=== PATIENT | female | born 1945 | race Caucasian/White ===

== ENCOUNTER → 2017-11-14 09:00 | Outpatient (CLI) | payer MEDICARE, OTHER, SELFPAY | PROVIDERS: PCP Nurse Practitioner Family; Visit Provider Orthopaedic Surgery | DX: Z47.1 Aftercare following joint replacement surgery (principal); Z96.652 Presence of left artificial knee joint; I10 Essential (primary) hypertension | CPT/HCPCS: 99213 ==

== ENCOUNTER → 2018-11-13 08:39 | Outpatient (BNVA) | payer MEDICARE, OTHER, SELFPAY | PROVIDERS: PCP Nurse Practitioner Family; Visit Provider Orthopaedic Surgery | DX: Z47.1 Aftercare following joint replacement surgery (principal); Z96.652 Presence of left artificial knee joint; R20.0 Anesthesia of skin | CPT/HCPCS: 99213 ==

== ENCOUNTER 2020-06-10 03:33 | Outpatient (CLI) | payer MEDICARE, OTHER, SELFPAY ==
--- NOTE | 2020-06-10 14:28 | DI.MAMMO_ITS ---
EXAM: MG MAMMO SCREENING 60 MIN DUR CLINICAL HISTORY: SCREENING, PERSONAL H/O BREAST CA,Z85.3 TECHNIQUE: Mammograms were interpreted according to the usual protocol including computer analysis w [employer] CAD system, tomosynthesis and C-view imaging. COMPARISON: 2011 through 2017 FINDINGS: The breasts are composed of scattered fibroglandular densities, Breast Density category B. No suspicious masses or suspicious microcalcifications are seen. There has been interval decrease in size in the area of post lumpectomy scarring when compared with the previous exam. Coarse benign ca lcifications are again noted in the right breast. A biopsy marker clip is seen in the subareolar reg ion. No skin thickening or abnormal axillary lymph nodes are seen. The left breast shows no evidence of mass, suspicious calcifications or changes. IMPRESSION: BI-RADS Cat 2 - Benign FindingsCategory 1, Negative mammogram Yearly screening mammography is recommended. Breast Density - Category B, scattered fibroglandular densities. A negative radiographic report should not delay biopsy if a dominant or clinically suspicious mass is present. Up to ten percent of cancers are not identified on mammography. A negative report may reinforce clinical impression. Adenosis and dense breasts may obscure an underlying neoplasm. False positive reports average 6 to 10%. Patient will receive a letter notifying them of these results.
== END 2020-06-10 03:53 ==
PROVIDERS: PCP Nurse Practitioner Family; Visit Provider Nurse Practitioner Family
DX: Z12.31 Encounter for screening mammogram for malignant neoplasm of breast (principal); Z85.3 Personal history of malignant neoplasm of breast
CPT/HCPCS: 77063; 77067

== ENCOUNTER 2020-11-02 02:52 | Outpatient (CLI) | payer MEDICARE, OTHER, SELFPAY ==
--- NOTE | 2020-11-02 | DI.US_ITS ---
Exam(s) US SOFT TISSUE EXTREMITY EXAM: US SOFT TISSUE EXTREMITY CLINICAL HISTORY: LOCALIZED SWELLING,RT LEG,R22.42. TECHNIQUE: Ultrasound was performed using standard protocol. COMPARISON: No exams were available for comparison FINDINGS: Sonographic assessment utilizing grayscale and color Doppler imaging was performed and targeted to th e area of clinical concern. The patient notes a prior tractor accident. The palpable abnormality corresponds to a 5.2 x 2.8 x 4.4 centimeter fluid collection which could be posttraumatic. DATA REPOSITORY:
== END 2020-11-02 03:12 ==
PROVIDERS: PCP Nurse Practitioner Family; Visit Provider Physician Assistant Medical
DX: R22.42 Localized swelling, mass and lump, left lower limb (principal)
CPT/HCPCS: 76881

== ENCOUNTER → 2020-11-15 13:44 | Outpatient (BNVA) | payer MEDICARE, OTHER, SELFPAY | PROVIDERS: PCP Nurse Practitioner Family; Referring Provider Nurse Practitioner Family; Visit Provider Surgery | DX: T79.2XXA Traumatic secondary and recurrent hemorrhage and seroma, initial encounter (principal); X58.XXXA Exposure to other specified factors, initial encounter | CPT/HCPCS: 10160; 99202; 99213 ==

== ENCOUNTER → 2020-11-22 13:51 | Outpatient (BNVA) | payer MEDICARE, OTHER, SELFPAY | PROVIDERS: PCP Nurse Practitioner Family; Referring Provider Nurse Practitioner Family; Visit Provider Surgery | DX: S70.11XA Contusion of right thigh, initial encounter (principal); X58.XXXA Exposure to other specified factors, initial encounter | CPT/HCPCS: 99213 ==

== ENCOUNTER 2020-12-06 02:03 | Outpatient (CLI) | payer MEDICARE, OTHER, SELFPAY ==
[2020-12-06 11:15] LABS: Source Nasal/Nares
[2020-12-06 14:14] LABS: COVID-19 PCR Negative (Negative)
== END 2020-12-06 02:04 | disposition home or self-care (01) ==
LOC: LBO 02:04
PROVIDERS: PCP Nurse Practitioner Family; Visit Provider Surgery
DX: Z20.822 Contact with and (suspected) exposure to COVID-19 (principal); Z01.818 Encounter for other preprocedural examination
CPT/HCPCS: 87635

== ENCOUNTER 2020-12-08 17:40 | Outpatient (REF) | payer MEDICARE, OTHER, SELFPAY ==
[2020-12-08 15:45] LABS: Anion Gap 7.7 mmol/L (3-11); BUN 22 mg/dL (7-18); CO2 31.3 mmol/L (21.0-32.0); CREATININE 1.1 mg/dL (0.55-1.02); Calcium 9.7 mg/dL (8.5-10.1); Chloride 104 mmol/L (98-107); Estimated GFR 48.55 (mL/min/1.73m2); Glucose 82 mg/dL (74-106); Potassium 3.6 mmol/L (3.5-5.1); Sodium 143 mmol/L (136-145)
== END 2020-12-08 17:41 | disposition home or self-care (01) ==
LOC: NCHCN 17:40
PROVIDERS: PCP Nurse Practitioner Family; Visit Provider Nurse Practitioner Family
DX: I10 Essential (primary) hypertension (principal)
CPT/HCPCS: 80048

== ENCOUNTER 2020-12-20 03:23 | Outpatient (CLI) | payer MEDICARE, OTHER, SELFPAY ==
[2020-12-20 09:04] LABS: Source Nasal/Nares
[2020-12-20 12:42] LABS: COVID-19 PCR Negative (Negative)
== END 2020-12-20 03:24 | disposition home or self-care (01) ==
PROVIDERS: PCP Nurse Practitioner Family; Visit Provider Surgery
DX: Z20.822 Contact with and (suspected) exposure to COVID-19 (principal); Z01.818 Encounter for other preprocedural examination
CPT/HCPCS: 87635

== ENCOUNTER 2020-12-21 07:03 | Day surgery (SDC) | payer MEDICARE, OTHER, SELFPAY ==
[2020-12-21] VITALS (8 sets, daily range): BP systolic 83–139; BP diastolic 42–80; PULSE 68–84; RESP 12–16; TEMP 36.3–36.6; O2SAT 95–100; BMI 38.7
--- NOTE | 2020-12-21 06:59 | W.ANESPRE ---
General Info Date of Service Date Performed: 12/21/20 Height: 4 ft 10 in Weight: 84.085 kg Body Mass Index (BMI): 38.7 Surgical Procedure: Operation Date: 12/21/20 08:40 Proposed Procedures Side Surgeon p evacuation of rt inner thigh hematoma Lenora Evans MD Meds Allergies and Home Medications Allergies Allergy/AdvReac Type Severity Reaction Status Date / Time No Known Drug Allergies Allergy Unverified 12/21/20 07:21 Home Medication Medication Instructions Recorded calcium citrate-vitamin D2 1 ea PO DAILY 04/07/15 cyanocobalamin (vitamin B-12) 1,000 mcg PO DAILY 04/07/15 [id number]-eihnywkj-kefghm 1 ea PO DAILY 04/07/15 [Vision Plus Lutein Vitamin Tab] ascorbate calcium (vitamin C) 500 mg PO DAILY 11/07/15 cetirizine [Allergy] 10 mg PO DAILY 11/07/15 zxfxbhfl-rtok-UM-calcium-mins 1 ea PO DAILY 11/07/15 [Women's Daily Caplet] amlodipine 5 mg tablet 5 mg PO DAILY 11/09/20 aspirin 81 mg chewable tablet 81 mg PO DAILY 11/09/20 cholecalciferol (vitamin D3) 50 50 mcg PO DAILY 11/09/20 mcg (2,000 unit) capsule hydrochlorothiazide 25 mg tablet 25 mg PO DAILY 11/09/20 Current Visit Medications: Current Medications Generic Name Dose Route Start Last Admin Trade Name Freq PRN Reason Stop Dose Admin Ringer's Solution 1,000 mls @ 80 mls/hr 12/21/20 06:00 IV 01/19/21 23:59 INFUSION CLARI IV Miscellaneous Supplies 1 each 12/21/20 06:00 Iv Access IV 01/19/21 23:59 DIRECTED CLARI Sodium Chloride 0 ml 12/21/20 06:00 Normal Saline Flush 10 Ml Syr IV 01/19/21 23:59 PRN PRN Sodium Chloride 0 ml 12/21/20 06:00 Normal Saline 10 Ml Vial IJ 01/19/21 23:59 DIRECTED PRN Sterile Water 0 ml 12/21/20 06:00 Water,Injection,Sterile 10 Ml Vial IJ 01/19/21 23:59 DIRECTED PRN PFSH Active Problems Active Problems: Problem Status Onset Code Hematoma T14.8XXA Status post total knee replacement, left 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 Medical History Medical History Bakers cyst Breast cancer Hematoma Hypertension Localized swelling of lower leg Varicose vein of leg Surgical History Surgical History History of left knee replacement Tobacco Smoking/Tobacco Use Status: Former Tobacco Use Alcohol Alcohol Intake: never Substance Use Substance use: Never Substance use type: does not use Vital Signs and Lab Results Lab Results Blood Type / Crossmatch: No Data to Display Complete Blood Count: No Data to Display Complete Metabolic Panel: Sodium Level 143 mmol/L (136-145) 12/08/20 08:47 12/08/20 Potassium Level 3.6 mmol/L (3.5-5.1) 12/08/20 08:47 12/08/20 Chloride Level 104 mmol/L (98-107) 12/08/20 08:47 12/08/20 Carbon Dioxide Level 31.3 mmol/L (21.0-32.0) 12/08/20 08:47 12/08/20 Blood Urea Nitrogen 22 mg/dL (7-18) H 12/08/20 08:47 12/08/20 Creatinine 1.1 mg/dL (0.55-1.02) H 12/08/20 08:47 12/08/20 Estimated GFR/1.73 m2 48.55 (mL/min/1.73m2) 12/08/20 08:47 12/08/20 Calcium Level 9.7 mg/dL (8.5-10.1) 12/08/20 08:47 12/08/20 Glucose Level 82 mg/dL (74-106) 12/08/20 08:47 12/08/20 Liver Function Panel: No Data to Display Coagulation Panel: No Data to Display Cardiac Panel: No Data to Display Arterial Blood Gas: No Data to Display Venous Blood Gas: No Data to Display Pancreas Panel: No Data to Display Thyroid Panel: No Data to Display Infectious Disease: Coronavirus (COVID-19)(PCR) Negative (Negative) 12/20/20 08:46 12/20/20 Coronavirus 2019 Source Nasal/Nares 12/20/20 08:46 12/20/20 Blood Cultures: No Data to Display Toxicology Panel: No Data to Display Anesthesia Assessment and Plan Anesthesia History Personal History: No History of Anesthesia Complications Family History: No Family History of Anesthesia Complications Exercise Tolerance Exercise Tolerance: Metabolic Equivalents>4 Pertinent Negatives Pertinent Negatives: No Symptoms of GERD, No Major Cardiovascular Symptoms or Complaints, No Major Pulmonary Symptoms or Complaints and No History of CVA/TIA Cardiac & Pulmonary Exam Cardiac Exam: Normal S1/S2 Heart Sounds Pulmonary Exam: Clear Bilateral Breath Sounds Airway Exam Known Difficult Airway: No Mallampati Class: 2 Mouth Opening: Normal (> 3cm) Thyromental Distance: Greater than 3 cm Neck Range of Motion: Full ROM Neck Circumference: Normal Teeth Condition: Normal Dentition, Removable Dentures/Plates Upper and Removable Dentures/Plates Lower ASA Classification ASA Score: ASA 2 Emergency Case?: No NPO Status NPO Status: NPO Clears >2 hours, Solids >8 hours Anesthesia Plan Resuscitation Status: Full Code Anesthesia Technique: General Anesthesia Airway Planned: Natural Airway Monitors Used: Standard Monitors
--- NOTE | 2020-12-21 07:08 | W.PM.OP ---
Date of service: 12/21/20 Time of Service: 11:11 Operative Note Operative Note DATE OF PROCEDURE: 12/21/20 PRE-OP DIAGNOSIS: Hematoma right thigh POST-OP DIAGNOSIS: other (5 cm cyst with serous fluid) PROCEDURE: Excision of cyst capsule SURGEON: Lenora Evnas ANESTHESIA TYPE: Local By Surgeon and General:No Airway Refer to Anesthesia Record ESTIMATED BLOOD LOSS: 25 PATHOLOGY: other (cyst capsule) COMPLICATIONS: None Patient was transported to: same day Patient's condition: stable Indications: Unfortunately Ashlyn has now developed a hematoma at the site of the seroma. We discussed 2 options. The first is to just leave the area alone and her body will reabsorb the blood over time. This may take a few months. I also explained to Ashlyn that I do not think that her right knee pain has anything to do with the seroma or now the hematoma. Her's second option is to have the hematoma surgically evacuated. I would want to do this in the operating room so that I would have cautery to make sure that it is nice and dry and she does not develop another hematoma afterwards. She would like to proceed with surgical evacuation of the hematoma. After she has healed from this if she continues to complain of right knee pain I will get some x-rays and refer her to orthopedics. Risks benefits and complications of the procedure were reviewed with her. Complications include but are not limited to infection, seroma or hematoma formation, wound dehiscence. Her questions were answered to her satisfaction and she wished to proceed. Proceed with evacuation of right inner thigh hematoma. Findings: 5 cm cyst attached to the vastus internus Procedure Description: After informed consent was obtained the patient was placed Taken to the Operating room and placed in a supine position. Her right leg was flexed and a towel was placed under her knee. The patient was placed under deep sedation by anesthesia. A time out was done. The patients name, , procedure to be performed and site, allergies to medications, antibiotic prophilaxis were reviewed. Fire risk was assessed. The skin was then prepped and draped in a sterile surgical fashion. Exparel mixed 50/50 with 0.5% Bupivocaine with epi was injected over the palpable hematoma. An incision was made with a 15 blade. Dissection was done down to a capsule with cautery. The capsule was opened and there was serous fluid. The capsule was then dissected out with cautery. The capsule was noted to be attached to the vastus internus. No communication was noted with the knee joint. The capsule was sent to pathology. The wound was irrigated and dried. There was a small amount of bleeding and this was stopped with cautery. Floseal was then placed into the cavity. The subcutaneous tissue was re-approximated with 3-0 Vicryl interrupted sutures. The dermis was closed with a running 4-0 Vicryl suture. Skin was cleaned and dried and mastasol and steri-strips were applied. 4x4 were applied and secured with tape. The patient tolerated the procedure well and there were no immediate complications. Needle and sponge counts were correct at the end of the case.
--- NOTE | 2020-12-21 07:09 | W.PM.DSUDISC ---
Discharge Plan Disposition Patient Disposition: HOME Condition: Good Discharge Details Reason For Visit: Evacuation of hematoma Attending Provider: Lenora Evans Primary Care Provider: Zoe Valadez Home Meds and New Rx's Prescriptions: Continued cyanocobalamin (vitamin B-12) 1,000 MCG tablet 1,000 mcg PO DAILY RF: 0 calcium citrate-vitamin D2 1 EACH tablet 1 ea PO DAILY RF: 0 Vision Plus Lutein 1 EACH tablet 1 ea PO DAILY RF: 0 hydrochlorothiazide 25 mg tablet 25 mg PO DAILY RF: 0 cholecalciferol (vitamin D3) 50 mcg (2,000 unit) capsule 50 mcg PO DAILY RF: 0 amlodipine 5 mg tablet 5 mg PO DAILY RF: 0 aspirin 81 mg tablet,chewable 81 mg PO DAILY RF: 0 cetirizine [Allergy Relief (cetirizine)] 10 MG tablet 10 mg PO DAILY RF: 0 ascorbate calcium (vitamin C) 500 MG tablet 500 mg PO DAILY RF: 0 Women's Daily Caplet 1 EACH tablet 1 ea PO DAILY RF: 0 Discharge Instructions Additional Instructions: Activity at Home after surgery: 1. As tolerated Diet, Nutrition, & wound healin. As tolerated Pain Medications: 1. Tylenol 650mg every 6 hours as needed and Ibuprofen 600 mg every 6 hours as needed. You may alternate between the 2 medications every 3 hours 2. If a narcotic has been prescribed take as directed only for breakthrough pain For Constipation: 1. Take Milk of Magnesia or MiraLax as needed for constipation Other: 1. You may shower daily. Do not scrub the incisions 2. Do not soak the incisions for 1 week 3. You may alternate ice and heat as needed for pain and swelling Wound Care: 1. Keep the incisions clean and dry Please call our office if you develop: 1. Fevers >101.5 2. Nausea or Vomiting 3. Worsening pain 4. Redness and thick discharge from the wounds If after hours please call the Hospital at and ask to speak to the on-call surgeon Referrals: Lenora Evans MD [ [facility] STAFF PHYSICIAN] - 12/23/20 9:00 am Activity:: Activity as Tolerated Diet:: As Tolerated Discharge Orders Discharge Orders: Discharge Order (Routine); Ordered 12/21/20 Ordered By: Lenora Evans
[2020-12-21] MEDS: Lactated Ringers 1,000 ML 80 ML IV (08:00)
--- NOTE | 2020-12-21 09:15 | SOFT_PTH ---
PATIENT: Ashlyn Kenny LOC: [facility] U#:[id number] AGE/SX: 75/F ROOM: RE12/21/[address]: Lenora Evans MD : 1945 BED: DIS: 12/21/2020 SPEC #: [id number] RECD: 12/21/20 12:47 STATUS: PEPPER RELinda #: [id number] CHAD: 12/21/20 09:[address]: Lenora Evans DEPT: Surgical Specimen RECD BY: Michelle Velasquez ENTERED: 12/21/20 12:48 SP TYPE: SOFT OTHR DR: Zoe Valadez Tissues: 1 - SOFT TISSUE-CYST(NOT LIPOMA) Procedures: GROSS AND MICRO LEVEL 3 Comments: [id number]
--- NOTE | 2020-12-21 10:53 | W.ANESPOSTOP ---
Postoperative Evaluation Date, Time and Location Date Performed: 12/21/20 Time Performed: 10:29 Patient Location: PACU Vital Signs Most Recent Imported Vital Signs: Most Recent Vital Signs Temp Pulse Resp BP Pulse Ox 36.6 C 74 16 113/69 95 12/21/20 10:29 12/21/20 10:12/21/20 10:12/21/20 10:12/21/20 10:29 Pain Score Most Recent Pain Score: Most Recent Pain Score Pain Level 0 12/21/20 10:29 Assessment Mental Status: Awake (Alert & Oriented to Patient Baseline) Airway and Respiratory Function: Patent airway with normal (patient baseline) respiratory exam Cardiovascular Function: Hemodynamically Stable Hydration Status: Adequately Hydrated Nausea & Vomiting: No Nausea or Vomiting Pain: Pt. Denies Any Pain Peripheral Nerve Block: Patient did not receive a nerve block
== END 2020-12-21 11:25 | disposition home or self-care (01) ==
PROVIDERS: PCP Nurse Practitioner Family; Visit Provider Surgery
PROC: (CPT 27327; principal; 2020-12-21 08:30)
DX: M62.89 Other specified disorders of muscle (principal); I10 Essential (primary) hypertension; Z96.652 Presence of left artificial knee joint
CPT/HCPCS: 27327; 88305; 88304; J0690; J1100; J2001; J2405

== ENCOUNTER → 2020-12-23 08:50 | Outpatient (BNVA) | payer MEDICARE, OTHER, SELFPAY | PROVIDERS: PCP Nurse Practitioner Family; Referring Provider Nurse Practitioner Family; Visit Provider Surgery | DX: Z48.817 Encounter for surgical aftercare following surgery on the skin and subcutaneous tissue (principal) ==

== ENCOUNTER → 2020-12-30 07:39 | Outpatient (BNVA) | payer MEDICARE, OTHER, SELFPAY | PROVIDERS: PCP Nurse Practitioner Family; Referring Provider Nurse Practitioner Family; Visit Provider Physical Therapy Assistant | DX: Z48.817 Encounter for surgical aftercare following surgery on the skin and subcutaneous tissue (principal) ==

== ENCOUNTER → 2021-01-06 08:07 | Outpatient (BNVA) | payer MEDICARE, OTHER, SELFPAY | PROVIDERS: PCP Nurse Practitioner Family; Referring Provider Nurse Practitioner Family; Visit Provider Surgery | DX: Z48.817 Encounter for surgical aftercare following surgery on the skin and subcutaneous tissue (principal) ==

== ENCOUNTER 2021-02-06 16:51 | Emergency (ER) | payer MEDICARE, OTHER, SELFPAY ==
[2021-02-06 16:57] VITALS: BP 151/58; PULSE 72; RESP 18; TEMP 36.4; O2SAT 96
--- NOTE | 2021-02-06 17:08 | ED.GENADUL_ITS ---
Discharge Plan Disposition Patient Disposition: HOME Condition: Stable Discharge Details Clinical Impression: Accumulation of fluid in tissues, Cellulitis Primary Care Provider: Zoe Valadez ED Provider: Cele Mahmood Home Meds and New Rx's Prescriptions: New cephalexin 500 mg capsule 500 mg PO QID 5 Days Qty: 20 RF: 0 Continued cyanocobalamin (vitamin B-12) 1,000 MCG tablet 1,000 mcg PO DAILY RF: 0 calcium citrate-vitamin D2 1 EACH tablet 1 ea PO DAILY RF: 0 Vision Plus Lutein 1 EACH tablet 1 ea PO DAILY RF: 0 hydrochlorothiazide 25 mg tablet 25 mg PO DAILY RF: 0 cholecalciferol (vitamin D3) 50 mcg (2,000 unit) capsule 50 mcg PO DAILY RF: 0 amlodipine 5 mg tablet 5 mg PO DAILY RF: 0 aspirin 81 mg tablet,chewable 81 mg PO DAILY RF: 0 cetirizine [Allergy Relief (cetirizine)] 10 MG tablet 10 mg PO DAILY RF: 0 ascorbate calcium (vitamin C) 500 MG tablet 500 mg PO DAILY RF: 0 Women's Daily Caplet 1 EACH tablet 1 ea PO DAILY RF: 0 Discharge Instructions Instructions: Cephalexin (By mouth), Cellulitis (ED) Additional Instructions: Your ultrasound was concerning for a large area of fluid collection. There is no evidence to suggest a blood clot. Fluid was aspirated and sent to the lab for culture. Will few days for these results to come back. I am concerned for infection. Please take the Keflex as prescribed. Even if symptoms improve, please continue for the entire course. Please continue with sterile dressing over the wound and Brendon wrap to help depression. I am hoping that this will help prevent quick reaccumulation of fluid. Please call surgical office tomorrow to schedule prompt follow-up appointment for reevaluation this week. Number listed below. If you develop fever/chills, increased pain, spreading of the redness or other new/worsening symptoms please seek care urgently once again. Referrals: Lenora Evans MD [ [facility] STAFF PHYSICIAN] - Discharge Data Discharge Date/Time-TO BE ENTERED AT DEPARTURE: 02/06/21 21:01 Medical Decision Making Patient is a pleasant 75-year-old female presented with chief complaint of right lower extremity pain. Patient underwent surgical intervention to remove a growth on her right inner thigh on 12/21/2020. Patient states that initially she was recovering well. However, tomorrow began having increased pain, erythema. She contacted surgery and was not able to be seen as of yet. She denies any fevers or chills. Denies any constitutional symptoms. However, states swelling and pain has continued to increase today. Patient was last seen by Dr. Evans in the postoperative. On 01/06/2021 at that time, patient was doing quite well with no evidence of infection. On exam, patient appears nontoxic. Vital signs are stable. She is a large area approximately the size of the cantaloupe that is red with ill-defined borders. Quite tender. Firm but no focal area of fluctuance. Considered infection with likely abscess. Also concern for potential DVT given the size of the area of swelling to posterior/medial thigh. Will obtain RLE DVT study. Patient does not appear septic, she is not have evidence to suggest other systemic illness. I do not feel that labs are appropriate this time. Area seems quite focal and that this has been a fairly short time of symptom onset. With patient persmission, photos of the area of swelling was photographed and sent to Dr. Evans. Spoke with Dr. Evans, she recommends needle aspiration followed by oral antibiotics. Does not recommend incision and drainage at this time. Sounds to be associated with her complicated recent excision. FINDINGS: Right deep veins: Interrogation of the right common femoral, superficial femoral, popliteal, peroneal, and posterior tibial veins reveals no evidence of thrombus. Right superficial veins: The right greater saphenous vein appears patent through a short visualized portion near the saphenofemoral venous junction. Soft tissues: There is a 6.3 cm x 8.3 cm x 9.6 cm complex fluid collection in the distal aspect of the medial right thigh. There is diffuse fibrillar internal material characteristic of degrading blood products suggesting an evolving hematoma. No associated color flow is seen. Superimposed infection is not excluded by imaging. Lymph nodes: An enlarged lymph node in the right groin measures 1.1 cm x 3.1 cm x 2.6 cm. A normal fatty hilum is well demonstrated. IMPRESSION: 1. No sonographic evidence of DVT, right lower extremity. 2. 6.3 cm x 8.3 cm x 9.6 cm complex fluid collection in the distal aspect of the medial right thigh with fibrillar internal material characteristic of degraded blood products. The appearance suggests an evolving hematoma. That said, superimposed infection is not excludable by imaging. Discussed findings with the patient. Discussed recommendations from Dr. Evans. Patient and I discussed risks/benefits as well as expected procedural steps associated with needle drainage. Plan for fluid collected to be sent for cultu re as advised by Dr. Evans. Patient gives verbal consent to drainage. Please see procedure note. Procedure was performed using standard sterile technique. Area was cleansed with Hibiclens. Anesthetized. 18-gauge was used to aspirate fluid. 45 cc a yellow serosanguinous fluid was removed. No bloody or purulent drainage was noted. Likely seroma fluid. We will send for culture. sterile dressing applies, will apply BRENDON to help prevent reaccumulation. As she does have some erythema and warmth, I do remain concerned for infection and will treat with antibiotics. Strict return precautions were discussed with the patient. Advised contact surgery tomorrow to schedule follow-up appointment. All of her questions and concerns were addressed and she is in agreement this plan HPI General Mode of arrival: ambulatory . Date/Time Provider Initiated Documentation: 02/06/21 17:03 . Limitations to Documentation: no limitations . Information obtained by: RN notes reviewed and old records reviewed . History of Present Illness 75 year old F presents to the emergency department with the chief complaint of RLE swelling, erythema, pain, described as severe, with intensity rated at 10. Quality is described as aching, and is localized to the right. Patient reports no radiation. Patient started experiencing this day(s) (1) and it has been constant. Immobilization improves symptom(s), Movement worsens symptoms . Patient notes no other symptoms.. Patient did receive the following treatments prior to arrival, other (APAP) Related Data Home Medications Medication Instructions Recorded Confirmed Vision Plus Lutein 1 ea PO DAILY 04/07/15 01/06/21 calcium citrate-vitamin D2 1 ea PO DAILY 04/07/15 01/06/21 cyanocobalamin (vitamin B-12) 1,000 mcg PO DAILY 04/07/15 01/06/21 Women's Daily Caplet 1 ea PO DAILY 11/07/15 01/06/21 ascorbate calcium (vitamin C) 500 mg PO DAILY 11/07/15 01/06/21 cetirizine [Allergy Relief 10 mg PO DAILY 11/07/15 01/06/21 (cetirizine)] amlodipine 5 mg tablet 5 mg PO DAILY 11/09/20 01/06/21 aspirin 81 mg chewable tablet 81 mg PO DAILY 11/09/20 01/06/21 cholecalciferol (vitamin D3) 50 50 mcg PO DAILY 11/09/20 01/06/21 mcg (2,000 unit) capsule hydrochlorothiazide 25 mg tablet 25 mg PO DAILY 11/09/20 01/06/21 cephalexin 500 mg PO QID 5 Days #20 cap 02/06/21 Previous Rx's Medication Instructions Recorded cephalexin 500 mg PO QID 5 Days #20 cap 02/06/21 Allergies Allergy/AdvReac Type Severity Reaction Status Date / Time No Known Drug Allergies Allergy Unverified 02/06/21 17:02 General Stated Complaint: RashLesion JUVE: 4 Review of Systems Constitutional Constitutional: Reports as per HPI, Denies chills and Denies fever(s) Musculoskeletal Musculoskeletal: Reports as per HPI Integumentary/Breasts Skin/Breast: Reports as per HPI Neurologic Neurologic: Reports as per HPI, Denies sensory deficit and Denies paresthesias [facility] Active Problem List Hematoma (Acute) Status post total knee replacement, left (Acute) Medical History Bakers cyst Breast cancer Cyst of soft tissue Hypertension Localized swelling of lower leg Varicose vein of leg Surgical History History of left knee replacement Social History Smoking/Tobacco Use Status: Former Tobacco Use Quit Date: 03/25/08 Smoking risk assessment performed?: Yes Alcohol Intake: current Alcohol Intake frequency: holidays/special occasions only Alcohol type: beer Drug use: Never Substance use type: does not use Do you feel safe at home: Yes Do you feel safe in your relationship?: Yes Additional Social history: lives alone Exam Const General: cooperative, healthy appearing, comfortable, no acute distress and well developed Nutritional Appearance: well nourished and overweight Orientation: alert and awake Resp Effort & Inspection: normal respiratory effort, able to speak in complete senten lesa and no respiratory distress Cardio Rate: regular rate Rhythm: regular rhythm Skin General skin exam: erythema and induration Neuro General: patient alert and patient awake Cognition: normal cognition Speech: speech normal Gait: antalgic Sensory Exam: no sensory deficits noted Extrem Knee images: 1. Area of swelling, erythema, warmth and tenderness. Area is palpated to have a large wound. The feels fluid-filled. However, it is quite firm and is not necessarily fluctuant. She is to distal pulses. Good range of motion. No pain to palpation of the knee. No effusion. No erythema spanning over the knee joint. Calf is soft and nontender. She is 2+ distal pulses, sensation is intact. No opening in the skin is visualized. Her previous incision appears to be well-healed. Psych Appearance: grossly normal and well kempt Mental Status: mental status grossly normal Speech and Movement: speech and movement normal Course Vital Signs Vital signs: Vital Signs Temperature 36.4 C L 02/06/21 16:57 Pulse 72 02/06/21 16:57 Respiratory Rate 18 02/06/21 16:57 Blood Pressure 151/58 H 02/06/21 16:57 Pulse Oximetry 96 02/06/21 16:57 Temperature 36.4 C L 02/06/21 16:57 Temperature Source Temporal Artery Scan 02/06/21 16:57 Pulse 72 02/06/21 16:57 Respiratory Rate 18 02/06/21 16:57 Respiratory Effort Non-Labored 02/06/21 17:03 Blood Pressure 151/58 H 02/06/21 16:57 Pulse Oximetry 96 02/06/21 16:57 Oxygen Delivery Method Room Air 02/06/21 16:57 Oxygen Flow Rate 0 02/06/21 16:57 Pain Level 10 02/06/21 16:57
--- NOTE | 2021-02-06 18:45 | DI.US_ITS ---
Exam(s) US LOWER EXTREMITY VENOUS RT EXAM: US LOWER EXTREMITY VENOUS RT CLINICAL HISTORY: swelling RLE. TECHNIQUE: Lower extremity venous ultrasound performed using grayscale, color-flow, and spectral Do ppler analysis. COMPARISON: No exams were available for comparison FINDINGS: The common femoral, femoral and popliteal veins demonstrate normal compressibility, augmentation, and color Doppler. The posterior tibial veins are patent. No saphenous vein thrombosis or other superfi cial venous thrombosis is seen. Fluid collection with debris measuring 6.3 x 8.3 x 9.6 cm consistent with an of all vein hematoma. IMPRESSION: Soft tissue hematoma.. No evidence of DVT. DATA REPOSITORY:
[2021-02-06 19:52] VITALS: BP 119/56; PULSE 69; RESP 18; O2SAT 96
--- NOTE | 2021-02-06 20:22 | DI.VRAD_ITS ---
PROCEDURE INFORMATION: Exam: US Duplex Right Lower Extremity Veins, Limited Exam date and time: 02/06/2021 6:53 PM Age: 75 years old Clinical indication: Swelling (edema) of limb; Lower extremity, right; Leg, lower; Prior surgery; Surgery date: 1-6 months; Surgery type: Lesion removed from RT medial thigh in November 2020. ; Patient HX: PT had lesion removed from RT medial thigh in November. PT now has large fluid collection and localized swelling in the same area. Area is red and painful. TECHNIQUE: Imaging protocol: Real-time Duplex ultrasound of the Right Lower Extremity with 2-D vasquez scale, color Doppler flow and spectral waveform analysis with image documentation. Limited exam was focused on the right lower extremity veins. COMPARISON: US SOFT TISSUE EXTREMITY 11/02/2020 1:53 PM FINDINGS: Right deep veins: Interrogation of the right common femoral, superficial femoral, popliteal, peroneal, and posterior tibial veins reveals no evidence of thrombus. Right superficial veins: The right greater saphenous vein appears patent through a short visualized portion near the saphenofemoral venous junction. Soft tissues: There is a 6.3 cm x 8.3 cm x 9.6 cm complex fluid collection in the distal aspect of the medial right thigh. There is diffuse fibrillar internal material characteristic of degrading blood products suggesting an evolving hematoma. No associated color flow is seen. Superimposed infection is not excluded by imaging. Lymph nodes: An enlarged lymph node in the right groin measures 1.1 cm x 3.1 cm x 2.6 cm. A normal fatty hilum is well demonstrated. IMPRESSION: 1. No sonographic evidence of DVT, right lower extremity. 2. 6.3 cm x 8.3 cm x 9.6 cm complex fluid collection in the distal aspect of the medial right thigh with fibrillar internal material characteristic of degraded blood products. The appearance suggests an evolving hematoma. That said, superimposed infection is not excludable by imaging. Dictated and Authenticated by: Robby Pruitt MD. Ordering:JERZY Oakley MD
[2021-02-06] MEDS: Cephalexin 500 MG CAP, 4 CAPS/BTL PO (21:04)
== END 2021-02-06 21:01 | disposition home or self-care (01) ==
PROVIDERS: Emergency Provider Physician Assistant; PCP Nurse Practitioner Family
DX: L03.115 Cellulitis of right lower limb (principal)
CPT/HCPCS: 10160; 99284; 87070; 87205; 93971; 99283

== ENCOUNTER → 2021-02-09 07:48 | Outpatient (BNVA) | payer MEDICARE, OTHER, SELFPAY | PROVIDERS: PCP Nurse Practitioner Family; Referring Provider Nurse Practitioner Family; Visit Provider Surgery | DX: L76.34 Postprocedural seroma of skin and subcutaneous tissue following other procedure (principal) | CPT/HCPCS: 10140; 99213 ==

== ENCOUNTER → 2021-02-14 08:04 | Outpatient (BNVA) | payer MEDICARE, OTHER, SELFPAY | PROVIDERS: PCP Nurse Practitioner Family; Referring Provider Nurse Practitioner Family; Visit Provider Surgery | DX: Z48.817 Encounter for surgical aftercare following surgery on the skin and subcutaneous tissue (principal); L76.34 Postprocedural seroma of skin and subcutaneous tissue following other procedure | CPT/HCPCS: 99212 ==

== ENCOUNTER → 2021-02-21 07:49 | Outpatient (BNVA) | payer MEDICARE, OTHER, SELFPAY | PROVIDERS: PCP Nurse Practitioner Family; Referring Provider Nurse Practitioner Family; Visit Provider Surgery | DX: L76.34 Postprocedural seroma of skin and subcutaneous tissue following other procedure (principal) | CPT/HCPCS: 99212 ==

== ENCOUNTER 2021-02-21 10:07 | Outpatient (REF) | payer MEDICARE, OTHER, SELFPAY | END 2021-02-21 10:08 | disposition home or self-care (01) | LOC: LBN 10:07 | PROVIDERS: PCP Nurse Practitioner Family; Visit Provider Surgery | DX: L76.34 Postprocedural seroma of skin and subcutaneous tissue following other procedure (principal) | CPT/HCPCS: 87070; 87205 ==

== ENCOUNTER 2021-03-03 12:34 | Outpatient (CLI) | payer MEDICARE, OTHER, SELFPAY ==
--- NOTE | 2021-03-03 09:00 | DI.US_ITS ---
Exam(s) US LOWER EXTREMITY VENOUS RT EXAM: US LOWER EXTREMITY VENOUS RT CLINICAL HISTORY: Cellulitis and new swelling. R/O DVT, RT LEG SWELLING, M79.89 TECHNIQUE: Right lower extremity venous ultrasound performed using grayscale, color-flow, and spectr al Doppler analysis. COMPARISON: US US LOWER EXTREMITY VENOUS RT from 02/06/2021 FINDINGS: The right common femoral, femoral and popliteal veins demonstrate normal compressibility, augmentatio n, and color Doppler. The posterior tibial veins are patent. The saphenofemoral junction is unremark able. There is no evidence of a Martines cyst. There is a 6.7 x 3.7 x 6.2 cm complex loculated fluid c ollection at the surgical site in the medial distal right thigh. There is communication to the skin surface. IMPRESSION: 1. No DVT. 2. 6.7 x 3.7 x 6.2 cm complex loculated fluid collection in the soft tissues at the surgical site. T here does appear to be a communication to the skin surface. Primary diagnostic concern is for a subc utaneous abscess. Postsurgical hematoma or seroma cannot be entirely excluded. DATA REPOSITORY:
== END 2021-03-03 12:54 ==
PROVIDERS: PCP Nurse Practitioner Family; Visit Provider Surgery
DX: Z48.817 Encounter for surgical aftercare following surgery on the skin and subcutaneous tissue (principal); M79.89 Other specified soft tissue disorders; L03.90 Cellulitis, unspecified; R60.0 Localized edema
CPT/HCPCS: 99213; 93971

== ENCOUNTER → 2021-10-31 02:43 | Outpatient (CLI) | payer MEDICARE, OTHER, SELFPAY ==
--- NOTE | 2021-10-31 14:05 | DI.US_ITS ---
Exam(s) US BREAST RT LIMITED MG MAMMO DIAGNOSTIC BI US BREAST LT LIMITED EXAM: MG MAMMO DIAGNOSTIC BI CLINICAL HISTORY: PERSONAL H/O BREAST CA, Z85.3, BILATERAL BREAST LUMPS, N63.0. TECHNIQUE: Craniocaudal and mediolateral oblique Full Field Digital Mammography views with Computer Aided Diagnosis followed by Tomosynthesis and bilateral breast ultrasound. COMPARISON: Mammograms from 2012 through 2020. FINDINGS: Mammography/Tomosynthesis: Patient notes palpable abnormalities in the medial breasts, left greater than right. Masses/Architectural Distortion: There is again noted to be an area of ovoid increased tissue density in the posterior upper outer quadrant of the right breast related to prior lumpectomy. It shows dec reased size over time. Biopsy marker noted in the anterior right breast. Microcalcifictions: No suspicious pleomorphic-type are seen. Skin Thickening/Nipple Retraction: Stable mild skin thickening of the right breast. Left breast US: Echotexture: Normal appearance of the glandular tissue. Shadowing: No suspicious foci. Cyst: None. Solid lesions: None seen. Ductal dilation: None. Fatty tissue is noted in the area indicated by the patient as a palpable abnormality. No discrete li ileana. Right breast US: Echotexture: Normal appearance of the glandular tissue. Shadowing: Large area of shadowing the posterior upper outer quadrant of the right breast related to lumpectomy site. Cyst: None. Solid lesions: None seen. Ductal dilation: None. Fatty tissue corresponds to the location of the palpable abnormality. There is no visible discrete l ipoma. IMPRESSION: 1. No evidence of malignancy is noted. 2. Unless there is more urgent need, follow-up screening mammography is recommended, as per [place] [employer] guidelines. 3. The findings were discussed with the patient on the date of the examination. BI-RADS Category 2 -Negative mammogram with benign findings. Yearly screening mammography is recomm ended. Breast Density - Category A - Almost entirely fatty . A negative radiographic report should not delay biopsy if a dominant or clinically suspicious mass is present. Up to ten percent of cancers are not identified on mammography. A negative report may reinforce clinical impression. Adenosis and dense breasts may obscure an underlying neoplasm. False positive reports average 6 to 10%. Patient will receive a letter notifying them of these results.
== END ==
PROVIDERS: PCP Nurse Practitioner Family; Visit Provider Nurse Practitioner Family
DX: R92.8 Other abnormal and inconclusive findings on diagnostic imaging of breast; Z85.3 Personal history of malignant neoplasm of breast
CPT/HCPCS: 76642; 77062; 77066; G0279

== ENCOUNTER 2021-12-07 21:28 | Outpatient (REF) | payer MEDICARE, OTHER, SELFPAY ==
[2021-12-07 21:26] LABS: HCT 41.2 % (36.0-46.0); HGB 13.1 g/dL (11.2-15.7); MCH 31.2 pg (27.0-33.0); MCHC 31.8 % (32.0-36.0); MCV 98 fL (80-95); MPV 10.5 fL (8.0-11.0); Platelet Count 261 10^3/uL (130-400); RDW 12.3 % (11.7-14.6); RDW-SD 44.5 fL; WBC 5.76 10^3/uL (4.4-10.8)
[2021-12-07 21:42] LABS: Anion Gap 6.7 mmol/L (3-11); BUN 22 mg/dL (7-18); CO2 33.3 mmol/L (21.0-32.0); CREATININE 1.2 mg/dL (0.55-1.02); Calcium 9.8 mg/dL (8.5-10.1); Chloride 105 mmol/L (98-107); Estimated GFR 47.21 (mL/min/1.73m2); Glucose 72 mg/dL (74-106); Potassium 3.6 mmol/L (3.5-5.1); Sodium 145 mmol/L (136-145)
== END 2021-12-07 21:29 | disposition home or self-care (01) ==
LOC: NCHCN 21:28
PROVIDERS: PCP Nurse Practitioner Family; Visit Provider Nurse Practitioner Family
DX: I10 Essential (primary) hypertension (principal)
CPT/HCPCS: 80048; 85027

== ENCOUNTER 2022-12-20 16:45 | Outpatient (REF) | payer MEDICARE, OTHER, SELFPAY ==
[2022-12-20 16:30] LABS: Anion Gap 6.4 mmol/L (3-11); BUN 28 mg/dL (7-18); CO2 29.6 mmol/L (21.0-32.0); CREATININE 1.4 mg/dL (0.55-1.02); Calcium 9.9 mg/dL (8.5-10.1); Chloride 103 mmol/L (98-107); Estimated GFR 38.99 (mL/min/1.73m2); Glucose 93 mg/dL (74-106); Sodium 139 mmol/L (136-145)
== END 2022-12-20 16:46 | disposition home or self-care (01) ==
LOC: NCHCN 16:45
PROVIDERS: PCP Nurse Practitioner Family; Visit Provider Nurse Practitioner Family
DX: I10 Essential (primary) hypertension (principal); N18.31 Chronic kidney disease, stage 3a
CPT/HCPCS: 80048

== ENCOUNTER → 2023-01-28 00:26 | Outpatient (CLI) | payer MEDICARE, SELFPAY ==
--- NOTE | 2023-01-28 | DI.MAMMO_ITS ---
Exam(s) MG MAMMO SCREENING 60 MIN DUR EXAM: MG MAMMO SCREENING 60 MIN DUR CLINICAL HISTORY: SCREENING FOR BREAST CANCER Z12.39,PERSONAL H/O BREAST CA TECHNIQUE: Bilateral full field digital CC and MLO mammographic images were obtained with 3D tomosyn thesis and utilizing computer aided detection (CAD). COMPARISON: Available for comparison. FINDINGS: Masses/Architectural Distortion: The asymmetric density in the upper-outer quadrant of the right elliot st has not changed in size compared to the examination from 2021. Over the course of years, however, it has interval shown interval decrease in size. No masses or areas of architectural distortion are seen. Microcalcifications: No suspicious pleomorphic-type are seen. Skin Thickening/Nipple Retraction: None. IMPRESSION: 1. No significant interval change with no specific features of malignancy noted. 2. Unless there is more urgent need, screening mammography is recommended, as per [place] [employer] guidelines. 3. Findings were discussed with the patient on the date of the examination. BI-RADS Category 2 - Benign Findings Breast Density - Category B - Scattered areas of fibroglandular density Breast density category C or D implies that the patient has dense breast tissue. Dense breast tissue is very common and is not abnormal but dense breast tissue can make it harder to find cancer on a ma mmogram. Also, dense breast tissue may increase their breast cancer risk. This information about the result of the mammogram report was provided to the patient to raise their awareness. Use this report when you speak with the patient about their risks for breast cancer, which includes their family hist ory. At that time, you may recommend for more screening tests (Ultrasound or MRI) as they might be us eful based on their risk. A negative radiographic report should not delay biopsy if a dominant or clinically suspicious mass is present. Up to ten percent of cancers are not identified on mammography. A negative report may reinforce clinical impression. Adenosis and dense breasts may obscure an underlying neoplasm. False positive reports average 6 to 10%. Patient will receive a letter notifying them of these results.
== END ==
PROVIDERS: PCP Nurse Practitioner Family; Visit Provider Nurse Practitioner Family
DX: Z12.31 Encounter for screening mammogram for malignant neoplasm of breast (principal); R92.323 Mammographic fibroglandular density, bilateral breasts
CPT/HCPCS: 77063; 77067

== ENCOUNTER 2023-04-17 15:38 | Outpatient (REF) | payer MEDICARE, SELFPAY ==
[2023-04-17 19:14] LABS: ALT 16 U/L (14-59); AST 14 U/L (15-37); Albumin 3.5 g/dL (3.4-5.0); Alkaline Phosphatase 71 U/L (46-116); Anion Gap 7.4 mmol/L (3-11); BUN 30 mg/dL (7-18); Bilirubin, Total 0.6 mg/dL (0.2-1.0); CO2 28.6 mmol/L (21.0-32.0); CREATININE 1.2 mg/dL (0.55-1.02); Calcium 9.6 mg/dL (8.5-10.1); Chloride 105 mmol/L (98-107); Estimated GFR 46.91 (mL/min/1.73m2); Glucose 101 mg/dL (74-106); Potassium 4.2 mmol/L (3.5-5.1); Sodium 141 mmol/L (136-145); Total Protein 7.5 g/dL (6.4-8.2)
== END 2023-04-17 15:39 | disposition home or self-care (01) ==
LOC: NCHCN 15:38
PROVIDERS: PCP Nurse Practitioner Family; Visit Provider Nurse Practitioner Family
DX: I10 Essential (primary) hypertension (principal)
CPT/HCPCS: 80053

== ENCOUNTER 2023-11-07 11:57 | Outpatient (REF) | payer MEDICARE, SELFPAY ==
--- OUTSIDE RECORDS SUMMARY | 2023-11-07 12:00 | XMS_ITS | Encounter Summary ---
Author Organization [facility] Address [address] [place] [address] Care Team Providers Care Maintenance Repairman Name Role Phone Unknown, Provider Primary Care Provider Reason for Visit * Reason Comments Follow-up Encounter Details Date Type Department Care Team (Late st Contact Info) Description 08/22/2022 10:15 EDT Office Visit [facility] Ophthalmology - [place] [id number] [place] [address] Yayo Chu MD [address] [facility], [facility] [address] [place] [address] Social History Tobacco Use Types Packs/Day Years Used Date Smoking Tobacco: Former Cigarettes Smokeless Tobacco: Never Sex and Gender Information Value Date Recorded Sex Assigned at Not on file Gender Identity Not on file Sexual Orientation Not on file documented as of this encounter Progress Notes * Yayo Chu MD - 08/22/2022 1015 EDT Chief Complaint Patient presents with ??? Follow-up HPI Wet Macular Degeneration right eye S/p Avastin right eye 06/20/22 End stage left eye Vision stable right eye. Pt indicates it took about 3 hours for vision to clear up after last injection. No flashes or floaters no pain Base Eye Exam Visual Acuity (Snellen - Linear) Right Left Dist cc 20/50 +1 20/800 Dist ph cc NI Tonometry (Applanation, 10:23) Right Left Pressure 17 20 Please refer to large retinal drawing. OCT, Retina - OU - Both Eyes Right Eye Quality was good. Scan locations included subfoveal. Progression has been stable. Findings include choroidal neovascular membrane (Atrophy, no fluid). Left Eye Quality was good. Scan locations included subfoveal. Progression has been stable. Findings include subretinal scarring. Intravitreal Injection, Pharmacologic Agent - OD - Right Eye Time Out 08/22/2022. 10:25. Confirmed correct patient, procedure, site, and patient consented. Anesthesia Topical anesthesia was used. Anesthetic medications included Proparacaine 0.5%, Tetracaine 0.5%. Procedure Preparation included eyelid speculum, 5% betadine to ocular surface. A 30 gauge needle was used. Injection: 1.25 mg bevacizumab Route: intravitreal, Site: Right Eye [facility]: [id number], Lot: [id number], Expiration date: 08/26/2022 Post-op Post injection exam found visual acuity of at least counting fingers. The patient tolerated the procedure well. There were no complications. Post injection medications were not given. IMPRESSION: 1. Exudative age-related macular degeneration of right eye with active choroidal neovascularization(HCC) OCT, RETINA - OU - BOTH EYES INTRAVITREAL INJECTION, PHARMACOLOGIC AGENT - OD - RIGHT EYE bevacizumab (AVASTIN) ophthalmic syringe 1.25 mg PLAN: Wet Macular Degeneration right eye 9 wks s/p Avastin right eye Stable Recommend Avastin right eye today Pt agrees End stage left eye Return in about 10 weeks (around 10/31/2022), or 10-11 wks, for oct, avastin. I, Yayo Chu MD, have performed my own history, and have evaluated and examined the patient myself. I am scribing for Yayo Chu MD while he is personally performing the service. JUAN Tello (Scribe) documented in this encounter Plan of Treatment Upcoming Encounters Date Type Department Care Team (Late st Contact Info) Description 01/02/2024 10:15 EDT Office Visit [facility] [address] [place] [address] Yayo Chu MD [address] [place] [address], [address] [place] [address] documented as of this encounter Procedures Procedure Name Priority Date/Time Associated Diagnosis Comments INTRAVITREAL INJECTION, PHARMACOLOGIC AGENT - OD - RIGHT EYE Routine 08/22/2022 10:33 EDT Exudative age-related macular degeneration of right eye with active choroidal neovascularization (HCC-CMS) OCT, RETINA - OU - BOTH EYES Routine 08/22/2022 10:32 EDT Exudative age-related macular degeneration of right eye with active choroidal neovascularization (HCC-CMS) documented in this encounter Results * INTRAVITREAL INJECTION, PHARMACOLOGIC AGENT - OD - RIGHT EYE (08/22/2022 10:33 EDT) Narrative [facility] - 08/22/2022 15:01 EDT Time Out 08/22/2022. 10:25. Confirmed correct patient, procedure, site, and patient consented. Anesthesia Topical anesthesia was used. Anesthetic medications included Proparacaine 0.5%, Tetracaine 0.5%. Procedure Preparation included eyelid speculum, 5% betadine to ocular surface. A 30 gauge needle was used. Injection: 1.25 mg bevacizumab ??Route: intravitreal, Site: Right Eye ??[facility]: [id number], Lot: [id number], Expiration date: 08/26/2022 Post-op Post injection exam found visual acuity of at least counting fingers. The patient tolerated the procedure well. There were no complications. Post injection medications were not given. Yayo Chu MD OPHTH CLINIC PROC EDURES Performing Organization Address City/[facility] Co de Phone Number [facility] POINT [facility] * OCT, RETINA - OU - BOTH EYES (08/22/2022 10:32 EDT) Narrative [facility] OPHTHAL[facility] - 08/22/2022 15:01 EDT Right Eye Quality was good. Scan locations included subfoveal. Progression has been stable. Findings include choroidal neovascular membrane (Atrophy, no fluid). Left Eye Quality was good. Scan locations included subfoveal. Progression has been stable. Findings include subretinal scarring. Yayo Chu MD OPHTH TOMOGRAPHY [facility] documented in this encounter Visit Diagnoses Diagnosis Exudative age-related macular degeneration of right eye with active choroidal neovascularization (HCC-CMS)- Primary documented in this encounter Administered Medications Inactive Administered Medications - up to 3 most recent administrations Medication Order MAR Action Action Date Dose Rate Site bevacizumab (AVASTIN) ophthalmic syringe 1.25 mg 1.25 mg, Starting on Sat08/22/22 at 1030, Until Sat08/22/22 at 1701, Routine Given 08/22/2022 10:30 EDT 1.25 mg Right Eye documented in this encounter Orders Medications Ordered That Porfirio ht Not Have Been Administered Count Last Ordered Date First Ordered Date bevacizumab (AVASTIN) ophtha lmic syringe 1.25 mg 1 08/22/2022 documented in this encounter Eye Exam Visual Acuity (Snellen - Linear) Right eye Left eye Dist cc 20/50 +1 20/800 Dist ph cc NI Tonometry (Applanation, 10:23) Right eye Left eye Pressure 17 20 Care Teams Maintenance Repairman Relationship Specialty Start Date End Date Unknown, Provider, PCP - General 02/12/12 documented as of this encounter
--- OUTSIDE RECORDS SUMMARY | 2023-11-07 12:00 | XMS_ITS | Encounter Summary ---
Author Organization [facility] Address [facility] [place] [address] Care Team Providers Care Cross Tie Turner Name Role Phone Allison Conway APRN Primary Care Provider + [phone] Reason for Visit * Reason Comments Medication Refill Encounter Details Date Type Department Care Team (Late st Contact Info) Description 08/14/2016 Refill Hematology/Oncology at [address] [phone] Aubrey Garcia MD [address] [place] [address] [phone] Breast cancer, stage 1, right Social History Tobacco Use Types Packs/Day Years Used Date Smoking Tobacco: Former Cigarettes Q uit: 05/27/2012 Comments:stopped end of Dece mber Alcohol Use Standard Drinks/Week Comments Yes 0 (1 standard drink = 0.6 oz pure alcohol) beer or wine once every 3 weeks Sex and Gender Information Value Date Recorded Sex Assigned at Not on file Gender Identity Not on file Sexual Orientation Not on file documented as of this encounter Plan of Treatment Not on file documented as of this encounter Visit Diagnoses Diagnosis Breast cancer, stage 1, right documented in this encounter Care Teams Cross Tie Turner Relationship Specialty Start Date End Date Allison Conway APRN [address] [place], [place] [id number] PCP - General Internal Medicine 04/15/17 documented as of this encounter
--- OUTSIDE RECORDS SUMMARY | 2023-11-07 12:00 | XMS_ITS | Encounter Summary ---
Author Organization [facility] [place] [address] Care Team Providers Care Scanning Coordinator Name Role Phone Geni Esparzalb Georges APRN Primary Care Provider [phone]- [phone] Reason for Visit * Reason Onset Date Comments Other 05/17/2014 Encounter Details Date Type Department Care Team (Late st Contact Info) Description 05/17/2014 Telephone Hematology Oncology at [address] [phone] Annie Mixon, RN Other Social History Tobacco Use Types Packs/Day Years [...] on file documented as of this encounter Miscellaneous Notes * Telephone Encounter - Annie Mixon RN - 05/17/2014 3:54 PM EST After review with Dr. Garcia, phone call back to patient to advice to continue to hold arimidex for1-2 weeks and if status improves will have her see Dr. Garcia to discuss alternative therapy. Ashlyn states that she is having less joint pain since holding. She will continue to hold the arimidex and will follow up with visit with Dr. Garcia in about 2-3 weeks to talk about alternative therapy should her pain continue to improve off of the arimidex. documented in this encounter Plan of Treatment Not on file documented as of this encounter Visit Diagnoses Not on filedocumented in this encounter Care Teams Scanning Coordinator Relationship Specialty Start Date End Date Ayanna Esparza APRN PCP - General 08/06/13 05/20/16 documented as of this encounter
--- OUTSIDE RECORDS SUMMARY | 2023-11-07 12:00 | XMS_ITS | Encounter Summary ---
Author Organization [facility] [place] [address] Care Team Providers Care Under Cutter Name Role Phone Ayanna Esparza APRN Primary Care Provider [phone]- [phone] Encounter Details Date Type Department Care Team (Late st Contact Info) Description 07/12/2015 Orders Only Hematology/Oncology at [address] [phone] Ilda Atkins RN Breast cancer, stage 1, right Social History [...] right documented in this encounter Care Teams Under Cutter Relationship Specialty Start Date End Date Ayanna Esparza APRN PCP - General 08/06/13 05/20/16 documented as of this encounter
--- OUTSIDE RECORDS SUMMARY | 2023-11-07 12:00 | XMS_ITS | Encounter Summary ---
Author Organization [facility] [place] [address] Care Team Providers Care Director Of Recreation Therapy Name Role Phone Isaias Ayanna eGorges APRN Primary Care Provider [phone]- [phone] Reason for Visit * Reason Onset Date Comments Other 06/14/2014 f/u on missed ap pointment Encounter Details Date Type Department Care Team (Late st Contact Info) Description 06/14/2014 Telephone Hematology Oncology at [address] [phone] Annie Mixon, RN Other (f/u on missed appointment) Social History Tobacco Use Types Packs/Day Years [...] Miscellaneous Notes * Telephone Encounter - Annie Mixon, RN - 06/14/2014 10:48 AM EDT Phone call to patient to follow up on missed appointment with Dr. Garcia and to question if she hascontinued to hold arimidex. Message left on answering machine requesting phone call back to furtherdiscuss. documented in this encounter Plan of Treatment Not on file documented as of this encounter Visit Diagnoses Not on filedocumented in this encounter Care Teams Director Of Recreation Therapy Relationship Specialty Start Date End Date Ayanna Esparza APRN PCP - General 08/06/13 05/20/16 documented as of this encounter
--- OUTSIDE RECORDS SUMMARY | 2023-11-07 12:00 | XMS_ITS | Encounter Summary ---
Author Organization [facility] Address [facility] [place] [address] Care Team Providers Care Station Supervisor Name Role Phone Allison Conway APRN Primary Care Provider [phone] Encounter Details Date Type Department Care Team (Late st Contact Info) Description 03/09/2019 Telephone Hematology/Oncology at [address] [phone] Sharmaine Perales Social History Tobacco Use Types Packs/Day Years Used Date Smoking Tobacco: Former Cigarettes Q uit: 05/27/2012 Smokeless Tobacco: Never Comments:stopped end of Dece mber Alcohol Use [...] on filedocumented in this encounter Care Teams Station Supervisor Relationship Specialty Start Date End Date Allison Conway APRN [address] [place] [address] PCP - General Internal Medicine 04/15/17 documented as of this encounter
--- OUTSIDE RECORDS SUMMARY | 2023-11-07 12:00 | XMS_ITS | Clinical Summary ---
Author Organization [facility] Address [facility] [place] [address] Care Team Providers Care Clinical Orthoptist Name Role Phone ManBrooklyne Dianne FRANKLIN Primary Care Provider + [phone] Allergies No known active allergies Medications Medication Sig Dispensed Refills Start Date End Date Status cholecalciferol, Vitamin D3, 400 unit tablet Take 400 Units by mouth daily. Active cyanocobalamin, vitamin B-12, 100 mcg tablet Take 100 mcg by mouth daily. Active Calcium Carbonate-Vitamin D3 (CALCIUM WITH VITAMIN D) 600 mg(1,500mg) -400 unit Tab Take by mouth. Active multivitamin (THERAGRAN) tablet Take 1 tablet by mouth daily. Active BETA-CAROTENE,A, W-C & E/MIN (OCUVITE ORAL) Take by mouth. Active amLODIPine (NORVASC) 5 mg Tablet Take 5 mg by mouth daily. Active hydrochlorothiazide (HYDRODIURIL) 25 mg Tablet Take 25 mg by mouth daily. Active aspirin 81 mg Tablet, Delayed Release (E.C.) Take 81 mg by mouth daily. Active tamoxifen (NOLVADEX) 20 mg TabletIndications:B reast cancer, stage 1, right Take 1 tablet by mouth daily. 30 tablet 11 08/27/2016 Active Additional Information Patient not taking.Reported on 04/15/2017 Active Problems Problem Noted Date Diagnosed Date Obesity 10/07/2013 Hypertension 10/07/2013 Varicose vein Overview (10/29/2013): 10/07/2013: S/P right leg varicose vein excision Breast cancer, stage 1 Overview (08/06/2013): DIAGNOSIS: Breast, R, IDC, intermed gr, ER+ME+, [id number]-, s/p lumpectomy & SNB followed by reexcision, stage I, pT1b pN0; arimidex initiated following radiation therapy. 03/04/12 [facility] interp outside mmgs from 02/03 & 03/05: R breast lesion 1, SUSPICIOUS, microcalcs, 6 mm, R UOQ @ 1100. R breast lesion 2, SUSPICIOUS, 10 mm mass, in R UOQ @ 1100, 1 cm post to microcalcs. L breast neg. 03/12/12 core needle bxs R breast, lesion 2 of 2, 10 mm mass/calcs @ 1100. Path: IDC. DCIS. 03/19/12 B breast MRI: R breast lesion 1, KNOWN MALIGNANCY, 15 mm mass, @ 1130, 26 mm from skin. R breast lesion 2, ASSESSMENT INCOMPLETE, segmental non-mass like enhancement, 11 mm, retroareolar, 12 mm from skin. Comment: R breast lesion #1 likely a combination of 10 mm mass & anterior calcs together measuring 15 mm. Likely motion artifact accounting for retroareolar enhancement R breast. However, as there is a cluster of retroareolar calcs on mmg, mag views rec'd. L breast neg. Ax nodes, visualization adequate B. Benign appearing ax nodes B. 03/24/12 CXR: No significant abnormality. 03/26/12 dx'ic R mmg: R breast lesion 3, SUSPICIOUS, clustered calcs w/assoc'd asymmetry @ site of abnormal MRI enhancement, 7 mm, @ 0700. 03/26/[address] Stone, w/exam showing core bx site in lateral R breast; no palpable abnormality in either breast; no adenopathy. 04/01/12 stereotactic guided core needle bxs R breast, lesion 3, 7 mm cluster of calcs @ 0700. Path: Fibrocystic changes including columnar cell change/hyperplasia, mild usual ductal hyperplasia, apocrine metaplasia & cysts. 04/07/12 wire loc'd R lumpectomy w/R SNB. Specimen mmg showing suspicious area (clip & calcs). Treatment: XRT TOTAL DOSE: 52.56 Gy: Completed treatment on 06/24/12 Chemotherapy: Arimidex initiated 06/2013 Family History Medical History Relation Comments Anesthesia Reaction Neg Hx Social History Tobacco Use Types Packs/Day Years [...] on file Sexual Orientation Not on file Last Filed Vital Signs Vital Sign Reading Time Taken Comments Blood Pressure 149/77 04/15/2017 2:55 PM EST Pulse 79 04/15/2017 2:55 PM EST Temperature 36.9 ??C (98.4 ??F) 04/15/2017 2:55 PM ES T Respiratory Rate 20 04/15/2017 2:55 PM EST Oxygen Saturation 99% 04/15/2017 2:55 PM EST Inhaled Oxygen Concentration - - Weight 89.4 kg (197 lb) 04/15/2017 2:55 PM EST Height 148.6 cm (4' 10.5) 04/15/2017 2:55 PM ES T copied Body Mass Index 40.47 04/15/2017 2:55 PM EST Plan of Treatment Health Maintenance Due Date Last Done Comments Hepatitis C Screening 1963 Tdap adult 1965 Tetanus vaccine 1965 Zoster vaccine (1 of 2) 1996 Bone Density Scan 08/11/2011 Pneumoccocal Vaccine: 65+ (1 of 1 - PCV) 08/11/2011 Covid-19 Vaccine (1 - 2022-24 season) 2022 Influenza (Flu) vaccine (1 o f 1 - Influenza standard series) 11/24/2023 Breast Cancer screening Discontinued 02/26/2013 Procedures Procedure Name Priority Date/Time Associated Diagnosis Comments MAMMO DIAGNOSTIC CAD BILATERAL Routine 02/26/2013 2:42 PM EST Malignant neoplasm of breast (female), unspecified site from Last 3 Months or Most Recently Relevant to Health Maintenance Results * Mammo digital bilateral diagnostic with CAD (02/26/2013 2:42 PM EST) Anatomical Region Laterality Modality Breast Bilateral Mammography 02/26/2013 2:42 PM EST Narrative 03/02/2013 5:15 PM EST BILATERAL MAMMOGRAPHY ?? REASON FOR EXAM: Screening. History of Right breast cancer; new baseline. ? TECHNIQUE: Cranio-caudal (CC) and mediolateral oblique (MLO) views of both breasts obtained with direct digital capture. The exam was evaluated by CAD Version 8.3.17. In addition to the routine 2D imaging this exam was also performed with 3D tomographic imaging in MLO and CC projections. ?? FINDINGS: This is a benign mammogram (ACR Category 2). There is some architectural distortion and generalized edema of the Right breast consistent with recent surgery and radiation therapy. There is otherwise no change in the fibroglandular pattern of the breasts. There are no specific mammographic signs of cancer. ? The breasts are predominantly fatty. ? CONCLUSION ?? BENIGN mammogram (ACR Category 2). Routine screening mammography is recommended with the frequency dependent on the patient's age and breast cancer risk factors. ?? A letter has been sent to this patient by [facility]. ? Procedure Note Bev Breen MD - 03/02/2013 BILATERAL MAMMOGRAPHY REASON FOR EXAM: Screening. History of Right breast cancer; new baseline. TECHNIQUE: Cranio-caudal (CC) and mediolateral oblique (MLO) views of both breasts obtained with direct digital capture. The exam was evaluated byCAD Version 8.3.17. In addition to the routine 2D imaging this exam was also performed with 3D tomographic imaging in MLO and CC projections. FINDINGS: This is a benign mammogram (ACR Category 2). There is some architectural distortion and generalized edema of the Right breast consistent withrecent surgery and radiation therapy. There is otherwise no change in the fibroglandular pattern of the breasts. There are no specific mammographicsigns of cancer. The breasts are predominantly fatty. CONCLUSION BENIGN mammogram (ACR Category 2). Routine screening mammography isrecommended with the frequency dependent on the patient's age and breast cancer risk factors. A letter has been sent to this patient by the [facility]. Roberta Sales MD IMG MAMMO ORDERABLES from Last 3 Months or Most Recently Relevant to Health Maintenance Advance Directives * Full Code (Latest Code Status on File) Date Activated Date Inactivated Comments 10/07/2013 6:44 AM 10/07/2013 10:05 AM Question Answer Comments Order Status: Initial Order Does patient have decision m aking capacity? Yes, Order is based on Patients wishes. * Full Code Date Activated Date Inactivated Comments 04/21/2012 9:12 AM 04/21/2012 1:56 PM Question Answer Comments Order Status: Initial Order Does patient have decision m aking capacity? Yes, Order is based on Patients wishes. Care Teams Clinical Orthoptist Relationship Specialty Start Date End Date Allison Conway APRN [address] [place] [address] PCP - General Internal Medicine 04/15/17
--- OUTSIDE RECORDS SUMMARY | 2023-11-07 12:00 | XMS_ITS | Encounter Summary ---
Author Organization [facility] Address [address] [place] [address] Care Team Providers Care Bonderizer Name Role Phone Unknown, Provider Primary Care Provider Reason for Visit * Reason Comments Eye Problem Encounter Details Date Type Department Care Team (Late st Contact Info) Description 11/14/2022 10:15 EDT Office Visit [facility] - [place] [place] [address] Yayo Chu MD [address] [facility], [address] [place] [address] Social History Tobacco Use Types Packs/Day Years Used Date Smoking Tobacco: Former Cigarettes Smokeless Tobacco: Never Sex and Gender Information Value Date Recorded Sex Assigned at Not on file Gender Identity Not on file Sexual Orientation Not on file documented as of this encounter Progress Notes * Yayo Chu MD - 11/14/2022 1015 EDT Chief Complaint Patient presents with ??? 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 No pain no new flashes or floaters Base Eye Exam Visual Acuity (Snellen - Linear) Right Left Dist cc 20/50 +1 CF at 3' Correction: Glasses Tonometry (Applanation, 10:15) Right Left Pressure 21 19 Pupils Pupils Right PERRL Left PERRL Neuro/Psych Oriented x3: Yes Mood/Affect: Normal Dilation Right eye: Tropicamide 1%, Phenylephrine 2.5% @ 10:15 Slit Lamp and Fundus Exam Slit Lamp Exam Right Left Anterior Chamber Deep and quiet Deep and quiet Please refer to large retinal drawing. OCT, Retina - OU - Both Eyes Right Eye Quality was good. Scan locations included subfoveal. Progression has been stable. Findings include choroidal neovascular membrane (Atrophy no fluid). Left Eye Quality was good. Scan locations included subfoveal. Progression has been stable. Findings include (scar). Intravitreal Injection, Pharmacologic Agent - OD - Right Eye Time Out 11/14/2022. 10:17. Confirmed correct patient, procedure, site, and patient consented. Anesthesia Topical anesthesia was used. Anesthetic medications included Proparacaine 0.5%, Tetracaine 0.5%. Procedure Preparation included 5% betadine to ocular surface, eyelid speculum. A 30 gauge needle was used. Injection: 1.25 mg bevacizumab Route: intravitreal, Site: Right Eye [facility]: [address]-88, Lot: [id number], Expiration date: 11/18/2022 Post-op Post injection exam found visual acuity of at least counting fingers. The patient tolerated the procedure well. There were no complications. Post injection medications were not given. IMPRESSION: 1. Exudative age-related macular degeneration of right eye with active choroidal neovascularization(HCC) OCT, RETINA - OU - BOTH EYES INTRAVITREAL INJECTION, PHARMACOLOGIC AGENT - OD - RIGHT EYE bevacizumab (AVASTIN) ophthalmic syringe 1.25 mg 2. 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 I am scribing for Yayo Chu MD while he is personally performing the service. MARSHA Nix (Scribe) documented in this encounter Plan of Treatment Upcoming Encounters Date Type Department Care Team (Late st Contact Info) Description 01/02/2024 10:15 EDT Office Visit [facility] - [facility] [address] [place] [address] Yayo Chu MD [address] [place] [address], [address] [place] [address] documented as of this encounter Procedures Procedure Name Priority Date/Time Associated Diagnosis Comments INTRAVITREAL INJECTION, PHARMACOLOGIC AGENT - OD - RIGHT EYE Routine 11/14/2022 10:29 EDT Exudative age-related macular degeneration of right eye with active choroidal neovascularization (HCC-CMS) OCT, RETINA - OU - BOTH EYES Routine 11/14/2022 10:28 EDT Exudative age-related macular degeneration of right eye with active choroidal neovascularization (HCC-CMS) Exudative age-related macular degeneration of left eye with inactive scar (HCC-CMS) documented in this encounter Results * INTRAVITREAL INJECTION, PHARMACOLOGIC AGENT - OD - RIGHT EYE (11/14/2022 10:29 EDT) Narrative [facility] - 11/14/2022 10:41 EDT Time Out 11/14/2022. 10:17. Confirmed correct patient, procedure, site, and patient consented. Anesthesia Topical anesthesia was used. Anesthetic medications included Proparacaine 0.5%, Tetracaine 0.5%. Procedure Preparation included 5% betadine to ocular surface, eyelid speculum. A 30 gauge needle was used. Injection: 1.25 mg bevacizumab ??Route: intravitreal, Site: Right Eye ??[facility]: [id number], Lot: [id number], Expiration date: 11/18/2022 Post-op Post injection exam found visual acuity of at least counting fingers. The patient tolerated the procedure well. There were no complications. Post injection medications were not given. Yayo Chu MD OPHTH CLINIC PROC EDURES [facility] * OCT, RETINA - OU - BOTH EYES (11/14/2022 10:28 EDT) Narrative [facility] - 11/14/2022 10:41 EDT Right Eye Quality was good. Scan locations included subfoveal. Progression has been stable. Findings include choroidal neovascular membrane (Atrophy no fluid). Left Eye Quality was good. Scan locations included subfoveal. Progression has been stable. Findings include (scar). Yayo Chu MD OPHTH TOMOGRAPHY [facility] documented in this encounter Visit Diagnoses Diagnosis Exudative age-related macular degeneration of right eye with active choroidal neovascularization (HCC-CMS)- Primary Exudative age-related macular degeneration of left eye with inactive scar (HCC-CMS) documented in this encounter Administered Medications Inactive Administered Medications - up to 3 most recent administrations Medication Order MAR Action Action Date Dose Rate Site bevacizumab (AVASTIN) ophthalmic syringe 1.25 mg 1.25 mg, Starting on Sat11/14/22 at 1041, Until Sat11/14/22 at 1041, Routine Given 11/14/2022 10:41 EDT 1.25 mg Right Eye documented in this encounter Orders Medications Ordered That Porfirio ht Not Have Been Administered Count Last Ordered Date First Ordered Date bevacizumab (AVASTIN) ophtha lmic syringe 1.25 mg 1 11/14/2022 documented in this encounter Eye Exam Visual Acuity (Snellen - Linear) Right eye Left eye Dist cc 20/50 +1 CF at 3' Correction: Glasses Tonometry (Applanation, 10:15) Right eye Left eye Pressure 21 19 Pupils Pupils Right eye PERRL Left eye PERRL Neuro/Psych Oriented x3: Yes Mood/Affect: Normal Dilation Right eye: Tropicamide 1%, P henylephrine 2.5% @ 10:15 Slit Lamp Exam Right eye Left eye Anterior Chamber Deep and quiet Deep and quiet Care Teams Bonderizer Relationship Specialty Start Date End Date Unknown, Provider, PCP - General 02/12/12 documented as of this encounter
--- OUTSIDE RECORDS SUMMARY | 2023-11-07 12:00 | XMS_ITS | Encounter Summary ---
Author Organization [facility] Address [address] [place] [address] Care Team Providers Care Recovery Coach Name Role Phone Unknown, Provider Primary Care Provider Reason for Visit * Reason Onset Date Comments Appointment Related 02/13/2023 Cancel 0800 appt Encounter Details Date Type Department Care Team (Late st Contact Info) Description 02/13/2023 Telephone [facility] - [facility] [address] [place] [address] Yayo Chu MD [address] [facility], [address] [place] [address] Appointment Related (Cancel 0800 appt) Social History Tobacco Use Types Packs/Day Years Used Date Smoking Tobacco: Former Cigarettes Smokeless Tobacco: Never Sex and Gender Information Value Date Recorded Sex Assigned at Not on file Gender Identity Not on file Sexual Orientation Not on file documented as of this encounter Miscellaneous Notes * Telephone Encounter - Teri Wilson - 02/13/2023 0917 EST Appointment rescheduled * Telephone Encounter - Ed Edmonds RN - 02/13/2023 0645 EST Appointment cancelled. Ed Edmonds RN 02/13/2023 6:45 * Telephone Encounter - Liana Faulkner - 02/13/2023 0505 EST PAS Message: Patient called to cancel their appointment with Yayo Chu MD on March 15at 0800 due to weather. Patient would like a call back to reschedule? YES, patient is willing to come in later today after the roads are plowed. Please call to discuss. documented in this encounter Plan of Treatment Upcoming Encounters Date Type Department Care Team (Late st Contact Info) Description 01/02/2024 10:15 EDT Office Visit [facility] - [place] [address] [place] [address] Yayo Chu MD [address] [facility], [address] [place] [address] documented as of this encounter Visit Diagnoses Not on filedocumented in this encounter Care Teams Recovery Coach Relationship Specialty Start Date End Date Unknown, Provider, PCP - General 02/12/12 documented as of this encounter
--- OUTSIDE RECORDS SUMMARY | 2023-11-07 12:00 | XMS_ITS | Encounter Summary ---
Author Organization [facility] Address [address] [place] [address] Care Team Providers Care Outsole Molder Name Role Phone Unknown, Provider Primary Care Provider Encounter Details Date Type Department Care Team (Late st Contact Info) Description 02/11/2012 Results Only [facility] [phone] Aileen Covarrubias, EMAIL CAMPAIGN SPECIALIST [address] [place] [address] Social History Tobacco Use Types Packs/Day Years Used Date Smoking Tobacco: Never Assessed Sex and Gender Information Value Date Recorded Sex Assigned at Not on file Gender Identity Not on file Sexual Orientation Not on file documented as of this encounter Plan of Treatment Upcoming Encounters Date Type Department Care Team (Late st Contact Info) Description 01/02/2024 10:15 EDT Office Visit [facility] - [place] [address] [place] [address] Yayo Chu MD [address] [facility], [facility] [address] [place] [address] documented as of this encounter Procedures Procedure Name Priority Date/Time Associated Diagnosis Comments PAP TEST- RESULT ONLY Routine 02/11/2012 0:00 EST documented in this encounter Results * PAP TEST- RESULT ONLY (02/11/2012 0:00 EST) Pathology Report: CYTOPATHOLOGY REPORT Reports generated via electronic interface contain original data; however they are lacking the format of the original report. Caution should be taken when reading/interpreti ng unformatted reports. Name: ? RACHAEL, LUPE ? Accession #: ? [id number] : ? 1945 (Age: 66) ??F ?Collect Date: ? 02/11/2012 Location: ? [facility] ? Receive Date: ? 02/12/2012 Provider: ?AILEEN COVARRUBIAS RN SOCIAL WORK Copy to: ? Specimen/Source: ?Pap Test, Cervix/Endocervix, ThinPrep Imaging System with manual evaluation Last Menstrual Period: ? 1996 Menstrual/Pregnanc y Status: ? Post Menopausal ? SPECIMEN ADEQUACY ? Satisfactory for Evaluation - assessment of transformation zone component not applicable ( e.g. atrophy, vaginal sample, hysterectomy) GENERAL CATEGORIZATION ? Negative for Intraepithelial Lesion or Malignancy ? Document reviewed and electronically signed by: ? JERRY Zambrano(ASCP) ? Report Date: ??02/20/2012 14:20 End of Report [facility] 02/11/2012 02/12/2012 Aileen Covarrubias EMAIL CAMPAIGN SPECIALIST PATHOLOGY ORDERABLES [facility] [address] [place] [address] documented in this encounter Visit Diagnoses Not on filedocumented in this encounter Care Teams Outsole Molder Relationship Specialty Start Date End Date Unknown, Provider, PCP - General 02/12/12 documented as of this encounter
--- OUTSIDE RECORDS SUMMARY | 2023-11-07 12:00 | XMS_ITS | Encounter Summary ---
Author Organization [facility] Address [address] [place] [address] Care Team Providers Care Cook'S Assistant Name Role Phone Unknown, Provider Primary Care Provider [phone] Reason for Visit * Reason Comments New Patient Visit Glass Toughening Operator- last seen [address] Rios, she has a HX of wet amd-right and dry amd left. Getting Avastin injections every 10 weeks. No pain,flashes, or floaters * Prior Authorization (Routine) - Specialty Report Received Specialty Diagnoses / Procedures Referred By Vivek jones Referred To Contact Diagnoses ARMD (age related macular degeneration) Procedures AL INJECT INTRAVITREAL PHARMCOLOGIC AL AFLIBERCEPT INJECTION AL BEVACIZUMAB INJECTION [place] [phone] [place] [id number] [place] [phone] [place] [id number] Referral ID Status Reason Start Date Expiration Date V isits Requested Visits Authorized [id number] Specialty Report Received 04/02/2022 03/24/2023 2 2 Encounter Details Date Type Department Care Team (Late Contact Info) Description 04/11/2022 13:15 EST Office Visit [facility] Ophthalmology - Main [address] [address] Yayo Chu MD [address] [facility], [address] [place] [address] Social History Tobacco Use Types Packs/Day Years Used Date Smoking Tobacco: Former Cigarettes Smokeless Tobacco: Never Tobacco Cessation:Counseling Given: Not Answered Sex and Gender Information Value Date Recorded Sex Assigned at Not on file Gender Identity Not on file Sexual Orientation Not on file documented as of this encounter Progress Notes * Yayo Chu MD - 04/11/2022 1360 EST Chief Complaint Patient presents with ??? New Patient Visit Glass Toughening Operator- last seen 01.17.[address] Rios, she has a HX of wet amd-right and dry amd left. Getting Avastin injections every 10 weeks. No pain,flashes, or floaters Comments New Patient Visit Additional comments: Glass Toughening Operator- last seen 01.17.[address] Rios, she has a HX of wet amd-right and dry amd left. Getting Avastin injections every 10 weeks. No pain,flashes, or floaters HPI Location: Both eyes Pain: 0 - No pain Quality: Severity: Moderate Duration: Years Timing: Constant Lasts: Continuous Context: Glass Toughening Operator- last seen 01.17.[address] Rios, she has a HX of wet amd-right and dry amd left. Getting Avastin injections every 10 weeks. No pain,flashes, or floaters Modifying factors: Associated Signs & Symptoms: Glass Toughening Operator- last seen 01.17.[address] Rios, she has a HX of wet amd-right and dry amd left. Getting Avastin injections every 10 weeks. No pain,flashes, or floaters Visual Fluctuations: None Attestation: The above HPI has been reviewed by the Attending Physician Base Eye Exam Visual Acuity (Snellen - Linear) Right Left Dist cc 20/30 20/400 Tonometry (Applanation, 13:40) Right Left Pressure 21 23 Pupils Pupils APD Right PERRL None Left PERRL None Visual Myles Right Left Full Full Extraocular Movement Right Left Full, Ortho Full, Ortho Neuro/Psych Oriented x3: Yes Mood/Affect: Normal Dilation Both eyes: Phenylephrine 2.5%, Tropicamide 1% @ 13:35 Slit Lamp and Fundus Exam Slit Lamp Exam Right Left Lids/Lashes Normal Normal Conjunctiva/Sclera White and quiet White and quiet Cornea Clear Clear Anterior Chamber Deep and quiet Deep and quiet Iris Round and reactive Round and reactive Lens Posterior chamber intraocular lens Posterior chamber intraocular lens Anterior Vitreous Posterior vitreous detachment, trapped silicone oil Posterior vitreous detachment, trapped silicone oil Fundus Exam Right Left Disc Healthy Rim Healthy Rim Macula RPE dropout with pigment, no heme, no fluid fibrotic scar with pigment Vessels Normal Normal Periphery attached attached Please refer to large retinal drawing. IMAGING: OCT, Retina - OU - Both Eyes Right Eye Quality was good. Scan locations included subfoveal. Progression has no prior data. Findings include choroidal neovascular membrane (Atrophy, no fluid). Left Eye Quality was good. Scan locations included subfoveal. Progression has no prior data. Findings include subretinal scarring. Intravitreal Injection, Pharmacologic Agent - OD - Right Eye Time Out 04/11/2022. 14:38. Confirmed correct patient, procedure, site, and patient consented. Anesthesia Topical anesthesia was used. Anesthetic medications included Proparacaine 0.5%, Tetracaine 0.5%. Procedure Preparation included eyelid speculum, 5% betadine to ocular surface. A 30 gauge needle was used. Injection: 1.25 mg bevacizumab Route: intravitreal, Site: Right Eye [facility]: [address]-23, Lot: [id number], Expiration date: 04/13/2022 Post-op Post injection exam found visual acuity of at least counting fingers. The patient tolerated the procedure well. There were no complications. IMPRESSION: 1. Exudative age-related macular degeneration of right eye with active choroidal neovascularization(HCC) OCT, RETINA - OU - BOTH EYES INTRAVITREAL INJECTION, PHARMACOLOGIC AGENT - OD - RIGHT EYE bevacizumab (AVASTIN) ophthalmic syringe 1.25 mg 2. Posterior vitreous detachment of both eyes 3. Exudative age-related macular degeneration of left eye with inactive scar (HCC-CMS) (HCC) PLAN: Wet age-related macular degeneration both eyes Reviewed Dr Rios outside records. 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 Risks and potential alternatives and complications discussed including nonintervention with watchful waiting. Risks include, but are not limited to pain, vision loss, blindness, loss of the eye, need for further surgery, or failure of the procedure to prevent progressive disease or to alleviate problem as desiredwere discussed. Pt understands risks benefits and alternatives and the fact that no guarantee can be made as to outcome of this type of or any surgery. All questions were answered. Avastin right eye done today Posterior vitreous detachment both eyes with trapped silicone oil She is not symptomatic with floaters. No holes or tears Retinal detachment warnings discussed Pt was frustrated with what she felt was a long visit for this new patient evaluation and procedure. I recommended she take an 8am appt for the shortest possible visit. I, Dr. Yayo Chu, have performed my own HPI and reviewed the tech's ROS. I have also reviewed the patient's past medical, family, social and surgical history, as well as the patient's medications, allergies, and problem list. I am scribing for Dr. Yayo Chu MD while he is personally performing the service. JUAN DELEON (Scribe) documented in this encounter Plan of Treatment Upcoming Encounters Date Type Department Care Team (Late st Contact Info) Description 01/02/2024 10:15 EDT Office Visit [facility] - [facility] [address] [place], [place] [id number] Yayo Chu MD [address] [place] [address], [address] [place] [address] documented as of this encounter Procedures Procedure Name Priority Date/Time Associated Diagnosis Comments OCT, RETINA - OU - BOTH EYES Routine 04/11/2022 13:15 EST Exudative age-related macular degeneration of right eye with active choroidal neovascularization (HCC-CMS) INTRAVITREAL INJECTION, PHARMACOLOGIC AGENT - OD - RIGHT EYE Routine 04/11/2022 13:15 EST Exudative age-related macular degeneration of right eye with active choroidal neovascularization (HCC-CMS) documented in this encounter Results * INTRAVITREAL INJECTION, PHARMACOLOGIC AGENT - OD - RIGHT EYE (04/11/2022 13:15 EST) Narrative [facility] POINT OF CARE - 04/12/2022 16:46 EST Time Out 04/11/2022. 14:38. Confirmed correct patient, procedure, site, and patient consented. Anesthesia Topical anesthesia was used. Anesthetic medications included Proparacaine 0.5%, Tetracaine 0.5%. Procedure Preparation included eyelid speculum, 5% betadine to ocular surface. A 30 gauge needle was used. Injection: 1.25 mg bevacizumab ??Route: intravitreal, Site: Right Eye ??[facility]: [address]-09, Lot: [id number], Expiration date: 04/13/2022 Post-op Post injection exam found visual acuity of at least counting fingers. The patient tolerated the procedure well. There were no complications. Yayo Chu MD OPHTH CLINIC PROC EDURES Performing Organization Address [facility] Co de Phone Number [facility] POINT OF CARE * OCT, RETINA - OU - BOTH EYES (04/11/2022 13:15 EST) Narrative [facility] OPHTHALMOLOGY - 04/12/2022 16:46 EST Right Eye Quality was good. Scan locations included subfoveal. Progression has no prior data. Findings include choroidal neovascular membrane (Atrophy, no fluid). Left Eye Quality was good. Scan locations included subfoveal. Progression has no prior data. Findings include subretinal scarring. Yayo Chu MD OPHTH TOMOGRAPHY Performing Organization Address [facility] de Phone Number [facility] OPHTHALMOLOGY documented in this encounter Visit Diagnoses Diagnosis Exudative age-related macular degeneration of right eye with active choroidal neovascularization (HCC-CMS)- Primary Posterior vitreous detachment of both eyes Vitreous degeneration Exudative age-related macular degeneration of left eye with inactive scar (HCC-CMS) documented in this encounter Administered Medications Inactive Administered Medications - up to 3 most recent administrations Medication Order MAR Action Action Date Dose Rate Site bevacizumab (AVASTIN) ophthalmic syringe 1.25 mg 1.25 mg, Starting on Sat04/11/22 at 1315, Until Sat04/11/22 at 1315, Routine Given 04/11/2022 13:15 EST 1.25 mg Right Eye documented in this encounter Orders Medications Ordered That Porfirio ht Not Have Been Administered Count Last Ordered Date First Ordered Date bevacizumab (AVASTIN) ophtha lmic syringe 1.25 mg 1 04/11/2022 documented in this encounter Eye Exam Visual Acuity (Snellen - Linear) Right eye Left eye Dist cc 20/30 20/400 Tonometry (Applanation, 13:40) Right eye Left eye Pressure 21 23 Pupils Pupils APD Right eye PERRL None Left eye PERRL None Visual Myles Right eye Left eye Full Full Extraocular Movement Right eye Left eye Full, Ortho Full, Ortho Neuro/Psych Oriented x3: Yes Mood/Affect: Normal Dilation Both eyes: Phenylephrine 2.5 %, Tropicamide 1% @ 13:35 Slit Lamp Exam Right eye Left eye Lids/Lashes Normal Normal Conjunctiva/Sclera White and quiet White and nile et Cornea Clear Clear Anterior Chamber Deep and quiet Deep and quiet Iris Round and reactive Round and ra ctive Lens Posterior chamber in traocular lens Posterior chamber intraocular lens Anterior Vitreous Posterior vitreous d etachment, trapped silicone oil Posterior vitreous detachment, trapped silicone oil Fundus Exam Right eye Left eye Disc Healthy Rim Healthy Rim Macula RPE dropout with pigment, no hem e, no fluid fibrotic scar with pigment Vessels Normal Normal Periphery attached attached Care Teams Cook'S Assistant Relationship Specialty Start Date End Date Unknown, Provider, PCP - General 02/12/12 documented as of this encounter
--- OUTSIDE RECORDS SUMMARY | 2023-11-07 12:00 | XMS_ITS | Encounter Summary ---
Author Organization [facility] Address [facility] [place] [address] Care Team Providers Care Lineman A Class Name Role Phone Unknown Primary Care Provider Unavailabl e Encounter Details Date Type Department Care Team (Late st Contact Info) Description 08/27/2016 Orders Only Hematology/Oncology at [address] [phone] Ilda Atkins RN Breast cancer, stage 1, [...] right documented in this encounter Care Teams Lineman A Class Relationship Specialty Start Date End Date Unknown None PCP - General 05/21/16 04/14/17 documented as of this encounter
--- OUTSIDE RECORDS SUMMARY | 2023-11-07 12:00 | XMS_ITS | Clinical Summary ---
Author Organization [facility] Address [address] [place] [address] Care Team Providers Care Tanbark Peeler Name Role Phone Unknown, Provider Primary Care Provider [phone] Allergies No known active allergies Medications Medication Sig Dispensed Refills Start Date End Date Status hydroCHLOROthiazide (HYDRODIURIL) 25 mg tablet Take 1 Tablet by mouth daily. Active amLODIPine (NORVASC) 5 mg tablet Take 1 Tablet by mouth daily. Active vit C,E-Dj-nddny-lutein-ze axan (PRESERVISION AREDS-2) 250-90-40-1 mg capsule Take 1 Capsule by mouth daily. Active Active Problems Problem Noted Date Diagnosed Date Exudative age-related macula r degeneration of right eye with active choroidal neovascularization ([facility]) 06/20/2022 Exudative age-related macula r degeneration of left eye with inactive scar ([facility]) 06/20/2022 Encounters Date Type Department Care Team Description 09/05/2023 10:15 EDT Office Visit [facility] Ophthalmology [facility] [address] [place], [place] [phone] Yayo Chu MD 08/13/2023 Telephone [facility] Ophthalmology - Main [place] [address] [place] [address] Yayo Chu MD Paperwork request from Last 3 Months Surgical History Surgery Date Site/Laterality Comments JOINT REPLACEMENT Left BREAST LUMPECTOMY Right CATARACT REMOVAL WITH IMPLANT INTRAOCULAR LENS PROSTHESIS INSERTION Family History Medical History Relation Comments Blindness Other Cancer Paternal Aunt Cataract Neg Hx Glaucoma Neg Hx Macular Degeneration Neg Hx Retinal Detachment Neg Hx Relation Status Comments Other Paternal Aunt Social History Tobacco Use Types Packs/Day Years Used Date Smoking Tobacco: Former Cigarettes Smokeless Tobacco: Never Tobacco Cessation:Counseling Given: Not Answered Sex and Gender Information Value Date Recorded Sex Assigned at Not on file Gender Identity Not on file Sexual Orientation Not on file Obstetrics History Plan of Treatment Upcoming Encounters Date Type Department Care Team (Late st Contact Info) Description 01/02/2024 10:15 EDT Office Visit [facility] Ophthalmology - [address] [place] [address] Yayo Chu MD [address] [facility], [address] [place] [address] Health Maintenance Due Date Last Done Comments Hepatitis C Screen 1945 RSV Immunization ( o r 60+ Years) (1 - 1-dose 60+ series) 2006 Fall Risk Screening 08/11/2011 COVID-19 Vaccine (2022-24 season) 2022 Procedures Procedure Name Priority Date/Time Associated Diagnosis Comments OCT, RETINA - OU - BOTH EYES Routine 09/05/2023 10:28 EDT Exudative age-related macular degeneration of right eye with active choroidal neovascularization ([facility]) INTRAVITREAL INJECTION, PHARMACOLOGIC AGENT - OD - RIGHT EYE Routine 09/05/2023 10:27 EDT Exudative age-related macular degeneration of right eye with active choroidal neovascularization ([facility]) from Last 3 Months Results * OCT, RETINA - OU - BOTH EYES (09/05/2023 10:28 EDT) Narrative [facility] OPHTHALMOLOGY - 09/05/2023 12:34 EDT Right Eye Quality was good. Scan locations included subfoveal. Progression has been stable. Findings include choroidal neovascular membrane. Left Eye Quality was good. Scan locations included subfoveal. Progression has been stable. Findings include subretinal scarring. Yayo Chu MD OPHTH TOMOGRAPHY [facility] OPHTHALMOLOGY * INTRAVITREAL INJECTION, PHARMACOLOGIC AGENT - OD - RIGHT EYE (09/05/2023 10:27 EDT) Narrative [facility] POINT OF CARE - 09/05/2023 12:34 EDT Time Out 09/05/2023. 10:10. Confirmed correct patient, procedure, site, and patient consented. Anesthesia Topical anesthesia was used. Anesthetic medications included Proparacaine 0.5%, Tetracaine 0.5%. Procedure Preparation included 5% betadine to ocular surface, eyelid speculum. A 30 gauge needle was used. Injection: 1.25 mg bevacizumab ??Route: intravitreal, Site: Right Eye ??[facility]: [address]-33, Lot: [id number], Expiration date: 09/06/2023 Post-op Post injection exam found visual acuity of at least counting fingers. The patient tolerated the procedure well. There were no complications. Post injection medications were not given. Yayo Chu MD OPHTH CLINIC PROC EDURES [facility] POINT OF CARE from Last 3 Months Care Teams Tanbark Peeler Relationship Specialty Start Date End Date Unknown, Provider, PCP - General 02/12/12
--- OUTSIDE RECORDS SUMMARY | 2023-11-07 12:00 | XMS_ITS | Encounter Summary ---
Author Organization [facility] [place] [address] Care Team Providers Care Gas Compressor Turbine Operator Name Role Phone Geni Esparzalb Georges APRN Primary Care Provider [phone] Encounter Details Date Type Department Care Team (Late st Contact Info) Description 05/14/2014 Notes Only Hematology Oncology at [address] [phone] Annie Mixon, RN Social History Tobacco Use Types Packs/Day Years [...] as of this encounter Progress Notes * Annie Mixon, RN - 05/14/2014 11:49 AM EST Patient stopped into clinic to report that she has horrible joint pain so she stopped her arimidex 3 days ago. Ashlyn has been on Arimidex since early 2012. She states in last 3 weeks she has been experiencing generalized joint pain, it feels like a giant tooth ache every where. She states since stopping arimidex 3 days ago she does feel it is slightly better. She is currently scheduled to see Dr. Garcia next on 08/05/14. Ashlyn plans to continue holding arimidex over the weekend, will consultwith Dr. Garcia on Saturday, 2/23 when he is in clinic and phone her back documented in this encounter Plan of Treatment Not on file documented as of this encounter Visit Diagnoses Not on filedocumented in this encounter Care Teams Gas Compressor Turbine Operator Relationship Specialty Start Date End Date Ayanna Esparza APRN PCP - General 08/06/13 05/20/16 documented as of this encounter
--- OUTSIDE RECORDS SUMMARY | 2023-11-07 12:00 | XMS_ITS | Encounter Summary ---
Author Organization [facility] Address [address] [place] [address] Care Team Providers Care Tumbler Machine Operator Name Role Phone Unknown, Provider Primary Care Provider Reason for Visit * Reason Comments Eye Problem Encounter Details Date Type Department Care Team (Late st Contact Info) Description 05/23/2023 10:15 EST Office Visit [facility] Ophthalmology - [id number] [place], [place] [phone] Yayo Chu MD [address] [facility], [address] [place] [address] Social History Tobacco Use Types Packs/Day Years Used Date Smoking Tobacco: Former Cigarettes Smokeless Tobacco: Never Sex and Gender Information Value Date Recorded Sex Assigned at Not on file Gender Identity Not on file Sexual Orientation Not on file documented as of this encounter Progress Notes * Yayo Chu MD - 05/23/2023 1015 EST Chief Complaint Patient presents with Eye Problem HPI Wet age related macular degeneration both eyes End stage left eye 14 weeks s/p Avastin right eye 02/13/2023 Vision is stable right eye, no changes in either eye. No new flashes or floaters and no eye pain today Base Eye Exam Visual Acuity (Snellen - Linear) Right Left Dist cc 20/50 20/800 eccentric Dist ph cc 20/40 Correction: Glasses Tonometry (Applanation, 9:21) Right Left Pressure 19 18 Neuro/Psych Oriented x3: Yes Mood/Affect: Normal Dilation Right eye: Tropicamide 1%, Phenylephrine 2.5% @ 9:21 Slit Lamp and Fundus Exam Slit Lamp Exam Right Left Anterior Chamber Deep and quiet Deep and quiet Please refer to large retinal drawing. OCT, Retina - OU - Both Eyes Right Eye Quality was good. Scan locations included subfoveal. Progression has been stable. Findings include choroidal neovascular membrane (CNV Atrophy ). Left Eye Quality was good. Scan locations included subfoveal. Progression has been stable. Findings include (scar). Intravitreal Injection, Pharmacologic Agent - OD - Right Eye Time Out 05/23/2023. 9:35. Confirmed correct patient, procedure, site, and patient consented. Anesthesia Topical anesthesia was used. Anesthetic medications included Proparacaine 0.5%, Tetracaine 0.5%. Procedure Preparation included 5% betadine to ocular surface, eyelid speculum. A 30 gauge needle was used. Injection: 1.25 mg bevacizumab Route: intravitreal, Site: Right Eye NDC: [address]-58, Lot: [id number], Expiration date: 05/24/2023 Post-op Post injection exam found visual acuity of at least counting fingers. The patient tolerated the procedure well. There were no complications. Post injection medications were not given. IMPRESSION: 1. Exudative age-related macular degeneration of right eye with active choroidal neovascularization(HCC-CMS) OCT, RETINA - OU - BOTH EYES INTRAVITREAL INJECTION, PHARMACOLOGIC AGENT - OD - RIGHT EYE bevacizumab (AVASTIN) ophthalmic syringe 1.25 mg 2. Exudative age-related macular degeneration of left eye with inactive scar (HCC-CMS) PLAN: Wet age related macular degeneration both eyes End stage left eye Controlled 14 weeks s/p Avastin right eye Continue every 14 weeks Recommend Avastin right eye Patient agrees Avastin injection done to right eye today Patient can discontinue taking the Areds2 vitamin Return in about 14 weeks (around 08/29/2023) for Avastin RT eye, OCT. IYayo MD, have performed my own history, and have evaluated and examined the patient myself. I am scribing for Yayo Chu MD while he is personally performing the service. JUAN Brandon (Scribe) documented in this encounter Plan of Treatment Upcoming Encounters Date Type Department Care Team (Late st Contact Info) Description 01/02/2024 10:15 EDT Office Visit [facility] Ophthalmology - [facility] [address] [phone] Yayo Chu MD [address] [facility], [address] [place] [address] documented as of this encounter Procedures Procedure Name Priority Date/Time Associated Diagnosis Comments INTRAVITREAL INJECTION, PHARMACOLOGIC AGENT - OD - RIGHT EYE Routine 05/23/2023 9:42 EST Exudative age-related macular degeneration of right eye with active choroidal neovascularization (HCC-CMS) OCT, RETINA - OU - BOTH EYES Routine 05/23/2023 9:42 EST Exudative age-related macular degeneration of right eye with active choroidal neovascularization (HCC-CMS) documented in this encounter Results * INTRAVITREAL INJECTION, PHARMACOLOGIC AGENT - OD - RIGHT EYE (05/23/2023 9:42 EST) Narrative [facility] POINT OF CARE - 05/23/2023 12:29 EST Time Out 05/23/2023. 9:35. Confirmed correct patient, procedure, site, and patient consented. Anesthesia Topical anesthesia was used. Anesthetic medications included Proparacaine 0.5%, Tetracaine 0.5%. Procedure Preparation included 5% betadine to ocular surface, eyelid speculum. A 30 gauge needle was used. Injection: 1.25 mg bevacizumab ??Route: intravitreal, Site: Right Eye ??[facility]: [address]-07, Lot: [id number], Expiration date: 05/24/2023 Post-op Post injection exam found visual acuity of at least counting fingers. The patient tolerated the procedure well. There were no complications. Post injection medications were not given. Yayo Chu MD OPHTH CLINIC PROC EDURES [facility]INT [facility] * OCT, RETINA - OU - BOTH EYES (05/23/2023 9:42 EST) Narrative [facility] OPHTHALMOLOGY - 05/23/2023 12:29 EST Right Eye Quality was good. Scan locations included subfoveal. Progression has been stable. Findings include choroidal neovascular membrane (CNV Atrophy ). Left Eye Quality was good. Scan locations included subfoveal. Progression has been stable. Findings include (scar). Yayo Chu MD OPHTH TOMOGRAPHY [facility] OPHTHALMOLOGY documented in this encounter Visit [...] syringe 1.25 mg 1.25 mg, Starting on Miguelina 05/23/23 at 1229, Until Miguelina 05/23/23 at 1229, Routine Given 05/23/2023 12:29 EST 1.25 mg Right Eye documented in this encounter Orders Medications Ordered That Porfirio ht Not Have Been Administered Count Last Ordered Date First Ordered Date bevacizumab (AVASTIN) ophtha lmic syringe 1.25 mg 1 05/23/2023 documented in this encounter Eye Exam Visual Acuity (Snellen - Linear) Right eye Left eye Dist cc 20/50 20/800 eccentric Dist ph cc 20/40 Correction: Glasses Tonometry (Applanation, 9:21) Right eye Left eye Pressure 19 18 Neuro/Psych Oriented x3: Yes Mood/Affect: Normal Dilation Right eye: Tropicamide 1%, P henylephrine 2.5% @ 9:21 Slit Lamp Exam Right eye Left eye Anterior Chamber Deep and quiet Deep and quiet Care Teams Tumbler Machine Operator Relationship Specialty Start Date End Date Unknown, Provider, PCP - General 02/12/12 documented as of this encounter
--- OUTSIDE RECORDS SUMMARY | 2023-11-07 12:00 | XMS_ITS | Encounter Summary ---
Author Organization [facility] Address [address] [place] [id number] Care Team Providers Care Mica Inspector Name Role Phone Unknown, Provider Primary Care Provider Reason for Visit * Reason Comments Eye Problem * Prior Authorization (Routine) - Specialty Report Received Specialty Diagnoses / Procedures Referred By Conttaylor t Referred To Contact Diagnoses ARMD (age related macular degeneration) Procedures [place] INJECT INTRAVITREAL PHARMCOLOGIC [place] AFLIBERCEPT INJECTION [place] BEVACIZUMAB INJECTION [facility]hthal[facility] [address] [place] [address] [facility] [address] [place] [id number] Referral ID Status Reason Start Date Expiration Date V isits Requested Visits Authorized [id number] Specialty Report Received 04/02/2022 03/24/2023 2 2 Encounter Details Date Type Department Care Team (Late st Contact Info) Description 06/20/2022 10:45 EDT Office Visit [facility] Ophthalmology - [address] [address] Yayo Chu MD [address] [facility], [address] [place] [phone] Social History Tobacco Use Types Packs/Day Years Used Date Smoking Tobacco: Former Cigarettes Smokeless Tobacco: Never Tobacco Cessation:Counseling Given: Not Answered Sex and Gender Information Value Date Recorded Sex Assigned at Not on file Gender Identity Not on file Sexual Orientation Not on file documented as of this encounter Progress Notes * Yayo Chu MD - 06/20/2022 1045 EDT Chief Complaint Patient presents with ??? Eye Problem Comments Return in about 11 weeks (around 06/27/2022) for Avastin, Right for Wet AMD both s/p Avastin right 04/11/22. Vision seems stable x past few months. No eye pain, flashes or floaters. Doesn't currently use any drops HPI Location: Both eyes Pain: 0 - No pain Quality: Blurry Severity: Mild Duration: Months Timing: Fluctuates Lasts: Continuous Context: Return in about 11 weeks (around 06/27/2022) for Avastin, Right for Wet AMD Modifying factors: s/p Avastin right 04/11/22. Associated Signs & Symptoms: Vision seems stable x past few months. No eye pain, flashes or floaters. Doesn't currently use any drops Visual Fluctuations: Floaters Attestation: The above HPI has been reviewed by the Attending Physician Base Eye Exam Visual Acuity (Snellen - Linear) Right Left Dist sc 20/40 -2 CF@6' Dist ph sc NI NI Tonometry (Applanation, 10:53) Right Left Pressure 18 20 Pupils Dark Light Right 2.5 2 Left 2.5 2 Extraocular Movement Right Left Full, Ortho Full, Ortho Neuro/Psych Oriented x3: Yes Mood/Affect: Normal Dilation Both eyes: Phenylephrine 2.5%, Mydriacyl 0.5% @ 10:53 Please refer to large retinal drawing. IMAGING: [...] - OD - Right Eye Time Out 06/20/2022. 11:26. Confirmed correct patient, procedure, site, and patient consented. Anesthesia Topical anesthesia was used. Anesthetic medications included Tetracaine 0.5%, Proparacaine 0.5%. Procedure Preparation included 5% betadine to ocular surface, eyelid speculum. A 30 gauge needle was used. Injection: 1.25 mg bevacizumab Route: intravitreal, Site: Right Eye [facility]: [address]-71, Lot: [id number], Expiration date: 06/22/2022 Post-op Post injection exam found visual acuity [...] of left eye with inactive scar (HCC-CMS) (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 Yayo Chu, have performed my own HPI and reviewed the tech's ROS. I have also reviewed the patient's past medical, family, social and surgical history, as well as the patient's medications, allergies, and problem list. I am scribing for Dr. Yayo Chu MD while he is personally performing the service. JUAN MORRISON (Scribe) documented in this encounter Plan of Treatment Upcoming Encounters Date Type Department Care Team (Late st Contact Info) Description 01/02/2024 10:15 EDT Office Visit [facility] Ophthalmology - [phone] [place], [place] [phone] Yayo Chu MD [address] [place] [address], [address] [place] [address] documented as of this encounter Procedures Procedure Name Priority Date/Time Associated Diagnosis Comments INTRAVITREAL INJECTION, PHARMACOLOGIC AGENT - OD - RIGHT EYE Routine 06/20/2022 11:38 EDT Exudative age-related macular degeneration of right eye with active choroidal neovascularization (HCC-CMS) OCT, RETINA - OU - BOTH EYES Routine 06/20/2022 11:37 EDT Exudative age-related macular degeneration of right eye with active choroidal neovascularization (HCC-CMS) documented in this encounter Results * INTRAVITREAL INJECTION, PHARMACOLOGIC AGENT - OD - RIGHT EYE (06/20/2022 11:38 EDT) Narrative [facility] POINT OF CARE - 06/20/2022 14:10 EDT Time Out 06/20/2022. 11:26. Confirmed correct patient, procedure, site, and patient consented. Anesthesia Topical anesthesia was used. Anesthetic medications included Tetracaine 0.5%, Proparacaine 0.5%. Procedure Preparation included 5% betadine to ocular surface, eyelid speculum. A 30 gauge needle was used. Injection: 1.25 mg bevacizumab ??Route: intravitreal, Site: Right Eye ??[facility]: [address]-91, Lot: [id number], Expiration date: 06/22/2022 Post-op Post injection exam found visual acuity of at least counting fingers. The patient tolerated the procedure well. There were no complications. Post injection medications were not given. Yayo Chu MD OPHTH CLINIC PROC EDURES Performing Organization Address [facility] [[email or web address]] Co de Phone Number [facility] POINT OF CARE * OCT, RETINA - OU - BOTH EYES (06/20/2022 11:37 EDT) Narrative [facility] OPHTHALMOLOGY - 06/20/2022 14:10 EDT Right Eye Quality was good. Scan locations included subfoveal. Progression has no prior data. Findings include choroidal neovascular membrane (Atrophy, no fluid). Left Eye Quality was good. Scan locations included subfoveal. Progression has no prior data. Findings include subretinal scarring. Yayo Chu MD OPHTH TOMOGRAPHY Performing Organization Address [facility]/ZIP Co de Phone Number [facility] OPHTHALMOLOGY documented in this encounter Visit [...] syringe 1.25 mg 1.25 mg, Starting on Sat06/20/22 at 1138, Until Sat06/20/22 at 1610, Routine Given 06/20/2022 11:38 EDT 1.25 mg Right Eye documented in this encounter Historical Medications * This list may reflect changes made after this encounter. Medication Sig Dispensed Refills Start Date End Date vit C,P-Zt-yhfmu-lutein-zeaxa n (PRESERVISION AREDS-2) 250-90-40-1 mg capsule Take 1 Capsule by mouth daily. amLODIPine (NORVASC) 5 mg tablet Take 1 Tablet by mouth daily. hydroCHLOROthiazide (HYDRODIURIL) 25 mg tablet Take 1 Tablet by mouth daily. added in this encounter Eye Exam Visual Acuity (Snellen - Linear) Right eye Left eye Dist sc 20/40 -2 CF@6' Dist ph sc NI NI Tonometry (Applanation, 10:53) Right eye Left eye Pressure 18 20 Pupils Dark Light Right eye 2.5 2 Left eye 2.5 2 Extraocular Movement Right eye Left eye Full, Ortho Full, Ortho Neuro/Psych Oriented x3: Yes Mood/Affect: Normal Dilation Both eyes: Phenylephrine 2.5 %, Mydriacyl 0.5% @ 10:53 Care Teams Mica Inspector Relationship Specialty Start Date End Date Unknown, Provider, PCP - General 02/12/12 documented as of this encounter
--- OUTSIDE RECORDS SUMMARY | 2023-11-07 12:00 | XMS_ITS | Encounter Summary ---
Author [facility] [place] [address] Care Team Providers Care Compensation Consultant Name Role Phone EsparzaAyanna APRN Primary Care Provider [phone] Reason for Visit * Reason Comments Breast Cancer Encounter Details Date Type Department Care Team (Late st Contact Info) Description 12/20/2014 2:00 PM EDT Follow-Up Hematology/Oncology at [address] [phone] Aubrey Garcia MD [address] [place] [address] Breast cancer, stage 1, right Discharge Disposition: Home Social History Tobacco Use Types Packs/Day Years [...] on file documented as of this encounter Last Filed Vital Signs Vital Sign Reading Time Taken Comments Blood Pressure 109/71 12/20/2014 1:37 PM EDT Pulse 94 12/20/2014 1:37 PM EDT Temperature 36.9 ??C (98.4 ??F) 12/20/2014 1:37 PM ED T Respiratory Rate 20 12/20/2014 1:37 PM EDT Oxygen Saturation 99% 12/20/2014 1:37 PM EDT Inhaled Oxygen Concentration - - Weight 97.5 kg (215 lb) 12/20/2014 1:37 PM EDT Height 148.6 cm (4' 10.5) 12/20/2014 1:37 PM ED T Body Mass Index 44.16 12/20/2014 1:37 PM EDT documented in this encounter Progress Notes * Aubrey Garcia MD - 12/20/2014 2:16 PM EDT Diagnosis: 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 Subjective: Ashlyn comes in today for followup. She was starting to have increasing problems with arthritis and felt that she was quite a bit better off of aromatase inhibitors so we put her on tamoxifen three months ago. She feels like her joint pains have worsened again and overall she is hurting about as much as she was. She has joint pain in her shoulders, elbows, knees, and feet and legs. It makes it hard for her to go up and down stairs. She is reasonably certain it is the medication. Otherwise, though, review of systems is quite negative. Past medical history and social history are reviewed. She did quit her job at [employer] and then took a job at [employer]. Unfortunately they did not keep her working 40 hours a week so she quit that job but is looking for another now. Review of Systems Constitutional: Negative for fever, chills, activity change, fatigue and unexpected weight change. HENT: Negative for sore throat, mouth sores and trouble swallowing. Eyes: Negative. Respiratory: Negative for cough, shortness of breath and wheezing. Cardiovascular: Negative for chest pain, palpitations and leg swelling. She does have a pulling pain at times in her right breast related to her surgery Gastrointestinal: Negative for nausea, vomiting, abdominal pain, diarrhea, constipation and abdominal distention. Genitourinary: Negative for dysuria and difficulty urinating. Musculoskeletal: Significant for multiple joint pains Skin: Negative. Neurological: Negative. Hematological: Negative for adenopathy. Head: Normocephalic, without obvious abnormality, atraumatic Eyes: PERRL, conjunctiva/corneas clear, EOM's intact, fundi benign, both eyes Ears: Normal TM's and external ear canals, both ears Nose: Nares normal, septum midline, mucosa normal, no drainage or sinus tenderness Throat: Lips, mucosa, and tongue normal; teeth and gums normal Neck: Supple, symmetrical, trachea midline, no adenopathy, thyroid: not enlarged, symmetric, no tenderness/mass/nodules, no carotid bruit or JVD Back: Symmetric, no curvature, ROM normal, no CVA tenderness Lungs: Clear to auscultation bilaterally, respirations unlabored Chest Wall: No tenderness or deformity the patient's breasts are examined and there is no dominant mass in either breast and both axillae are clear. She has a small scar at the lumpectomy site with some firmness there that is unchanged from previous visits Heart: Regular rate and rhythm, S1, S2 normal, no murmur, rub or gallop Abdomen: Soft, non-tender, bowel sounds active all four quadrants, no masses, no organomegaly Extremities: Extremities normal, atraumatic, no cyanosis or edema Pulses: 2+ and symmetric Skin: Skin color, texture, turgor normal, no rashes or lesions Lymph nodes: Cervical, supraclavicular, and axillary nodes normal Neurologic: Normal Review of her laboratory today shows normal electrolytes, creatinine is improved at 1.2. ALP is 72 and calcium is 9.6. CBC shows improvement in her mild anemia. Hemoglobin is 11.9, hematocrit 36.4, white count 5.9, and platelet count 256. Assessment/Plan: Ashlyn is doing well with no evidence of recurrent breast cancer but is having significant arthritis. I think it has to do more with her change in life after she stopped her working and her increase in weight after she stopped smoking. There is, however, a small incidence of arthritic-type symptoms with tamoxifen and since she thinks things got a bit worse since starting the medication, I would like to go ahead and give her a trial off of it. She has a stage I cancer and is at low risk for recurrent disease as it is but of course one would prefer her to take a lisbeth if possible. If her pain continues, it is probably not unreasonable to check a bone scan and a CT on her, although with normal ALP and calcium and CBC it is really unlikely that anything major is going on. She will stop the tamoxifen and we will see her back in three months' time to see how she is doing. She will let us know if there are issues or problems in the interim. documented in this encounter Plan of Treatment Not on file documented as of this encounter Visit Diagnoses Diagnosis Breast cancer, stage 1, right documented in this encounter Care Teams Compensation Consultant Relationship Specialty Start Date End Date Ayanna Esparza APRN PCP - General 08/06/13 05/20/16 documented as of this encounter
--- OUTSIDE RECORDS SUMMARY | 2023-11-07 12:00 | XMS_ITS | Encounter Summary ---
[place] [address] Care Team Providers Care Rotary Drill Rig Operator Name Role Phone ManBrooklyne Dianne FRANKLIN Primary Care Provider [phone] Reason for Referral * Consultation (Routine) - Specialty Diagnoses / Procedures Referred By Conttaylor t Referred To Contact Ophthalmology Diagnoses ARMD (age related macular degeneration) Juan M Rios MD [address] [place] [phone] [facility] [address] [place] [phone] Referral ID Status Reason Start Date Expiration Date V isits Requested Visits Authorized [id number] Consult, Test & Treat PCP Updated and/or Approved 02/01/2022 02/01/2023 6 6 Encounter Details Date Type Department Care Team (Latest Contact Info) Description 02/01/2022 Transcribe Orders eDH Incoming Referrals [phone] Juan M Rios MD [address] [place] [phone] ARMD (age related macular degeneration) Social History Tobacco Use Types Packs/Day Years [...] as of this encounter Plan of Treatment Scheduled Referrals Name Type Priority Associated Diagnoses Order Schedule Referral to Ophthalmology Outpatient Referral Routine ARMD (age related macular degeneration) Ordered: 02/01/2022 documented as of this encounter Visit Diagnoses Diagnosis ARMD (age related macular degeneration) Macular degeneration (senile) of retina, unspecified documented in this encounter Care Teams Rotary Drill Rig Operator Relationship Specialty Start Date End Date Allison Conway, NOEMI [address] [place] [address] PCP - General Internal Medicine 04/15/17 documented as of this encounter
--- OUTSIDE RECORDS SUMMARY | 2023-11-07 12:00 | XMS_ITS | Referral Summary ---
Author Organization [facility] Address [address] [place] [address] Care Team Providers Care Corporate Strategy Analyst Name Role Phone Unknown, Provider Primary Care Provider Encounters Date Type Department Care Team Description 09/05/2023 10:15 EDT Office Visit [facility] Ophthalmology - [address] [place] [address] Yayo Chu MD 08/13/2023 Telephone [facility] Ophthalmology - Main [address] [phone] Yayo Chu MD Paperwork request from Last 3 Months Allergies No known active allergies Medications Medication Sig Dispensed Refills Start Date End Date Status hydroCHLOROthiazide (HYDRODIURIL) 25 mg tablet Take 1 Tablet by mouth daily. Active amLODIPine (NORVASC) 5 mg tablet Take 1 Tablet by mouth daily. Active vit C,G-Zj-wlkvq-lutein-ze axan (PRESERVISION AREDS-2) 250-90-40-1 mg capsule Take 1 Capsule by mouth daily. Active Active Problems Problem Noted Date Diagnosed Date Exudative age-related macula r degeneration of right eye with active choroidal neovascularization ([facility]) 06/20/2022 Exudative age-related macula r degeneration of left eye with inactive scar ([facility]) 06/20/2022 Social History Tobacco Use Types Packs/Day Years Used Date Smoking Tobacco: Former Cigarettes Smokeless Tobacco: Never Tobacco Cessation:Counseling Given: Not Answered Sex and Gender Information Value Date Recorded Sex Assigned at Not on file Gender Identity Not on file Sexual Orientation Not on file Plan of Treatment Upcoming Encounters Date Type Department Care Team (Late st Contact Info) Description 01/02/2024 10:15 EDT Office Visit [facility] Ophthalmology - [address] [place] [address] Yayo Chu MD [address] [facility], [address] [place] [address] Procedures Procedure Name Priority Date/Time Associated Diagnosis Comments OCT, RETINA - OU - BOTH EYES Routine 09/05/2023 10:28 EDT Exudative age-related macular degeneration of right eye with active choroidal neovascularization (HCC-CMS) INTRAVITREAL INJECTION, PHARMACOLOGIC AGENT - OD - RIGHT EYE Routine 09/05/2023 10:27 EDT Exudative age-related macular degeneration of right eye with active choroidal neovascularization (HCC-CMS) from Last 3 Months Results * OCT, RETINA - OU - BOTH EYES (09/05/2023 10:28 EDT) Narrative [facility] OPHTHAL[facility]OLOG[facility] - 09/05/2023 12:34 EDT Right Eye Quality was good. Scan locations included subfoveal. Progression has been stable. Findings include choroidal neovascular membrane. Left Eye Quality was good. Scan locations included subfoveal. Progression has been stable. Findings include subretinal scarring. Yayo Chu MD OPHTH TOMOGRAPHY [facility] OPHTH[facility]OLOG[facility] * INTRAVITREAL INJECTION, PHARMACOLOGIC AGENT - OD - RIGHT EYE (09/05/2023 10:27 EDT) Narrative [facility] POINT OF CARE - 09/05/2023 12:34 EDT Time Out 09/05/2023. 10:10. Confirmed correct patient, procedure, site, and patient consented. Anesthesia Topical anesthesia was used. Anesthetic medications included Proparacaine 0.5%, Tetracaine 0.5%. Procedure Preparation included 5% betadine to ocular surface, eyelid speculum. A 30 gauge needle was used. Injection: 1.25 mg bevacizumab ??Route: intravitreal, Site: Right Eye ??[facility] [place]NOTE 2]: [address]-26, Lot: [id number], Expiration date: 09/06/2023 Post-op Post injection exam found visual acuity of at least counting fingers. The patient tolerated the procedure well. There were no complications. Post injection medications were not given. Yayo Chu MD OPHTH CLINIC PROC [facility] Organization Address City/State/ZIP Co de Phone Number [facility] POINT OF CARE from Last 3 Months Care Teams Corporate Strategy Analyst Relationship Specialty Start Date End Date Unknown, Provider, PCP - General 02/12/12
--- OUTSIDE RECORDS SUMMARY | 2023-11-07 12:00 | XMS_ITS | Encounter Summary ---
Author Organization [facility] Address [address] [place] [address] Care Team Providers Care Cloth Spreader Name Role Phone Unknown, Provider Primary Care Provider Reason for Visit * Reason Onset Date Comments Paperwork request 08/13/2023 Encounter Details Date Type Department Care Team (Late st Contact Info) Description 08/13/2023 Telephone [facility] [address] [place] [address] Yayo Chu MD [address] [facility], [address] [place] [address] Paperwork request Social History Tobacco Use Types Packs/Day Years Used Date Smoking Tobacco: Former Cigarettes Smokeless Tobacco: Never Sex and Gender Information Value Date Recorded Sex Assigned at Not on file Gender Identity Not on file Sexual Orientation Not on file documented as of this encounter Miscellaneous Notes * Telephone Encounter - Teri Wilson - 08/13/2023 1328 EDT Information placed in the mail * Telephone Encounter - Nancy Santos - 08/13/2023 1311 EDT Pt calling she needs a run off of her appts from 03.25.2022 til 05.23.2023 mailed to her, I did verify her address in the system. documented in this encounter Plan of Treatment Upcoming Encounters Date Type Department Care Team (Late st Contact Info) Description 01/02/2024 10:15 EDT Office Visit [facility] Ophthalmology - [address] [place] [address] Yayo Chu MD [address] [facility], [address] [place] [address] documented as of this encounter Visit Diagnoses Not on filedocumented in this encounter Care Teams Cloth Spreader Relationship Specialty Start Date End Date Unknown, Provider, PCP - General 02/12/12 documented as of this encounter
--- OUTSIDE RECORDS SUMMARY | 2023-11-07 12:00 | XMS_ITS | Encounter Summary ---
Author Organization [facility] Address [address] [place] [id number] Care Team Providers Care Rim Roller Operator Name Role Phone Unknown, Provider Primary Care Provider Encounter Details Date Type Department Care Team (Late st Contact Info) Description 12/22/2020 Lab Requisition [facility] Pathology & Laboratory Medicine - [address] [address] Ellen Evans MD [address] [place] [address] [address] [place] [address] Encounter for other general examination Social History Tobacco Use Types Packs/Day Years Used Date Smoking Tobacco: Never Assessed Sex and Gender Information Value Date Recorded Sex Assigned at Not on file Gender Identity Not on file Sexual Orientation Not on file documented as of this encounter Plan of Treatment Upcoming Encounters Date Type Department Care Team (Late st Contact Info) Description 01/02/2024 10:15 EDT Office Visit [facility] Ophthalmology [address] [address] Yayo Chu MD [address] [facility], [address] [place] [address] documented as of this encounter Procedures Procedure Name Priority Date/Time Associated Diagnosis Comments SURGICAL PATHOLOGY Today 12/21/2020 9: 15 EDT Encounter for other general examination documented in this encounter Results * SURGICAL PATHOLOGY (12/21/2020 9:15 EDT) Note to Patient The following pathology results have been interpreted by your pathologist and may be available to you before your health provider has had the opportunity to review them. Please allow time for your provider to receive these results and explore management options, if applicable. 12/27/2020 8:00 T [facility] Final Diagnosis A. TISSUE FROM RIGHT THIGH, CYST, RESECTION: - Membranous and focally cytic fibro-adipose tissue with focal fibrosis and chronic inflammation, consistent with fibrous wall of clinical cystic lesion. 12/27/2020 8:00 [facility] Attestation By the signature below, the attending physician certifies that they have 1) personally conducted a gross and/or microscopic examination of the described specimen(s), and/or personally interpreted the results of laboratory testing of the described specimen(s), and 2) personally rendered or confirmed the above diagnosis. 12/27/2020 8:00 [facility] at 0800 Clinical History Right thigh hematoma 12/27/2020 8:00 T [facility] Gross Description A. Received in formalin labelled with proper patient identification (initials R, M) and R thigh cyst is a 6.0 x 3.8 x 2.0 cm aggregate of of pink-perry to white fibrous, somewhat cystic appearing soft tissue. The cystic portions containing a smooth inner lining. No excrescences or firm areas identified. No obvious hematoma is identified. Seater Assembler sections are submitted in A1-A2. LETITIA ONEIL(ASCP) 12/22/2020 8:49 12/27/2020 8:00 EDT [facility] Performing Lab [facility] 12/27/2020 8:00 EDT [facility] Scanned Images 12/27/2020 8:00 T [facility] Tissue SOFT TISSUE / Unknown 12/21/2020 9:15 EDT 12/22/2020 8:26 EDT Ellen Evans MD PATHOLOGY ORDERDianne FLOYD [facility] [address] [place] [address] documented in this encounter Visit Diagnoses Diagnosis Encounter for other general examination documented in this encounter Care Teams Rim Roller Operator Relationship Specialty Start Date End Date Unknown, Provider, PCP - General 02/12/12 documented as of this encounter
--- OUTSIDE RECORDS SUMMARY | 2023-11-07 12:00 | XMS_ITS | Encounter Summary ---
Author Organization [facility] [place] [address] Care Team Providers Care Cardiothoracic Anesthesia Technician Name Role Phone EsparzaAyanna APRN Primary Care Provider [phone] Reason for Visit * Reason Comments Breast Cancer Encounter Details Date Type Department Care Team (Late st Contact Info) Description 02/03/2015 3:30 PM EST Office Visit Hematology/Oncology at [address] [phone] Aubrey Garcia MD [address] [place] [address] Breast cancer, stage 1, right Social History [...] Sign Reading Time Taken Comments Blood Pressure 115/81 02/03/2015 3:24 PM EST Pulse 93 02/03/2015 3:24 PM EST Temperature 36.8 ??C (98.2 ??F) 02/03/2015 3:24 PM ES T Respiratory Rate - - Oxygen Saturation 100% 02/03/2015 3:24 PM EST Inhaled Oxygen Concentration - - Weight 98.7 kg (217 lb 8 oz) 02/03/2015 3:24 PM EST Height 148.6 cm (4' 10.5) 02/03/2015 3:24 PM ES T Body Mass Index 44.68 02/03/2015 3:24 PM EST documented in this encounter Progress Notes * Aubrey Garcia MD - 02/03/2015 4:44 PM EST Diagnosis: 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 Subjective: Ashlyn comes in today because she is worried about a couple of cysts that she found behind her knees. She has been having increasing problems with arthritis symptoms and they are particularly bad in her knees and lower extremities. She has put on quite a bit of weight since she quit smoking, and with that, is having more joint pains there. She jokingly mentions she might start smoking again so she can lose weight again, but was strongly advised against that. She noted that she was not seriously considering that. As far as her breast cancer medications go, however, she thought there might be a relationship with her tamoxifen and finally decided to go ahead and discontinue that. There has really not been any improvement in any joint pain and I had talked to her about continuing the medication. She is fine with doing that. Review of systems is otherwise negative except for some arthritis in her shoulders, elbows, arms, and hands that comes and goes on occasion. Past medical history and social history are reviewed. She did quit her job at [employer] and then took a job at [employer]. Unfortunately they did not keep her working [...] urinating. Musculoskeletal: Significant for multiple joint pains now especially in the knees Skin: Negative. Neurological: Negative. Hematological: Negative for [...] no masses, no organomegaly Extremities: Extremities normal, but in feeling behind the knee in the popliteal pulses bilaterallyshe does appear to have us reexcised cyst on each side consistent with a Martines's cyst. She notes a bit of tenderness when this area is compressed. I also question whether she doesn't have of mild effusion in both knee joints. Pulses: not tested today Skin: Skin color, texture, turgor normal, no rashes or lesions Lymph nodes: Cervical, supraclavicular, and axillary nodes normal Neurologic: Normal Assessment/Plan: Ashlyn is doing well overall, but I think has gotten no benefit from stopping the tamoxifen. I suspect she is having problems with regularly degenerative arthritis, and on exam today query whether she does not have bilateral martines's cysts. I suggested she might see an orthopedic surgeon for better evaluation or possibly her regular doctor. As far as the tamoxifen goes, she is agreeable to restarting that and we will see her back on her regular followup. She will certainly keep me informed if anything else comes up. However, at this point in time, she is given reassurance. documented in this encounter Plan of Treatment Not on file documented as of this encounter Visit Diagnoses Diagnosis Breast cancer, stage 1, right documented in this encounter Care Teams Cardiothoracic Anesthesia Technician Relationship Specialty Start Date End Date Ayanna Esparza APRN PCP - General 08/06/13 05/20/16 documented as of this encounter
--- OUTSIDE RECORDS SUMMARY | 2023-11-07 12:00 | XMS_ITS | Encounter Summary ---
Author Organization [facility] Address [address] [place] [address] Care Team Providers Care Mold Shop Supervisor Name Role Phone Unknown, Provider Primary Care Provider Reason for Visit * Reason Onset Date Comments Other 02/26/2022 Encounter Details Date Type Department Care Team (Late st Contact Info) Description 02/26/2022 Telephone [facility] Ophthalmology - [facility] [address] [place] [address] Yayo Chu MD [address] [facility], [address] [place] [address] Other Social History Tobacco Use Types Packs/Day Years Used Date Smoking Tobacco: Never Assessed Sex and Gender Information Value Date Recorded Sex Assigned at Not on file Gender Identity Not on file Sexual Orientation Not on file documented as of this encounter Miscellaneous Notes * Telephone Encounter - Hollie Mejia - 03/01/2022 0832 EST Relayed message to pt * Telephone Encounter - Nancy Chirinos COA - 02/28/2022 0921 EST LMOM to call us back to relay the message per Dr. Chu * Telephone Encounter - Paul-Keshia Bravo - 02/26/2022 1112 EST Called pt to scheduled her transfer of care appt. Pt has been getting injections of avastin in the right eye. Her other eye doctor had been having her do eye drops of ciprofloxacin every 15 mins until her appt. She said that the drops where an antibiotic She asked if this is something she should doprior to the appt on 04/11. I told her that this wasn't something I was familiar with but I would send this along to Dr. Chu and we would call her back with answer. documented in this encounter Plan of Treatment Upcoming Encounters Date Type Department Care Team (Late st Contact Info) Description 01/02/2024 10:15 EDT Office Visit [facility] Ophthalmology - [facility] [address] [place] [address] Yayo Chu MD [address] [place] [address], [address] [place] [address] documented as of this encounter Visit Diagnoses Not on filedocumented in this encounter Care Teams Mold Shop Supervisor Relationship Specialty Start Date End Date Unknown, Provider, PCP - General 02/12/12 documented as of this encounter
--- OUTSIDE RECORDS SUMMARY | 2023-11-07 12:00 | XMS_ITS | Encounter Summary ---
Author Organization [facility] Address [facility] [place] [address] Care Team Providers Care Finishing Machine Operator Name Role Phone ManAllison APRN Primary Care Provider + [phone] Reason for Visit * Reason Comments Breast Cancer Encounter Details Date Type Department Care Team (Late st Contact Info) Description 04/15/2017 3:00 PM EST Office Visit Hematology/Oncology at [address] [phone] Aubrey Garcia MD [address] [place] [address] Breast cancer, stage 1, right Social [...] Mass Index 40.47 04/15/2017 2:55 PM EST documented in this encounter Progress Notes * Aubrey Garcia MD - 04/15/2017 3:00 PM EST Diagnosis: 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 Subjective: Ashlyn comes in today for her 5 year follow-up on her breast cancer. She called and decided to go ahead and stop her tamoxifen which we had talked about last visit. She was on it for a full 5 years. She believes it caused her some teeth problems although that is not very logical secondary effect ofthe medication. She has a friend however had the same kind of tooth problem that was on tamoxifen. 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 She is not sure when she had her last mammogram in as far as we can tell that was in 2014 but is fine for us to reorder those here locally. She has no new lumps or bumps no bone pain no other problems. She is continuing to be careful with her left knee because of the surgery she had there but is actually ambulating quite well. Current Outpatient Prescriptions on File Prior to Visit Medication Sig Dispense Refill ??? aspirin 81 mg Tablet, Delayed Release (E.C.) Take 81 mg by mouth daily. ??? amLODIPine (NORVASC) 5 mg Tablet Take 5 mg by mouth daily. ??? hydrochlorothiazide (HYDRODIURIL) 25 mg Tablet Take 25 mg by mouth daily. ? ? BETA-CAROTENE,A, W-C & E/MIN (OCUVITE ORAL) Take by mouth. ??? cholecalciferol, Vitamin D3, 400 unit tablet Take 400 Units by mouth daily. ??? cyanocobalamin, vitamin B-12, 100 mcg tablet Take 100 mcg by mouth daily. ??? Calcium Carbonate-Vitamin D3 (CALCIUM WITH VITAMIN D) 600 mg(1,500mg) -400 unit Tab Take by mouth. ??? multivitamin (THERAGRAN) tablet Take 1 tablet by mouth daily. ??? tamoxifen (NOLVADEX) 20 mg Tablet Take 1 tablet by mouth daily. (Patient not taking: Reported on 04/15/2017) 30 tablet 11 No current facility-administered medications on file prior to visit. Review of Systems Constitutional: Negative for fever, [...] supraclavicular, and axillary nodes normal Neurologic: Normal Her laboratory is reviewed. White count 7.08 hemoglobin 12.6 hematocrit 40.2 platelet count 266,000neutrophil count 4.58. CMP shows normal electrolytes baseline creatinine of 1.24 random glucose of 100 normal liver tests with an ALP of 94. Her calcium is 9.9 Assessment/plan: Ashlyn is doing exceptionally well and is now 5 years out. She has no interest in taking tamoxifen or even an aromatase inhibitor for longer than 5 years. There is some added benefit on reducing risks of new cancers taking it longer and there is a small cumulative risk of recurrence that occurs offthe medication. It is a very small risk however. All that being said we will see her back on a yearly basis at this point and I have ordered lab prior to return. We will go ahead and get her mammograms ordered and NVR H. She will call if there is issues or problems in the interim. documented in this encounter Plan of Treatment Not on file documented as of this encounter Procedures Procedure Name Priority Date/Time Associated Diagnosis Comments MAMMOGRAM SCAN 09/05/2017 12:00 AM EDT LAB SCAN 04/04/2017 12:00 AM EST documented in this encounter Results * SCAN DOC: MAMMOGRAM (09/05/2017 12:00 AM EDT) Anatomical Region Laterality Modality Other Narrative 09/05/2017 12:00 AM EDT Ordered by an unspecified provider. Scanning Provider MEDIA MGR SCAN EXT O RDR/RSLT * SCAN DOC: LAB (04/04/2017 12:00 AM EST) Narrative 04/04/2017 12:00 AM EST Ordered by an unspecified provider. Scanning Provider MEDIA MGR SCAN EXT O RDR/RSLT documented in this encounter Visit Diagnoses Diagnosis Breast cancer, stage 1, right documented in this encounter Care Teams Finishing Machine Operator Relationship Specialty Start Date End Date Allison Conway, CYLINDER DYER [address] [place] [address] PCP - General Internal Medicine 04/15/17 documented as of this encounter
--- OUTSIDE RECORDS SUMMARY | 2023-11-07 12:00 | XMS_ITS | Encounter Summary ---
Author Organization [facility] Address [facility] [place] [address] Care Team Providers Care Biodiesel Product Manager Name Role Phone Geni Esparzalb Georges APRN Primary Care Provider [phone] Encounter Details Date Type Department Care Team (Late st Contact Info) Description 10/07/2013 7:30 AM EDT - 10/07/2013 9:23 AM EDT Surgery [place] [address] Ritchie Rajan MD [facility] [place] [address] STAB PHLEBECTOMY MICKIE VEINS 1 EXTREMITY 10-20 INCISIONS (WRVU 4.8) Social History Tobacco Use Types Packs/Day Years [...] Sign Reading Time Taken Comments Blood Pressure 114/67 10/07/2013 9:04 AM EDT Pulse 70 10/07/2013 9:04 AM EDT Temperature 37.2 ??C (99 ??F) 10/07/2013 8:37 AM EDT Respiratory Rate 20 10/07/2013 9:04 AM EDT Oxygen Saturation 98% 10/07/2013 9:04 AM EDT Inhaled Oxygen Concentration - - Weight 94.3 kg (208 lb) 10/07/2013 6:16 AM EDT Height 147.3 cm (4' 10) 10/07/2013 6:16 AM EDT Body Mass Index 43.47 10/07/2013 6:16 AM EDT documented in this encounter Discharge Instructions * Discharge Instructions* Radha Mckeon RN - 10/07/2013 8:58 AM EDT PATIENT INSTRUCTIONS POST-ANESTHESIA IMMEDIATELY FOLLOWING SURGERY: Do not drive or operate machinery for the first twenty four hours after surgery. Do not make any important decisions for twenty four hours after surgery or while takingnarcotic pain medications or sedatives. If you develop intractable nausea and vomiting or a severe headache please notify your doctor immediately. FOLLOW-UP: Please make an appointment with your surgeon as instructed. You do not need to follow upwith anesthesia unless specifically instructed to do so. WOUND CARE INSTRUCTIONS (if applicable): Keep a dry clean dressing on the anesthesia/puncture woundsite if there is drainage. Once the wound has quit draining you may leave it open to air. Generallyyou should leave the bandage intact for twenty four hours unless there is drainage. If the epiduralsite drains for more than 36-48 hours please call the anesthesia department. QUESTIONS?: Please feel free to call your physician or the hospital comber operator if you have any questions, and they will be happy to assist you. * Patient Instructions* Enzo Estrella - 10/07/2013 7:10 AM EDT Instructions Following Varicose Vein Surgery Wound Care: Bedrest for 4-6 hours following surgery once you get home with legs at level of heart or elevated. Keep on CARLA wraps for the next 3 days. No bathing for 3 days. Keep legs elevated or at level of heart as much as possible over the next 3-5 days. Limit amount of time sitting up with legs down or walking as much as possible for the next week (to avoid increasing pressure in the veins). After 3 days you may take off CARLA wraps and gauze, may shower, and pat dry immediately following. Put CARLA wraps back on after showering and use over next 1-2 weeks as needed for swelling or discomfort. Bruising of the skin is normal and will clear up over the next several weeks. You may use ice to the area as needed for tenderness/swelling. Keep steri-strips (pieces of tape on the skin) on until they fall off on their own. You may trim them back with scissors as they begin to peel up. Activity: Try to limit walking, standing up, or sitting with legs dangling below you as much as possible for the first week. When sitting try to prop leg(s) up on pillows and/or lie down as much as possible. No vigorous activity (such as jogging) for at least 2-4 weeks or until cleared to do so at you follow-up appointment. Call Doctor for: Please call if you notice worsening redness or drainage from incision(s) lasting longer than 5 days after your surgery, any foul-smelling drainage from the incision, pain not controlled by pain medications, or for any fevers greater than 101.3 F. Pain Medication: No driving for 8 hours after any dose of opioid pain medication if one was presecibed for you. You may use ibuprofen (motrin, advil) in addition to this medication if your pain is not totally controlled. Follow-up: You will have a follow-up appointment scheduled with Dr. Rajan in 4 weeks. Appointment will be mailed to you and/or you may be called with a date and time from the clinic. If you do nothear from the clinic within 1 week of your appointment please call to confirm date and time of yourappointment. documented in this encounter Medications at Time of Discharge Medication Sig Dispensed Refills Start Date End Date BETA-CAROTENE,A, W-C & E/MIN (OCUVITE ORAL) Take by mouth. cholecalciferol, Vitamin D3, 400 unit tablet Take 400 Units by mouth daily. cyanocobalamin, vitamin B-12, 100 mcg tablet Take 100 mcg by mouth daily. Calcium Carbonate-Vitamin D3 (CALCIUM WITH VITAMIN D) 600 mg(1,500mg) -400 unit Tab Take by mouth. multivitamin (THERAGRAN) tablet Take 1 tablet by mouth daily. hydroCODone-Acetaminoph en 5-300 mg Tab Take 1-2 tablets by mouth every 6 hours as needed (For moderate pain). 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 30 tablet 11 2013 06/21/2014 lisinopril-hydrochlorot hiazide (PRINZIDE;ZESTORETIC) 20-25 mg per tablet Take 1 tablet by mouth daily. 02/04/2014 documented as of this encounter H&P Notes * Enzo Estrella - 10/07/2013 7:10 AM EDT Interval H&P The patient was seen and examined in the pre-operative holding area. There have been no interval changes in the history and physical. Enzo Estrella MD, Pager [phone] Section of Vascular Surgery, PGY2 * Enzo Estrella - 10/07/2013 7:09 AM EDT Vascular Surgery Pre-Operative H&P Planned Procedure: RLE varicose vein excision. HPI: Ms. Kenny is a 68 year old woman who has been struggling with varicose veins for decades now.For the past year she has been wearing graduated compression stockings, however her symptoms remainrefractory and now are affecting her daily activities. She now presents for operative repair. ROS: As per HPI. Remainder of ROS is otherwise negative. Past Medical History: Past Medical History Diagnosis Date ??? Varicose vein ??? Breast cancer, stage 1 03/2012 Node Neg ER/NE pos her 2 neg intermediate grade ??? Retinal hemorrhage of right eye Dx 2011 Receiving injections into eye for it. PSHx: Past Surgical History Procedure Date ??? Mastectomy, partial 04/07/2012 MASTECTOMY PARTIAL performed by Nasir Stone MD at [facility] MAIN OR ??? Bx/remv, lymph node, deep axill 04/07/2012 BIOPSY OR EXCISION OF LYMPH NODE(S), OPEN, DEEP AXILLARY NODE(S) performed by Nasir Stone MD at [facility] MAIN OR ??? Identify sentinel node 04/07/2012 SENTINEL NODE INJECTION performed by Nasir Stone MD at [facility] MAIN OR ??? Mastectomy, partial 04/21/2012 MASTECTOMY PARTIAL performed by Nasir Stone MD at [facility] MAIN OR ??? Varicose vein surgery 1989 vein removed, R leg ??? Cataract removal with implant 02/03 B Meds: No current facility-administered medications for this encounter. Current Outpatient Prescriptions Medication Sig Dispense Refill ??? anastrozole (ARIMIDEX) 1 mg tablet Take 1 tablet by mouth daily. 30 tablet 11 ? ? BETA-CAROTENE,A, W-C & E/MIN (OCUVITE ORAL) Take by mouth. ??? lisinopril-hydrochlorothiazide (PRINZIDE;ZESTORETIC) 20-25 mg per tablet Take 1 tablet by mouthdaily. ??? ibuprofen (ADVIL;MOTRIN) 200 mg tablet Take 400 mg by mouth every 6 hours as needed. ??? cholecalciferol, Vitamin D3, 400 unit tablet Take 400 Units by mouth daily. ??? cyanocobalamin, vitamin B-12, 100 mcg tablet Take 100 mcg by mouth daily. ??? Calcium Carbonate-Vitamin D3 (CALCIUM WITH VITAMIN D) 600 mg(1,500mg) -400 unit Tab Take by mouth. ??? multivitamin (THERAGRAN) tablet Take 1 tablet by mouth daily. Allergies: Review of patient's allergies indicates no known allergies. Social Hx: History Social History ??? Marital Status: Spouse Name: N/A Number of Children: N/A ??? Years of Education: N/A Social History Main Topics ??? Smoking status: Former Smoker -- 0.5 packs/day Types: Cigarettes Quit date: 05/27/2012 ??? Smokeless tobacco: Not on file Comment: stopped end of February ??? Alcohol Use: Yes Comment: beer or wine once every 3 weeks ??? Drug Use: No ??? Sexually Active: Not on file Other Topics Concern ??? Not on file Social History Narrative Patient is a . She has supportive friends who assist her. Family hx: Family history of varicose veins. Physical Exam: Temp: -- Heart Rate: -- Resp: -- BP: -- SpO2: -- General: NAD, resting comfortably HEENT: PERRL, anicteric sclerae CVS: Regular rate, no murmurs rubs or gallops Pulm: Clear bilaterally Abd: soft, non tender, non distended Ext: RLE: +2LEE. Multiple large varicosities. Ankle telangiectasias. No lipodermatosclerosis or open / healed areas of ulceration. Neuro: CN 2-12 grossly intact, nonfocal, moving all extremities. Laboratory: None Studies: Findings: Right Reflux? Thrombus? Common Femoral Vein Competent NONE Femoral Vein Competent NONE Popliteal Competent NONE Posterior Tibial Vein Competent GSV, Near SFJ Competent GSV, Proximal Thigh Competent GSV, Mid Thigh Reflux GSV, Distal Thigh Reflux GSV, Knee Reflux Interpretation: Right- No significant reflux noted in the common femoral vein, femoral vein in the thigh, popliteal and posterior tibial veins. Patent greater saphenous vein with no evidence of reflux from mid thigh to groin. There is a large incompetent senior group manager from the mid FV to the mid GSV. GSV is incompetent from the mid thigh to knee. Vein was stripped through the calf. The GSV has an incompetent branch across the knee and down the mckee. No evidence of deep venous thrombus (fem-pop). Assessment/Plan: 68 year old woman with RLE varicose veins which are refractory to conservative management. Risks, benefits and alternatives reviewed, questions answered, Ms. Kenny wishes to proceedwith RLE varicose vein excision. documented in this encounter Miscellaneous Notes * Miscellaneous - Provider, Scanning - 10/07/2013 5:13 PM EDT * Miscellaneous - Provider, Scanning - 10/07/2013 5:12 PM EDT * Op Note - Enzo Estrella - 10/07/2013 4:49 PM EDT [facility] [place] Patient Name: Ashlyn Kenny : 1945 MR#: [id number] Case Date: 10/07/2013 Date of Operation: 10/07/2013. Surgeon(s) and Role: * Ritchie Rajan MD - Primary * Enzo Estrella MD - Resident-Surgeon [place] Preoperative Diagnosis: RLE varicose veins Postoperative Diagnosis: Same Procedure: Right lower extremity varicose vein excision. Findings: Large friable varicose veins of the RLE. 17 stab incisions. Anesthesia: General endotracheal anesthesia Estimated Blood Loss: 25 mL Urine Output: No whitney Intravenous Fluid: 800 mL. Indications for Procedure: 68 year old woman with RLE varicose veins which are refractory to conservative management. Risks, benefits and alternatives reviewed, questions answered, Ms. Kenny wishes to proceed with RLE varicose vein excision. Procedure in Detail: The patient was correctly identified in the Preprocedure Holding Area. After adiscussion of the risks, benefits and alternatives of the procedure and after answering all of the patients questions, the patient wished to proceed and then was consented for the operation. The patient was brought back to the Operating Room and placed supine on the operating table. She was intubated by the Anesthesia Service without difficulty. The patient was then prepped and draped in the standard sterile fashion using a alcohol and chlorhexidine solutions. Pre-operative antibiotics were administered, and a full standard time out was completed prior to initiating the procedure. We turned our attention to the marked varices on the patient's leg. Several incisions were marked perpendicular to the path of the varicosities with a marking pen, and a #15 blade was used to incise the skin. Starting at the lowest point, a hemostat and an Adson pickup were used to dissect out the vein from the subcutaneous tissue, and expose the vein through the incision. Once a vein was identified, it was clamped at distal and proximal ends with hemostats and divided with Metzenbaum scissors.The path of the varicosity was then dissected in a cephelad direction. After freeing up the vein asmuch as possible from one incision, the next was made in the same manner, and the identified vein was dissected from caudal direction, and once free pulled through the second incision. This process was repeated as much as possible, leaving several stabs along the path of the varicose vein. However,at times the vein was too friable to be excised in this fashion. When this was the case, the vein was interrupted and avulsed and pressure was held to achieve hemostasis. Hemostasis was obtained withmanual pressure as needed, and the stab incisions were closed with 4-0 monocryl and steri-strips. Small pieces of telfa were used to cover the wounds, and the leg was wrapped with kerlix and an CARLA bandage from foot to hip. All sponge and instrument counts were correct at the end of the procedure. Dr. Rajan, the attending surgeon of record, was present and scrubbed for the duration of the procedure. Disposition: awakened from anesthesia, extubated and taken to the recovery room in a stable condition, having suffered no apparent untoward event. Condition: doing well without problems * Miscellaneous - Provider, Lili - 10/07/2013 1:07 PM EDT * Brief Op Note - Ritchie Rajan MD - 10/07/2013 8:28 AM EDT Brief Operative Note Patient Name: Ashlyn Kenny : [id number] MR#: [id number] Case Date: 10/07/2013 Surgeon: Surgeon(s) and Role: * Ritchie Rajan MD - Primary * Enzo Estrella MD - Resident-Surgeon [place]onte Preoperative diagnosis: varicose veins, venous insuffiency Postoperative diagnosis: varicose veins, venous insuffiency Procedure(s): STAB PHLEBECTOMY MICKIE VEINS 1 EXTREMITY 10-20 INCISIONS Anesthesia: General Findings: Right 17 stabs Complications: none Fluids: 800cc Estimated Blood Loss: 25cc Drains: none Disposition: awakened from anesthesia, extubated and taken to the recovery room in a stable condition, having suffered no apparent untoward event. Condition: doing well without problems (Please see the Surgical Encounter Summary for any Implant and Specimen details pertinent to this patient.) * OR Attestation - Ritchie Rajan MD - 10/07/2013 8:28 AM EDT Attestation: Case Date: 10/07/2013 I was present and I participated during the entire procedure (does not need to include opening and closing). RITCHIE RAJAN MD 10/07/2013 documented in this encounter Plan of Treatment Not on file documented as of this encounter Procedures Procedure Name Priority Date/Time Associated Diagnosis Comments STAB PHLEBECTOMY MICKIE VEINS 1 EXTREMITY 10-20 INCISIONS (WRVU 4.8) 10/07/2013 7:13 AM EDT Chronic venous insufficiency TYPE AND SCREEN, SDP (FUTURE SURGERY, [facility] [place] [facility] ONLY) Routine 10/07/2013 5:54 AM EDT Chronic venous insufficiency ABO/RH TYPING Routine 10/07/2013 5:54 AM EDT Chronic venous insufficiency ANTIBODY SCREEN Routine 10/07/2013 5:54 AM EDT Chronic venous insufficiency documented in this encounter Results * Antibody screen (10/07/2013 5:54 AM EDT) Ab Screen Interp Negative [facility] Expires at 2359 on: [id number] MARICHUY BUIIUM Blood specimen (specimen) 10/07/2013 5:54 AM EDT 10/07/2013 5:56 AM EDT Narrative Resulting Agency Comment Spec In Lab Ritchie Rajan MD BLOOD BANK LAB ORDER [facility] * ABO/Rh Typing (10/07/2013 5:54 AM EDT) ABORH Type A Pos [facility] Blood specimen (specimen) 10/07/2013 5:54 AM EDT 10/07/2013 5:56 AM EDT Narrative Resulting Agency Comment Spec In Lab Ritchie Rajan MD BLOOD BANK LAB ORDER CONNIE MARICHUY COLBY documented in this encounter Visit Diagnoses Diagnosis Chronic venous insufficiency Unspecified venous (peripheral) insufficiency Chronic venous insufficiency Unspecified venous (peripheral) insufficiency documented in this encounter Administered Medications Inactive Administered Medications - up to 3 most recent administrations Medication Order MAR Action Action Date Dose Rate Site aspirin chewable tablet 81 mg 81 mg, Oral, ONCE PRN, 1 dose, Starting on Sat10/07/13 at 0644, Until Sat10/07/13 at 0647, If not already taken on day of surgery., Day of Surgery (Day of Procedure), Routine Given 10/07/2013 6:47 AM EDT 81 mg fentaNYL (PF) 50 mcg/mL 2mL syringe 25-50 mcg, Intravenous, EVERY 5 MIN PRN, Pain, for breakthrough pain, Starting on Sat10/07/13 at 0843, Until Sat10/07/13 at 1005, Hold for respiratory rate less than 10 per minute. Maximum dose: 250 mcg over one hour., PACU Recovery Given 10/07/2013 8:51 AM EDT 50 mcg Given 10/07/2013 8:00 AM EDT 50 mcg HYDROcodone-acetaminophen 5-325 mg per tablet 1-2 tablet 1-2 tablet, Oral, EVERY 6 HOURS PRN, Starting on Sat10/07/13 at 0830, Until Sat10/07/13 at 1403, Pain, Maximum dose of acetaminophen is 4000 mg from all sources in 24 hours., Routine Given 10/07/2013 8:51 AM EDT 1 tablet lactated ringers infusion 1,000 mL 1,000 mL, at 100 mL/hr, Intravenous, CONTINUOUS, Starting on Sat10/07/13 at 0700, Until Sat10/07/13 at 1005, Day of Surgery (Day of Procedure) New Bag 10/07/2013 6:45 AM EDT 1,000 mLs 100 mL/hr documented in this encounter Active and Recently Administered Medications Times are shown in EDT. Scheduled Medication Order 10/05/2013 10/06/2013 10/07/2013 ceFAZolin (ANCEF) 2g in dextrose 5% 50 mL (COMPLETED) 2 g, Intravenous, ONCE, 1 dose, On Sat10/07/13 at 0700, Redose after 4 hours., Day of Surgery (Day of Procedure), Indication for (Active or Suspected): Prophylaxis 0732 (Given - Provid er: Abdulaziz Tilley CRNA) Continuous Medication Order 10/05/2013 10/06/2013 10/07/2013 lactated ringers infusion 1,000 mL (CANCELED) 1,000 mL, at 100 mL/hr, Intravenous, CONTINUOUS, Starting on Sat10/07/13 at 0700, Until Sat10/07/13 at 1005, Day of Surgery (Day of Procedure) 0645 (New Bag - Prov ider: Ghislaine Clancy RN)0839 (Anesthesia Volume Adjustment - Provider: Abdulaziz Tilley CRNA) PRN Medication Order 10/05/2013 10/06/2013 10/07/2013 aspirin chewable tablet 81 mg (COMPLETED) 81 mg, Oral, ONCE PRN, 1 dose, Starting on Sat10/07/13 at 0644, Until Sat10/07/13 at 0647, If not already taken on day of surgery., Day of Surgery (Day of Procedure), Routine 0647 (Given - Provid er: Ghislaine Clancy RN) fentaNYL (PF) 50 mcg/mL 2mL syringe (CANCELED) 25-50 mcg, Intravenous, EVERY 5 MIN PRN, Pain, for breakthrough pain, Starting on Sat10/07/13 at 0843, Until Sat10/07/13 at 1005, Hold for respiratory rate less than 10 per minute. Maximum dose: 250 mcg over one hour., PACU Recovery 0800 (Given - Provid er: Radha Mckeon RN)0851 (Given - Provider: Radha Mckeon RN) HYDROcodone-acetaminophen 5-325 mg per tablet 1-2 tablet (CANCELED) 1-2 tablet, Oral, EVERY 6 HOURS PRN, Starting on Sat10/07/13 at 0830, Until Sat10/07/13 at 1403, Pain, Maximum dose of acetaminophen is 4000 mg from all sources in 24 hours., Routine 0851 (Given - Provid er: Radha Mckeon RN) documented in this encounter Care Teams Biodiesel Product Manager Relationship Specialty Start Date End Date Ayanna Esparza APRN PCP - General 08/06/13 05/20/16 documented as of this encounter
--- OUTSIDE RECORDS SUMMARY | 2023-11-07 12:00 | XMS_ITS | Encounter Summary ---
Author Organization [facility] Address [address] [place] [address] Care Team Providers Care Gsa Coordinator Name Role Phone Unknown, Provider Primary Care Provider Reason for Visit * Reason Comments Eye Problem * Prior Authorization (Routine) - Authorized Specialty Diagnoses / Procedures [facility] Referred To Contact Diagnoses Exudative age-related macular degeneration of right eye with active choroidal neovascularization (HCC-CMS) Exudative age-related macular degeneration of left eye with inactive scar (HCC-CMS) Procedures DE INTRAVITREAL NJX PHARMACOLOGIC AGT SPX DE AFLIBERCEPT INJECTION DE BEVACIZUMAB INJECTION [facility]hthal[address] [place] [id number] [facility] Ophthalmology [address] [place] [id number] Referral ID Status Reason Start Date Expiration Date V isits Requested Visits Authorized [id number] Authorized 2 2 Encounter Details Date Type Department Care Team (Late st Contact Info) Description 09/05/2023 10:15 EDT Office Visit [facility] Ophthalmology - [address] [place] [address] Yayo Chu MD [address] [facility], [facility] [address] [place] [id number] Social History Tobacco Use Types Packs/Day Years Used Date Smoking Tobacco: Former Cigarettes Smokeless Tobacco: Never Sex and Gender Information Value Date Recorded Sex Assigned at Not on file Gender Identity Not on file Sexual Orientation Not on file documented as of this encounter Progress Notes * Yayo Chu MD - 09/05/2023 1015 EDT Chief Complaint Patient presents with Eye Problem HPI 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 Patient states she functions well. No flashes or floaters no pain Base Eye Exam Visual Acuity (Snellen - Linear) Right Left Dist cc 20/50 20/800 Dist ph cc 20/40 Tonometry (Applanation, 10:01) Right Left Pressure 20 18 Neuro/Psych Oriented x3: Yes Mood/Affect: Normal Dilation Right eye: Phenylephrine 2.5%, Tropicamide 1% @ 10:01 Slit Lamp and Fundus Exam Slit Lamp [...] - OD - Right Eye Time Out 09/05/2023. 10:10. Confirmed correct patient, procedure, site, and patient consented. Anesthesia Topical anesthesia was used. Anesthetic medications included Proparacaine 0.5%, Tetracaine 0.5%. Procedure Preparation included 5% betadine to ocular surface, eyelid speculum. A 30 gauge needle was used. Injection: 1.25 mg bevacizumab Route: intravitreal, Site: Right Eye [facility]: [address]-95, Lot: [id number], Expiration date: 09/06/2023 Post-op Post injection exam found visual acuity of at least counting fingers. The patient tolerated the procedure well. There were no complications. Post injection medications were not given. IMPRESSION: 1. Exudative age-related macular degeneration of right eye with active choroidal neovascularization([facility]-CMS) OCT, RETINA - OU - BOTH EYES INTRAVITREAL INJECTION, PHARMACOLOGIC AGENT - OD - RIGHT EYE bevacizumab (AVASTIN) ophthalmic syringe 1.25 mg 2. 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 I, Yayo Chu MD, have performed my own history, and have evaluated and examined the patient myself. I am scribing for Yayo Chu MD while he is personally performing the service. JUAN Tello (Scribe) documented in this encounter Plan of Treatment Upcoming Encounters Date Type Department Care Team (Late st Contact Info) Description 01/02/2024 10:15 EDT Office Visit [facility] Op[facility] - [facility] [address] [place] [address] Yayo Chu MD [address] [facility], [facility] [address] [place] [address] documented as of this encounter [...] (HCC-CMS) documented in this encounter Results * OCT, RETINA - OU - BOTH EYES (09/05/2023 10:28 EDT) Narrative [facility] OPHTHALMOLOGY - 09/05/2023 12:34 EDT Right Eye Quality was good. Scan locations included subfoveal. Progression has been stable. Findings include choroidal neovascular membrane. Left Eye Quality was good. Scan locations included subfoveal. Progression has been stable. Findings include subretinal scarring. Yayo Chu MD OPHTH TOMOGRAPHY [facility] OPHTHALMOLOGY * INTRAVITREAL INJECTION, PHARMACOLOGIC AGENT - OD - RIGHT EYE (09/05/2023 10:27 EDT) Narrative [facility] POINT OF CARE - 09/05/2023 12:34 EDT Time Out 09/05/2023. 10:10. Confirmed correct patient, procedure, site, and patient consented. Anesthesia Topical anesthesia was used. Anesthetic medications included Proparacaine 0.5%, Tetracaine 0.5%. Procedure Preparation included 5% betadine to ocular surface, eyelid speculum. A 30 gauge needle was used. Injection: 1.25 mg bevacizumab ??Route: intravitreal, Site: Right Eye ??[facility]: [address]-25, Lot: [id number], Expiration date: 09/06/2023 Post-op Post injection exam found visual acuity of at least counting fingers. The patient tolerated the procedure well. There were no complications. Post injection medications were not given. Yayo Chu MD [facility] Organization Address City/State/ZIP Co de Phone Number [facility] POINT OF CARE documented in this encounter Visit Diagnoses Diagnosis [...] 1.25 mg 1.25 mg, Starting on Miguelina 09/05/23 at 1234, Until Miguelina 09/05/23 at 1234, Routine Given 09/05/2023 12:34 EDT 1.25 mg Right Eye documented in this encounter Orders Medications Ordered That Porfirio ht Not Have Been Administered Count Last Ordered Date First Ordered Date bevacizumab (AVASTIN) ophtha lmic syringe 1.25 mg 1 09/05/2023 documented in this encounter Eye Exam Visual Acuity (Snellen - Linear) Right eye Left eye Dist cc 20/50 20/800 Dist ph cc 20/40 Tonometry (Applanation, 10:01) Right eye Left eye Pressure 20 18 Neuro/Psych Oriented x3: Yes Mood/Affect: Normal Dilation Right eye: Phenylephrine 2.5 %, Tropicamide 1% @ 10:01 Slit Lamp Exam Right eye Left eye Anterior Chamber Deep and quiet Deep and quiet Care Teams Gsa Coordinator Relationship Specialty Start Date End Date Unknown, Provider, PCP - General 02/12/12 documented as of this encounter
--- OUTSIDE RECORDS SUMMARY | 2023-11-07 12:00 | XMS_ITS | Encounter Summary ---
Author Organization [facility] Address [facility] [place] [address] Care Team Providers Care Fish Hatchery Superintendent Name Role Phone Unknown Primary Care Provider Unavailabl e Reason for Visit * Reason Onset Date Comments Other 08/16/2016 Encounter Details Date Type Department Care Team (Late st Contact Info) Description 08/16/2016 Telephone Hematology/Oncology at [address] [phone] Valentine Bradford RN Other Social History Tobacco Use Types [...] encounter Miscellaneous Notes * Telephone Encounter - Valentine Bradford RN - 08/16/2016 9:14 AM EDT Pt called asking about refilled called her back and got voice mail, let her know we are unable to fill until she schedules appointment with Dr. Garcia as she ahs not been seen in a year and half. documented in this encounter Plan of Treatment Not on file documented as of this encounter Visit Diagnoses Not on filedocumented in this encounter Care Teams Fish Hatchery Superintendent Relationship Specialty Start Date End Date Unknown None PCP - General 05/21/16 04/14/17 documented as of this encounter
--- OUTSIDE RECORDS SUMMARY | 2023-11-07 12:00 | XMS_ITS | Encounter Summary ---
Author Organization [facility] Address [facility] [place] [address] Care Team Providers Care Reverse Logistics Analyst Name Role Phone Unknown Primary Care Provider Unavailabl e Reason for Visit * Reason Comments Breast Cancer Encounter Details Date Type Department Care Team (Late st Contact Info) Description 09/04/2016 1:30 PM EDT Office Visit Hematology/Oncology at [address] [phone] Aubrey Garcia MD [address] [place] [phone] Breast cancer, stage 1, right Social History [...] Sign Reading Time Taken Comments Blood Pressure 104/55 09/04/2016 1:33 PM EDT Pulse 73 09/04/2016 1:33 PM EDT Temperature 36.8 ??C (98.2 ??F) 09/04/2016 1:33 PM ED T Respiratory Rate 18 09/04/2016 1:33 PM EDT Oxygen Saturation 100% 09/04/2016 1:33 PM EDT Inhaled Oxygen Concentration - - Weight 92.1 kg (203 lb) 09/04/2016 1:33 PM EDT Height - - Body Mass Index 41.7 02/03/2015 3:24 PM EST documented in this encounter Progress Notes * Aubrey Garcia MD - 09/04/2016 1:30 PM EDT Diagnosis: 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 SUBJECTIVE: Ashlyn comes in today for what is her 4-1/2 year followup. It has been a couple of years since we saw her and she has remained on tamoxifen 20 mg daily. She recently called for a refill and we told her we needed to see her prior to doing that. She was more than glad to come in today, but did not check any lab. She notes she is doing well, does frequent breast self-exams, and has not had any breast lumps. Additionally, she has been getting her mammography here in [facility] at the local [facility] and that has been fine as well. She is very compliant with her tamoxifen, and after talking about recent recommendations for keeping patients on it long-term, she is really wanting to go off of it at 5 years, especially in view of the fact she has quite a few hot flashes with the medication. Otherwise, though, her left knee is doing better since her surgery. Her right knee has a little bit of discomfort in it, but that is getting better as well and is really not as much of a problem as the left knee was before her replacement surgery. She is back at work at [employer] and doing well with that. She is in great spirits today and is slowly recovering from the of her . Current Outpatient Prescriptions on File Prior to Visit Medication Sig Dispense Refill ??? tamoxifen (NOLVADEX) 20 mg Tablet Take 1 tablet by mouth daily. 30 tablet 11 ??? aspirin 81 mg Tablet, Delayed Release [...] tablet Take 1 tablet by mouth daily. No current facility-administered medications on file prior [...] supraclavicular, and axillary nodes normal Neurologic: Normal ASSESSMENT/PLAN: Ashlyn is tolerating the tamoxifen quite well and clinically is doing well. We discussed the current situation and she would like to get off the tamoxifen. I think a reasonable plan is to see her back in March, which is her 5-year anniversary, check lab at that time, and if everything is fine, we will go ahead and stop the tamoxifen. She will if there are issues or problems in the interim. She will continue to get her yearly mammograms with her local doctor here at [facility]. documented in this encounter Plan of Treatment Not on file documented as of this encounter Procedures Procedure Name Priority Date/Time Associated Diagnosis Comments LAB SCAN 11/16/2016 12:00 AM EDT documented in this encounter Results * SCAN DOC: LAB (11/16/2016 12:00 AM EDT) Narrative 11/16/2016 12:00 AM EDT Ordered by an unspecified provider. Scanning Provider MEDIA MGR SCAN EXT O RDR/RSLT documented in this encounter Visit Diagnoses Diagnosis Breast cancer, stage 1, right documented in this encounter Care Teams Reverse Logistics Analyst Relationship Specialty Start Date End Date Unknown None PCP - General 05/21/16 04/14/17 documented as of this encounter
--- OUTSIDE RECORDS SUMMARY | 2023-11-07 12:00 | XMS_ITS | Encounter Summary ---
Author Organization [facility] Address [facility] [place] [address] Care Team Providers Care Cloth Dyeing Range Tender Name Role Phone Unknown Primary Care Provider Unavailabl e Encounter Details Date Type Department Care Team (Late st Contact Info) Description 08/15/2016 Telephone Hematology/Oncology at [address] [phone] Leslie Monson RN Social History Tobacco Use Types Packs/Day [...] encounter Miscellaneous Notes * Telephone Encounter - Leslie Monson RN - 08/15/2016 3:25 PM EDT Background: [facility] Telephone call to patient at home and mobile numbers. Voicemail left requesting call back for status check.as last appointment with Dr. Garcia was 02/03/2015. documented in this encounter Plan of Treatment Not on file documented as of this encounter Visit Diagnoses Not on filedocumented in this encounter Care Teams Cloth Dyeing Range Tender Relationship Specialty Start Date End Date Unknown None PCP - General 05/21/16 04/14/17 documented as of this encounter
--- OUTSIDE RECORDS SUMMARY | 2023-11-07 12:00 | XMS_ITS | Encounter Summary ---
Author Organization [facility] Address [facility] [place] [address] Care Team Providers Care Wet And Dry Sugar Bin Operator Name Role Phone Allison Conway NOEMI Primary Care Provider + [phone] Encounter Details Date Type Department Care Team (Latest Contact Info) Description 09/05/2017 - 09/05/2017 11:59 PM EDT Hospital Encounter [place] [phone] Taylor Smith MD [facility] [place] [address] Discharge Disposition: Home Social History Tobacco Use [...] on file documented as of this encounter Medications at Time of Discharge Medication Sig Dispensed Refills Start Date End Date tamoxifen (NOLVADEX) 20 mg TabletIndications:Breast cancer, stage 1, right Take 1 tablet by mouth daily. 30 tablet 11 08/27/2016 aspirin 81 mg Tablet, Delayed Release (E.C.) Take 81 mg by mouth daily. amLODIPine (NORVASC) 5 mg Tablet Take 5 mg by mouth daily. hydrochlorothiazide (HYDRODIURIL) 25 mg Tablet Take 25 mg by mouth daily. BETA-CAROTENE,A, W-C & E/MIN (OCUVITE ORAL) Take by mouth. cholecalciferol, Vitamin D3, 400 unit tablet Take 400 Units by mouth daily. cyanocobalamin, vitamin B-12, 100 mcg tablet Take 100 mcg by mouth daily. Calcium Carbonate-Vitamin D3 (CALCIUM WITH VITAMIN D) 600 mg(1,500mg) -400 unit Tab Take by mouth. multivitamin (THERAGRAN) tablet Take 1 tablet by mouth daily. documented as of this encounter Plan of Treatment Not on file documented as of this encounter Procedures Procedure Name Priority Date/Time Associated Diagnosis Comments FILM LIBRARY STORAGE ONLY MAMMO Routine 09/05/2017 12:00 AM EDT documented in this encounter Results * Film Library- Storage Only Mammo (09/05/2017 12:00 AM EDT) Narrative [facility] - 09/10/2017 2:55 PM EDT This exam is for storage only and is auto-finalizing. Taylor Smith MD IMG FILM LIBRARY O RDERABLES Performing Organization Address City/State/[facility] Co de Phone Number [place], [place] documented in this encounter Visit Diagnoses Not on filedocumented in this encounter Care Teams Wet And Dry Sugar Bin Operator Relationship Specialty Start Date End Date Allison Conway APRN [address] [place] [address] PCP - General Internal Medicine 04/15/17 documented as of this encounter
--- OUTSIDE RECORDS SUMMARY | 2023-11-07 12:00 | XMS_ITS | Encounter Summary ---
Author Organization [facility] [place] [address] Care Team Providers Care Gis Developer Name Role Phone Esparza, Ayannalb Georges APRN Primary Care Provider [phone]- [phone] Reason for Visit * Reason Comments Varicose Veins Encounter Details Date Type Department Care Team (Late st Contact Info) Description 10/29/2013 8:00 AM EDT Office [place] [address] Maren Montero ORGAN PIPE VOICER [facility] [place] [address] Nely Rios RN Varicose vein; Varicose veins of lower extremities without ulcer or inflammation, right Discharge Disposition: Home Social History Tobacco [...] Sign Reading Time Taken Comments Blood Pressure 120/70 10/29/2013 7:17 AM EDT Pulse 64 10/29/2013 7:17 AM EDT Temperature - - Respiratory Rate 21 10/29/2013 7:17 AM EDT Oxygen Saturation - - Inhaled Oxygen Concentration - - Weight - - Height - - Body Mass Index - - documented in this encounter Patient Instructions * Patient Instructions* Nely Rios RN - 10/29/2013 7:10 AM EDT Doing well after right varicose vein surgery. We discussed the following: Continue with acewrap or compression hose. May use heat to incisions when they are bothering you. Continue walking. Doing well with smoking cessation. We can see you only as needed. documented in this encounter Progress Notes * Nely Rios RN - 10/29/2013 7:19 AM EDT Mrs. Kenny returns today after having varicose vein surgery on 10/07/2013. She has no complaints. Her right leg has multiple incisions that are perfectly healed. I have removed 2 steri strips that remained. There is minimal swelling, she has been wearing compression hose. Skin is in good shape. She has returned to work and is walking longer distances since her leg doesn't hurt. We have discussed the following: Continue with acewrap or compression hose. May use heat to incisions when they are bothering you. Continue walking. Doing well with smoking cessation. We can see you only as needed, prn. documented in this encounter Plan of Treatment Not on file documented as of this encounter Visit Diagnoses Diagnosis Varicose vein Asymptomatic varicose veins Varicose veins of lower extremities without ulcer or inflammation, right documented in this encounter Care Teams Gis Developer Relationship Specialty Start Date End Date Ayanna Esparza APRN PCP - General 08/06/13 05/20/16 documented as of this encounter
--- OUTSIDE RECORDS SUMMARY | 2023-11-07 12:00 | XMS_ITS | Encounter Summary ---
Author Organization [facility] Address [facility] [place] [address] Care Team Providers Care Drill Sharpener Operator Name Role Phone Unknown Primary Care Provider Unavailabl e Reason for Visit * Reason Onset Date Comments Medication Refill 08/22/2016 Encounter Details Date Type Department Care Team (Late st Contact Info) Description 08/22/2016 Telephone Hematology Oncology at [address] [phone] Ilda Atkins I sap abap developer Refill Social History Tobacco Use Types Packs/Day Years [...] encounter Miscellaneous Notes * Telephone Encounter - Ilda Atkins RN - 08/22/2016 9:09 AM EDT Received [facility] message from clinical school secretary Ashlyn called back to schedule an appointment. She is scheduled for 09/04 but she said that she would run out of her TAMOXIFEN CITRATE before then. She also said that she needs to be on them for another 9 months. She asked that you give her a call back at [phone]. She will be home until 11 and after that she said to leave a message. Placed call to patient . No answer. Left message with request for call back on identified VM. documented in this encounter Plan of Treatment Not on file documented as of this encounter Visit Diagnoses Diagnosis Breast cancer, stage 1, right documented in this encounter Care Teams Drill Sharpener Operator Relationship Specialty Start Date End Date Unknown None PCP - General 05/21/16 04/14/17 documented as of this encounter
--- OUTSIDE RECORDS SUMMARY | 2023-11-07 12:00 | XMS_ITS | Encounter Summary ---
Author Organization [facility] [place] [address] Care Team Providers Care Infantry Assaultman Name Role Phone Ayanna Esparza APRN Primary Care Provider [phone]- [phone] Reason for Visit * Reason Comments Breast Cancer Encounter Details Date Type Department Care Team (Late st Contact Info) Description 06/21/2014 12:00 PM EDT Follow-Up Hematology Oncology at [address] [phone] Aubrey Garcia MD [address] [place] [phone] Breast cancer, stage 1, right Discharge [...] Sign Reading Time Taken Comments Blood Pressure 124/75 06/21/2014 11:56 AM EDT Pulse 81 06/21/2014 11:56 AM EDT Temperature 37 ??C (98.6 ??F) 06/21/2014 11:56 AM EDT Respiratory Rate 20 06/21/2014 11:56 AM EDT Oxygen Saturation 99% 06/21/2014 11:56 AM EDT Inhaled Oxygen Concentration - - Weight 95.3 kg (210 lb) 06/21/2014 11:56 AM EDT Height 148.6 cm (4' 10.5) 06/21/2014 11:56 AM E DT Body Mass Index 43.14 06/21/2014 11:56 AM EDT documented in this encounter Progress Notes * Aubrey Garcia MD - 06/21/2014 12:32 PM EDT Diagnosis: 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 Subjective: Ashlyn comes in today for followup. She came a few months early because she developed fairly significant arthritis symptoms. She had multiple joint pains including her back, shoulders, arms and knees. She has been shoveling the deck over the winter and there has been a fair amount of snow, but she does note she felt quite a bit better overall although the pain has not completely resolved by any means after quitting her Arimidex. Otherwise, she is not having any difficulties or problems. Review of systems is otherwise negative. Past medical history and social history are reviewed. She did quit her job at [employer] and then took a job at [employer]. Unfortunately they did not keep her working 40 hours a week so she quit that job but is looking for another now. She also requests a parking placard because of her arthritis symptoms and it seems medically indicated. Review of Systems Constitutional: Negative for fever, [...] Negative for dysuria and difficulty urinating. Musculoskeletal: Negative. Skin: Negative. Neurological: Negative. Hematological: Negative for [...] unlabored Chest Wall: No tenderness or deformity Heart: Regular rate and rhythm, S1, S2 normal, no murmur, rub or gallop Abdomen: Soft, non-tender, bowel sounds active all four quadrants, no masses, no organomegaly Extremities: Extremities normal, atraumatic, no cyanosis or edema Pulses: 2+ and symmetric Skin: Skin color, texture, turgor normal, no rashes or lesions Lymph nodes: Cervical, supraclavicular, and axillary nodes normal Neurologic: Normal The patient did have mammograms done on 2614. They were negative and benign. Assessment/Plan: Ashlyn has had some problems with her aromatase inhibitor consisting of joint pain. Some of this may be simple DJD although it is significant, but things are better off the aromatase inhibitor overall. She still has some residual symptoms. We will go ahead and switch her to tamoxifen. We went over risks and side effects in detail, and she does wish to switch treatment. I did tell her there is a small risk of stroke, heart attack and blood clots along with a 1 in 1500 risk of uterine cancer. She still does have a uterus. I did suggest she take a baby aspirin, one daily, while on the medication and she will. As far as followup goes, we will see her back in six months with lab, and she will call if there are any issues or problems in the interim. documented in this encounter Plan of Treatment Not on file documented as of this encounter Visit Diagnoses Diagnosis Breast cancer, stage 1, right documented in this encounter Care Teams Infantry Assaultman Relationship Specialty Start Date End Date Ayanna Esparza APRN PCP - General 08/06/13 05/20/16 documented as of this encounter
--- OUTSIDE RECORDS SUMMARY | 2023-11-07 12:00 | XMS_ITS | Encounter Summary ---
Author Organization [facility] Address [facility] [place] [address] Care Team Providers Care Wire Lather Name Role Phone Allison Conway APRN Primary Care Provider + [phone] Reason for Visit * Reason Comments Medication Refill Encounter Details Date Type Department Care Team (Late st Contact Info) Description 08/25/2016 Refill Hematology/Oncology at [address] [phone] Aubrey Garcia MD [address] [place] [phone] Breast cancer, stage 1, right Social History [...] right documented in this encounter Care Teams Wire Lather Relationship Specialty Start Date End Date Allison Conway APRN [address] [place], [place] [id number] PCP - General Internal Medicine 04/15/17 documented as of this encounter
--- OUTSIDE RECORDS SUMMARY | 2023-11-07 12:00 | XMS_ITS | Encounter Summary ---
Author Organization [facility] Address [address] [place] [address] Care Team Providers Care Legal Word Processor Name Role Phone Unknown, Provider Primary Care Provider Encounter Details Date Type Department Care Team (Late st Contact Info) Description 12/22/2020 Lab Requisition [facility] Pathology & Laboratory Medicine - [address] [address] Social History Tobacco Use Types Packs/Day Years Used Date Smoking Tobacco: Never Assessed Sex and Gender Information Value Date Recorded Sex Assigned at Not on file Gender Identity Not on file Sexual Orientation Not on file documented as of this encounter Plan of Treatment Upcoming Encounters Date Type Department Care Team (Late st Contact Info) Description 01/02/2024 10:15 EDT Office Visit [facility] Ophthalmology - [id number] [place] [address] Yayo Chu MD [address] [facility], [address] [place] [address] documented as of this encounter Visit Diagnoses Not on filedocumented in this encounter Care Teams Legal Word Processor Relationship Specialty Start Date End Date Unknown, Provider, PCP - General 02/12/12 documented as of this encounter
--- OUTSIDE RECORDS SUMMARY | 2023-11-07 12:00 | XMS_ITS | Encounter Summary ---
Author Organization [facility] [place] [address] Care Team Providers Care Assistant Production Editor Name Role Phone Ayanna Esparza APRN Primary Care Provider [phone]- [phone] Reason for Visit * Reason Comments Breast Cancer Encounter Details Date Type Department Care Team (Late st Contact Info) Description 02/04/2014 2:35 PM EST Follow-Up Hematology Oncology at [address] [phone] Aubrey Garcia MD [address] [place] [address] Breast cancer, stage 1, right Discharge [...] Sign Reading Time Taken Comments Blood Pressure 134/81 02/04/2014 2:38 PM EST Pulse 84 02/04/2014 2:38 PM EST Temperature 36.6 ??C (97.9 ??F) 02/04/2014 2:38 PM ES T Respiratory Rate 18 02/04/2014 2:38 PM EST Oxygen Saturation 98% 02/04/2014 2:38 PM EST Inhaled Oxygen Concentration - - Weight 96.4 kg (212 lb 8 oz) 02/04/2014 2:38 PM EST Height 148.6 cm (4' 10.5) 02/04/2014 2:38 PM ES T Body Mass Index 43.65 02/04/2014 2:38 PM EST documented in this encounter Progress Notes * Aubrey Garcia MD - 02/04/2014 2:48 PM EST Diagnosis: 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 Subjective: Ashlyn comes in today for followup on her breast cancer. We were also going to consider starting her on Reclast. We did repeat her DEXA scan and surprisingly it showed one area actually improving and another decreasing a bit. Overall though her bone density score was 0.8 consistent with only some mild osteoporosis and nothing severe. That being said, we decided to continue to watch it and not take the Reclast. She does have a bit of achiness at times. The numbness she was having in her hands has resolved. She still notes that the medication affects her appetite a bit but otherwise no other symptoms. Past medical history and social history are reviewed and unchanged from 2 months ago. Review of Systems Constitutional: Negative for fever, [...] axillary nodes normal Neurologic: Normal Review of the patient's laboratory shows a normal CBC and CMP. Assessment/Plan: Ashlyn is doing well and has no evidence of recurrent breast cancer. She is at low risk for reoccurrence. Plans are to see her again in six months with lab, and we will probably repeat her bone density DEXA scan in about a year. She will call if there are any issues or problems developing in the interim. documented in this encounter Plan of Treatment Not on file documented as of this encounter Visit Diagnoses Diagnosis Breast cancer, stage 1, right documented in this encounter Care Teams Assistant Production Editor Relationship Specialty Start Date End Date Ayanna Esparza APRN PCP - General 08/06/13 05/20/16 documented as of this encounter
--- OUTSIDE RECORDS SUMMARY | 2023-11-07 12:00 | XMS_ITS | Encounter Summary ---
Author Organization [facility] [place] [address] Care Team Providers Care Clinical Informatics Physician Name Role Phone Ayanna Esparza APRN Primary Care Provider [phone]- [phone] Reason for Visit * Reason Onset Date Comments Questions 10/17/2015 Encounter Details Date Type Department Care Team (Late st Contact Info) Description 10/17/2015 Telephone Hematology/Oncology at [address] [phone] Valentine Bradford RN Questions Social History Tobacco Use Types Packs/Day Years [...] Telephone Encounter - Valentine Bradford RN - 10/17/2015 9:57 AM EDT Patient calls and states she is having knee surgery on and wonders if she needs to stop hertamoxifen prior to the surgery. Reviewed with Dr. Garcia and he states no she does not need to stopit. Pt agrees with plan. documented in this encounter Plan of Treatment Not on file documented as of this encounter Visit Diagnoses Not on filedocumented in this encounter Care Teams Clinical Informatics Physician Relationship Specialty Start Date End Date Ayanna Esparza, NOEMI PCP - General 08/06/13 05/20/16 documented as of this encounter
--- OUTSIDE RECORDS SUMMARY | 2023-11-07 12:00 | XMS_ITS | Encounter Summary ---
Author Organization [facility] Address [address] [place] [address] Care Team Providers Care Centrifugal Spinner Name Role Phone Unknown, Provider Primary Care Provider Reason for Visit * Reason Comments Eye Problem Encounter Details Date Type Department Care Team (Late st Contact Info) Description 02/13/2023 13:15 EST Office Visit [facility] Ophthalmology - [address] [place], [place] [phone] Yayo Chu MD [address] [facility] [address] [place] [address] Social History Tobacco Use Types Packs/Day Years Used Date Smoking Tobacco: Former Cigarettes Smokeless Tobacco: Never Sex and Gender Information Value Date Recorded Sex Assigned at Not on file Gender Identity Not on file Sexual Orientation Not on file documented as of this encounter Progress Notes * Yayo Chu MD - 02/13/2023 1315 EST Chief Complaint Patient presents with Eye Problem HPI 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 She notes no vision changes, no eye pain, no new flashes or floaters. HPI Location: Both eyes Pain: 0 - No pain Quality: Blurry Severity: Moderate Duration: Months Timing: Constant Lasts: Continuous Context: Wet AMD right eye Modifying factors: s/p Avastin right eye 11/14/22 Associated Signs & Symptoms: No vision changes, no eye pain, no new flashes or floaters. Visual Fluctuations: None Attestation: The above HPI has been reviewed by the Attending Physician Base Eye Exam Visual Acuity (Snellen - Linear) Right Left Dist cc 20/50 CF at 3' Correction: Glasses Tonometry (Applanation, 13:30) Right Left Pressure 18 18 Neuro/Psych Oriented x3: Yes Mood/Affect: Normal Dilation Both eyes: Tropicamide 1%, Phenylephrine 2.5% @ 13:30 Please refer to large retinal drawing. OCT, Retina - OU - Both Eyes Right Eye Quality was good. Scan locations included subfoveal. Progression has been stable. Findings include choroidal neovascular membrane (CNV Atrophy ). Left Eye Quality was good. Scan locations included subfoveal. Progression has been stable. Findings include (scar). Intravitreal Injection, Pharmacologic Agent - OD - Right Eye Time Out 02/13/2023. 13:41. Confirmed correct patient, procedure, site, and patient consented. Anesthesia Topical anesthesia was used. Anesthetic medications included Proparacaine 0.5%, Tetracaine 0.5%. Procedure Preparation included 5% betadine to ocular surface, eyelid speculum. A 30 gauge needle was used. Injection: 1.25 mg bevacizumab Route: intravitreal, Site: Right Eye NDC: [address]-05, Lot: [id number], Expiration date: 02/15/2023 Post-op Post injection exam found visual acuity of at least counting fingers. There were no complications. Post injection medications were not given. IMPRESSION: 1. Exudative age-related macular degeneration of right eye with active choroidal neovascularization(HCC-CMS) OCT, RETINA - OU - BOTH EYES INTRAVITREAL INJECTION, PHARMACOLOGIC AGENT - OD - RIGHT EYE bevacizumab (AVASTIN) ophthalmic syringe 1.25 mg 2. Exudative age-related macular degeneration of left eye with inactive scar (HCC-CMS) OCT, RETINA - OU - BOTH EYES PLAN: Wet age-related macular degeneration both eyes ES left eye Avastin right eye today Patient agrees Avastin injection done today Return in about 12 weeks (around 05/08/2023), or if symptoms worsen or fail to improve, for dilation, IOP ck, Avastin, right eye. I, Yayo Chu MD, have performed my own history, and have evaluated and examined the patient myself. I am scribing for Yayo Chu MD while he is personally performing the service. Ananya Jackson (Scribe) documented in this encounter Plan of Treatment Upcoming Encounters Date Type Department Care Team (Late st Contact Info) Description 01/02/2024 10:15 EDT Office Visit [facility] Ophthalmology - [address] [place] [address] Yayo Chu MD [address] [facility], [address] [place] [address] documented as of this encounter Procedures Procedure Name Priority Date/Time Associated Diagnosis Comments OCT, RETINA - OU - BOTH EYES Routine 02/13/2023 13:57 EST Exudative age-related macular degeneration of right eye with active choroidal neovascularization (HCC-CMS) Exudative age-related macular degeneration of left eye with inactive scar (HCC-CMS) INTRAVITREAL INJECTION, PHARMACOLOGIC AGENT - OD - RIGHT EYE Routine 02/13/2023 13:54 EST Exudative age-related macular degeneration of right eye with active choroidal neovascularization (HCC-CMS) documented in this encounter Results * OCT, RETINA - OU - BOTH EYES (02/13/2023 13:57 EST) Narrative [facility] OPHTHALMOLOGY - 02/13/2023 14:39 EST Right Eye Quality was good. Scan locations included subfoveal. Progression has been stable. Findings include choroidal neovascular membrane (CNV Atrophy ). Left Eye Quality was good. Scan locations included subfoveal. Progression has been stable. Findings include (scar). Yayo Chu MD OPHTH TOMOGRAPHY [facility] OPHTHALMOLOGY * INTRAVITREAL INJECTION, PHARMACOLOGIC AGENT - OD - RIGHT EYE (02/13/2023 13:54 EST) Narrative [facility] POINT OF CARE - 02/13/2023 14:39 EST Time Out 02/13/2023. 13:41. Confirmed correct patient, procedure, site, and patient consented. Anesthesia Topical anesthesia was used. Anesthetic medications included Proparacaine 0.5%, Tetracaine 0.5%. Procedure Preparation included 5% betadine to ocular surface, eyelid speculum. A 30 gauge needle was used. Injection: 1.25 mg bevacizumab ??Route: intravitreal, Site: Right Eye ??[facility]: [address]-05, Lot: [id number], Expiration date: 02/15/2023 Post-op Post injection exam found visual acuity of at least counting fingers. There were no complications. Post injection medications were not given. Yayo Chu MD OPHTH CLINIC PROC EDURES [facility] POINT OF CARE documented in this encounter [...] syringe 1.25 mg 1.25 mg, Starting on Sat02/13/23 at 1439, Until Sat02/13/23 at 1439, Routine Given 02/13/2023 14:39 EST 1.25 mg Right Eye documented in this encounter Orders Medications Ordered That Porfirio ht Not Have Been Administered Count Last Ordered Date First Ordered Date bevacizumab (AVASTIN) ophtha lmic syringe 1.25 mg 1 02/13/2023 documented in this encounter Eye Exam Visual Acuity (Snellen - Linear) Right eye Left eye Dist cc 20/50 CF at 3' Correction: Glasses Tonometry (Applanation, 13:30) Right eye Left eye Pressure 18 18 Neuro/Psych Oriented x3: Yes Mood/Affect: Normal Dilation Both eyes: Tropicamide 1%, P henylephrine 2.5% @ 13:30 Care Teams Centrifugal Spinner Relationship Specialty Start Date End Date Unknown, Provider, PCP - General 02/12/12 documented as of this encounter
--- OUTSIDE RECORDS SUMMARY | 2023-11-07 12:00 | XMS_ITS | Encounter Summary ---
Author Organization [facility] [place] [address] Care Team Providers Care Recreational Director Name Role Phone Ayanna Esparza José Manuel FRANKLIN Primary Care Provider +1- [phone] Reason for Visit * Reason Comments Post Hospital Discharge f/u vericose vei n Encounter Details Date Type Department Care Team (Late st Contact Info) Description 10/15/2013 1:00 PM EDT Office Visit [place] [address] Maren Montero FEED PREPARATION OPERATOR [facility] [place] [address] Post-operative state (Primary Dx) Discharge Disposition: Home Social History Tobacco Use [...] Sign Reading Time Taken Comments Blood Pressure 138/81 10/15/2013 1:24 PM EDT Pulse 93 10/15/2013 1:24 PM EDT Temperature - - Respiratory Rate 18 10/15/2013 1:24 PM EDT Oxygen Saturation - - Inhaled Oxygen Concentration - - Weight 95.3 kg (210 lb) 10/15/2013 1:24 PM EDT Height 148.6 cm (4' 10.5) 10/15/2013 1:24 PM ED T Body Mass Index 43.14 10/15/2013 1:24 PM EDT documented in this encounter Patient Instructions * Patient Instructions* Maren Montero APRN - 10/15/2013 1:57 PM EDT Warm moist compresses to thigh. CARLA wrap for compression toes crease to knee. Works at [employer] on foot all day with a lot of walking. She may have off work and return 10/21/13. She will have RTC appointment in 2-3 weeks. We will call you to schedule this appointment. documented in this encounter Progress Notes * Maren Montero APRN - 10/15/2013 1:28 PM EDT Post op Right lower extremity varicose vein excision 10/07/13. C/o pain in right medial thigh above knee. She has been using ice and wrapping. Taking Ibuprofen but Cr increase taking tylenol during day and percocet at bedtime. Using cane for balance with ambulation. Denies fever, chills, N/V, SOB. Right medial thigh with ecchymosis and small hematoma. Incision intact with sty- stripes. No infection. Mild edema. +2 pedal pulse. Assessment/Plan: 68 yo female s/p Right lower extremity varicose vein excision 10/07/13. Incision healing well. Right medial thigh with small painful hematoma. Warm moist compresses. CARLA wrap for compression toes crease to knee. Works at [employer] on foot all day with a lot of walking. She may have off work and return 10/21/13. She will have RTC appointment in 2-3 weeks. documented in this encounter Plan of Treatment Not on file documented as of this encounter Visit Diagnoses Diagnosis Post-operative state- Primary Other postprocedural status documented in this encounter Care Teams Recreational Director Relationship Specialty Start Date End Date Ayanna Esparza APRN PCP - General 08/06/13 05/20/16 documented as of this encounter
--- OUTSIDE RECORDS SUMMARY | 2023-11-07 12:00 | XMS_ITS | Encounter Summary ---
Author Organization [facility] Address [facility] [place] [address] Care Team Providers Care Cutter Helper Name Role Phone Unknown Primary Care Provider Unavailabl e Reason for Visit * Reason Onset Date Comments Medication Refill 08/27/2016 Encounter Details Date Type Department Care Team (Late st Contact Info) Description 08/27/2016 Telephone Hematology/Oncology at [address] [phone] Ilda Atkins I microsoft dynamics developer Refill Social History Tobacco Use Types [...] Telephone Encounter - Ilda Atkins RN - 08/27/2016 8:42 AM EDT Received Edh message from clinical junior legal secretary Ashlyn called and needs her prescription refilled. She would like a call back within a half hour asshe is going to work. Tamoxifen refilled by Dr Garcia. Placed cll and notified patient. documented in this encounter Plan of Treatment Not on file documented as of this encounter Visit Diagnoses Not on filedocumented in this encounter Care Teams Cutter Helper Relationship Specialty Start Date End Date Unknown None PCP - General 05/21/16 04/14/17 documented as of this encounter
--- OUTSIDE RECORDS SUMMARY | 2023-11-07 12:01 | XMS_ITS | Encounter Summary ---
[facility] [place] [address] Care Team Providers Care Director Operations Broadcast Name Role Phone Jose Aileen Dowd APRN Primary Care Provider +1- [phone] Encounter Details Date Type Department Care Team (Late st Contact Info) Description 04/07/2012 7:09 AM EST - 04/07/2012 8:44 AM [facility] Hospital En[place] [address] Social History Tobacco Use Types Packs/Day Years Used Date Smoking Tobacco: Every Day Cigarettes Comments:stopped end of Dece mber Alcohol Use [...] Sig Dispensed Refills Start Date End Date cholecalciferol, Vitamin D3, 400 unit tablet Take 400 Units by mouth daily. cyanocobalamin, vitamin B-12, 100 mcg tablet Take 100 mcg by mouth daily. Calcium Carbonate-Vitamin D3 (CALCIUM WITH VITAMIN D) 600 mg(1,500mg) -400 unit Tab Take by mouth. multivitamin (THERAGRAN) tablet Take 1 tablet by mouth daily. acetaminophen 650 mg Tab Take 650 mg by mouth every 4 hours as needed for Pain. 30 tablet 04/07/2012 03/11/2013 OXYcodone-acetaminophen (PERCOCET) 5-325 mg per tablet Take 1-2 tablets by mouth every 4 hours as needed for Pain. 40 tablet 0 04/07/2012 04/21/2012 documented as of this encounter Plan of Treatment Not on file documented as of this encounter Visit Diagnoses Not on filedocumented in this encounter Care Teams Director Operations Broadcast Relationship Specialty Start Date End Date Aileen Garcia APRN PCP - General 02/28/12 08/05/13 documented as of this encounter
--- OUTSIDE RECORDS SUMMARY | 2023-11-07 12:01 | XMS_ITS | Encounter Summary ---
Author Organization [facility] [address] Care Team Providers Care Crane Engineer Name Role Phone JoseAileen cobb Nile FRANKLIN Primary Care Provider +1- [phone] Encounter Details Date Type Department Care Team (Late st Contact Info) Description 05/29/2012 Notes Only Radiation Oncology at [address] [phone] Amira Tony MSW OFFICE OF CARE MANAGEMENT Social History Tobacco Use Types Packs/Day Years [...] as of this encounter Progress Notes * Amira Tony MSW - 05/29/2012 8:50 AM EST Follow up with pt after RT today. Assisted pt with 2 gas cards and gave her a [facility] application for assistance with transportation costs. Pt indicated she is managing day to day and continues towork some around her treatment schedule. Pt did receive some assistance for heating fuel through [employer] [facility] [place] Reminded pt of my availability to follow for support and resources. documented in this encounter Plan of Treatment Not on file documented as of this encounter Visit Diagnoses Not on filedocumented in this encounter Care Teams Crane Engineer Relationship Specialty Start Date End Date Aileen Garcia APRN PCP - General 02/28/12 08/05/13 documented as of this encounter
--- OUTSIDE RECORDS SUMMARY | 2023-11-07 12:01 | XMS_ITS | Encounter Summary ---
Author Organization Formerly [facility], Later [facility] Address [facility] [place] [address] Care Team Providers Care Camera Maker Name Role Phone Aileen Garcia NOEMI Primary Care Provider [phone] Encounter Details Date Type Department Care Team (Late st Contact Info) Description 04/07/2012 9:53 AM EST Anesthesia Event [place] [id number] Kiko Wolff MD [facility] [place] [address] Daphne Wolff CRNA [facility] [place] [address] Anesthesia Record Procedure Summary Procedure Name Responsible Anesthesiologist Anesthesia Start Time Anesthesia Stop Time MASTECTOMY PARTIAL (WRVU 10.13) (Right: Breast) Kiko Wolff MD 04/07/12 0953 04/07/12 1124 Events Date Time Event Comment 04/07/2012 0909 0953 Start 1124 Stop Meds * Agents No agents on file. * Blood No blood administrations on file. Lines, Drains, and Airways Type Details Placement Removal Incision 04/07/12; breast; 11/20/21 (LDA cleanup utility RA#[id number]); 1715 (LDA cleanup utility RA#[id number]) 04/07/12 0000 by Jessica Boles RN 11/20/21 1715 by Vicente Mantilla Incision 04/07/12; mid axillary; 11/20/21 (LDA cleanup utility RA#[id number]); 1715 (LDA cleanup utility RA#[id number]) 04/07/12 0000 by Jessica Boles RN 11/20/21 1715 by Vicente Mantilla (RETIRED) Peripheral IV Line - Single Lumen 04/07/12; 0923; 04/07/12; 1337 04/07/12 0923 by Tu Marcelo RN 04/07/12 1337 by Roberto Rodriguez RN documented in this encounter Social History Tobacco Use Types Packs/Day Years [...] on file documented as of this encounter OR Notes * Anesthesia Postprocedure Evaluation - Kiko Wolff MD - 04/07/2012 12:10 PM EST Patient: Ashlyn Kenny Procedure(s) Performed: Procedure(s): MASTECTOMY PARTIAL MODIFIER WITH NEEDLE LOC. BIOPSY OR EXCISION OF LYMPH NODE(S), OPEN, DEEP AXILLARY NODE(S) SENTINEL NODE INJECTION MODIFIER SENTINEL NODE EXCISION Patient location: PACU Post-op pain: Adequate analgesia Post-op nausea: no nausea or vomiting Last Vitals: Filed Vitals: 04/07/12 1127 BP: 179/86 Pulse: 92 Temp: 37 ??C (98.6 ??F) Resp: 18 Post-op cardiovascular and respiratory status: is stable Level of consciousness: awake, alert and oriented Complications: no apparent complications, tolerated the procedure well and no evidence of recall Fluid Status: normal * Anesthesia Preprocedure Evaluation - Kiko Wolff MD - 04/07/2012 9:07 AM EST Today I evaluated Ashlyn Kenny a 66 y.o. female. Procedure(s): MASTECTOMY PARTIAL MODIFIER WITH NEEDLE LOC. BIOPSY OR EXCISION OF LYMPH NODE(S), OPEN, DEEP AXILLARY NODE(S) SENTINEL NODE INJECTION MODIFIER SENTINEL NODE EXCISION Patient Active Problem List Diagnoses ??? Breast cancer No past medical history on file. No past surgical history on file. History Substance Use Topics ??? Smoking status: Current Everyday Smoker -- 0.5 packs/day Types: Cigarettes ??? Smokeless tobacco: Not on file Comment: stopped end of February ??? Alcohol Use: Yes beer or wine once every 3 weeks Allergies Allergen Reactions ??? Cats Claw (Cat's Claw (Uncaria Tomentosa)) ??? Seasonale (Levonorgestrel-Ethinyl Estrad) Medications: MAR and/or home medications have been reviewed. Physical Exam: There were no vitals filed for this visit. There is no height or weight on file to calculate BMI. Airway Assessment: Mallampati: II TM distance: >3 FB Neck ROM: full Cardiovascular Assessment: cardiovascular exam normal Pulmonary Assessment: pulmonary exam normal Dental Assessment: Misc Assessment: Anesthesia Plan: ASA 2 general, with a(n) intravenous and inhalational induction Generally healthy 66 yo female for Rt breast-sentinel node surgery + Cigs d/c 3 wks -GERD -URI Npo Plan gen LMA Informed Consent: Anesthetic plan and risks discussed with patient. Plan discussed with [FOOD AIDE Misc. Assessment: documented in this encounter Miscellaneous Notes * Addendum Note - Liana Rodriguez - 04/08/2012 11:38 AM EST Addendum created 04/08/12 1138 by Liana Rodriguez Modules edited:Anesthesia Events, Anesthesia Responsible Staff, SmartForms SmartFormsVN Section for SmartForms 266 documented in this encounter Plan of Treatment Not on file documented as of this encounter Visit Diagnoses Not on filedocumented in this encounter Care Teams Camera Maker Relationship Specialty Start Date End Date Aileen Garcia, NOEMI PCP - General 02/28/12 08/05/13 documented as of this encounter
--- OUTSIDE RECORDS SUMMARY | 2023-11-07 12:01 | XMS_ITS | Encounter Summary ---
Author Organization [facility] Address [facility] [place] [address] Care Team Providers Care Shop Cooper Name Role Phone Jose Marianneelvia Nile FRANKLIN Primary Care Provider [phone] Reason for Visit * Reason Comments Simulation Encounter Details Date Type Department Care Team (Latest Contact Info) Description 05/20/2012 3:30 PM EST Ancillary Appointment Radiation Oncology at [address] [phone] Roberta Sales MD [facility] [place] [address] Breast CA (Primary Dx) Discharge Disposition: Home Social History [...] on file documented as of this encounter Patient Instructions * Patient Instructions* Leslie Monson RN - 05/21/2012 12:18 PM EST Section of Radiation Oncology [place], [place] Our normal business hours are: Saturday - Saturday 8 AM to 5 PM If you have questions about your radiation appointments please ask to speak to the Radiation Oncology litigation legal secretary. If you have questions for the nurse about radiation treatments, radiation side effects or you are not feeling well it is best to call early in the day. This allows the nurse to return your call by 5 PM the same day. If you call after 4 PM, and your question is not urgent, the nurse will return yourcall by 5 PM the following day. If you experience any of the following you need to seek emergency care immediately by calling 911 1. Sudden and unexpected breathing difficulty without any exertion 2. Sudden onset of chest pain 3. Sudden onset of severe pain or uncontrolled pain 4. Sudden onset of severe weakness and/or unable to ambulate 5. Sudden new onset of a seizure 6. Fall resulting in injury A Radiation Oncology doctor is radiocommunications technician after our normal hours, holidays and weekends. To call for urgent medical issues from radiation treatments that can not wait until normal business hours, pleasecall and have the distributor operator page the Radiation Oncologist in call. documented in this encounter Progress Notes * Leslie Monson RN - 05/21/2012 12:19 PM EST Initial Patient Education for Radiation Treatments Literature reviewed and given to patient: #1 Radiation Therapy and You a Guide to Self-Help During Cancer Treatment U.S[place] Department of Health and Human Services National Institutes of Health Publication No. 07-7157 National Cancer [place] Revised May [address] #2 [facility];Shared drive/info for RT Patients: a) Information for Patients Receiving Radiation Therapy b) Managing Cancer Treatment Related Fatigue Adapted from Cancersytoms.org Information for understanding cancer on c) Skin Care for Patients Receiving Radiation Therapy d) Radiation Therapy Billing Information e) Disease site specific Information: Information for Patients Receiving Radiation Therapy To The breast f) What Side Effects May Occur With Radiation Therapy to the Breast and Chest Area? [place] [employer] #3 Miscellaneous: Jeans cream supplied with the instructions to apply to site of radiation twice a day, but not less than 3 hours before radiation treatment. Contact information: If you have any questions or concerns regarding your cancer, please call: During business hours of 8 AM - 5 PM : [facility] [phone] Weekend/holidays/nights: [facility] [phone] and ask for the radiocommunications technician radiation oncologist For general medical questions not related to cancer; Please contact your primary physician. For medical emergencies needing immediate attention;contact local primary physician, go to local hospital emergency room,or call 911. Patient verbalized understanding of these instructions and the importance of reading them more thoroughly at home. Information was presented w/ folder and above contact information. Patient was encouraged to call if there are any questions or concerns. * Roberta Sales MD - 05/20/2012 5:39 PM EST In for sim. Sim: Breast bd immobilization; anticipated field borders marked; radio-opaque sanchez on lumpectomy scar; CT through breasts; custom conformal MLC. Tx Plan: Tangs; custom conformal MLC. Start xrt 05/28/12. documented in this encounter Plan of Treatment Not on file documented as of this encounter Visit Diagnoses Diagnosis Breast CA- Primary Malignant neoplasm of breast (female), unspecified site documented in this encounter Care Teams Shop Cooper Relationship Specialty Start Date End Date Aileen Garcia APRN PCP - General 02/28/12 08/05/13 documented as of this encounter
--- OUTSIDE RECORDS SUMMARY | 2023-11-07 12:01 | XMS_ITS | Encounter Summary ---
Author Organization [facility] Address [facility] [place] [address] Care Team Providers Care Furnace Liner Name Role Phone Aileen Gacria APRN Primary Care Provider [phone]- [phone] Encounter Details Date Type Department Care Team (Late st Contact Info) Description 05/20/2012 3:30 PM EST Initial consult Radiation Oncology at [address] [phone] Social History Tobacco Use Types Packs/Day Years [...] on filedocumented in this encounter Care Teams Furnace Liner Relationship Specialty Start Date End Date Aileen Garcia APRN PCP - General 02/28/12 08/05/13 documented as of this encounter
--- OUTSIDE RECORDS SUMMARY | 2023-11-07 12:01 | XMS_ITS | Encounter Summary ---
Author Organization [facility] Address [facility] [place] [address] Care Team Providers Care Telephone Order Supervisor Name Role Phone Jose Aileen Dowd APRN Primary Care Provider [phone]- [phone] Encounter Details Date Type Department Care Team (Late st Contact Info) Description 04/07/2012 7:09 AM EST - 04/07/2012 8:44 AM [facility] Hospital [place] [address] Breast cancer Social History Tobacco Use Types Packs/Day Years [...] Name Priority Date/Time Associated Diagnosis Comments MAMMO SPECIMEN Routine 04/07/2012 10:45 AM EST Breast cancer documented in this encounter Results * Mammo specimen (04/07/2012 10:45 AM EST) Anatomical Region Laterality Modality Breast N/A Mammography 04/07/2012 10:4 5 AM EST Narrative 04/08/2012 8:19 AM EST NEEDLE LOCALIZATION AND SPECIMEN RADIOGRAPH OF THE RIGHT BREAST ON 04/07/12: CLINICAL INDICATION: Right breast 10mm mass (US), calcifications (mammo) and clip in the upper, outer quadrant at 1100, 12cm from the nipple. Needle localization of the suspicious area (mass and clip) in the Right breast was performed with ultrasound guidance. Cranio-caudal and 90 digital mammography views were obtained following localization to document wire position. ?? Specimen mammography was performed. The suspicious areas in the Right breast (clip and calcifications) are included in the specimen. The specimen arrived in the Radiology Department at 10:43am. Report of specimen called to the OR at 10:46am. I performed the procedure without a resident. Procedure Note Jefe Caraballo MD - 04/08/2012 NEEDLE LOCALIZATION AND SPECIMEN RADIOGRAPH OF THE RIGHT BREAST ON04/07/12: CLINICAL INDICATION: Right breast 10mm mass (US), calcifications (mammo)and clip in the upper, outer quadrant at 1100, 12cm from the nipple. Needle localization of the suspicious area (mass and clip) in the Rightbreast was performed with ultrasound guidance. Cranio-caudal and 90 digital mammography views were obtained following localization to document wire position. Specimen mammography was performed. The suspicious areas in the Rightbreast (clip and calcifications) are included in the specimen. The specimen arrived in the Radiology Department at 10:43am. Report of specimen called to the OR at 10:46am. I performed the procedure without a resident. Nasir Stone MD IMG MAMMO ORDERABL ES documented in this encounter Visit Diagnoses Diagnosis Breast cancer Malignant neoplasm of breast (female), unspecified site documented in this encounter Care Teams Telephone Order Supervisor Relationship Specialty Start Date End Date Aileen Garcia, GEM CARVER PCP - General 02/28/12 08/05/13 documented as of this encounter
--- OUTSIDE RECORDS SUMMARY | 2023-11-07 12:01 | XMS_ITS | Encounter Summary ---
Author Organization [facility] Address [facility] [place] [address] Care Team Providers Care Window Shade Ring Coverer Name Role Phone Jose Marianneelvia Nile FRANKLIN Primary Care Provider [phone] Reason for Visit * Reason Comments Radiation Treatment Encounter Details Date Type Department Care Team (Late st Contact Info) Description 05/19/2012 9:00 AM EST Office Visit Radiation Oncology at [address] [phone] Roberta Sales MD [facility] [place] [address] Breast CA (Primary Dx) Discharge Disposition: Home [...] Sign Reading Time Taken Comments Blood Pressure 171/101 05/19/2012 8:00 AM EST Pulse 76 05/19/2012 8:00 AM EST Temperature - - Respiratory Rate 16 05/19/2012 8:00 AM EST Oxygen Saturation 99% 05/19/2012 8:00 AM EST Inhaled Oxygen Concentration - - Weight 83.9 kg (185 lb) 05/19/2012 8:00 AM EST n o shoes Height - - Body Mass Index 38.57 05/14/2012 1:02 PM EST documented in this encounter Progress Notes * Roberta Sales MD - 05/19/2012 9:28 AM EST Images from the original note were not included. CC: Referred by Dr. Stone for eval for xrt for breast ca. HPI: 66 y/o f who underwent screening mmgs in 02/03. 03/04/12 [facility] interp outside mmgs from 02/03 & 03/05: [...] segmental non-mass like enhancement, 11 mm, retroareolar, 12mm from skin. Comment: R breast lesion #1 likely a combination of 10 mm mass & anterior calcs together measuring 15 mm. Likely motion artifact accounting for retroareolar enhancement R breast. How ever, as there is a cluster of retroareolar [...] mmg showing suspicious area (clip & calcs). Path: IDC; intermed gr; tumor 0.9 cm; +DCIS (extensive); no ALI/PI; RM uninvolved by invasive ca; RM involved by DCIS; 1 ax lymph node (sentinel, neg for ca); ER+IL+; [id number]-; pT1b pN0. 04/21/12 reexcision. Path: No residual malignancy. 05/07/12 FU w/Dr. Stone; to return on prn basis. 05/14/[address] Garcia, w/rec for arimidex after completion of xrt. Discomfort @ surgical site, decreasing w/time, decreased w/application of tony's cream. No swellingof hand/arm. Normal ROM of R arm around shoulder. ROS: Appetite good. Energy level ok. Past Medical History Diagnosis Date ??? Varicose vein ??? Breast cancer, stage 1 03/2012 Node Neg ER/IL pos her 2 neg intermediate grade ??? Retinal hemorrhage of right eye Dx 2011 Receiving injections into eye for it. Past Surgical History Procedure Date ??? Mastectomy, partial 04/07/2012 MASTECTOMY PARTIAL performed by Nasir Stone MD at [facility] MA[facility] OR ??? Bx/remv, lymph node, deep axill 04/07/2012 BIOPSY OR EXCISION OF LYMPH NODE(S), OPEN, DEEP AXILLARY NODE(S) performed by Nasir Stone MD at [facility] MA[facility] OR ??? Identify sentinel node 04/07/2012 SENTINEL NODE INJECTION performed by Nasir Stone MD at [facility] OR ??? Mastectomy, partial 04/21/2012 MASTECTOMY PARTIAL performed by Nasir Stone MD at [facility] OR ??? Varicose vein surgery 1989 vein removed, R leg ??? Cataract removal with implant 02/03 B P&SH: 50 pk yr smoking hx. Plans to stop smoking immediately; recently obtained nicorette. Physical Exam Constitutional: She is oriented to person, place, and time. She appears well- developed and well-nourished. No distress. HENT: Head: Normocephalic and atraumatic. Eyes: Conjunctivae and EOM are normal. Right eye exhibits no discharge. Left eye exhibits no discharge. No scleral icterus. Neck: Normal range of motion. Neck supple. No tracheal deviation present. No thyromegaly present. Pulmonary/Chest: Effort normal and breath sounds normal. No stridor. No respiratory distress. She has no wheezes. She has no rales. She exhibits no tenderness. Right breast exhibits skin change (Milderythema of lateral R breast, which she says has been present since surgery & decreasing with time.). Right breast exhibits no inverted nipple, no mass, no nipple discharge and no tenderness. Left breast exhibits no inverted nipple, no mass, no nipple discharge, no skin change and no tenderness. Abdominal: Soft. She exhibits no distension and no mass. There is no tenderness. There is no rebound and no guarding. Musculoskeletal: Normal range of motion. She exhibits no edema and no tenderness. Lymphadenopathy: She has no cervical adenopathy. She has no axillary adenopathy. Right: No supraclavicular adenopathy present. Left: No supraclavicular adenopathy present. Neurological: She is alert and oriented to person, place, and time. No cranial nerve deficit. She exhibits normal muscle tone. Coordination normal. Skin: She is not diaphoretic. Psychiatric: She has a normal mood and affect. Her behavior is normal. Judgment and thought contentnormal. A: Breast ca, R, IDC, intermed gr, ER+IL+, [id number]-, s/p R lumpectomy & SNB followed by reexcision, stage I, pT1b pN0. P: A course of xrt to R breast rec'd to increase likelihood of cure. Xrt could be comprised of 20 daily fxs, if CT based xrt plan shows acceptable dose homogeneity. Otherwise, xrt would be given in 33 daily fxs. Possible side effects of xrt to breast discussed, w/acute/immediate side effects including: Pinkening, soreness & peeling of skin in treated area; swelling of treated breast; soreness of treated breast; cough; shortness of breath; tiredness. Late/longterm side effects to breast discussed include: Treated breast may shrink, become firmer & sit higher on chest; achiness/stiffness of chest wall on treated side; R sided rib fracture; CTafter xrt may show scarring w/in small volume of lung on treated side. Need for CTsim prior to xrt discussed. She would like to proceed w/plan for xrt & will return tomorrow for sim. She was encouraged in her effort to stop smoking. 25 mins of 40 min visit w/Ashlyn spent in face to face discussion regarding tx plan. * Robby, Kirstie Ayala RN - 05/19/2012 8:51 AM EST RADIATION ONCOLOGY NURSING INITIAL NURSING ASSESSMENT ADVANCE DIRECTIVES: In [facility] [ yes ] Has documents [ ] Will bring in [ ] IF NO: Advance Directive pamphlet provided: [ ] Referral to Care Management : [ ] PRESENTING SYSTEMS and PATHOLOGY: breast cancer found on screening mammo REVIEW OF SYSTEMS: Review of Systems Constitutional: Negative. Negative for fatigue and unexpected weight change. HENT: Positive for sinus pressure (environmental allergies). Negative for hearing loss and dental problem. Eyes: Wears glasses. Right eye retina bleeding,gettig shots in her eye to stop bleeding. Dr Rios in [place] q 6 weeks Respiratory: Positive for cough (clear phlegm). Negative for shortness of breath. Trying to quit smoking Cardiovascular: BP reading high today. SHe states she feels anxious Gastrointestinal: Negative. Genitourinary: Negative. Skin: Pain of right breast incision 05/04. Neurological: Negative. Negative for tremors, seizures, light-headedness and headaches. Psychiatric/Behavioral: The patient is nervous/anxious (pt states she feels anxious and thinks BP is high becasue of anxiety.). Prior Radiotherapy: [x ] no [ ] yes Site: Date: Facility: Prior Chemotherapy: [x ] no [ ] yes Drug: Oncologist- LastTreatment: Prior hormone treatment/medications: [ x ] no [ ] Yes Drug: LastTreatment: RADIATION SPECIFIC REVIEW: NO: YES: Claustrophobia or requires sedation for MRIs no Tolerated MRI well last month Allergy to CT or MRI contrast agent or iodine or shellfish x Diabetic and on metformin x Metal in body, implanted device, worked with metal, body piercings,braces 3 Surgical clips in breast Dentures or hearing device X,x Pacemaker x Difficulty breathing while lying flat x Kidney problems/creatinine x Balance difficulty: [x ]no [ ]yes At risk for fall: [x ] no [ ] yes If yes, actions implemented to prevent fall: Patient/family instructed to avoid independent ambulation. Use wheelchair and xask for assistance of staff while in the clinic. ADL [x ] no limits [ ] needs dressing assistance [ ] needs meal assistance Assistive device:[x ]none [ ]cane [ ]walker [ ]wheelchair [ ]other: explain PAIN ASSESSMENT: [2 ] out of 10 Location: Description: [ ] Dull [ ] Sharp [ ] Burning [ ] Throbbing [ ] Radiating just aches [ x ] Continuous [ ]Intermittent Aggravating Factors: [ x ] Movement of arm against breast r if she bumps it [ ] Position [ ]Immobility [ ]Other Alleviating Factors: [x ]Medication: Tylenol or motrin and she pads bra. She has percocet but doesn't like how she feels when she takes it. [ ] Positioning [ ] Other Current Pain Management Plan: [ x ]Satisfied [ ] Not satisfied SOCIAL ASSESSMENT: See [facility] social assessment information entered. Support Systems: lives alone, has very helpful sisters Barriers to treatment: She has already contacted our executive secretary social welfare and is expecting [employer] cards to help with finaces Referrals/Interventions: LEARNING STYLE: Visual and verbal, wants written material and verbal discussion. TEACHING: LEARNING STYLE: Visual and verbal, wants written material and verbal discussion. Language barriers: [x ] no [ ] yes [ x ] NCI Radiation therapy and You?? and folder given [ ] Site Specific literature provided and reviewed with patient [ ] Other: tony's cream given documented in this encounter Plan of Treatment Not on file documented as of this encounter Visit Diagnoses Diagnosis Breast CA- Primary Malignant neoplasm of breast (female), unspecified site documented in this encounter Care Teams Window Shade Ring Coverer Relationship Specialty Start Date End Date Aileen Garcia APRN PCP - General 02/28/12 08/05/13 documented as of this encounter
--- OUTSIDE RECORDS SUMMARY | 2023-11-07 12:01 | XMS_ITS | Encounter Summary ---
[facility] Address [facility] [place] [address] Care Team Providers Care Billing Clerk Name Role Phone Geni Postlb Georges APRN Primary Care Provider [phone]- [phone] Reason for Visit * Reason Comments Varicose Veins right > left Encounter Details Date Type Department Care Team (Latest Contact Info) Description 08/27/2013 10:00 AM EDT Office Visit [place] [address] Lola Rajan MD [facility] [place] [address] Chronic venous insufficiency (Primary Dx) Discharge Disposition: Home Social History [...] Sign Reading Time Taken Comments Blood Pressure 152/78 08/27/2013 10:44 AM EDT Pulse 74 08/27/2013 10:44 AM EDT Temperature - - Respiratory Rate - - Oxygen Saturation - - Inhaled Oxygen Concentration - - Weight 95.3 kg (210 lb) 08/27/2013 10:44 AM EDT Height 149.9 cm (4' 11) 08/27/2013 10:44 AM EDT Body Mass Index 42.41 08/27/2013 10:44 AM EDT documented in this encounter Progress Notes * Lola Rajan MD - 08/27/2013 11:45 AM EDT Consult requested by AYANNA POST APRN for evaluation of painful varicose veins. History: This is a 68 y.o. female who has noted painful varicose veins for over twenty years. She has had prior right lower leg stripping and stab avulsions. The patient has noted the following symptoms belowfor 6 months. The patient has used 20-30mmHg compression stockings for year ( daily use) without improvement in the symptoms. Due to the symptoms below, the patient is unable to work and it is affecting the quality of life. Y N SYMPTOM X Leg aching X Leg swelling X Leg elevation greater than 20 minutes/3x per day X Daily use of compression stockings 20-30mmHg (6-8 weeks) X Family history of varicose veins x History of more than two episodes of phlebitis X Refractory edema x Stasis dermatitis X History of DVT X Prior venous surgery X Prior ulceration X Current ulceration X History of two more episodes of bleeding varicosities X Chronic cellulitis Review of Systems: Prior cardiac history: no Prior pulmonary history: no Prior issues with general anesthesia: no Family history of malignant hyperthermia: no Issues with snoring or sleep apnea: no PE: Filed Vitals: 08/27/13 1044 BP: 152/78 Pulse: 74 Body mass index is 42.39 kg/(m^2). Bilateral BP: Left arm 115/67 / Right arm 116/78 Heart: RRR, no murmurs, no S3 or S4 Chest: CTA, no wheeze Location of the varicosities: right Size of the varicosities (greater than 3mm): 5-6 mm Carotid pulses equal and bilateral No palpable pulsatile abdominal masses, no abdominal bruits Palpable bilateral femoral, popliteal and tibial pulses Right medial thigh and calf varicosities, nontender to palpation, no lipodermatosclerosis Y N PHYSICAL FINDINGS X Radial pulses bilaterally X DP and PT pulses bilaterally X Palp cords X Evidence of healed ulceration X Stasis dermatitis X Cellulitis X Palpable Thrills Duplex Criteria: Findings: Right Reflux? Thrombus? Common Femoral Vein [...] to groin. There is a large incompetent watch technician from the mid FV to the mid GSV. GSV is incompetent from the mid thigh to knee. Vein was stripped through the calf. The GSV has an incompetent branch across the knee and down the mckee. No evidence of deep venous thrombus (fem-pop). Plan for Intervention: The patient is noted to have symptomatic varicose veins. There is history of prior GSV stripping orVNUS now with persistently symptomatic varicose veins (more than 3 months after GSV stripping or VNUS). Duplex notes reflux in the symptomatic varicose veins. The patient has used 20-30mmHg compression stockings for 3 months with residual or recurrent symptoms. Given the history, physical exam and duplex finding, the risks and benefits of the procedures listed below were discussed in detail and the patient would like to proceed as indicated: Stab avulsions: Yes, Right documented in this encounter Miscellaneous Notes * Addendum Note - Serina Youssef RN - 08/27/2013 2:34 PM EDTAddended by: SERINA YOUSSEF on: 08/27/2013 02:34 PM Modules accepted: Orders documented in this encounter Plan of Treatment Not on file documented as of this encounter Procedures Procedure Name Priority Date/Time Associated Diagnosis Comments STAB PHLEBECTOMY MICKIE VEINS 1 EXTREMITY 10-20 INCISIONS Routine 08/27/2013 2:34 PM EDT Chronic venous insufficiency documented in this encounter Visit Diagnoses Diagnosis Chronic venous insufficiency- Primary Unspecified venous (peripheral) insufficiency documented in this encounter Care Teams Billing Clerk Relationship Specialty Start Date End Date Ayanna Post APRN PCP - General 08/06/13 05/20/16 documented as of this encounter
--- OUTSIDE RECORDS SUMMARY | 2023-11-07 12:01 | XMS_ITS | Encounter Summary ---
Author Organization [facility] Address [facility] [place] [address] Care Team Providers Care Digital Developer Name Role Phone Aileen Garcia NOEMI Primary Care Provider [phone]- [phone] Encounter Details Date Type Department Care Team (Late st Contact Info) Description 04/21/2012 9:26 AM EST Anesthesia Event [place] [address] Tanner Iverson MD [facility] [place] [address] Wan Rubin MD [facility] [place] [address] Anesthesia Record Procedure Summary Procedure Name Responsible Anesthesiologist Anesthesia Start Time Anesthesia Stop Time MASTECTOMY PARTIAL (WRVU 10.13) (Right: Breast) Tanner Iverson MD 04/21/12 0926 04/21/12 1010 Events Date Time Event Comment 04/21/2012 0844 0926 Start 1010 Stop Meds * Agents No agents on file. * Blood No blood administrations on file. Lines, Drains, and Airways Type Details Placement Removal Incision 04/07/12; breast; 11/20/21 (LDA cleanup utility RA#[id number]); 1715 (LDA cleanup utility RA#[id number]) 04/07/12 0000 by Jessica Boles RN 11/20/21 1715 by Vicente Mantilla Incision 01/14/13; mid axillary; 11/20/21 (LDA cleanup utility RA#[id number]); 1715 (LDA cleanup utility RA#[id number]) 04/07/12 0000 by Jessica Boles RN 11/20/21 1715 by Vicente Mantilla Incision 04/21/12; breast; 11/20/21 (LDA cleanup utility RA#[id number]); 1715 (LDA cleanup utility RA#[id number]) 04/21/12 0000 by Dania Mantilla RN 11/20/21 1715 by Vicente Mantilla (RETIRED) Peripheral IV Line - Single Lumen 04/21/12; 0827; 04/21/12; 1108 04/21/12 0827 by Amira Dennison RN 04/21/12 1108 by Yesenia Schaeffer RN documented in this encounter Social History [...] OR Notes * Anesthesia Postprocedure Evaluation - Tanner Iverson MD - 04/21/2012 4:10 PM EST Patient: Ashlyn Kenny Procedure(s) Performed: Procedure(s): MASTECTOMY PARTIAL MODIFIER , RE-EXCISION Patient location: PACU Post-op pain: Adequate analgesia Post-op nausea: no nausea or vomiting Last Vitals: Filed Vitals: 04/21/12 1044 BP: 172/98 Pulse: 74 Temp: Resp: 14 Post-op cardiovascular and respiratory status: is stable Level of consciousness: awake Complications: no apparent complications Fluid Status: normal * Anesthesia Preprocedure Evaluation - Wan Rubin - 04/20/2012 6:37 PM EST Note: This preliminary note was based on chart review, before the patient was interviewed or examined. Today I evaluated Ashlyn Kenny a 66 y.o. female. She has a hx of right breast CA, s/p partial mastectomy, on 04/07/12, and found to have positive margins. She is scheduled for re-excision right partial mastectomy. PMH is significant for prior smoking (quit c 1 month ago). Procedure(s): MASTECTOMY PARTIAL MODIFIER , RE-EXCISION Patient Active Problem List Diagnoses ??? Breast cancer No past medical history on file. Past Surgical History Procedure Date ??? Mastectomy, partial 04/07/2012 MASTECTOMY PARTIAL performed by Nasir Stone MD at [facility] MAIN OR ??? Bx/remv, lymph node, deep axill 04/07/2012 BIOPSY OR EXCISION OF LYMPH NODE(S), OPEN, DEEP AXILLARY NODE(S) performed by Nasir Stone MD at [facility] MAIN OR ??? Identify sentinel node 04/07/2012 SENTINEL NODE INJECTION performed by Nasir Stone MD at [facility] MAIN OR History Substance Use Topics ??? Smoking status: Current Everyday Smoker -- 0.5 packs/day Types: Cigarettes ??? Smokeless tobacco: Not on file Comment: stopped end of February ??? Alcohol Use: Yes beer or wine once every 3 weeks No Known Allergies Medications: MAR and/or home medications have been reviewed. Physical Exam: There were no vitals filed for this visit. There is no height or weight on file to calculate BMI. Anesthesia Physical Exam Anesthesia Plan: ASA 2 general, with a(n) intravenous induction GA with LMA Informed Consent: [facility]. Assessment: documented in this encounter Miscellaneous Notes * Addendum Note - Liana Rodriguez - 04/22/2012 12:10 PM EST Addendum created 04/22/12 1210 by Liana Rodriguez Modules edited:Anesthesia Events, Anesthesia Responsible Staff, SmartForms SmartFormsVN Section for SmartForms 266 documented in this encounter Plan of Treatment Not on file documented as of this encounter Visit Diagnoses Not on filedocumented in this encounter Care Teams Digital Developer Relationship Specialty Start Date End Date Aileen Garcia APRN PCP - General 02/28/12 08/05/13 documented as of this encounter
--- OUTSIDE RECORDS SUMMARY | 2023-11-07 12:01 | XMS_ITS | Encounter Summary ---
Author Organization [facility] [place] [address] Care Team Providers Care Proration Clerk Name Role Phone JoseAileen Nile FRANKLIN Primary Care Provider +1- [phone] Encounter Details Date Type Department Care Team (Late st Contact Info) Description 04/21/2012 9:28 AM EST - 04/21/2012 10:26 AM EST Surgery [place] [address] Kelly Stone MD [facility] [place] [address] MASTECTOMY PARTIAL (WRVU 10.72) Social History Tobacco Use Types Packs/Day Years [...] Sign Reading Time Taken Comments Blood Pressure 178/92 04/21/2012 10:25 AM EST Pulse 70 04/21/2012 10:25 AM EST Temperature 36.1 ??C (97 ??F) 04/21/2012 10:10 AM EST Respiratory Rate 14 04/21/2012 10:25 AM EST Oxygen Saturation 100% 04/21/2012 10:25 AM EST Inhaled Oxygen Concentration - - Weight 81.6 kg (180 lb) 04/21/2012 8:09 AM EST Height 149.9 cm (4' 11) 04/21/2012 8:09 AM EST Body Mass Index 36.36 04/21/2012 8:09 AM EST documented in this encounter Discharge Instructions * Discharge Instructions* Yesenia Schaeffer RN - 04/21/2012 11:03 AM EST POST ANESTHESIA INSTRUCTIONS Go home, rest, use caution on stairs. Change positions slowly. Do not smoke if you are alone. Diet light to regular as tolerated today. If nausea occurs start with clear liquids and progress slowly. No driving, operating machinery, alcoholic beverages and no important decisions for 24 hours. Monitor IV site for signs and symptoms of infection: increasing redness, swelling, foul drainage, if occurs contact M.D. Patients who have had endotrachial tubes (this tube, used by anesthesia department, is passed down your throat after you are asleep, to ensure safe air passage during your operation). A sore throat is normal due to the tube. Cold liquids or soothing lozenges will help ease the discomfort. The generalized muscle aches are due to the medication given to you just before the tube is inserted. As the medication wears off, you may develop muscle soreness, which usually goes away in 12-24 hours. * Patient Instructions* JamarFlorecita roman José Manuel - 04/21/2012 9:20 AM EST Discharge Instructions: Wound Care: You may shower and let water run over your incision. Do not soak (no baths or swimming)until the incision has healed as this may increase the risk of infection. Do not scrub incision andpat it dry. Leave the steri strips in place until they fall off, usually in 7-14 days. You do not have any stitches that need to be removed. Activity: Activity as tolerated. No heavy lifting for 4 weeks. Pain: You may take Tylenol and/or Ibuprofen for pain. You will also be given a prescription for Percocet. Use this medication as prescribed. You should not drive if you are taking narcotic pain medications as these may slow your reaction time. You should not have more than 4000mg of acetaminophen (Tylenol) in 24 hours. Follow up: You will have an appointment with Dr. Stone. The appointment will be mailed to you. He will call you with pathology reports once they are complete. Please call [phone] to confirm date and time of your appointment if you do not hear from us in the next 1 week. Call your doctor if you have: - Fevers greater than 101 degrees F or shaking chills - Worsening redness or drainage from your incision lasting longer than 5 days following surgery - Any foul-smelling drainage from the incision - Persistent nausea or vomiting (this may be related to opioid pain medications) - Increased pain not controlled by the prescribed pain medications Phone number for questions: [phone] before 5 PM weekdays [phone] after 5 PM and on weekends/holidays - Ask for the General Surgery resident environmental monitoring technician. documented in this encounter Medications at Time [...] tablet Take 1 tablet by mouth daily. OXYcodone-acetaminophen (PERCOCET) 5-325 mg per tablet Take 1-2 tablets by mouth every 4 hours as needed for Pain. 40 tablet 0 04/21/2012 05/19/2012 acetaminophen 650 mg Tab Take 650 mg by mouth every 4 hours as needed for Pain. 30 tablet 04/07/2012 03/11/2013 documented as of this encounter Progress Notes * Yesenia Schaeffer RN - 04/21/2012 11:20 AM EST Patient medicated for pain with relief, pain level less than a 4. Tolerated crackers and fluids, ambulated to bathroom to void. Discharge instructions reviewed with patient and her sister, verbalizeda good understanding of same. Discharged via wheelchair to family. * Kavitha Haynes MSW - 04/21/2012 9:18 AM EST Office of Care Management/Continuing Collection Systems Technician Pager #[phone] A: Ms. Kenny seen prior to her re-excision. She had returned to work which was challenging becauseshe said she felt sore. She had taken a week off and will ask Dr. Stone if she needed to take that much time again. She was in good spirits, just disappointed she needed to return for surgery P: Continue to assess and assist with psychosocial needs documented in this encounter H&P Notes * Kelly Stone MD - 04/21/2012 9:10 AM EST See H and P in e-,unchanged documented in this encounter Miscellaneous Notes * Miscellaneous - Provider, Scanning - 04/21/2012 9:55 PM EST * Miscellaneous - Provider, Scanning - 04/21/2012 9:46 PM EST * Op Note - Kelly Stone MD - 04/21/2012 9:57 AM EST [facility] Operative Note Patient Name: Lupe Kenny : [id number] MR#: [id number] Case Date: 04/21/2012 Surgeon: Surgeon(s) and Role: * Kelly Stone MD - Primary * Florecita Riojas MD - Resident-Surgeon [place] Preoperative diagnosis: POSITIVE MARGINS FOR BREAST CANCER -right Postoperative diagnosis: POSITIVE MARGINS FOR BREAST CANCER Procedure(s): MASTECTOMY PARTIAL MODIFIER , RE-EXCISION General Estimated Blood Loss: minimal Drains: none HPI/Surgical Indications: Surgical Indications: The patient initially presented to the clinic with a newly diagnosed invasive ductal carcinoma of the right breast. She subsequently underwent wire localized right breast partial mastectomy and sentinel lymphadenectomy. She had a negative sentinel lymph node. The partial mastectomy pathology indicated a small invasive ductal carcinoma with a larger DCIS component. The lateral margin was positive for involved DCIS, therefore it was decided that she would undergo a re-excision of that partial mastectomy site of the lateral margin. Procedure Description: Procedure Description: The patient was taken to the operating room and placed supine on the operating table. LMA general anesthesia was induced. The preoperative timeout checklist was performed. The patient received 2 gm of IV Ancef as prophylactic antibiotics. The right breast was then prepped and draped in the usual sterile manner. After adequate local anesthesia with 1% plain Xylocaine an incision was made directly through the prior lateral right breast partial mastectomy incision. The cavity was entered and the seroma was aspirated. The lateral margin was then selected and a 2 cm rim was then excised with electrocautery. This specimen was marked with a suture for new lateral margin. The incision was thoroughly irrigated. Any noted bleeding was controlled with electrocautery. The incision was then closed in layers with interrupted 3-0 Vicryl dermal sutures and a running 4-0 subcuticular Monocryl. Steri-Strips were applied. * Brief Op Note - Kelly Stone MD - 04/21/2012 9:56 AM EST Brief Operative Note Patient Name: Lupe Kenny : [id number] MR#: [id number] Case Date: 04/21/2012 Surgeon: Surgeon(s) and Role: * Kelly Stone MD - Primary * Florecita Riojas MD - Resident-Surgeon [place] Preoperative diagnosis: POSITIVE MARGINS FOR BREAST CANCER -right Postoperative diagnosis: POSITIVE MARGINS FOR BREAST CANCER Procedure(s): MASTECTOMY PARTIAL MODIFIER , RE-EXCISION Anesthesia: General Findings: Complications: none Fluids: Estimated Blood Loss: minimal Drains: none * OR Attestation - Kelly Stone MD - 04/21/2012 9:56 AM EST Attestation: Case Date: 04/21/2012 I was present and I participated during the entire procedure (does not need to include opening and closing). KELLY STONE MD 04/21/2012 * Miscellaneous - Provider, Scanning - 04/21/2012 9:32 AM EST documented in this encounter Plan of Treatment Not on file documented as of this encounter Procedures Procedure Name Priority Date/Time Associated Diagnosis Comments SURGICAL PATHOLOGY REPORT Routine 04/21/2012 9:58 AM EST SPECIMEN TO PATHOLOGY Routine 04/21/2012 9:46 AM EST MODIFIER , RE-EXCISION Yes 04/21/2012 9:15 AM EST POSITIVE MARGINS FOR BREAST CANCER MASTECTOMY PARTIAL (WRVU 10.13) Yes 04/21/2012 9:15 AM EST POSITIVE MARGINS FOR BREAST CANCER documented in this encounter Results * Surgical Pathology Report (04/21/2012 9:58 AM EST) Surgical Pathology Report ? [facility] ? Provider: ?? KELLY STONE Pt. Name: ?? LUPE KENNY ? Acc #: ?[id number] ?Pt. ? Col Date: ?? 04/21/2012 ? /Sex: ?1945,(66 years),Female ? Rec Date: ?? 04/21/2012 ? LOC: ?SDP ? SURGICAL PATHOLOGY ? ---Pathologic Diagnosis--- ? Specimen: ? Breast, right, partial mastectomy,re-e xcision ? lateral margin. ? Specimen Size: ?4.7 x 3.1 x 0.7 cm. ? Residual malignancy: ?Absent. ? Prior Bx's correlation: [id number]. ? Other findings: ? Healing surgical site. ? CR-0 ? 04/23/12 ? CCB ? 04/23/12 Verified by: ? Mackenzie Atwood DO. ? Pathologist ? (Electronic Signature) ? The attending pathologist whose signature appears on this report has ? reviewed all diagnostic slides and has edited the gross and/or ? microscopic portion of the report in rendering the final pathologic ? diagnosis. ? ---Microscopic Description--- ? Slides reviewed, microscopic description not recorded. ? ---Gross Description--- ? Labeled/Fixativ e: ? Re-excision of right breast partial mastectomy, ? fresh. ? Qty/Size/Weight : ?One, 4.7 x 3.1 x 0.7 cm. ? Tissue Description: ?? A sheet of yellow, lobular adipose tissue with ? minimal admixed white fibrous tissue. ??No tumor is ? identified grossly. ??The new lateral margin is marked with a long stitch, ? and the opposite side of the specimen is a thin sheet of red-pink, focally ? hemorrhagic granulation tissue consistent with the old margin. ??The new ? lateral margin is inked black. ??The specimen is serially sectioned from one ? end to the other into nine slices. ? Sections/Proces sing: ??(A1) slice I; (A2) slice II: (A3-A4) slice III: ? (A5-A6) slice IV; (A7-A8) slice V; (A9-A10) slice ; ? (A11) slice VII; (A12) slices VIII-IX. ??(T12) ? aje/LCO ? ---Clinical Information--- ? Specimen Submitted: ? [facility] ? Provider: ?? KELLY STONE Pt. Name: ?? LUPE KENNY ? Acc #: ?[id number] ?Pt. ? Col Date: ?? 04/21/2012 ? /Sex: ?1945,(66 years),Female ? Rec Date: ?? 04/21/2012 ? LOC: ?SDP ? SURGICAL PATHOLOGY ? A - Re-excision of right breast partial mastectomy - stitch sanchez new ? lateral margin ? Clinical History/Diagnos is: ? Positive margins for breast cancer MARICHUY COLBY 04/21/2012 9:58 AM EST Kelly Stone MD PATHOLOGY/CYTOLOGY ORDERABLES MARICHUY COLBY * Specimen to Pathology (surgical or derm) (04/21/2012 9:46 AM EST) AP Specimen 04/21/2012 9:46 AM EST 04/21/2012 9:46 AM EST Narrative MARICHUY COLBY - 04/21/2012 9:46 AM EST Specimen requisition ordered. ??Separate Pathology report to follow Kelly Stone MD PATHOLOGY/CYTOLOGY ORDERABLES MARICHUY COLBY documented in this encounter Visit Diagnoses Not on filedocumented in this encounter Administered Medications Inactive Administered Medications - up to 3 most recent administrations Medication Order MAR Action Action Date Dose Rate Site ceFAZolin (ANCEF) injection ONCE PRN, Starting on Sat04/21/12 at 0925, Until Sat04/21/12 at 1355, Intra-Operative (Intra-Procedure), Routine Given 04/21/2012 9:25 AM EST 2 g fentaNYL 50mcg/mL injection 25-50 mcg, Intravenous, EVERY 5 MIN PRN, Starting on Sat04/21/12 at 1017, Until Sat04/21/12 at 1355, Pain, for breakthrough pain, Hold for respiratory rate less than 10 per minute. Maximum dose: 250 mcg over one hour., PACU Recovery, Routine Given 04/21/2012 10:43 AM EST 50 mcg Given 04/21/2012 10:38 AM EST 25 mcg lidocaine (PF) (XYLOCAINE) 10 mg/mL (1 %) injection ONCE PRN, Starting on Sat04/21/12 at 0948, Until Sat04/21/12 at 1355, Intra-Operative (Intra-Procedure), Routine Given 04/21/2012 9:48 AM EST 1 mg OXYcodone-acetaminophen (PERCOCET) 5-325 mg per tablet 1-2 tablet 1-2 tablet, Oral, EVERY 4 HOURS PRN, Starting on Sat04/21/12 at 1011, Until Sat04/21/12 at 1355, Pain, Maximum dose of acetaminophen is 4000 mg from all sources in 24 hours., Routine Given 04/21/2012 10:38 AM EST 1 tablet documented in this encounter Active and Recently Administered Medications Times are shown in EST. PRN Medication Order 04/19/2012 04/20/2012 04/21/2012 ceFAZolin (ANCEF) injection (CANCELED) ONCE PRN, Starting on Sat04/21/12 at 0925, Until Sat04/21/12 at 1355, Intra-Operative (Intra-Procedure), Routine 0925 (Given - Provid er: Wan Rubin) fentaNYL 50mcg/mL injection (CANCELED) 25-50 mcg, Intravenous, EVERY 5 MIN PRN, Starting on Sat04/21/12 at 1017, Until Sat04/21/12 at 1355, Pain, for breakthrough pain, Hold for respiratory rate less than 10 per minute. Maximum dose: 250 mcg over one hour., PACU Recovery, Routine 1038 (Given - Provid er: Yesenia Schaeffer RN)1043 (Given - Provider: Yesenia Schaeffer RN) lidocaine (PF) (XYLOCAINE) 10 mg/mL (1 %) injection (CANCELED) ONCE PRN, Starting on Sat04/21/12 at 0948, Until Sat04/21/12 at 1355, Intra-Operative (Intra-Procedure), Routine 0948 (Given - Provid er: Kelly Stone MD - Comment: 10ml given.) OXYcodone-acetaminophen (PERCOCET) 5-325 mg per tablet 1-2 tablet (CANCELED) 1-2 tablet, Oral, EVERY 4 HOURS PRN, Starting on Sat04/21/12 at 1011, Until Sat04/21/12 at 1355, Pain, Maximum dose of acetaminophen is 4000 mg from all sources in 24 hours., Routine 1038 (Given - Provid er: Yesenia Schaeffer RN) documented in this encounter Care Teams Proration Clerk Relationship Specialty Start Date End Date Aileen Garcia, NOEMI PCP - General 02/28/12 08/05/13 documented as of this encounter
--- OUTSIDE RECORDS SUMMARY | 2023-11-07 12:01 | XMS_ITS | Encounter Summary ---
Author Organization [facility] [place] [address] Care Team Providers Care Oyster Opener Name Role Phone Ayanna Esparza APRN Primary Care Provider [phone] Reason for Visit * Reason Comments Follow-up Encounter Details Date Type Department Care Team (Late st Contact Info) Description 08/06/2013 2:30 PM EDT Follow-Up Hematology Oncology at [address] [phone] Sindy Gomez APRN [address] [facility] [place] [address] Breast cancer, stage 1, right (Primary Dx) Discharge Disposition: Home Social History Tobacco Use Types Packs/Day Years Used Date Smoking Tobacco: Former Cigarettes Smokeless Tobacco: Former Quit: 05/18/2012 Comments:stopped end of Dece mber Alcohol Use [...] Sign Reading Time Taken Comments Blood Pressure 133/74 08/06/2013 2:35 PM EDT Pulse 87 08/06/2013 2:35 PM EDT Temperature 36.8 ??C (98.2 ??F) 08/06/2013 2:35 PM ED T Respiratory Rate 18 08/06/2013 2:35 PM EDT Oxygen Saturation 99% 08/06/2013 2:35 PM EDT Inhaled Oxygen Concentration - - Weight 97.5 kg (215 lb) 08/06/2013 2:35 PM EDT Height 147.5 cm (4' 10.07) 08/06/2013 2:35 PM E DT Body Mass Index 44.83 08/06/2013 2:35 PM EDT documented in this encounter Progress Notes * BienvenidoSindy haider, INFORMATICS NURSE SPECIALIST - 08/06/2013 2:36 PM EDT Images from the original note were not included. Subjective: Patient ID: Ashlyn Kenny is a 67 y.o. female. HPI Comments: Pain in varicose vein in R leg- surgery planned. Significant weight gain 15kg- since last Apr. Patient Active Problem List Diagnosis ??? Varicose vein ??? Breast cancer, stage 1 DIAGNOSIS: Breast, R, IDC, intermed gr, ER+WV+, [id number]-, s/p lumpectomy & SNB followed by reexcision, stage I, pT1b pN0; arimidex initiated following radiation therapy. 03/04/12 [facility] interp outside mmgs from 02/03 & 03/05: [...] treatment on 06/24/12 Chemotherapy: Arimidex initiated 06/2013 Review of Systems Constitutional: Positive for unexpected weight change (weight gain after quitting smoking). HENT: Negative. Eyes: Negative. Respiratory: Negative. Cardiovascular: Varicose vein in R leg being evaluated for surgery due to persistent pain Gastrointestinal: Negative. Genitourinary: Negative. Musculoskeletal: Negative. Neurological: Negative. Psychiatric/Behavioral: Negative. Objective: Physical Exam Constitutional: She is oriented to person, place, and time. She appears well- developed and well-nourished. HENT: Mouth/Throat: Oropharynx is clear and moist. No oropharyngeal exudate. Eyes: Conjunctivae normal and EOM are normal. Pupils are equal, round, and reactive to light. No scleral icterus. Neck: Normal range of motion. Neck supple. Cardiovascular: Normal rate, regular rhythm and normal heart sounds. Pulmonary/Chest: Effort normal and breath sounds normal. She has no wheezes. She has no rales. Right breast exhibits no inverted nipple, no mass, no nipple discharge, no skin change and no tenderness. Left breast exhibits no inverted nipple, no mass, no nipple discharge, no skin change and no tenderness. Breasts are symmetrical. Abdominal: There is no guarding. Limited due to obesity Musculoskeletal: Normal range of motion. She exhibits no edema. Lymphadenopathy: She has no cervical adenopathy. Neurological: She is alert and oriented to person, place, and time. She has normal reflexes. Skin: Skin is warm and dry. No rash noted. No erythema. Psychiatric: She has a normal mood and affect. Her behavior is normal. Thought content normal. Labs: TBD later this month by PCP 02/26/13: Mammogram FINDINGS: This is a benign mammogram (ACR Category 2). There is some architectural distortion and generalized edema of the Right breast consistent with recent surgery and radiation therapy. There is otherwise no change in the fibroglandular pattern of the breasts. There are no specific mammographic signs of cancer. Assessment and Plan: Stage I breast cancer: Plan to resched dexa scan; patient will call after labs to make appt for Zometa. Written information for the Zometa was provided today. Rationale was explained to her for the use of this drug. She is agreeable to receive it. Fwup in 6mo with CBC, CMP, appt for Zometa and dexascan results. She knows to call in the interim for any questions or problems. Sindy Gomez, MSN, SCAFFOLD ERECTOR, AOCN Hematology/Oncology Nurse Practitioner [place], [place] [phone] documented in this encounter Procedure Notes * Provider, Scanning - 09/03/2013 8:17 AM EDTAssociated Order(s): SCAN DOC: DIAGNOSTIC RADIOLOGY * Provider, Scanning - 09/03/2013 8:16 AM EDTAssociated Order(s): SCAN DOC: DIAGNOSTIC RADIOLOGY * Provider, Scanning - 08/19/2013 3:10 PM EDTAssociated Order(s): SCAN DOC: LAB documented in this encounter Plan of Treatment Not on file documented as of this encounter Procedures Procedure Name Priority Date/Time Associated Diagnosis Comments DIAGNOSTIC RADIOLOGY SCAN 09/03/2013 8:17 AM EDT DIAGNOSTIC RADIOLOGY SCAN 09/03/2013 8:16 AM EDT LAB SCAN 08/19/2013 3:10 PM EDT documented in this encounter Results * SCAN DOC: DIAGNOSTIC RADIOLOGY (09/03/2013 8:17 AM EDT) Anatomical Region Laterality Modality Other Narrative 09/03/2013 8:24 AM EDT Procedure Note Provider, Scanning - 09/03/2013 8:17 AM EDT Scanning Provider MEDIA MGR SCAN EXT O RDR/RSLT * SCAN DOC: DIAGNOSTIC RADIOLOGY (09/03/2013 8:16 AM EDT) Anatomical Region Laterality Modality Other Narrative 09/03/2013 8:27 AM EDT Procedure Note Provider, Scanning - 09/03/2013 8:16 AM EDT Scanning Provider MEDIA MGR SCAN EXT O RDR/RSLT * SCAN DOC: LAB (08/19/2013 3:10 PM EDT) Narrative 08/19/2013 3:10 PM EDT Procedure Note Provider, Scanning - 08/19/2013 3:10 PM EDT Scanning Provider MEDIA MGR SCAN EXT O RDR/RSLT documented in this encounter Visit Diagnoses Diagnosis Breast cancer, stage 1, right- Primary documented in this encounter Care Teams Oyster Opener Relationship Specialty Start Date End Date Ayanna Esparza INFORMATICS NURSE SPECIALIST PCP - General 08/06/13 05/20/16 documented as of this encounter
--- OUTSIDE RECORDS SUMMARY | 2023-11-07 12:01 | XMS_ITS | Encounter Summary ---
Author Organization [facility] [address] Care Team Providers Care Parts Salesman Name Role Phone Aileen Garcia APRN Primary Care Provider [phone] Encounter Details Date Type Department Care Team (Late st Contact Info) Description 07/29/2013 Orders [place] [phone] Natalia Sylvester RN Varicose vein (Primary Dx) Social History Tobacco Use Types Packs/Day Years [...] on file documented as of this encounter Results * LE Unilateral Valvular Incomp Study (08/27/2013 9:36 AM EDT) VB Text Report Department: Vascular Surgery Lab Patient: [id number] (LUPE KENNY) CPT Code: 48095 ICD-9: 454.9 Referring Physician: DEBBIE LANDRY Indication: ??Varicose veins right leg. Hx of vein stripping BK. ICD9 Diagnosis Code: 454.9 Findings: Right ?Reflux?Thrombus? ?? Common Femoral Vein ?Competent ??NONE ? Femoral Vein ? Competent ??NONE ? Popliteal ?Competent ??NONE ? Posterior Tibial Vein ??Competent ? GSV, Near SFJ ?Competent ? GSV, Proximal Thigh ?Competent ? GSV, Mid Thigh ? Reflux ? GSV, Distal Thigh ?Reflux ? GSV, ??Knee ? Reflux ? Interpretation: Right- No significant reflux noted in the common femoral vein, femoral vein in the thigh, popliteal and posterior tibial veins. Patent greater saphenous vein with no evidence of reflux from mid thigh to groin. There is a large incompetent burr filer from the mid FV to the mid GSV. GSV is incompetent from the mid thigh to knee. Vein was stripped through the calf. The GSV has an incompetent branch across the knee and down the mckee. No evidence of deep venous thrombus (fem-pop). Electronically Signed by: RITCHIE AGUILAR on 2013-08-27 10:36:27 AM VASCUBASE VB Text Report End of Report VASCUBASE 08/27/2013 9:36 AM EDT Debbie Landry MD VASCULAR ORDERABLES VASCUBASE documented in this encounter Visit Diagnoses Diagnosis Varicose vein- Primary Asymptomatic varicose veins documented in this encounter Care Teams Parts Salesman Relationship Specialty Start Date End Date Aileen Garcia, NOEMI PCP - General 02/28/12 08/05/13 documented as of this encounter
--- OUTSIDE RECORDS SUMMARY | 2023-11-07 12:01 | XMS_ITS | Encounter Summary ---
Author Organization [facility] Address [facility] [place] [address] Care Team Providers Care Hang Gliding Instructor Name Role Phone Aileen Garcia NOEMI Primary Care Provider [phone] Encounter Details Date Type Department Care Team (Late st Contact Info) Description 04/07/2012 [place] [address] Bakari Caraballo MD [facility] DIAGNOST[place] [address] Social History Tobacco Use Types Packs/Day Years [...] as of this encounter Progress Notes * Bakari Caraballo MD - 04/07/2012 8:00 AM EST Procedure date: done today Procedure type: right Breast US guided wire localization and SN injection. Special Instructions: none Allergies: Review of patient's allergies indicates no known allergies. Medications: Current outpatient prescriptions:cholecalciferol, Vitamin D3, 400 unit tablet, Take 400 Units by mouth daily. , Disp: , Rfl: ; cyanocobalamin, vitamin B-12, 100 mcg tablet, Take 100 mcg by mouth daily. , Disp: , Rfl: ; Calcium Carbonate-Vitamin D3 (CALCIUM WITH VITAMIN D) 600 mg(1,500mg) -400 unit Tab, Take by mouth. , Disp: , Rfl: ; multivitamin (THERAGRAN) tablet, Take 1 tablet by mouth daily. , Disp: , Rfl: Anticoagulation status: none Imaging reviewed and procedural plan approved by Dr. BAKARI CARABALLO MD documented in this encounter Plan of Treatment Not on file documented as of this encounter Visit Diagnoses Not on filedocumented in this encounter Care Teams Hang Gliding Instructor Relationship Specialty Start Date End Date Aileen Garcia, DISPATCHER SERVICE PCP - General 02/28/12 08/05/13 documented as of this encounter
--- OUTSIDE RECORDS SUMMARY | 2023-11-07 12:01 | XMS_ITS | Encounter Summary ---
Author Organization [facility] Address [facility] [place] [address] Care Team Providers Care Biologist Aide Name Role Phone JoseAileen cobb Nile FRANKLIN Primary Care Provider [phone] Reason for Visit * Reason Comments On Treatment Visit Encounter Details Date Type Department Care Team (Late st Contact Info) Description 06/03/2012 10:00 AM EDT Follow-Up Radiation Oncology at [address] [phone] Roberta Sales MD [facility] [place] [address] Breast CA (Primary Dx) Discharge Disposition: Home [...] Sign Reading Time Taken Comments Blood Pressure 187/107 06/03/2012 10:00 AM EDT Pulse 71 06/03/2012 10:00 AM EDT Temperature 37.1 ??C (98.8 ??F) 06/03/2012 10:00 AM E DT Respiratory Rate 20 06/03/2012 10:00 AM EDT Oxygen Saturation 98% 06/03/2012 10:00 AM EDT Inhaled Oxygen Concentration - - Weight - - Height - - Body Mass Index - - documented in this encounter Patient Instructions * Patient Instructions* Roberta Sales MD - 06/03/2012 11:03 AM EDT Apply the antifungal cream to the fold under your right breast after radiotherapy & @ bedtime for 2 weeks. Start the keflex (cephalexin) antibiotic & take 1 capsule every 12 hours for 10 days. documented in this encounter Progress Notes * Roberta Sales MD - 06/03/2012 10:54 AM EDT DIAGNOSIS: Breast, R, IDC, intermed gr, ER+OK+, [id number]-, s/p lumpectomy & SNB followed by reexcision, stage I, pT1b pN0; arimidex to follow xrt. CURRENT TREATMENT DOSE: 13.3 Gy ANTICIPATED TOTAL DOSE: 52.56 Gy Current # of xrt received: 5 Anticipated total # of xrt txs: 20 Evaluation of port verification films: ok Changes in Medical Condition: R breast tender @ lumpectomy site & inferior to lumpectomy site. 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 Has been applying amado's cream to R breast; knows not to apply itprior to xrt. Has injection into R eye tomorrow @ [facility] w/Dr. Rios & she is anxious about it. Physical Exam: BP 187/107 Pulse 71 Temp(Src) 37.1 ??C (98.8 ??F) (Oral) Resp 20 SpO2 98% A&Ox3, in NAD. Mild erythema of lateral R breast w/1.5 x 1 cm strip of mild erythema & edema along lateral aspect of R lumpectomy site. R lateral breast tender on palpation. 10 x 4 cm strip of moistness in R inframammary area, consistent w/fungus. Response to xrt: As expected. Radiation Related Symptoms: None. Treatment for Symptom Control: Rx today for keflex for probable skin/soft tissue infection R lateral breast. She was rec'd to apply her antifungal cream to R inframammary fold BID (after daily xrt & @ bedtime) for 2 wks. Amado's cream. Recommendation on Continuing Course of Tx: Cont. We will contact Dr. Garcia about her bp. documented in this encounter Plan of Treatment Not on file documented as of this encounter Visit Diagnoses Diagnosis Breast CA- Primary Malignant neoplasm of breast (female), unspecified site documented in this encounter Care Teams Biologist Aide Relationship Specialty Start Date End Date Aileen Garcia, STEAM ENGINEER PCP - General 02/28/12 08/05/13 documented as of this encounter
--- OUTSIDE RECORDS SUMMARY | 2023-11-07 12:01 | XMS_ITS | Encounter Summary ---
Author Organization [facility] Address [facility] [place] [address] Care Team Providers Care Chili Maker Name Role Phone Aileen Garcia Nile FRANKLIN Primary Care Provider [phone] Encounter Details Date Type Department Care Team (Latest Contact Info) Description 04/07/2012 7:08 AM EST - 04/07/2012 11:59 PM EST Hospital En[place] [phone] CLINIC, Nasir Herring MD [facility] [place] [address] Breast cancer Discharge Disposition: Home Social History Tobacco Use [...] Name Priority Date/Time Associated Diagnosis Comments MAMMO US GUIDANCE FOR NEEDLE LOCALIZATION Routine 04/07/2012 8:31 AM EST documented in this encounter Results * Mammo-US guidance for needle localization (04/07/2012 8:31 AM EST) Anatomical Region Laterality Modality Breast N/A Mammography 04/07/2012 8:31 AM EST Narrative 04/08/2012 8:19 AM EST [...] site documented in this encounter Care Teams Chili Maker Relationship Specialty Start Date End Date Aileen Garcia, LEAD WELDER PCP - General 02/28/12 08/05/13 documented as of this encounter
--- OUTSIDE RECORDS SUMMARY | 2023-11-07 12:01 | XMS_ITS | Encounter Summary ---
Author Organization [facility] [address] Care Team Providers Care Duster Tender Name Role Phone Ayanna Esparza APRN Primary Care Provider [phone]- [phone] Reason for Visit * Reason Comments Medication Refill Encounter Details Date Type Department Care Team (Late st Contact Info) Description 08/07/2013 Refill Hematology Oncology at [address] [phone] Aubrey Garcia MD [address] [place] [phone] Social History Tobacco Use Types Packs/Day Years [...] on filedocumented in this encounter Care Teams Duster Tender Relationship Specialty Start Date End Date Ayanna Esparza APRN PCP - General 08/06/13 05/20/16 documented as of this encounter
--- OUTSIDE RECORDS SUMMARY | 2023-11-07 12:01 | XMS_ITS | Encounter Summary ---
Author Organization [facility] [place] [address] Care Team Providers Care Trouble Tracer Name Role Phone Aileen Garcia APRN Primary Care Provider [phone] Encounter Details Date Type Department Care Team (Late st Contact Info) Description 06/30/2012 Notes Only Radiation Oncology at [address] [phone] Amira Tony MSW OFFICE OF CARE MANAGEMENT [...] Progress Notes * Amira Tony MSW - 06/30/2012 10:21 AM EDT Met with pt to complete her [facility] application for assistance with transportation costs. Application to be mailed out and copy given to pt for her records. Pt reports she is managing day to day. documented in this encounter Plan of Treatment Not on file documented as of this encounter Visit Diagnoses Not on filedocumented in this encounter Care Teams Trouble Tracer Relationship Specialty Start Date End Date Aileen Garcia, TIN RECOVERY WORKER PCP - General 02/28/12 08/05/13 documented as of this encounter
--- OUTSIDE RECORDS SUMMARY | 2023-11-07 12:01 | XMS_ITS | Encounter Summary ---
Author Organization [facility] Address [facility] [place] [address] Care Team Providers Care Commercial Or Institutional Cleaner Name Role Phone Aileen Garcia Nile FRANKLIN Primary Care Provider [phone] Reason for Visit * Reason Comments On Treatment Visit Encounter Details Date Type Department Care Team (Late st Contact Info) Description 06/17/2012 9:00 AM EDT Follow-Up Radiation Oncology at [address] [phone] Roberta Sales MD [facility] [place] [address] Breast CA (Primary Dx) Discharge Disposition: Home [...] Sign Reading Time Taken Comments Blood Pressure - - Pulse - - Temperature 36.9 ??C (98.4 ??F) 06/17/2012 9:00 AM ED T Respiratory Rate - - Oxygen Saturation 99% 06/17/2012 9:00 AM EDT Inhaled Oxygen Concentration - - Weight - - Height - - Body Mass Index - - documented in this encounter Patient Instructions * Patient Instructions* Roberta Sales MD - 06/17/2012 9:44 AM EDT Try the mepilex-lite & radiadres gel sheets to the fold underneath your right breast. The saline soaks are good for the tissue & can be cooled in the frig prior to applying. documented in this encounter Progress Notes * Roberta Sales MD - 06/17/2012 9:35 AM EDT DIAGNOSIS: Breast, R, IDC, intermed gr, ER+PA+, [id number]-, s/p lumpectomy & SNB followed by reexcision, stage I, pT1b pN0; arimidex to follow xrt. CURRENT TREATMENT DOSE: 39.9 Gy ANTICIPATED TOTAL DOSE: 52.56 Gy Current # of xrt received: 14 Anticipated total # of xrt txs: 20 Evaluation of port verification films: ok Changes in Medical Condition: Tenderness of R breast @ lumpectomy site & inferior to lumpectomysite has cleared since starting keflex & she has completed the keflex. Has increased skin rxn in R inframammary fold, for which she has been applying amado's cream followed by application of a sanitary pad. Physical Exam: Temp(Src) 36.9 ??C (98.4 ??F) (Oral) SpO2 99% A&Ox3, in NAD. Mild erythema of R breast w/a 10 x 3 cm area of moist moderate erythema in R inframammary fold. Response to xrt: As expected. Radiation Related Symptoms: Skin rxn. Treatment for Symptom Control: Mepilex-lite applied to R inframammary fold & she was given extra as well as radiadres gel sheets & saline soaks. Amado's cream. Recommendation on Continuing Course of Tx: Cont. She sees Dr. Garcia tomorrow for further discussion about hormonal tx. documented in this encounter Plan of Treatment Not on file documented as of this encounter Visit Diagnoses Diagnosis Breast CA- Primary Malignant neoplasm of breast (female), unspecified site documented in this encounter Care Teams Commercial Or Institutional Cleaner Relationship Specialty Start Date End Date Aileen Garcia APRN PCP - General 02/28/12 08/05/13 documented as of this encounter
--- OUTSIDE RECORDS SUMMARY | 2023-11-07 12:01 | XMS_ITS | Encounter Summary ---
Author Organization [facility] Address [facility] [place] [address] Care Team Providers Care Configuration Management Specialist Name Role Phone JoseAileen cobb Nile FRANKLIN Primary Care Provider [phone] Reason for Visit * Reason Comments On Treatment Visit Encounter Details Date Type Department Care Team (Late st Contact Info) Description 06/24/2012 3:00 PM EDT Follow-Up Radiation Oncology at [address] [phone] Roberta Sales MD [facility] [place] [address] Breast CA (Primary Dx) Discharge Disposition: Home [...] Sign Reading Time Taken Comments Blood Pressure 142/85 06/24/2012 3:00 PM EDT Pulse 78 06/24/2012 3:00 PM EDT Temperature 36.8 ??C (98.2 ??F) 06/24/2012 3:00 PM ED T Respiratory Rate 16 06/24/2012 3:00 PM EDT Oxygen Saturation 98% 06/24/2012 3:00 PM EDT Inhaled Oxygen Concentration - - Weight - - Height - - Body Mass Index - - documented in this encounter Patient Instructions * Patient Instructions* Roberta Sales MD - 06/24/2012 3:47 PM EDT Your last radiotherapy was today. Continue mepilex-lite to the fold underneath your right breast & amado's cream to the rest of the irradiated area. Continue to apply the amado's cream until you return to see me in 1-2 months. We will mail you a letter in 3 weeks with an appointment to see me in 1-2 months. I will ask that the appointment not be on August 09, or , as per your request. documented in this encounter Progress Notes * Roberta Sales MD - 06/24/2012 3:31 PM EDT DIAGNOSIS: Breast, R, IDC, intermed gr, ER+[place]+, [id number]-, s/p lumpectomy & SNB followed by reexcision, stage I, pT1b pN0; arimidex to follow xrt. CURRENT TREATMENT DOSE: 52.56 Gy ANTICIPATED TOTAL DOSE: 52.56 Gy Current # of xrt received: 20 Anticipated total # of xrt txs: 20 Evaluation of port verification films: ok Changes in Medical Condition: No significant tenderness w/in tx'd area. Continues to use mepilex onR inframammary fold & amado's cream on rest of irrad'd area. The saline soaks & radiadres gel sheets were not helpful for her. She was seen 06/[address] Garcia & will be starting arimidex tomorrow. Physical Exam: BP 142/85 Pulse 78 Temp(Src) 36.8 ??C (98.2 ??F) (Oral) Resp 16 SpO2 98% A&Ox3, in NAD. Mild erythema of R breast w/a 10 x 3 cm area of minimally moist mild erythema inR inframammary fold. Response to xrt: As expected. Radiation Related Symptoms: Skin rxn. Treatment for Symptom Control: Given additional Mepilex-lite & Amado's cream. Recommendation on Continuing Course of Tx: Completes xrt today. RTC 1-2 mos. Her completed course of xrt can be summarized as follows: 05/28/12 through 06/24/12, 42.56 Gy/16 fxs toR breast, followed by seroma cavity boost of 10 Gy/4 fxs, boosting seroma cavity to 52.56 Gy/20 fxs. All of her xrt was given with external beam, using 6 & 10 MV Xray. documented in this encounter Plan of Treatment Not on file documented as of this encounter Visit Diagnoses Diagnosis Breast CA- Primary Malignant neoplasm of breast (female), unspecified site documented in this encounter Care Teams Configuration Management Specialist Relationship Specialty Start Date End Date Aileen Garcia, NOEMI PCP - General 02/28/12 08/05/13 documented as of this encounter
--- OUTSIDE RECORDS SUMMARY | 2023-11-07 12:01 | XMS_ITS | Encounter Summary ---
Author Organization [facility] Address [facility] [place] [address] Care Team Providers Care General Maintenance Mechanic Name Role Phone Aileen Garcia Nile FRANKLIN Primary Care Provider [phone] Reason for Visit * Reason Comments On Treatment Visit Encounter Details Date Type Department Care Team (Late st Contact Info) Description 06/10/2012 8:45 AM EDT Follow-Up Radiation Oncology at [address] [phone] Roberta Sales MD [facility] [place] [address] Breast CA (Primary Dx) Discharge Disposition: Home [...] Sign Reading Time Taken Comments Blood Pressure 139/99 06/10/2012 8:00 AM EDT Pulse 70 06/10/2012 8:00 AM EDT Temperature - - Respiratory Rate - - Oxygen Saturation 98% 06/10/2012 8:00 AM EDT Inhaled Oxygen Concentration - - Weight - - Height - - Body Mass Index - - documented in this encounter Patient Instructions * Patient Instructions* Roberta Sales MD - 06/10/2012 9:26 AM EDT Continue as you have been. Continue the keflex (cephalexin) until you finish it. Continue the antifungal cream twice daily to the fold underneath your right breast. Please do not use the Magic Salve until after you complete radiotherapy. We will notify Dr. Garcia's team that you are nearing completion of radiotherapy. documented in this encounter Progress Notes * Roberta Sales MD - 06/10/2012 9:08 AM EDT DIAGNOSIS: Breast, R, IDC, intermed gr, ER+AK+, [id number]-, s/p lumpectomy & SNB followed by reexcision, stage I, pT1b pN0; arimidex to follow xrt. CURRENT TREATMENT DOSE: 26.6 Gy ANTICIPATED TOTAL DOSE: 52.56 Gy Current # of xrt received: 10 Anticipated total # of xrt txs: 20 Evaluation of port verification films: ok Changes in Medical Condition: Tenderness of R breast @ lumpectomy site & inferior to lumpectomysite has significantly decreased since starting keflex. Has also been applying antifungal cream to R inframammary fold. Has been applying amado's cream to R breast. Asks if she can start a magic salve given to her by a friend, w/ingredients listed as including calendula, lin, olive oil, vit E. Started on lisinopril/hctz by Dr. Garcia for her bp. Asks when she will be seeing Dr. Garcia for further discussion about hormonal tx. Physical Exam: BP 139/99 Pulse 70 SpO2 98% A&Ox3, in NAD. Erythema of R lateral breast as well as 1.5 x 1 cm strip of mild erythema & edema along lateral aspect of R lumpectomy site present last wk is less erythematous today. R lateral breast no longer tender on palpation. 10 x 4 cm strip of moistness in R inframammary area present last wk has cleared. Response to xrt: As expected. Radiation Related Symptoms: Skin rxn. Treatment for Symptom Control: Keflex, OTC antifungal cream, Amado's cream. She was advised not to use the magic salve until after she completes xrt. Recommendation on Continuing Course of Tx: Cont. Contact Dr. Garcia's office about further discussion about hormonal tx. documented in this encounter Plan of Treatment Not on file documented as of this encounter Visit Diagnoses Diagnosis Breast CA- Primary Malignant neoplasm of breast (female), unspecified site documented in this encounter Care Teams General Maintenance Mechanic Relationship Specialty Start Date End Date Aileen Garcia, MARKETING TRAFFIC COORDINATOR PCP - General 02/28/12 08/05/13 documented as of this encounter
--- OUTSIDE RECORDS SUMMARY | 2023-11-07 12:01 | XMS_ITS | Encounter Summary ---
Author Organization [facility] [place] [address] Care Team Providers Care Bag Machine Tender Name Role Phone JoseAileen Nile FRANKLIN Primary Care Provider [phone] Encounter Details Date Type Department Care Team (Latest Contact Info) Description 04/21/2012 7:43 AM EST - 04/21/2012 11:19 AM EST Hospital Encounter [place] [address] Kelly Stone MD [facility] [place] [address] Discharge Disposition: Home Social History Tobacco Use [...] Sign Reading Time Taken Comments Blood Pressure 172/98 04/21/2012 10:44 AM EST Pulse 74 04/21/2012 10:44 AM EST Temperature 36.1 ??C (97 ??F) 04/21/2012 10:10 AM EST Respiratory Rate 14 04/21/2012 10:44 AM EST Oxygen Saturation 97% 04/21/2012 10:44 AM EST Inhaled Oxygen Concentration - - [...] away in 12-24 hours. * Patient Instructions* Florecita Riojas - 04/21/2012 9:20 AM EST Discharge Instructions: [...] reports once they are complete. Please call [phone] to confirm date and time of your [...] prescribed pain medications Phone number for questions: [phone] before 5 PM weekdays [phone] after 5 PM and on weekends/holidays - Ask for the General Surgery resident refrigeration person. documented in this encounter Medications at Time [...] 9:18 AM EST Office of Care Management/Continuing Multimedia Programmer Pager #[phone] A: Ms. Kenny seen prior to her [...] AM EST See H and P in e-,[facility] documented in this encounter Miscellaneous Notes * Miscellaneous - Provider, Scanning - 04/21/2012 9:55 PM EST * Miscellaneous - Provider, Scanning - 04/21/2012 9:46 PM EST * Op Note - Kelly Stone MD - 04/21/2012 9:57 AM EST [facility] Operative Note Patient Name: Lupe Kenny : [id number] MR#: [id number] Case Date: 04/21/2012 Surgeon: Surgeon(s) and Role: [...] Operative Note Patient Name: Lupe Kenny : [id number] MR#: [id number] Case Date: 04/21/2012 Surgeon: Surgeon(s) and Role: [...] 9:58 AM EST) Surgical Pathology Report ? [facility] ? Provider: ?? KELLY STONE Pt. Name: ?? LUPE KENNY ? Acc #: ?[id number] ?Pt. ? Col Date: ?? 04/21/2012 ? /Sex: ?1945,(66 years),Female ? Rec Date: ?? 04/21/2012 ? LOC: ?SDP ? SURGICAL PATHOLOGY ? ---Pathologic Diagnosis--- ? Specimen: ? Breast, right, partial mastectomy,re-e xcision ? lateral margin. ? Specimen Size: ?4.7 x 3.1 x 0.7 cm. ? Residual malignancy: ?Absent. ? Prior Bx's correlation: [id number]. ? Other findings: ? Healing surgical site. ? CR-0 ? 04/23/12 ? CCB ? 04/23/12 Verified by: ? Rai DO, Mackenzie Stephens. ? Pathologist ? (Electronic Signature) ? The [...] ? ---Clinical Information--- ? Specimen Submitted: ? [facility] ? Provider: ?? KELLY STONE Pt. Name: ?? LUPE KENNY ? Acc #: ?[id number] ?Pt. ? Col Date: ?? 04/21/2012 ? /Sex: ?1945,(66 years),Female ? Rec Date: ?? 04/21/2012 ? LOC: ?SDP ? SURGICAL PATHOLOGY ? A - Re-excision of right breast partial mastectomy - stitch sanchez new ? lateral margin ? Clinical History/Diagnos is: ? Positive margins for breast cancer MARICHUY HOLMNANCY 04/21/2012 9:58 AM EST Kelly Stone MD PATHOLOGY/CYTOLOGY ORDERABLES MARICHUY COLBY * Specimen to Pathology (surgical or derm) (04/21/2012 9:46 AM EST) AP Specimen 04/21/2012 9:46 AM EST 04/21/2012 9:46 AM EST Narrative MARICHUY COLYB - 04/21/2012 9:46 AM EST Specimen requisition ordered. ??Separate Pathology report to follow Kelly Stone MD PATHOLOGY/CYTOLOGY ORDERABLES MARICHUY COLBY documented in this encounter Visit Diagnoses Not on filedocumented in this encounter Administered Medications Inactive Administered Medications - up to 3 most recent administrations Medication Order MAR Action Action Date Dose Rate Site fentaNYL 50mcg/mL injection 25-50 mcg, Intravenous, EVERY 5 MIN PRN, Starting on Sat04/21/12 at 1017, Until Sat04/21/12 at 1355, Pain, for breakthrough pain, Hold for respiratory rate less than 10 per minute. Maximum dose: 250 mcg over one hour., PACU Recovery, Routine Given 04/21/2012 10:43 AM EST 50 mcg Given 04/21/2012 10:38 AM EST 25 mcg OXYcodone-acetaminophen (PERCOCET) 5-325 mg per tablet 1-2 [...] RN) documented in this encounter Care Teams Bag Machine Tender Relationship Specialty Start Date End Date Aileen Garcia, X RAY OPERATOR PCP - General 02/28/12 08/05/13 documented as of this encounter
--- OUTSIDE RECORDS SUMMARY | 2023-11-07 12:01 | XMS_ITS | Encounter Summary ---
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) Discharge Disposition: Home Social History [...] Sign Reading Time Taken Comments Blood Pressure 114/66 03/11/2013 3:27 PM EST Pulse 89 03/11/2013 3:27 PM EST Temperature 37 ??C (98.6 ??F) 03/11/2013 3:27 PM EST Respiratory Rate 18 03/11/2013 3:27 PM EST Oxygen Saturation 98% 03/11/2013 3:27 PM EST Inhaled Oxygen Concentration - - Weight 97.1 kg (214 lb) 03/11/2013 3:27 PM EST Height 147.5 cm (4' 10.07) 03/11/2013 3:[address] Body Mass Index 44.62 03/11/2013 3:27 PM EST documented in this encounter Progress Notes * Romina Umana Kathie, HOP PICKER - 03/12/2013 1:08 PM EST CC: FU s/p completion of xrt. HPI: 66 y/o f who underwent screening mmgs in 02/03. 03/04/12 [facility] interp outside mmgs from 02/03 & 03/05: [...] mmg showing suspicious area (clip & calcs). DIAGNOSIS: Breast, R, IDC, intermed gr, ER+OR+, Luq0kay-, s/p lumpectomy & SNB followed by reexcision, stage I, pT1b pN0; arimidex to follow xrt. CURRENT TREATMENT DOSE: 52.56 Gy ANTICIPATED TOTAL DOSE: 52.56 Gy Current # of xrt received: 20 Anticipated total # of xrt txs: 20 Completed treatment on 06/24/12 Past Medical History Diagnosis Date ??? Varicose vein ??? Breast cancer, stage 1 03/2012 Node Neg ER/OR pos her 2 neg intermediate grade ??? Retinal hemorrhage of right eye Dx 2011 Receiving injections into eye for it. Past Surgical History Procedure Date ??? Mastectomy, partial 04/07/2012 MASTECTOMY PARTIAL performed by Nasir Stone MD at [facility] OR ??? Bx/remv, lymph node, deep axill 04/07/2012 BIOPSY OR EXCISION OF LYMPH NODE(S), OPEN, DEEP AXILLARY NODE(S) performed by Nasri Stone MD at [facility] OR ??? Identify sentinel node 04/07/2012 SENTINEL NODE INJECTION performed by Nasir Stone MD at [facility] OR ??? Mastectomy, partial 04/21/2012 MASTECTOMY PARTIAL performed by Nasir Stone MD at [facility] OR ??? Varicose vein surgery 1989 vein removed, R leg ??? Cataract removal with implant 02/03 B No Known Allergies Current Outpatient Prescriptions on File Prior to Visit Medication Sig Dispense Refill ??? lisinopril-hydrochlorothiazide (PRINZIDE;ZESTORETIC) 20-25 mg per tablet Take 1 tablet by mouthdaily. ??? anastrozole (ARIMIDEX) 1 mg tablet Take 1 tablet by mouth daily. 30 tablet 11 ??? cholecalciferol, Vitamin D3, 400 unit tablet Take 400 Units by mouth daily. ??? cyanocobalamin, vitamin B-12, 100 mcg tablet Take 100 mcg by mouth daily. ??? Calcium Carbonate-Vitamin D3 (CALCIUM WITH VITAMIN D) 600 mg(1,500mg) -400 unit Tab Take by mouth. ??? multivitamin (THERAGRAN) tablet Take 1 tablet by mouth daily. ??? ibuprofen (ADVIL;MOTRIN) 200 mg tablet Take 400 mg by mouth every 6 hours as needed. Physical Exam Constitutional: She is oriented to person, place, and time. She appears well- developed and well-nourished. No distress. Vitals 03/11/13 Weight - Scale 97.07 kg (214 lb) Height ! 147.5 cm (4' 10.07) BSA (Calculated - sq m) 1.99 sq meters BMI (Calculated) 44.7 Temp 37 ??C (98.6 ??F) Temp Source Oral Heart Rate 89 Heart Rate Source Left, NIBP Resp 18 BP 114/66 mmHg BP Location Left arm Patient Position Sitting SpO2 98 % Pain Level 0 HENT: Head: Normocephalic and atraumatic. Eyes: Conjunctivae normal and EOM are normal. Neck: Normal range of motion. Neck supple. Pulmonary/Chest: Effort normal and breath sounds normal. Right breast exhibits skin change (Mild hyperpigmentation of R breast, most prominent @ lumpectomy site, consistent w/post xrt appearance.). Right breast exhibits no inverted nipple, no mass, no nipple discharge and no tenderness. Left breast exhibits no skin change. Left breast exhibits no inverted nipple, no mass, no nipple discharge and no tenderness. Abdominal: Soft. no distension and no mass. There is no tenderness. There is no rebound and no guarding. Active bowel sounds. Musculoskeletal: Normal range of motion. She exhibits no edema and no tenderness. Lymphadenopathy: She has no cervical adenopathy. She has no axillary adenopathy. Neurological: She is alert and oriented to person, place, and time. No sensory deficit. She exhibits normal muscle tone. Coordination normal. Skin: dry and intact Psychiatric: She has a normal mood and affect. Her behavior is normal. Judgment and thought contentnormal. Imaging: BILATERAL MAMMOGRAPHY REASON FOR EXAM: Screening. History [...] are no specific mammographic signs of cancer. The breasts are predominantly fatty. CONCLUSION BENIGN mammogram (ACR Category 2). Routine screening mammography is recommended with the frequency dependent on the patient's age and breast cancer risk factors. Assessment Plan: This is a 67 y.o. woman with Breast cancer R, IDC, intermed gr, ER+OR+, Fhp2isl- , s/p lumpectomy & SNB followed by reexcision, stage I, pT1b pN0; arimidex. She is doing quite well and has recovered from her radiation treatment. She will continue to be followed by Dr Garcia. He will see her again in July. I will see her again in October. 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
--- OUTSIDE RECORDS SUMMARY | 2023-11-07 12:01 | XMS_ITS | Encounter Summary ---
Author Organization [facility] [place] [address] Care Team Providers Care Salon Professional Name Role Phone JoseAileen cobb Nile FRANKLIN Primary Care Provider [phone] Encounter Details Date Type Department Care Team (Late st Contact Info) Description 05/06/2012 Notes Only Hematology Oncology at [address] [phone] Amira Tony MSW OFFICE OF [...] Progress Notes * Amira Tony MSW - 05/07/2012 10:23 AM EST Met with pt 05-06-12 per her request prior to her start here at [facility]. Reviewed notes from SUBHASH Ruiz who has been assisting pt at [facility]. Pt reviewed her health situation and plans for upcoming appointments here with med onc and rad onc services. She is interested in resources available to assist her with heating fuel. It appears she has utilized assistance from the [employer] fund and the emergency fund available through [employer]. Ptindicated she went to [employer] for fuel assistance but was over income. Pt indicated she went to [facility] for assistance and needs to provide them with additional financial information for consideration. Pt plans to see Ms. Haynes 05-07-12 when she is at [facility]. Informed pt I did not have any flexible funds to assist her with heating fuel. I will give her 2 gas cards when she returns here for her next appointment. Consulted with Ms. Haynes, [employer] re these issues and she will follow up with pt. Gave pt my contact information and can follow when she begins treatment here. documented in this encounter Plan of Treatment Not on file documented as of this encounter Visit Diagnoses Not on filedocumented in this encounter Care Teams Salon Professional Relationship Specialty Start Date End Date Aileen Garcia APRN PCP - General 02/28/12 08/05/13 documented as of this encounter
--- OUTSIDE RECORDS SUMMARY | 2023-11-07 12:01 | XMS_ITS | Encounter Summary ---
[facility] [place] [address] Care Team Providers Care Realty Loan Specialist Name Role Phone JoseAileen Nile FRANKLIN Primary Care Provider [phone] Reason for Visit * Reason Comments Breast Cancer Encounter Details Date Type Department Care Team (Late st Contact Info) Description 07/30/2012 2:30 PM EDT Follow-Up Hematology Oncology at [address] [phone] Aubrey Garcia MD [address] [place] [phone] Breast cancer (Primary Dx) Discharge Disposition: Home Social History [...] Sign Reading Time Taken Comments Blood Pressure 121/72 07/30/2012 2:37 PM EDT Pulse 97 07/30/2012 2:37 PM EDT Temperature 37 ??C (98.6 ??F) 07/30/2012 2:37 PM EDT Respiratory Rate 20 07/30/2012 2:37 PM EDT Oxygen Saturation 96% 07/30/2012 2:37 PM EDT Inhaled Oxygen Concentration - - Weight 90.3 kg (199 lb) 07/30/2012 2:37 PM EDT Height 147.5 cm (4' 10.07) 07/30/2012 2:37 PM E DT Body Mass Index 41.49 07/30/2012 2:37 PM EDT documented in this encounter Progress Notes * Aubrey Garcia MD - 07/30/2012 2:48 PM EDT Diagnosis: 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 Subjective: Ashlyn comes in today for medical oncology followup on her breast cancer. Last month when we saw her we started her on an aromatase inhibitor. Since that time she is gone to [place] for a couple weeks and now is back here and back at workfull-time. She is noticing she quit smoking that she is having a bit of increase in dry cough and also has noted some weight gain. She is starting to have some intermittent tingling and numbness in her fingertips but has none in her feet or elsewhere and it is not a continual thing. Finally she notes she had a bone density study and the results of that are reviewed with her today. Otherwise she'sa bit achy since she's gone back to work and otherwise notes no particular difficulties. Past medical history and social history are [...] and axillary nodes normal Neurologic: Normal The patient's bone density studies from [facility] are reviewed. She has osteopenia on the right and osteoporosis on the left hip which does increase her risk of fracture Assessment/Plan: Ashlyn has a stage I breast cancer with the original tumor less than a centimeter. It was node-negative ER/AL positive and HER-2/agus negative. She is tolerating her aromatase inhibitor well. Not sure the achiness she is having is related to the medication although occasionally that can be the case. She however does have osteoporosis and considering that I like to get her on a diphosphonate. Probably the easiest regiment for her to consider would be every six-month IV Zometa which is covered in this situation with patients on aromatase inhibitors by Medicare. We do need to check lab on her and I'd like to see how she's doing on the aromatase inhibitor before I commit her to that however. In that regard we'll go ahead and get lab today and again in 6 months on return with plans on starting her on an every 6 month Zometa at that time. She will see her regular physician and we'll continue on her vitamin D and calcium. I did tell herif her numbness gets worse in her hands she may need to have a MRI of her C-spine to evaluate any nerve impingement there. At the current time though doesn't seem that symptoms are severe enough to warrant further investigation. documented in this encounter Procedure Notes * Provider, Scanning - 07/31/2012 6:06 AM EDTAssociated Order(s): SCAN DOC: LAB * Provider, Scanning - 07/30/2012 3:15 PM EDTAssociated Order(s): SCAN DOC: DIAGNOSTIC RADIOLOGY documented in this encounter Plan of Treatment Not on file documented as of this encounter Procedures Procedure Name Priority Date/Time Associated Diagnosis Comments LAB SCAN 07/31/2012 6:06 AM EDT DIAGNOSTIC RADIOLOGY SCAN 07/30/2012 3:15 PM EDT documented in this encounter Results * SCAN DOC: LAB (07/31/2012 6:06 AM EDT) Narrative 07/31/2012 6:06 AM EDT Procedure Note Provider, Scanning - 07/31/2012 6:06 AM EDT Scanning Provider MEDIA MGR SCAN EXT O RDR/RSLT * SCAN DOC: DIAGNOSTIC RADIOLOGY (07/30/2012 3:15 PM EDT) Anatomical Region Laterality Modality Other Narrative 07/30/2012 4:20 PM EDT Procedure Note Provider, Scanning - 07/30/2012 3:15 PM EDT Scanning Provider MEDIA MGR SCAN EXT O RDR/RSLT documented in this encounter Visit Diagnoses Diagnosis Breast cancer- Primary Malignant neoplasm of breast (female), unspecified site documented in this encounter Care Teams Realty Loan Specialist Relationship Specialty Start Date End Date Aileen Garcia APRN PCP - General 02/28/12 08/05/13 documented as of this encounter
--- OUTSIDE RECORDS SUMMARY | 2023-11-07 12:01 | XMS_ITS | Encounter Summary ---
[facility] [place] [address] Care Team Providers Care Oil Refiner Name Role Phone Jose Aileen Dowd APRN Primary Care Provider [phone] Reason for Visit * Reason Comments Breast Cancer Encounter Details Date Type Department Care Team (Late st Contact Info) Description 06/18/2012 3:00 PM EDT Follow-Up Hematology Oncology at [address] [phone] Aubrey Garcia MD [address] [place] [phone] Breast cancer (Primary Dx) Discharge Disposition: [...] Sign Reading Time Taken Comments Blood Pressure 140/90 06/18/2012 2:54 PM EDT Pulse 77 06/18/2012 2:54 PM EDT Temperature 36.8 ??C (98.2 ??F) 06/18/2012 2:54 PM ED T Respiratory Rate 18 06/18/2012 2:54 PM EDT Oxygen Saturation 99% 06/18/2012 2:54 PM EDT Inhaled Oxygen Concentration - - Weight 89.4 kg (197 lb) 06/18/2012 2:54 PM EDT Height 147.5 cm (4' 10.07) 06/18/2012 2:54 PM E DT Body Mass Index 41.07 06/18/2012 2:54 PM EDT documented in this encounter Progress Notes * Aubrey Garcia MD - 06/18/2012 4:17 PM EDT Diagnosis: 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 Subjective: Ashlyn comes in today for medical oncology followup on her breast cancer. We are seeing her previously and had recommended adjuvant therapy with an aromatase inhibitor. She is near the end of her radiation therapy and is having a bit of a local reaction from treatment. Other than that though she isdoing well. She'll be done with treatment next week. We again discussed adjuvant treatment with an aromatase inhibitor such as Arimidex in detail. Risks and side effects were gone over in detail along with a selective estrogen receptor modulator such as tamoxifen as an alternative. After discussions today we decided to go ahead with the aromatase inhibitor. Plans will be for her to take treatmentfor it least 5 years and possibly 10 depending on ongoing studies. Review systems is otherwise negative today. Past medical history and social history are reviewed and unchanged from 2 months ago. She is planning on going to [place] for a few weeks which is her original home after the completion of radiation therapy and before she starts back at work at [employer] in [place]. Review of Systems Constitutional: Negative for fever, [...] axillary nodes normal Neurologic: Normal Assessment/Plan: Ashlyn has a stage I breast cancer with the original tumor less than a centimeter. It was node-negative ER/MI positive and HER-2/agus negative. In this situation she is at low risk for systemic recurrence. We discussed this in detail. My recommendations are for her to consider an aromatase inhibitorfor at least 5 years and possibly 10 years starting at the completion of her radiation therapy. He also spent some time today talking about followup of breast cancer and have recommended we see her on an every six-month basis with a CBC and CMP. She will also need yearly mammograms. We'll see her back in 6 weeks after she's been on the aromatase inhibitor for a time and check a CBC and CMP beforethat visit. She will let us know if problems or issues arise in the interim documented in this encounter Plan of Treatment Not on file documented as of this encounter Visit Diagnoses Diagnosis Breast cancer- Primary Malignant neoplasm of breast (female), unspecified site documented in this encounter Care Teams Oil Refiner Relationship Specialty Start Date End Date Aileen Garcia APRN PCP - General 02/28/12 08/05/13 documented as of this encounter
--- OUTSIDE RECORDS SUMMARY | 2023-11-07 12:01 | XMS_ITS | Encounter Summary ---
Author Organization [facility] [place] [address] Care Team Providers Care Claim Taker Name Role Phone Allison Conway APRN Primary Care Provider + [phone] Reason for Visit * Reason Comments Medication Refill Encounter Details Date Type Department Care Team (Late st Contact Info) Description 06/19/2013 Refill Hematology Oncology at [address] [phone] Aubrey Garcia MD [address] [place] [phone] Malignant neoplasm of breast (female), unspecified site Social History Tobacco Use Types Packs/Day Years [...] as of this encounter Visit Diagnoses Diagnosis Malignant neoplasm of breast (female), unspecified site documented in this encounter Care Teams Claim Taker Relationship Specialty Start Date End Date Allison Conway APRN [address] [place] [address] PCP - General Internal Medicine 04/15/17 documented as of this encounter
--- OUTSIDE RECORDS SUMMARY | 2023-11-07 12:01 | XMS_ITS | Encounter Summary ---
Author Organization Formerly [facility] [place] [address] Care Team Providers Care Map Editor Name Role Phone JoseAileen cobb Nile FRANKLIN Primary Care Provider [phone] Encounter Details Date Type Department Care Team (Late st Contact Info) Description 04/07/2012 9:30 AM EST - 04/07/2012 11:28 AM EST Surgery [place] [address] Kelly Leggett MD [facility] [place] [address] MASTECTOMY PARTIAL (WRVU 10.32) Social History Tobacco Use Types Packs/Day Years [...] Sign Reading Time Taken Comments Blood Pressure 179/86 04/07/2012 11:27 AM EST Pulse 92 04/07/2012 11:27 AM EST Temperature 37 ??C (98.6 ??F) 04/07/2012 11:27 AM EST Respiratory Rate 18 04/07/2012 11:27 AM EST Oxygen Saturation 99% 04/07/2012 11:27 AM EST Inhaled Oxygen Concentration - - Weight 82 kg (180 lb 12.4 oz) 04/07/2012 9:10 AM EST Height 148.6 cm (4' 10.5) 04/07/2012 9:10 AM ES T Body Mass Index 37.14 04/07/2012 9:10 AM EST documented in this encounter Discharge Instructions * Discharge Instructions* Roberto Rodriguez RN - 04/07/2012 12:26 PM EST POST ANESTHESIA INSTRUCTIONS Go home, rest, [...] away in 12-24 hours. * Patient Instructions* Elvia Og MD - 04/07/2012 11:27 AM EST Instructions following Breast Surgery Wound Care: Keep dressing on incision for the next 5 days, then you may remove and leave open to air. You may shower tomorrow morning with the Tegaderm covering the site. Do not scrub area vigorously for the next 1 week. Do not soak incision(s) under water for the next 2 weeks (i.e. soaking in bath or swimming) as this may promote a wound infection. You may remove dressing if it becomes saturated/wet and replace with dry gauze as needed for seepage/comfort. If there are pieces of tape directly on the incision (steri-strips), please leave them onuntil they fall off on their own. You may trim them back as they begin to peel up. ICE: You may apply ice to incision during the first 48 hours following surgery to help limit swelling, bruising, and discomfort. You may also find wearing a bra for the first two days following surgery will help with discomfort, although this is not absolutely necessary. Your stitches will dissolve and do not need to be removed. Activity: As tolerated by your comfort level. Call Doctor for: Please call if you notice worsening redness or drainage from incision(s) lasting longer than 5 days after your surgery, any foul-smelling drainage from the incision, pain not controlled by pain medications, persistent nausea and vomiting, or for any fevers greater than 101.3 F. The number for questions is [phone] before 5 PM week. Pain Medication: No driving for 8 hours after any dose of opioid pain medication if one was prescribed for you. You may use ibuprofen (motrin, advil) in addition to this medication if your pain is not totally controlled by the opioid. Follow-up: Follow-up appointment will be scheduled with in 1-2 weeks. Scheduled Appointments: The following appointment with Dr. Leggett has been scheduled on your behalf: We will mail you your appointment Please call [phone] (clinic number) if any changes need to be made to your appointment time. documented in this encounter Medications at Time [...] 04/07/2012 04/21/2012 documented as of this encounter Progress Notes * Kavitha Haynes MSW - 04/07/2012 9:47 AM EST Office of Care Management/[employer]uing [employer] Manager Pager #[phone] A: Ms. Kenny seen with her friends prior to surgery. They talked about having to leave in the darkto arrive on time. I let her know that [facility] out a check to the fuel company today and that I processed her other two bills via the emergency fund. They were all doing well. P: Continue to assess and assist with psychosocial needs documented in this encounter H&P Notes * Elvia Og MD - 04/07/2012 9:51 AM EST The patient history and physical exam are congruent with clinic note. No new changes in medicationsor health. Filed Vitals: 04/07/12 0910 BP: 175/94 Pulse: 104 Temp: 36.9 ??C (98.4 ??F) TempSrc: Oral Resp: 18 SpO2: 100% Gen: WDWN NAD CV: S1S2 present, no murmur, click, rub, gallop Pulm: CTAB Ext: SCD's in place, trace edema bilateral lower extremities A/P: Proceed to OR as planned Elvia Og PGY-1 General Surgery #[id number] documented in this encounter Miscellaneous Notes * Miscellaneous - Provider, Scanning - 04/07/2012 7:29 PM EST * Op Note - Kelly Leggett MD - 04/07/2012 11:20 AM EST [facility] [place] Operative Note Patient Name: Lupe Kenny : [id number] MR#: [id number] Case Date: 04/07/2012 Surgeon: Surgeon(s) and Role: * Kelly Leggett MD - Primary * Elvia Og MD - Resident-Surgeon [place] Preoperative diagnosis: RIGHT BREAST CANCER Postoperative diagnosis: RIGHT BREAST CANCER Procedure(s): MASTECTOMY PARTIAL MODIFIER WITH NEEDLE LOC. BIOPSY OR EXCISION OF LYMPH NODE(S), OPEN, DEEP AXILLARY NODE(S) SENTINEL NODE INJECTION MODIFIER SENTINEL NODE EXCISION General Estimated Blood Loss: 20cc Drains: none HPI/Surgical Indications: CLARIFICATION NEEDED Surgical Indications: Patient presented to the clinic with an abnormal right breast mammogram indicating two areas of suspicion. The outer upper area which was associated with the microcalcifications had a core biopsy under image guidance which showed invasive ductal carcinoma. It was a separate area in the inferior breast which was subsequently biopsied as well and this was negative. 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 Procedure Description: Procedure Description: The patient initially was taken to mammography where a wire was placed for localization in the upper outer portion of the right breast. Additionally, she had a technetium injection. She then was sent to the operating room, placed on the operating table and general anesthesia was induced. A preoperative timeout check list was performed. The patient received 2 gm of cephazolin as a prophylactic antibiotic. 1 mL of Lymphazurin was then injected intradermally into the wire insertion site for the purpose of lymphatic mapping. The patient was then prepped and draped in the usual sterile manner. After adequate local anesthesia with 1% plain Xylocaine, a transverse incision was made in the outer lateral portion of the right breast and near the wire insertion site. This was taken down into the breast subcutaneous fat. Electrocautery was then used to extend this incision down with wide margins around the perceived tip of the localization wire as well as an area of microcalcifications which were noted to be approximately 1.5 cm anterior and medial to where the wire tip ended. This entire specimen was then removed from the patient, painted for orientation and sent for specimen radiography. The specimen radiograph revealed the presence of the abnormal density, the previously placed surgical clip, the intact wire and the microcalcifications. The partial mastectomy site was then thoroughly irrigated with sterile saline. Any noted bleeding was controlled with electrocautery and the incision was then closed with interrupted 3-0 Vicryl dermal sutures and a running 4-0 subcuticular Monocryl. Attention was then turned to the right axilla where transcutaneous gamma probe revealed an area of increased activity. After adequate local anesthesia with 1% Xylocaine a transverse incision was made in the right axillary fold and taken down sharply into the subcutaneous fat. Electrocautery was then used to extend this incision deeply through the deep axillary fascia. The gamma probe indicated an area of increased activity and a visualized lymph node was seen. The in vivo count was 2464. The node was completely excised with electrocautery with an ex vivo count of 2099 and the remaining background count of 9. This node was sent as the right axillary sentinel lymph node. It did not appear to be stained blue, however. The incision was then thoroughly irrigated with sterile saline. Any noted bleeding was controlled with electrocautery and the incision was closed with interrupted dermal sutures of 3-0 Vicryl and a running 4-0 subcuticular Monocryl. Steri-Strips were applied. The patient tolerated the procedure well. * Brief Op Note - Kelly Leggett MD - 04/07/2012 11:19 AM EST Brief Operative Note Patient Name: Lupe Kenny : [id number] MR#: [id number] Case Date: 04/07/2012 Surgeon: Surgeon(s) and Role: * Kelly Leggett MD - Primary * Elvia Og MD - Resident-Surgeon [place] Preoperative diagnosis: RIGHT BREAST CANCER Postoperative diagnosis: RIGHT BREAST CANCER Procedure(s): MASTECTOMY PARTIAL MODIFIER WITH NEEDLE LOC. BIOPSY OR EXCISION OF LYMPH NODE(S), OPEN, DEEP AXILLARY NODE(S) SENTINEL NODE INJECTION MODIFIER SENTINEL NODE EXCISION Anesthesia: General Findings: Complications: none Fluids: Estimated Blood Loss: 20cc Drains: none * OR Attestation - Kelly Leggett MD - 04/07/2012 11:19 AM EST Attestation: Case Date: 04/07/2012 I was present and I participated during the entire procedure (does not need to include opening and closing). KELLY LEGGETT MD 04/07/2012 * Miscellaneous - Provider, Scanning - 04/07/2012 9:46 AM EST documented in this encounter Plan of Treatment Not on file documented as of this encounter Procedures Procedure Name Priority Date/Time Associated Diagnosis Comments SPECIMEN TO PATHOLOGY Routine 04/07/2012 11:04 AM EST MOLECULAR GENETICS REPORT Routine 04/07/2012 10:58 AM EST SURGICAL PATHOLOGY REPORT Routine 04/07/2012 10:58 AM EST SPECIMEN TO PATHOLOGY Routine 04/07/2012 10:36 AM EST MODIFIER SENTINEL NODE EXCISION 04/07/2012 9:50 AM EST RIGHT BREAST CANCER SENTINEL NODE INJECTION (WRVU 0.65) 04/07/2012 9:50 AM EST RIGHT BREAST CANCER BIOPSY OR EXCISION OF LYMPH NODE(S), OPEN, DEEP AXILLARY NODE(S) (WRVU 6.43) 04/07/2012 9:50 AM EST RIGHT BREAST CANCER MODIFIER WITH NEEDLE LOC., LESION #1 04/07/2012 9:50 AM EST RIGHT BREAST CANCER MASTECTOMY PARTIAL (WRVU 10.13) 04/07/2012 9:50 AM EST RIGHT BREAST CANCER documented in this encounter Results * Specimen to Pathology (surgical or derm) (04/07/2012 11:04 AM EST) AP Specimen 04/07/2012 11:0 4 AM EST 04/07/2012 11:04 AM EST Narrative MARICHUY COLBY - 04/07/2012 11:04 AM EST Specimen requisition ordered. ??Separate Pathology report to follow Kelly Leggett MD PATHOLOGY/CYTOLOGY ORDERABLES MARICHUY [facility] * Molecular Genetics Report (04/07/2012 10:58 AM EST) Molecular Report ? [facility] ? Provider: ?? KELLY LEGGETT Pt. Name: ?? LUPE KENNY ? Acc #: ?[id number] ?Pt. ? Col Date: ?? 04/07/2012 ? /Sex: ?1945,(66 years),Female ? Rec Date: ?? 04/07/2012 ? LOC: ?SDP ? MOLECULAR GENETIC STUDIES ? ---REPORT OF DNA ANALYSIS--- ? TEST: ??HER2 FISH, BREAST CANCER ? METHOD: ??Fluorescence in situ hybridization (FISH) with probe for ? chromosome 17 centromere (17p11.1-q11.1) and locus specific probe for the ? HER2 gene locus (17q11.2-q12). ? SAMPLE ANALYZED: ??A3-6 ? RESULT: ?NEGATIVE FOR HER2/AGUS AMPLIFICATION ?TOTAL # SIGNALS/TOTAL # NUCLEI COUNTED FOR HER2 PROBE = 86 ?TOTAL # SIGNALS/TOTAL # NUCLEI COUNTED FOR CEP-17 PROBE = 80 ?HER2 TO CEP-17 RATIO = 1.1 ? (NORMAL RANGE <1.8) ? Interpretation: ??Paraffin-embedd ed tissue sections were submitted for HER2 ? gene amplification analysis by FISH. ??Direct analysis was performed using ? the Metaboli Kit. ??Slide adequacy and signal enumeration were evaluated ? and satisfactory for both control and patient slides. ??The results of this ? analysis is based on the enumeration of 40 interphase nuclei from non- ? overlapping tumor cells. ??A signal ratio derived from the HER2 probe and ? the CEP-17 centromere probe of >2.2 is considered positive for HER2 gene ? amplification. ? 2008 CAP guidelines state that samples with a HER2 to CEP-17 ratio of less ? than 1.8 are normal. Specimen with a HER2 to CEP-17 range of 1.8 to 2.2 are ? considered equivocal. Specimen with a HER2 to CEP-17 ratio of greater than ? 2.2 are considered amplified. ? This test is approved by the U.S.FDA for clinical diagnostic use. ? Reviewed by: ? Geetha Matos MD ? [place] Machine Operator, Molecular Pathology ? _ ? Verified date: ??04/15/12 ??SFA ? Verified by: ?Rai DO, Mackenzie Evangelista ? (Electronic Signature) MARICHUY COLBY 04/07/2012 10:5 8 AM EST Kelly Leggett MD PATHOLOGY/CYTOLOGY ORDERABLES [facility] * Surgical Pathology Report (04/07/2012 10:58 AM EST) Surgical Pathology Report ? [facility] ? Provider: ?? KELLY LEGGETT Pt. Name: ?? LUPE KENNY ? Acc #: ?[id number] ?Pt. ? Col Date: ?? 04/07/2012 ? /Sex: ?1945,(66 years),Female ? Rec Date: ?? 04/07/2012 ? LOC: ?SDP ? SURGICAL PATHOLOGY ? ---Pathologic Diagnosis--- ? Specimen (s): ??A - Right breast, partial mastectomy: ?B - Right axillary sentinel node, excision: ? Histologic Type: Invasive ductal carcinoma ? Tumor Grade: ??Intermediate (High, Intermediate, Low) ? Tzcjwc-Nzvbn-Gdjqovzqbn Score: ??6 ?Tubular Differentiation: ?? 3 ?Mitotic Rate: ?? 1 ?Nuclear Grade: ??2 ? Tumor Size: ?? 0.9 cm ??(maximum diameter) ? In Situ Histologic Type: Ductal carcinoma in situ ? Extensive/Minor Component: ??Extensive ? DCIS Size Estimate: ??> 25% total tumor, mixed with and away from the ? invasive tumor ?Grade: ?? Intermediate to High (High, Intermediate, Low) ?Necrosis: ??Present (Present / Absent) ?Pattern(s): ??Solid, cribiform ? Microcalcifications: ??Associated with DCIS ? Angiolymphatic Invasion: Not identified. ? Perineural invasion: Not identified. ? Nipple involvement: ?? N/A ? Skin/Skeletal muscle invasion: Not identified. ? Resection Margins (RM): ?Invasive Ca: ? Uninvolved (involved/uninvolved) ? Distance from closest RM(s): ??0.12 cm to lateral-caudal RM ? (yellow-green overlap, A3) ?DCIS: ?Involved (involved/uninvolved) ? Distance from closest RM(s): ??Lateral RM (yellow ink, A7) ? Axillary lymph nodes: ? Total no. nodes sampled: ? 1 ? No. non-sentinel nodes: ?0 ? No. sentinel nodes: ??1 ??(Specimen B, blocks(s)1-3)(H&E only) ?No. with metastases 0.02 cm or less (isolated tumor cells) 0 ?No. with metastases >0.02 cm to 0.2 cm (micrometastases) 0 ?No. with metastases >0.2 cm (macrometastases) 0 ? Total no. nodes negative for carcinoma: ??1 ? Estrogen/Progestin receptors, performed on block A3 ? [facility] ? Provider: ?? KELLY LEGGETT Pt. Name: ?? LUPE KENNY ? Acc #: ?[id number] ?Pt. ? Col Date: ?? 04/07/2012 ? /Sex: ?1945,(66 years),Female ? Rec Date: ?? 04/07/2012 ? LOC: ?SDP ? SURGICAL PATHOLOGY ?ER immunoreactivity: ??Positive (> 90% cancer cells with immunostaining) ?Stain Intensity Strong ?AR immunoreactivity: ??Positive (> 90% cancer cells with immunostaining) ?Stain Intensity Strong ? HER2/agus expression by FISH: ?See separate report ? pTNM: pT1b pN0 (AJCC, 7th edition, 2010) ?- - - - - - - - - - - - - - - - - - - - - - - - - - - - - ? *Diagnostic peter for hormone receptors (ASCO/CAP GUIDELINES, 2010): ? Negative immunoreactivity: <1% tumor cells with immunostaining ? Positive immunoreactivity: >1% tumor cells with immunostaining ? TMRBLKI: A4 ? 04/09/12 ? [facility] ? 04/10/12 Verified by: ? Mackenzie Atwood DO ? Pathologist ? (Electronic Signature) ? The attending pathologist whose signature appears on this report has ? reviewed all diagnostic slides and has edited the gross and/or ? microscopic portion of the report in rendering the final pathologic ? diagnosis. ? ---Microscopic Description--- ? Slides reviewed, microscopic description not recorded. ? Immunohistochemistry Studies: ? Formalin-fixed, paraffin-embedded tissue sections are studied using the B- ? SA system technique with appropriate positive and negative controls. ??These ? IHC studies provide the pathologist with adjunctive diagnostic information. ? Antibody specificity has been verified by testing antibodies on a series of ? in-house tissues with known immunohistochemical performance ? characteristics. The clinical interpretation of any antibody positive ? staining or its absence is evaluated within the context of clinical ? presentation, morphology, histopathological criteria and other diagnostic ? tests. ? Block ?Antibody ? Result (Positive/Negative) ? A3 ? e-cadherin ?Positive ? [facility] ? Provider: ?? KELLY LEGGETT Pt. Name: ?? LUPE KENNY ? Acc #: ?[id number] ?Pt. ? Col Date: ?? 04/07/2012 ? /Sex: ?1945,(66 years),Female ? Rec Date: ?? 04/07/2012 ? LOC: ?SDP ? SURGICAL PATHOLOGY ? ---Gross Description--- ? A - Labeled/Fixative: Right partial mastectomy, fresh. ? Qty/Size/Weight: ?Single, 9.0 x 6.5 x 2.2 cm, 62 g. ? Radiograph: ? The specimen radiograph is reviewed in the patient's ? electronic medical record and displays a biopsy site ? marker clip along the shaft near the tip of a needle localization wire. ? The radiograph has the notation clip denoting mass (seen on US) and ? adjacent calcs are within the specimen / fcd. ? Tissue Description: ?? According to the established protocol, the ink ? designations are red (medial), yellow (lateral), ? orange (cranial), green (caudal), black (deep), and ? blue (superficial). ? Tissue Sections: ?The specimen is serially sectioned perpendicular to ? the long axis from caudal (green) to cranial (orange) ? into eight slices, each averaging 1.1 cm in ? thickness. ? Lesion: ? A mass is identified. ?Size: ?0.9 x 0.9 x 0.8 cm. ?Color: ? Joyce-white. ?Consistency: ? Firm. ?Location: ?Tissue slice IV. ?Nearest margin: ?0.3 cm from yellow ink in tissue slice IV, ? 0.5 cm to green ink in tissue slice IV. ? Parenchyma: ? The remaining parenchyma is approximately 70% ? perry-yellow, lobular, fatty tissue with areas of soft, ? joyce-white fibrous tissue. ? Wire/Clip: ?The tip of the needle localization wire is identified ? in tissue slice III. ??The biopsy site marker clip is ? tentatively identified in tissue slice IV. ? Sections/Processing: ??(1) commercial pest control representative perpendicular sections of slice I; ? (2) commercial pest control representative section of slice III; (3-4) lesion ? from tissue slice IV including nearest margin; (5-8) additional sections of ? tissue slice IV representing the remaining margins; (9-10) sections of ? slice IV; (11-12) commercial pest control representative sections of tissue slice VIII. (R12) ? B - Labeled/Fixative: Right axillary sentinel node, fresh. ? Qty/Size/Weight: ?3.0 x 2.0 x 1.0 cm. ? Tissue Description: ?? Aggregate of perry-yellow, lobular, fatty tissue within ? which a single 1.7-cm, pink-perry lymph node is ? identified. ? Sections/Processing: ??The specimen is serially sectioned and entirely ? submitted. ??(R3) ??aje/EJR ? [facility] ? Provider: ?? KELLY LEGGETT Pt. Name: ?? LUPE KENNY ? Acc #: ?[id number] ?Pt. ? Col Date: ?? 04/07/2012 ? /Sex: ?1945,(66 years),Female ? Rec Date: ?? 04/07/2012 ? LOC: ?SDP ? SURGICAL PATHOLOGY ? ---Clinical Information--- ? Specimen Submitted: ? A - Right breast partial mastectomy ? B - Right axillary sentinel node ? Clinical History/Diagnosis: ? Right breast cancer MARICHUY COLBY 04/07/2012 10:5 8 AM EST Kelly Leggett MD PATHOLOGY/CYTOLOGY ORDERABLES Performing Organization Address [facility] Co de Phone Number MARICHUY COLBY * Specimen to Pathology (surgical or derm) (04/07/2012 10:36 AM EST) AP Specimen 04/07/2012 10:3 6 AM EST 04/07/2012 10:36 AM EST Narrative MARICHUY COLBY - 04/07/2012 10:36 AM EST Specimen requisition ordered. ??Separate Pathology report to follow Kelly Leggett MD PATHOLOGY/CYTOLOGY ORDERABLES Performing Organization Address [facility] Co de Phone Number MARICHUY COLBY documented in this encounter Visit Diagnoses Not on filedocumented in this encounter Administered Medications Inactive Administered Medications - up to 3 most recent administrations Medication Order MAR Action Action Date Dose Rate Site Isosulfan Blue (LYMPHAZURIN) 1 % injection Soln ONCE PRN, Starting on Sat04/07/12 at 1055, Until Sat04/07/12 at 1546, Intra-Operative (Intra-Procedure), Routine Given 04/07/2012 10:55 AM EST 0.5 mLs 19- Surgical Site lidocaine (PF) (XYLOCAINE) 10 mg/mL (1 %) injection ONCE PRN, Starting on Sat04/07/12 at 1115, Until Sat04/07/12 at 1546, Intra-Operative (Intra-Procedure), Routine Given 04/07/2012 11:15 AM EST 150 mg 19- Surgical Site OXYcodone-acetaminophen (PERCOCET) 5-325 mg per tablet 1-2 tablet 1-2 tablet, Oral, EVERY 4 HOURS PRN, Starting on Sat04/07/12 at 1128, Until Sat04/07/12 at 1546, Pain, Maximum dose of acetaminophen is 4000 mg from all sources in 24 hours., Routine Given 04/07/2012 12:00 PM EST 1 tablet promethazine (PHENERGAN) injection 6.25 mg 6.25 mg, Intravenous, ONCE PRN, Nausea, Starting on Sat04/07/12 at 1135, 1 dose, Until Sat04/07/12 at 1100, Dilute in 20 mL sodium chloride 0.9% and administer through a free flowing IV. Usual dose range 0.25-0.5 mg/kg/dose to a maximum of 25 mg/dose, PACU Recovery Given 04/07/2012 11:00 AM EST 6.25 mg documented in this encounter Active and Recently Administered Medications Times are shown in EST. PRN Medication Order 04/05/2012 04/06/2012 04/07/2012 acetaminophen (TYLENOL) tablet 650 mg 650 mg, Oral, EVERY 4 HOURS PRN, Starting on Sat04/07/12 at 1128, Until Sat04/07/12 at 1546, Pain, Maximum dose of acetaminophen is 4000 mg from all sources in 24 hours., Routine Isosulfan Blue (LYMPHAZURIN) 1 % injection Soln (CANCELED) ONCE PRN, Starting on Sat04/07/12 at 1055, Until Sat04/07/12 at 1546, Intra-Operative (Intra-Procedure), Routine 1055 (Given - Provid er: Kelly Leggett MD) lidocaine (PF) (XYLOCAINE) 10 mg/mL (1 %) injection (CANCELED) ONCE PRN, Starting on Sat04/07/12 at 1115, Until Sat04/07/12 at 1546, Intra-Operative (Intra-Procedure), Routine 1115 (Given - Provid er: Kelly Leggett MD - Comment: 15 ml) OXYcodone-acetaminophen (PERCOCET) 5-325 mg per tablet 1-2 tablet 1-2 tablet, Oral, EVERY 4 HOURS PRN, Starting on Sat04/07/12 at 1128, Until Sat04/07/12 at 1546, Pain, Maximum dose of acetaminophen is 4000 mg from all sources in 24 hours., Routine 1200 (Given - Provid er: Roberto Rodriguez RN) promethazine (PHENERGAN) injection 6.25 mg (COMPLETED) 6.25 mg, Intravenous, ONCE PRN, Nausea, Starting on Sat04/07/12 at 1135, 1 dose, Until Sat04/07/12 at 1100, Dilute in 20 mL sodium chloride 0.9% and administer through a free flowing IV. Usual dose range 0.25-0.5 mg/kg/dose to a maximum of 25 mg/dose, PACU Recovery 1100 (Given - Provid er: Roberto Rodriguez RN) documented in this encounter Care Teams Map Editor Relationship Specialty Start Date End Date Aileen Garcia APRN PCP - General 02/28/12 08/05/13 documented as of this encounter
--- OUTSIDE RECORDS SUMMARY | 2023-11-07 12:01 | XMS_ITS | Encounter Summary ---
Author Organization [facility] [place] [address] Care Team Providers Care Book Sorter Name Role Phone Aileen Garcia APRN Primary Care Provider [phone] Encounter Details Date Type Department Care Team (Late st Contact Info) Description 03/09/2013 Telephone Radiation Oncology at [address] [phone] Leslie Monson RN Social History Tobacco Use [...] Telephone Encounter - Leslie Monson RN - 03/09/2013 4:32 PM EST Patient missed scheduled appointment today with Dr. Sales. I called to follow up regarding this. No answer. Left message on identifiable voice mail requesting call back regarding rescheduling this appointment along with [facility] radiation oncology phone information documented in this encounter Plan of Treatment Not on file documented as of this encounter Visit Diagnoses Not on filedocumented in this encounter Care Teams Book Sorter Relationship Specialty Start Date End Date Aileen Garcia APRN PCP - General 02/28/12 08/05/13 documented as of this encounter
--- OUTSIDE RECORDS SUMMARY | 2023-11-07 12:01 | XMS_ITS | Encounter Summary ---
Author Organization [facility] [place] [address] Care Team Providers Care Leather Grader Name Role Phone Aileen Garcia APRN Primary Care Provider [phone] Reason for Visit * Reason Comments Breast Cancer Encounter Details Date Type Department Care Team (Late st Contact Info) Description 05/14/2012 1:30 PM EST Office Visit Hematology Oncology at [address] [phone] Aubrey Garcia MD [address] [place] [phone] Breast cancer, stage 1 (Primary Dx) Discharge Disposition: Home Social History [...] Sign Reading Time Taken Comments Blood Pressure 153/95 05/14/2012 1:02 PM EST Pulse 79 05/14/2012 1:02 PM EST Temperature 36.8 ??C (98.2 ??F) 05/14/2012 1:02 PM ES T Respiratory Rate 16 05/14/2012 1:02 PM EST Oxygen Saturation 98% 05/14/2012 1:02 PM EST Inhaled Oxygen Concentration - - Weight 83 kg (183 lb) 05/14/2012 1:02 PM EST Height 147.5 cm (4' 10.07) 05/14/2012 1:[address] Body Mass Index 38.15 05/14/2012 1:02 PM EST documented in this encounter Progress Notes * Aubrey Garcia MD - 05/14/2012 2:17 PM EST Diagnosis: 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 Subjective: Ashlyn comes in today for medical oncology consultation regarding her newly diagnosed breast cancer. She went to see her primary care provider as she wanted to have a cataract operation and in the course of her normal evaluation had a mammogram. It showed an abnormality in the right breast which led to further diagnostic studies including an MRI and finally an ultrasound guided biopsy which confirmed an invasive cancer. The patient is subsequently had a lumpectomy and sentinel node biopsy. She had a reexcision for improve margins and is doing well and has healed up after her surgery. She doeshave a little bit of discomfort at times in her right breast since her initial surgery. Overall it is slowly getting better. Otherwise review systems is essentially negative. Past Medical History Diagnosis Date ??? Varicose vein ??? Breast cancer, stage 1 03/2012 Node Neg ER/WY pos her 2 neg intermediate grade Past Surgical History Procedure Date ??? Mastectomy, partial 04/07/2012 MASTECTOMY PARTIAL performed by Nasir Stone MD at [facility] MAIN OR ??? Bx/remv, lymph node, deep axill 04/07/2012 BIOPSY OR EXCISION OF LYMPH NODE(S), OPEN, DEEP AXILLARY NODE(S) performed by Nasir Stone MD at [facility] MAIN OR ??? Identify sentinel node 04/07/2012 SENTINEL NODE INJECTION performed by Nasir Stone MD at [facility] MAIN OR ??? Mastectomy, partial 04/21/2012 MASTECTOMY PARTIAL performed by Nasir Stone MD at [facility] OR Current Outpatient Prescriptions on File Prior to Visit Medication Sig Dispense Refill ??? acetaminophen 650 mg Tab Take 650 mg by mouth every 4 hours as needed for Pain. 30 tablet ??? cholecalciferol, Vitamin D3, 400 unit tablet Take 400 Units by mouth daily. ??? cyanocobalamin, vitamin B-12, 100 mcg tablet Take 100 mcg by mouth daily. ??? Calcium Carbonate-Vitamin D3 (CALCIUM WITH VITAMIN D) 600 mg(1,500mg) -400 unit Tab Take by mouth. ??? multivitamin (THERAGRAN) tablet Take 1 tablet by mouth daily. ??? OXYcodone-acetaminophen (PERCOCET) 5-325 mg per tablet Take 1-2 tablets by mouth every 4 hours as needed for Pain. 40 tablet 0 No Known Allergies Family history is negative for breast or ovarian cancer Social history is remarkable for the patient being a for 15 years. She is only place here in [facility] for over a decade made a decision a few years ago to move here to get away from [place]. 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 She is here today with some very close friends. She does not have children. Review of Systems Constitutional: Negative for fever, [...] supraclavicular, and axillary nodes normal Neurologic: Normal SURGICAL PATHOLOGY ---Pathologic Diagnosis--- Specimen (s): A - Right breast, partial mastectomy: B- Right axillary sentinel node, excision: Histologic Type: Invasive ductal carcinoma Tumor Grade: Intermediate (High, Intermediate, Low) Xtgauu-Pffqe-Pjdtfrvglj Score: 6 Tubular Differentiation: 3 Mitotic Rate: 1 Nuclear Grade: 2 Tumor Size: 0.9 cm (maximum diameter) In Situ Histologic Type: Ductalcarcinoma in situ Extensive/Minor Component: Extensive DCIS Size Estimate: > 25% total tumor, mixed with and away from the invasive tumor Grade: Intermediate to High (High, Intermediate, Low) Necrosis: Present (Present / Absent) Pattern(s): Solid, cribiform Microcalcifications: Associated with DCIS Angiolymphatic Invasion: Not identified. Perineural invasion: Not identified. Nipple involvement: N/A Skin/Skeletal muscle invasion: Not identified. Resection Margins (RM): Invasive Ca: Uninvolved(involved/uninvolved) Distance from closest RM(s): 0.12 cm to lateral-caudal RM (yellow-green overlap, A3) DCIS: Involved (involved/uninvolved) Distance from closest RM(s): Lateral RM (yellow ink, A7) Axillary lymph nodes: Total no. nodes sampled: 1 No. non-sentinel nodes: 0 No. sentinel nodes: 1 (Specimen B, blocks(s)1-3)(H&E only) No. with metastases 0.02 cm or less (isolated tumor cells) 0No. with metastases >0.02 cm to 0.2 cm (micrometastases) 0 No. with metastases >0.2 cm (macrometastases) 0 Total no. nodes negative for carcinoma: 1 Estrogen/Progestin receptors, performed on block A3 ER immunoreactivity: Positive (> 90% cancer cells with immunostaining) Stain Intensity Strong WY immunoreactivity: Positive (> 90% cancer cells with immunostaining) Stain Intensity Strong HER2/agus expression by FISH: See separate report pTNM: pT1b pN0 (AJCC, 7th edition, 2010) MOLECULAR GENETIC STUDIES ---REPORT OF DNA ANALYSIS--- TEST: HER2 FISH, BREAST CANCER METHOD: Fluorescence in situ hybridization (FISH) with probe for chromosome 17 centromere (17p11.1-q11.1) and locus specific probe for the HER2 gene locus (17q11.2-q12). SAMPLE ANALYZED: A3-6 RESULT: NEGATIVE FOR HER2/AGUS AMPLIFICATION TOTAL # SIGNALS/TOTAL # NUCLEI COUNTED FOR HER2 PROBE = 86 TOTAL # SIGNALS/TOTAL # NUCLEI COUNTED FOR CEP-17 PROBE = 80 HER2 TO CEP-17 RATIO = 1.1 (NORMAL RANGE <1.8) SURGICAL PATHOLOGY ---Pathologic Diagnosis--- Specimen: Breast, right, partial mastectomy,re-excision lateral margin. Specimen Size: 4.7 x 3.1 x 0.7 cm. Residual malignancy: Absent. Prior Bx's correlation: [id number]. Other findings: Healing surgical site. Study Result BILATERAL BREAST MRI ON 03/19/12: SUMMARY: RIGHT BREAST LESION 1: KNOWN MALIGNANCY (BIRADS Category 6). Lesion type: Mass. Size: 15 x 5 x 5mm. Location: 1130, 9cm from the nipple. Distance from skin: 26mm. Mass margins: Irregular. Mass shape: Oval. Enhancement pattern: Kinetics: Progressive washout. Recommendation: Definitive surgery. RIGHT BREAST LESION 2: ASSESSMENT IS INCOMPLETE (BIRADS Category 0). Lesion type: Segmental non-mass like enhancement. Size: 11 x 6 x 10mm. Location: Retroareolar. Distance from skin: 12mm. Pattern: Linear. Kinetics: Progressive/washout. Recommendation: Extra views. Comment: Right breast lesion #1 is likely a combination of a 10mm mass and anterior calcifications together measuring 15mm. Likely motion artifact accounting for retroareolar enhancement in the Right breast. However, as there is a cluster of retroareolar calcifications on the mammogram, magnification views are recommended . LEFT BREAST: NEGATIVE (BIRADS Category 1). No suspicious enhancement to suggest breast cancer. NARRATIVE: Clinical indication: Right breast ipsilateral staging; Left breast contralateral screening. Techniques: Multiplanar sequences were obtained pre- and post- gadolinium enhancement, to include SPGR weighted dynamic run-off and subtraction sequences obtained after the intravenous administration of 16ccs of Magnevist. Computer algorithm analysis for lesion detection and kinetic contrast enhancement curve analysis was performed, using Hive7a software. Background enhancement pattern (first post gadolinium images): Left breast: None/Minimal (<25% breast). Right breast: Mild (25-50% breast). 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 Date of Diagnosis: 03/05. Axillary nodes: Visualization adequate bilaterally. Benign appearing axillary nodes: Bilaterally. Addendum Lesion #2 RIGHT breast: likely motion artifact. If additional views are negative, no further evaluation is necessary and consider lesion #2 BENIGN (Category 2) Assessment/Plan: Ashlyn has a stage I breast cancer with the original tumor less than a centimeter. It was node-negative ER/WY positive and HER-2/agus negative. In this situation she is at low risk for systemic recurrence. We discussed this in detail. My recommendations are for her to consider an aromatase inhibitorfor at least 5 years and possibly 10 years starting at the completion of her radiation therapy. Also discussed in detail followup of breast cancer and how he would be seeing her every 6 months with lab long-term. We talked about reducing her risk of local recurrence after lumpectomy by considering radiation therapy and she does have an appointment for Saturday with radiation therapy here in [facility]. She had many questions today and I believe we were able to answer them all. We'll see her back in about 8 weeks at near the end of radiation therapy and plan on starting her on Arimidex 1 mg daily at that time. Risks and side effects of the medication along with the difference between aromatase inhibitors and selective estrogen receptor modulators were discussed in detail. He know she can call if any questions or problems arise in the interim. More than an hour was spent in direct discussions with Ashlyn today. He also spent some time discussing smoking cessation and offered help in this regard. documented in this encounter Plan of Treatment Not on file documented as of this encounter Visit Diagnoses Diagnosis Breast cancer, stage 1- Primary Malignant neoplasm of breast (female), unspecified site documented in this encounter Care Teams Leather Grader Relationship Specialty Start Date End Date Aileen Garcia APRN PCP - General 02/28/12 08/05/13 documented as of this encounter
--- OUTSIDE RECORDS SUMMARY | 2023-11-07 12:01 | XMS_ITS | Encounter Summary ---
Author Organization [facility] [place] [address] Care Team Providers Care Muffler Installer Name Role Phone Ayanna Esparza APRN Primary Care Provider [phone] Reason for Visit * Reason Comments Radiation Follow-up breast cancer Encounter Details Date Type Department Care Team (Late st Contact Info) Description 10/01/2013 9:00 AM EDT Follow-Up Radiation Oncology at [address] [phone] Neelam Arreola TAPE EDGE MACHINE OPERATOR [address] [place] [address] [place] [address] Breast cancer, unspecified laterality (Primary Dx); Malignant neoplasm of breast (female), unspecified site Discharge Disposition: Home Social History Tobacco Use [...] Sign Reading Time Taken Comments Blood Pressure 140/87 10/01/2013 9:00 AM EDT Pulse 68 10/01/2013 9:00 AM EDT Temperature 36.4 ??C (97.5 ??F) 10/01/2013 9:00 AM ED T Respiratory Rate 16 10/01/2013 9:00 AM EDT Oxygen Saturation 99% 10/01/2013 9:00 AM EDT Inhaled Oxygen Concentration - - Weight 94.3 kg (208 lb) 10/01/2013 9:00 AM EDT Height - - Body Mass Index 42.01 08/27/2013 10:44 AM EDT documented in this encounter Progress Notes * Neelam Arreola, TAPE EDGE MACHINE OPERATOR - 10/01/2013 8:26 AM EDT Subjective: Patient ID: Ashlyn Kenny is a 68 y.o. female who completed xrt 06/24/2012 for breast ca, R, IDC, intermed gr, ER+NC+, [id number]-, s/p lumpectomy & SNB followed by reexcision, stage I, pT1b pN0. After completion of xrt, started on arimidex, which she continues. She is in clinic today for scheduled follow up. HPI 66 y/o f who underwent screening mmgs in 02/03. 03/04/12 [facility] interp outside mmgs [...] ax lymph node (sentinel, neg for ca); ER+NC+; Pvr7ppr-; pT1b pN0. 04/21/12 reexcision. Path: No residual malignancy. 05/07/12 FU w/Dr. Stone; to return on prn basis. 05/14/[address] Garcia, w/rec for arimidex after completion of xrt. Treatment: XRT TOTAL DOSE: 52.56 Gy: Completed treatment on 06/24/12 ---xrt can be summarized as follows: 05/28/12 through 06/24/12, 42.56 Gy/16 fxs to R breast, followed by seroma cavity boost of 10 Gy/4 fxs, boosting seroma cavity to 52.56 Gy/20 fxs. All of her xrt was given with external beam, using 6 & 10 MV Xray. Chemotherapy: Arimidex initiated 06/2013 BREAST CANCER NOTES 10/01/2013 Method of Cancer Detection abnormal mammogram 01/2012 Menopausal Status at Diagnosis post-menopausal Date of Diagnostic Biopsy 03/12/2012 right breast demonstrating IDC and DCIS, repeat biopsy on 04/01/2012 due to third lesion on MRI Local Surgery Lumpectomy done by Dr Stone 04/07/2012 Radiotherapy Radiotherapy planned Axillary Management [place] nodes alone--one lymph node was negative Date of Last Surgical Procedure 04/21/2012--re-excision due to DCIS at margins. Re-excision was negative Histology Invasive ductal carcinoma with extensive DCIS Tumor Staging from Staging System [id number] Size of Primary Malignancy 0.9 cm Grade intermediate Margin Negative with re-excision ER positive NC positive HER-2/FISH negative Radiation therapy Using Greenback fractionation--under the care of Dr Sales Radiation detail 05/28/12 through 06/24/12, 42.56 Gy/16 fxs to R breast, followed by seroma cavity boost of 10 Gy/4 fxs, boosting seroma cavity to 52.56 Gy/20 fxs. All of her xrt was given with external beam, using 6 & 10 MV Xray First Adjuvant Endocrine Therapy Anastrazole other osteoporosis--Dexa with 07/2013 with left hip T-2.5 Patient Active Problem List Diagnosis Code ??? Varicose vein 454.9 ??? Breast cancer, stage 1 174.9 Past Surgical History Procedure Date ??? Mastectomy, partial 04/07/2012 MASTECTOMY PARTIAL performed by Nasir Stone MD at [facility] MAIN OR ??? Bx/remv, lymph node, deep axill 04/07/2012 BIOPSY OR EXCISION OF LYMPH NODE(S), OPEN, DEEP AXILLARY NODE(S) performed by Nasir Stone MD at [facility] MAIN OR ??? Identify sentinel node 04/07/2012 SENTINEL NODE INJECTION performed by Nasir Stone MD at [facility] OR ??? Mastectomy, partial 04/21/2012 MASTECTOMY PARTIAL performed by Nasir Stone MD at [facility] MAIN OR ??? Varicose vein surgery 1989 vein removed, R leg ??? Cataract removal with implant 02/03 B No Known Allergies Current Outpatient Prescriptions on File Prior to Visit Medication Sig Dispense Refill ??? anastrozole (ARIMIDEX) [...] facility-administered medications on file prior to visit. History Social History ??? Marital Status: Spouse Name: N/A Number of Children: N/A ??? Years of Education: N/A Occupational History ??? Not on file. Social History Main Topics ??? Smoking status: Former Smoker -- 0.5 packs/day Types: Cigarettes Quit date: 05/27/2012 ??? Smokeless tobacco: Not on file Comment: stopped end of February ??? Alcohol Use: Yes Comment: beer or wine once every 3 weeks ??? Drug Use: No ??? Sexually Active: Not on file Other Topics Concern ??? Not on file Social History Narrative ??? No narrative on file Advance directive: on file Interim History: Mrs Kenny indicates that she thought the appointment she had at [facility] today was to get zometa so she was surprised that it was with rad onc. She had been seen by Sindy Gomez 08/06 and the plan was for zometa infusion after patient had repest DEXA. Her most recent DEXA scan shows T score of -2.5 involving her left hip. After review with med onc patient can be treated today but needs to have a repeat of her creatinine done first because this has been elevated in the past. Patient is willing to go to [facility] for lab work and then to return for treatment. She denies any breast discomfort at this time. She has no persistent cough, no persistent headache,no chest tightness, no lymphedema. She is able to manage her usual activity. She lives alone but has good support from friends and neighbors. Review of Systems Constitutional: Negative. Negative for diaphoresis, activity change, appetite change, fatigue and unexpected weight change. Weight gain --per patient this occurred after stopping smoking HENT: Negative. Eyes: Negative. Respiratory: Negative. Negative for cough, chest tightness, shortness of breath and wheezing. Patient stopped smoking after her cancer diagnosis. Cardiovascular: Negative. Negative for chest pain and leg swelling. Patient to have varicose vein surgery 10/07/2012 Gastrointestinal: Negative. Musculoskeletal: Positive for arthralgias. Negative for back pain and gait problem. Skin: Negative. Neurological: Negative. Hematological: Negative. Psychiatric/Behavioral: Negative. Filed Vitals: 10/01/13 0900 BP: 140/87 Pulse: 68 Temp: 36.4 ??C (97.5 ??F) Resp: 16 Weight: 94.348 kg (208 lb) SpO2: 99% KPS: 100 Objective: Physical Exam Vitals reviewed. Constitutional: She is oriented to person, place, and time. She appears well- developed and well-nourished. No distress. obese HENT: Head: Normocephalic and atraumatic. Eyes: Conjunctivae normal and EOM are normal. Neck: Normal range of motion. Neck supple. Cardiovascular: Normal rate, regular rhythm and normal heart sounds. Exam reveals no gallop and no friction rub. No murmur heard. Pulmonary/Chest: Effort normal and breath sounds normal. No respiratory distress. She has no wheezes. She has no rales. She exhibits no tenderness. Abdominal: Soft. Bowel sounds are normal. She exhibits no distension. There is no tenderness. Musculoskeletal: Normal range of motion. She exhibits no edema and no tenderness. Lymphadenopathy: Head (right side): No submental, no submandibular, no tonsillar, no preauricular, no posterior auricular and no occipital adenopathy present. Head (left side): No submental, no submandibular, no tonsillar, no preauricular, no posterior auricular and no occipital adenopathy present. She has no cervical adenopathy. She has no axillary adenopathy. Right: No supraclavicular adenopathy present. Left: No supraclavicular adenopathy present. Neurological: She is alert and oriented to person, place, and time. She exhibits normal muscle tone. Coordination normal. Skin: Skin is warm and dry. No rash noted. She is not diaphoretic. No erythema. No pallor. Psychiatric: She has a normal mood and affect. Her behavior is normal. Judgment and thought contentnormal. Breast___X_ no nipple discharge, no dryness, no erythema, no masses, no edema, good range of motion, no tenderness Treated site: _X___Right or ____Left, _X___Breast or Chest wall Telangectasias: _X___None, ____Few; Moderate; Many and confluent Hypopigmentation: __X__None; ____Slight or localized; ____Marked or generalized Hyperpigmentation: __X__None; ____Slight or localized; ____Marked or generalized Fibrosis: __X___None; Increased density; ____Marked increased density + retraction; ____ Very marked Dry skin: ___X_None; ____Asymptomatic; symptomatic; Interferes with ADL Cosmetic Result:___X__ Excellent; Good;____ Fair; ____Poor 02/26/2013--BILATERAL MAMMOGRAPHY REASON FOR EXAM: Screening. History of [...] patient's age and breast cancer risk factors. Comprehensive Breast Program Surgery Follow Up Note Range of motion of surgical arm complete Lymphedema present No Cosmesis-surgeon reported Cosmesis-patient reported Excellent Excellent Local or regional recurrence No Contralateral cancer present No Distant recurrence present No Date of last follow up 10/01/2013 NEELAM ARREOLA, TAPE EDGE MACHINE OPERATOR 10/01/2013 10/01/2013--creatinine--1.6 Assessment and Plan: R breast , IDC, intermed gr, ER+NC+, [id number]-, s/p lumpectomy & SNB followed by reexcision, stage I, pT1b pN0. After completion of xrt 06/24/2012, started on arimidex, which she continues. Mrs Kenny had a DEXA scan done in July which demonstrates osteoporosis with a T score of -2.5 involving her left hip. She was to start zometa but her creatinine was checked and found to be 1.6 so treatment was not done. Consult was done with Dr Garcia who will follow up with patient. She is doing well post XRT with no concerning late effect and MINA. We will see her again in one year. She is to have a repeat mammogram in February of 2014 and she will be seen by medical oncology inthe interim. documented in this encounter Plan of Treatment Not on file documented as of this encounter Visit Diagnoses Diagnosis Breast cancer, unspecified laterality- Primary Malignant neoplasm of breast (female), unspecified site documented in this encounter Care Teams Muffler Installer Relationship Specialty Start Date End Date Ayanna Esparza APRN PCP - General 08/06/13 05/20/16 documented as of this encounter
--- OUTSIDE RECORDS SUMMARY | 2023-11-07 12:01 | XMS_ITS | Encounter Summary ---
Author Organization [facility] Address [facility] [place] [address] Care Team Providers Care Technology Applications Engineer Name Role Phone Aileen Garcia APRN Primary Care Provider [phone] Encounter Details Date Type Department Care Team (Late st Contact Info) Description 05/07/2012 [place] [phone] Kavitha Haynes, SHEET METAL SUPERVISOR [facility] HEMATOLOGY/[place] [address] Social History Tobacco Use Types Packs/Day Years [...] of this encounter Progress Notes * Kavitha Haynes, SHEET METAL SUPERVISOR - 05/07/2012 11:47 AM EST Office of Care Management/Continuing Absorption Plant Operator Helper Pager #[phone] A: Ms. Kenny seen after her f/u visit w/Dr. Stone. She will be receiving further treatment in [facility]. She was here w/her friend who will have a mammogram today. She is needing further assistance w/fuel. She will fax me a bill and we will use the balance from the emergency fund and CPS[employer] to assist. She has to miss almost a month's worth of pay due to surgeries so is finding it difficultto make ends meet. P: Access funds to assist w/fuel oil. documented in this encounter Plan of Treatment Not on file documented as of this encounter Visit Diagnoses Not on filedocumented in this encounter Care Teams Technology Applications Engineer Relationship Specialty Start Date End Date Aileen Garcia, NOEMI PCP - General 02/28/12 08/05/13 documented as of this encounter
--- OUTSIDE RECORDS SUMMARY | 2023-11-07 12:01 | XMS_ITS | Encounter Summary ---
Author Organization [facility] Address [facility] [place] [address] Care Team Providers Care Nurse Quality Name Role Phone Aileen Garcia APRN Primary Care Provider [phone] Encounter Details Date Type Department Care Team (Late st Contact Info) Description 04/10/2012 Telephone [place] [phone] Kavitha Haynes MSW [facility] [address] HEMATOLOGY/[place] [address] Social History Tobacco Use Types Packs/Day Years [...] encounter Miscellaneous Notes * Telephone Encounter - Kavitha Haynes MSW - 04/10/2012 3:46 PM EST Office of Care Management/Continuing Heel Shaver Pager #[phone] A: Pt. called wondering who was trying to call her. She said she was recovering well though sore where she had raine surgery. She was doing well and in good spirits. She hoped to get a flu shot tomorrow. P: Continue to assess and assist with psychosocial needs documented in this encounter Plan of Treatment Not on file documented as of this encounter Visit Diagnoses Not on filedocumented in this encounter Care Teams Nurse Quality Relationship Specialty Start Date End Date Aileen Garcia APRN PCP - General 02/28/12 08/05/13 documented as of this encounter
--- OUTSIDE RECORDS SUMMARY | 2023-11-07 12:01 | XMS_ITS | Encounter Summary ---
Author Organization [facility] Address [facility] [place] [address] Care Team Providers Care Kineseologist Name Role Phone Aileen Garcia Nile FRANKLIN Primary Care Provider [phone] [phone] Reason for Visit * Reason Comments Radiation Follow-up Encounter Details Date Type Department Care Team (Late st Contact Info) Description 08/26/2012 9:00 AM EDT Follow-Up Radiation Oncology at [address] [phone] Roberta Sales MD [facility] [place] [address] Breast CA (Primary Dx) Discharge Disposition: Home [...] Sign Reading Time Taken Comments Blood Pressure 136/88 08/26/2012 9:00 AM EDT Pulse 72 08/26/2012 9:00 AM EDT Temperature 36.8 ??C (98.2 ??F) 08/26/2012 9:00 AM ED T Respiratory Rate 20 08/26/2012 9:00 AM EDT Oxygen Saturation 97% 08/26/2012 9:00 AM EDT Inhaled Oxygen Concentration - - Weight 94 kg (207 lb 3.2 oz) 08/26/2012 9:00 AM EDT Height - - Body Mass Index 43.2 07/30/2012 2:37 PM EDT documented in this encounter Patient Instructions * Patient Instructions* Roberta Sales MD - 08/26/2012 10:03 AM EDT Your exam today is good. No evidence of cancer. Someone will contact you with the appointment for mammograms in @ [facility]. We will mail you a letter in 5 months with an appointment to see me in 6 months. documented in this encounter Progress Notes * Roberta Sales MD - 08/26/2012 9:47 AM EDT CC: FU s/p completion of xrt. HPI: 67 y/o f who completed xrt 2 mos ago for breast ca, R, IDC, intermed gr, ER+WA+, [id number]-, s/plumpectomy & SNB followed by reexcision, stage I, pT1b pN0. After completion of xrt, started onarimidex, which she continues. She was recently bit by an insect on her upper L breast, for which she was seen in the ER, & betamethasone cream rx'd, which she says has helped to decrease swelling, redness & soreness assoc'd w/the bite. Skin of R breast healed from xrt effect. Appetite ok. Energy level improving as she gets further out from xrt. No swelling of R upper ext. + intermittent tingling of fingertips, primaril y pointer finger & middle finger B, x 2-3 mos; no tingling @ present; she says Dr. Garcia thought it might be due to a pinched nerve. She has stopped smoking since I last saw her & has since gained wt, but says she is very happy about stopping smoking. She has been enjoying working in her garden. Past Medical History Diagnosis Date ??? Varicose vein ??? Breast cancer, stage 1 03/2012 Node Neg ER/WA pos her 2 neg intermediate grade ??? Retinal hemorrhage of right eye Dx 2011 Receiving injections into eye for it. Past Surgical History Procedure Date ??? Mastectomy, partial 04/07/2012 MASTECTOMY PARTIAL performed by Nasir Stone MD at [facility] MAIN OR ??? Bx/remv, lymph node, deep axill 04/07/2012 BIOPSY OR EXCISION OF LYMPH NODE(S), OPEN, DEEP AXILLARY NODE(S) performed by Nasir Stone MD at [facility] MAIN OR ??? Identify sentinel node 04/07/2012 SENTINEL NODE INJECTION performed by Nasir Stone MD at [facility] MAIN OR ??? Mastectomy, partial 04/21/2012 MASTECTOMY PARTIAL performed by Nasir Stone MD at [facility] MAIN OR ??? Varicose vein surgery 1989 vein removed, R leg ??? Cataract removal with implant 02/03 B Physical Exam Constitutional: She is oriented to person, place, and time. She appears well- developed and well-nourished. No distress. BP 136/88 Pulse 72 Temp(Src) 36.8 ??C (98.2 ??F) (Oral) Resp 20 Wt 93.985 kg (207 lb 3.2 oz) SpO2 97% HENT: Head: Normocephalic and atraumatic. Eyes: Conjunctivae normal and EOM are normal. Right eye exhibits no discharge. Left eye exhibits nodischarge. No scleral icterus. Neck: Normal range of motion. Neck supple. No tracheal deviation present. No thyromegaly present. Pulmonary/Chest: Effort normal and breath sounds normal. No stridor. No respiratory distress. She has no wheezes. She has no rales. She exhibits no tenderness. Right breast exhibits skin change (Mildhyperpigmentation of R breast, most prominent @ lumpectomy site, consistent w/post xrt appearance.). Right breast exhibits no inverted nipple, no mass, no nipple discharge and no tenderness. Left breast exhibits skin change (She points out a 1 mm sized brownish dot on her upper L breast where she was recently bit by an insect. ). Left breast exhibits no inverted nipple, no mass, no nipple discharge and no tenderness. Abdominal: Soft. She exhibits [...] is normal. Judgment and thought contentnormal. A: Recovering from xrt.] P: Mmgs due in latter part of Jan/Feb - will order. I congratulated her on smoking cessation & told her I think that is more important than the wt gain, but also advised her to try not to overeat & to walk some, to decrease amount of wt gain, which will decrease risk of recurrent breast ca. RTC 6 mos. documented in this encounter Plan of Treatment Not on file documented as of this encounter Visit Diagnoses Diagnosis Breast CA- Primary Malignant neoplasm of breast (female), unspecified site documented in this encounter Care Teams Kineseologist Relationship Specialty Start Date End Date Aileen Garcia APRN PCP - General 02/28/12 08/05/13 documented as of this encounter
--- OUTSIDE RECORDS SUMMARY | 2023-11-07 12:01 | XMS_ITS | Encounter Summary ---
Author Organization [facility] Address [facility] [place] [address] Care Team Providers Care Drier Operator Helper Name Role Phone Jose Aileen Dowd APRN Primary Care Provider [phone]- [phone] Encounter Details Date Type Department Care Team (Late st Contact Info) Description 04/07/2012 7:09 AM EST - 04/07/2012 8:44 AM [facility] Hospital [place] [address] Breast cancer Social History Tobacco Use Types [...] Name Priority Date/Time Associated Diagnosis Comments MAMMO SENTINEL NODE INJECTION Routine 04/07/2012 8:37 AM EST Breast cancer documented in this encounter Results * Mammo sentinel node injection (04/07/2012 8:37 AM EST) Anatomical Region Laterality Modality Breast N/A Mammography 04/07/2012 8:37 AM EST Narrative 04/08/2012 8:28 AM EST SENTINEL NODE INJECTION OF THE RIGHT BREAST ON 04/07/12: ?? CLINICAL INDICATION: Please inject the Right breast for lymphatic mapping. ?? A sentinel node injection was performed of the Right breast using 0.245 milliCuries of Tc-99m sulfur colloid. Half the dose was injected intradermally above the lesion, and half intraparenchymally around the lesion. Ultrasound imaging was performed. ?? Sterling node tracer injection performed under Dr. Skinner's general supervision. ?? I performed the procedure without a resident. ? Procedure Note Jefe Caraballo MD - 04/08/2012 SENTINEL NODE INJECTION OF THE RIGHT BREAST ON 04/07/12: CLINICAL INDICATION: Please inject the Right breast for lymphatic mapping. A sentinel node injection was performed of the Right breast using 0.245 milliCuries of Tc-99m sulfur colloid. Half the dose was injectedintradermally above the lesion, and half intraparenchymally around the lesion.Ultrasound imaging was performed. Sterling node tracer injection performed under Dr. Skinner's general supervision. I performed the procedure without a resident. Nasir Stone MD IMG MAMMO ORDERABL ES documented in this encounter Visit Diagnoses Diagnosis Breast cancer Malignant neoplasm of breast (female), unspecified site documented in this encounter Care Teams Drier Operator Helper Relationship Specialty Start Date End Date Aileen Garcia APRN PCP - General 02/28/12 08/05/13 documented as of this encounter
--- OUTSIDE RECORDS SUMMARY | 2023-11-07 12:01 | XMS_ITS | Encounter Summary ---
Author Organization [facility] Address [facility] [place] [address] Care Team Providers Care Superintendent Fish Hatchery Name Role Phone Ayanna Esparza Krystle FRANKLIN Primary Care Provider +1- [phone] Encounter Details Date Type Department Care Team (Latest Contact Info) Description 08/27/2013 9:30 AM EDT Ancillary Appointment [place] [phone] Piyush Patel [place] Varicose vein Social History Tobacco Use Types Packs/Day Years [...] Procedure Name Priority Date/Time Associated Diagnosis Comments UNLATERAL VALVULAR INCOMP Routine 08/27/2013 9:36 AM EDT Varicose vein documented in this encounter Results * LE Unilateral Valvular Incomp Study (08/27/2013 9:36 AM EDT) VB Text Report Department: Vascular Surgery Lab Patient: [id number] (RACHAEL LUPE) CPT Code: 46550 ICD-9: 454.9 Referring Physician: DEBBIE LANDRY Indication: [...] to groin. 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
--- OUTSIDE RECORDS SUMMARY | 2023-11-07 12:01 | XMS_ITS | Encounter Summary ---
Author Organization [facility] Address [facility] [place] [address] Care Team Providers Care Bus Person Name Role Phone JoseAileen cobb Nile FRANKLIN Primary Care Provider [phone] [phone] Reason for Visit * Reason Comments Follow Up Surgery Encounter Details Date Type Department Care Team (Late st Contact Info) Description 05/07/2012 11:15 AM EST Follow-Up Hematology [place] [address] Nasir Stone MD [facility] [place] [address] Post-operative state (Primary Dx) Discharge Disposition: Home [...] as of this encounter Progress Notes * Nasir Stone MD - 05/07/2012 11:30 AM EST The patient returns status post reexcision right breast partial mastectomy. In brief she had a less than 1 cm invasive ductal carcinoma intermediate grade with a negative sentinel lymph node, ER OR positive. She is scheduled to see the Medical Oncology and Radiation Oncology at [place] next week for discussions regarding adjuvant therapy. She is doing well post-op with some discomfort in the right breast incision. Both incisions are healing well. She has minimal edema. She has full range of motion of the upper extremities. I will see her on a p.r.n. basis. documented in this encounter Plan of Treatment Not on file documented as of this encounter Visit Diagnoses Diagnosis Post-operative state- Primary Other postprocedural status documented in this encounter Care Teams Bus Person Relationship Specialty Start Date End Date Aileen Garcia, NOEMI PCP - General 02/28/12 08/05/13 documented as of this encounter
--- OUTSIDE RECORDS SUMMARY | 2023-11-07 12:01 | XMS_ITS | Encounter Summary ---
Author Organization [facility] [place] [address] Care Team Providers Care Jr. Java Developer Name Role Phone Ayanna Esparza NOEMI Primary Care Provider +1- [phone] Encounter Details Date Type Department Care Team (Late st Contact Info) Description 10/07/2013 7:21 AM EDT Anesthesia [place] [phone] Piyush Mahoney MD [facility] [address] [place] [address] Abdulaziz Tilley CRNA [facility] [place] [address] Anesthesia Record Procedure Summary Procedure Name Responsible Anesthesiologist Anesthesia Start Time Anesthesia Stop Time STAB PHLEBECTOMY MICKIE VEINS 1 EXTREMITY 10-20 INCISIONS (WRVU 4.8) (Right: Leg) Piyush Mahoney MD 10/07/13 0721 10/07/13 0835 Events Date Time Event Comment 10/07/2013 0651 0721 Start 0724 AN Verify 0724 An Start Data 0728 An Induction 0730 An Intubation 0731 Anesthesia Ready 0748 Procedure Start 0826 Extubation/LMA Out 0828 an stop data 0835 Stop Meds Name Total fentaNYL 100 mcg lidocaine IV 50 mg propofol 190 mg PHENYLephrine 80 mcg ondansetron 4 mg ceFAZolin (ANCEF) 2g in dextrose 5% 50 m L 2 g lactated ringers infusion 1,000 mL 0 mL * Agents Name O2 Air N2O Sevoflurane (et) * Blood No blood administrations on file. Lines, Drains, and Airways Type Details Placement Removal Incision 04/07/12; breast; 11/20/21 (LDA cleanup utility RA#[id number]); 1715 (LDA cleanup utility RA#[id number]) 04/07/12 0000 by Jessica Boles RN 11/20/21 1715 by Vicente Mantilla Incision 04/07/12; mid axilla ry; 11/20/21 (LDA cleanup utility RA#[id number]); 1715 (LDA cleanup utility RA#[id number]) 04/07/12 0000 by Jessica Boles RN 11/20/21 1715 by Vicente Mantilla Incision 04/21/12; breast; 11/20/21 (LDA cleanup utility RA#[id number]); 1715 (LDA cleanup utility RA#[id number]) 04/21/12 0000 by Dania Mantilla RN 11/20/21 1715 by Vicente Mantilla (RETIRED) Peripheral IV Line - Single Lumen 10/07/13; 0641; median cubital vein left (antecubital fossa); [id number] catheter system; 18 gauge, 1 in length; Sasha Ayers RN; distraction, intradermal injection, tolerated well, appears comfortable, age-appropriate response; 0; 10/07/13; 1005 10/07/13 0641 by Ghislaine Clancy RN 10/07/13 1005 by Radha Mckeon, RN Supraglottic Mask Ventilation: Placido raza (1); LMA Type: iGel; LMA Size: 4; Inserted by: SAAD Tilley; Removal Date: 10/07/13; Removal Time: 82510/07/13 0730 by Abdulaziz Tilley ACCOUNT ADJUSTER 10/07/13 0826 by Abdulaziz Tilley, SAAD Incision 10/07/13; 0747; leg; 11/20/21 (LDA cleanup utility RA#[id number]); 1715 (LDA cleanup utility RA#[id number]) 10/07/13 0747 by Marlena Good, NOEMI 11/20/21 1715 by Vicente Mantilla documented in this encounter Social History Tobacco [...] OR Notes * Anesthesia Postprocedure Evaluation - Piyush Mahoney - 10/07/2013 3:04 PM EDT Patient: Ashlyn Kenny Procedure(s) Performed: Procedure(s): STAB PHLEBECTOMY MICKIE VEINS 1 EXTREMITY 10-20 INCISIONS Actual Anesthetic: general (LMA) Patient location: PACU ([facility]) Post-op pain: Adequate analgesia after additional medication by nurse in recovery area. Post-op nausea: no nausea or vomiting Last Vitals: Filed Vitals: 10/07/13 0904 BP: 114/67 Pulse: 70 Temp: Resp: 20 Post-op cardiovascular and respiratory status: is stable; VSS. No CP, SOB. Level of consciousness: awake, alert and oriented Complications: no apparent complications and tolerated the procedure well Fluid Status: normal * Anesthesia Preprocedure Evaluation - Piyush Mahoney - 10/07/2013 6:48 AM EDT Pre-Anesthesia Evaluation for: Ashlyn Kenny a 68 y.o. female. Procedure(s): STAB PHLEBECTOMY MICKIE VEINS 1 EXTREMITY 10-20 INCISIONS Patient Active Problem List Diagnosis ??? Obesity ??? Hypertension ??? Varicose vein ??? Breast cancer, stage 1 DIAGNOSIS: Breast, R, IDC, intermed gr, ER+PA+, [id number]-, s/p lumpectomy & SNB followed by reexcision, stage I, pT1b pN0; arimidex initiated following radiation therapy. 03/04/12 [facility] interp outside mmgs from 02/03 & 03/05: [...] treatment on 06/24/12 Chemotherapy: Arimidex initiated 06/2013 Past Medical History Diagnosis Date ??? Varicose vein ??? Breast cancer, stage 1 03/2012 Node Neg ER/PA pos her 2 neg intermediate grade ??? Retinal hemorrhage of right eye Dx 2011 Receiving injections into eye for it. Past Surgical History Procedure Date ??? Mastectomy, partial 04/07/2012 MASTECTOMY PARTIAL performed by Nasir Stone MD at [facility] MAIN OR ??? Bx/remv, lymph node, deep axill 04/07/2012 BIOPSY OR EXCISION OF LYMPH NODE(S), OPEN, DEEP AXILLARY NODE(S) performed by Nasir Stone MD at [facility] MAIN OR ??? Identify sentinel node 04/07/2012 SENTINEL NODE INJECTION performed by Nasir Stone MD at [facility] MAIN OR ??? Mastectomy, partial 04/21/2012 MASTECTOMY PARTIAL performed by Nasir Stone MD at [facility] MAIN OR ??? Varicose vein surgery 1989 vein removed, R leg ??? Cataract removal with implant 02/03 B ??? Breast surgery History Substance Use Topics ??? Smoking status: Former Smoker -- 0.5 packs/day Types: Cigarettes Quit date: 05/27/2012 ??? Smokeless tobacco: Not on file Comment: stopped end february ??? Alcohol Use: Yes Comment: beer or wine once every 3 weeks History Drug Use No No Known Allergies Medications: MAR and/or home medications have been reviewed. Physical Exam: There were no vitals filed for this visit. There is no height or weight on file to calculate BMI. Airway Assessment: Mallampati: I TM distance: <3 FB Neck ROM: full Cardiovascular Assessment: Rhythm: regular Rate: normal Pulmonary Assessment: breath sounds clear to auscultation pulmonary exam normal Dental Assessment: Misc Assessment: Patient is wearing No contact(s). IV access: Peripheral line Other exam findings: Denies loose teeth or dental work. No intubation history available. (LMAs withprior 2 procedures here.) No removables. s/p R mastectomy,node and RT. (no IV or BP on R arm) Anesthesia Plan: ASA 2 general, with a(n) intravenous induction Anesthesiology Staff (Dewhirst): Pre-op summary note as per above. For elective VV ligation/stripping R leg. I have reviewed the history, available records and diagnostic data, then formulated and discussed the anesthetic plan with patient and DrPatricia . Anesthetic alternatives (where appropriate), procedures, risks (from common and minor to rare and and major) and consent for anesthesia were reviewed. She desires GA. The patient accepts that additional procedures and/or escalation of care may be necessary as dictated by the course of the procedure/anesthetic. All questions have been answered and the consent form signed. There are no pertinent advance directives. Plan: GA/LMA (unless prone position required);IV induction;routine monitors. Region - Other Informed Consent: Anesthetic plan and risks discussed with patient. Plan discussed with SAAD. Louise. Assessment: documented in this encounter Plan of Treatment Not on file documented as of this encounter Visit Diagnoses Not on filedocumented in this encounter Administered Medications Inactive Administered Medications - up to 3 most recent administrations Medication Order MAR Action Action Date Dose Rate Site ceFAZolin (ANCEF) 2g in dextrose 5% 50 mL 2 g, Intravenous, ONCE, 1 dose, On Sat10/07/13 at 0700, Redose after 4 hours., Day of Surgery (Day of Procedure), Indication for (Active or Suspected): Prophylaxis Given 10/07/2013 7:32 AM EDT 2 g fentaNYL 50mcg/mL injection PRN, Starting on Sat10/07/13 at 0732, Until Sat10/07/13 at 0840, Pain, Anesthesia Intra-op, Routine Given 10/07/2013 8:08 AM EDT 25 mcg Given 10/07/2013 7:51 AM EDT 25 mcg Given 10/07/2013 7:48 AM EDT 25 mcg lidocaine (PF) (XYLOCAINE) 100 mg/5 mL (2 %) injection PRN, Starting on Sat10/07/13 at 0728, Until Sat10/07/13 at 0840, Anesthesia Intra-op, Routine Given 10/07/2013 7:28 AM EDT 50 mg ondansetron (ZOFRAN) injection PRN, Starting on Sat10/07/13 at 0817, Until Sat10/07/13 at 0840, Nausea, Anesthesia Intra-op, Routine Given 10/07/2013 8:17 AM EDT 4 mg PHENYLephrine HCl in NS (PF) (DELILAH-SYNEPHRINE) 0.8 mg/10 mL (80 mcg/mL) injection Syrg PRN, Starting on Sat10/07/13 at 0801, Until Sat10/07/13 at 0840, Anesthesia Intra-op, Routine Given 10/07/2013 8:01 AM EDT 80 mcg propofol (DIPRIVAN) 10 mg/mL bolus injection (Anesthesia) PRN, Starting on Sat10/07/13 at 0728, Until Sat10/07/13 at 0840, Anesthesia Intra-op Given 10/07/2013 7:48 AM EDT 30 mg Given 10/07/2013 7:28 AM EDT 160 mg documented in this encounter Care Teams Jr. Java Developer Relationship Specialty Start Date End Date Ayanna Esparza APRN PCP - General 08/06/13 05/20/16 documented as of this encounter
--- OUTSIDE RECORDS SUMMARY | 2023-11-07 12:01 | XMS_ITS | Encounter Summary ---
Author Organization [facility] [place] [address] Care Team Providers Care Waiter/Waitress Third Class Name Role Phone Aileen Garcia APRN Primary Care Provider [phone] [phone] Encounter Details Date Type Department Care Team (Late st Contact Info) Description 06/03/2012 Telephone Radiation Oncology at [address] [phone] Leslie Monson RN Social History [...] Telephone Encounter - Leslie Monson RN - 06/03/2012 12:07 PM EDT Telephone call to PCP. Spoke with Mago Encarnacion, triage nurse to update regarding patient's recentelevated BP readings while at this office. She reports that patient has had BP elevation in the past but has not been seen in their office since January,. They will contact her for follow up care regarding this issue. documented in this encounter Plan of Treatment Not on file documented as of this encounter Visit Diagnoses Not on filedocumented in this encounter Care Teams Waiter/Waitress Third Class Relationship Specialty Start Date End Date Aileen Garcia APRN PCP - General 02/28/12 08/05/13 documented as of this encounter
--- OUTSIDE RECORDS SUMMARY | 2023-11-07 12:01 | XMS_ITS | Encounter Summary ---
Author Organization [facility] Address [facility] [place] [address] Care Team Providers Care Fork Truck Driver Name Role Phone Aileen Garcia Nile FRANKLIN Primary Care Provider [phone] [phone] Encounter Details Date Type Department Care Team (Latest Contact Info) Description 02/26/2013 1:55 PM EST - 02/26/2013 11:59 PM EST Hospital En[place] [phone] CLINIC, DR AGNES Sales, Roberta Miltno MD [facility] [place] [address] Breast CA Discharge Disposition: Home Social History Tobacco Use [...] tablet Take 1 tablet by mouth daily. lisinopril-hydrochloroth iazide (PRINZIDE;ZESTORETIC) 20-25 mg per tablet Take 1 tablet by mouth daily. 02/04/2014 chlorpheniramine (CHLOR-TRIMETON) 4 mg tablet Take 4 mg by mouth daily. 03/11/2013 anastrozole (ARIMIDEX) 1 mg tablet Take 1 tablet by mouth daily. 30 tablet 11 06/18/2012 06/19/2013 acetaminophen 650 mg Tab Take 650 mg by mouth every 4 hours as needed for Pain. 30 tablet 04/07/2012 03/11/2013 documented as of this encounter Plan of Treatment Not on file documented as of this encounter Procedures Procedure Name Priority Date/Time Associated Diagnosis Comments MAMMO DIAGNOSTIC CAD BILATERAL Routine 02/26/2013 2:42 PM EST Malignant neoplasm of breast (female), unspecified site documented in this encounter Results * Mammo digital bilateral diagnostic with [...] direct digital capture. The exam was evaluated byTapas Media Version 8.3.17. In addition to the routine [...] Center. Roberta Sales MD IMG MAMMO ORDERABLES documented in this encounter Visit Diagnoses Diagnosis Breast CA Malignant neoplasm of breast (female), unspecified site documented in this encounter Care Teams Fork Truck Driver Relationship Specialty Start Date End Date Aileen Garcia, AMMUNITION SUPERVISOR PCP - General 02/28/12 08/05/13 documented as of this encounter
--- OUTSIDE RECORDS SUMMARY | 2023-11-07 12:01 | XMS_ITS | Encounter Summary ---
Author Organization [facility] [place] [address] Care Team Providers Care Inspector Materials And Processes Name Role Phone Aileen Garcia APRN Primary Care Provider [phone] [phone] Reason for Visit * Reason Comments Breast Cancer Encounter Details Date Type Department Care Team (Late st Contact Info) Description 02/02/2013 1:00 PM EST Follow-Up Hematology Oncology at [address] [phone] Aubrey Garcia MD [address] [place] [phone] Breast cancer, stage 1 (Primary Dx) [...] Sign Reading Time Taken Comments Blood Pressure 146/94 02/02/2013 1:01 PM EST Pulse 71 02/02/2013 1:01 PM EST Temperature 36.7 ??C (98.1 ??F) 02/02/2013 1:01 PM ES T Respiratory Rate 20 02/02/2013 1:01 PM EST Oxygen Saturation 99% 02/02/2013 1:01 PM EST Inhaled Oxygen Concentration - - Weight 99.3 kg (219 lb) 02/02/2013 1:01 PM EST Height 147.5 cm (4' 10.07) 02/02/2013 1:[address] Body Mass Index 45.66 02/02/2013 1:01 PM EST documented in this encounter Progress Notes * Aubrey Garcia MD - 02/02/2013 1:40 PM EST Diagnosis: 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 Subjective: Ashlyn comes in today for medical oncology followup on her breast cancer. She does have some hot flashes with the Arimidex. Other than that though she's tolerating it well. She is now working full-time at [employer]. She has continued to noticing since she quit smoking that she is having a bit of increase in dry cough and also has noted some weight gain. The cough is intermittent and not every day and overall a bit better than it was 6 months ago.She is continuing to have some intermittent tingling and numbnessin her fingertips but has none in her feet or elsewhere and it is not a continual thing and in factover the past 6 months it's gotten better so it now only involves the first 3 fingers of each hand. Past medical history and social history are [...] normal Neurologic: Normal Review of the patient's lab shows that she does have a slight increase in creatinine of 1.4 relatedto her CARLA inhibitor and diuretics. Liver tests are normal with an ALP of 84 normal bilirubin. Electrolytes are normal CBC shows white count 7.04 hemoglobin 11.6 and platelet count 255. Assessment/Plan: Ashlyn has a stage I breast cancer with the original tumor less than a centimeter. It was node-negative ER/VT positive and HER-2/agus negative. She is doing well on Arimidex with no evidence of recurrent breast cancer. She is tolerating her aromatase inhibitor well. The numbness in her hand has improved although now it has taken on a median nerve distribution bilaterally. With things getting better however I think we should simply watch this. As far as her osteoporosis goes, with a creatinine of 1.4 I would favorholding off on a diphosphonate at least for now. We discuss getting another DEXA scan in 6 months and she is agreeable. Her mammograms are scheduled at [facility] for next month. She'll call for results. Followup is arranged for 6 months with a CBC CMP and DEXA scan. documented in this encounter Procedure Notes * Provider, Scanning - 02/02/2013 12:26 PM ESTAssociated Order(s): SCAN DOC: LAB documented in this encounter Plan of Treatment Not on file documented as of this encounter Procedures Procedure Name Priority Date/Time Associated Diagnosis Comments LAB SCAN 02/02/2013 12:26 PM EST documented in this encounter Results * SCAN DOC: LAB (02/02/2013 12:26 PM EST) Narrative 02/02/2013 12:26 PM EST Procedure Note Provider, Scanning - 02/02/2013 12:26 PM EST Scanning Provider MEDIA MGR SCAN EXT O RDR/RSLT documented in this encounter Visit Diagnoses Diagnosis Breast cancer, stage 1- Primary Malignant neoplasm of breast (female), unspecified site documented in this encounter Care Teams Inspector Materials And Processes Relationship Specialty Start Date End Date Aileen Garcia APRN PCP - General 02/28/12 08/05/13 documented as of this encounter
--- OUTSIDE RECORDS SUMMARY | 2023-11-07 12:01 | XMS_ITS | Encounter Summary ---
Author Organization [facility] [place] [address] Care Team Providers Care Silk Presser Name Role Phone Aileen Garcia Nile FRANKLIN Primary Care Provider [phone] Reason for Visit * Reason Comments Radiation Follow-up Encounter Details Date Type Department Care Team (Latest Contact Info) Description 06/30/2012 Unscheduled Encounter Radiation Oncology at [address] [phone] Leslie Monson RN Breast CA (Primary Dx) Social History Tobacco Use Types [...] as of this encounter Progress Notes * Leslie Monson RN - 06/30/2012 4:07 PM EDT Unscheduled Radiation Nursing Visit. Patient came in today to see TELEGRAPHIC TYPEWRITER INSTALLER and asked to see nursing as well to assess her radiation skin reaction. Patient states that her skin has started to peel under her breast and is uncomfortable. She declines to rate the discomfort on a 0-10 pain scale but says it is bad enough that she wanted to ask us about it and wonders if this is normal. She has not really taken anything for discomfort but says thatthe mepilex lite pads have been helpful. She is using Jeans cream to affected skin as well and finds this to be soothing. Has not been using Radiadress gel sheets. Note mild-moderate erythema with some moist desquamation and peeling under right breast. RUE range of motion intact. After consulting with Dr. Sales provided patient with additional mepilex lite pads and radiadress gel sheets as well as silvadene to use on the moist/peeling area. Instructed patient regarding skin symptom management including prn over the counter pain relief medications and sign/symptoms to report to us. She is able to restate all instructions without difficulty and knows that she can contact us at any time regarding radiation related issues. documented in this encounter Plan of Treatment Not on file documented as of this encounter Visit Diagnoses Diagnosis Breast CA- Primary Malignant neoplasm of breast (female), unspecified site documented in this encounter Care Teams Silk Presser Relationship Specialty Start Date End Date Aileen Garcia, NOEMI PCP - General 02/28/12 08/05/13 documented as of this encounter
--- OUTSIDE RECORDS SUMMARY | 2023-11-07 12:01 | XMS_ITS | Encounter Summary ---
Author Organization [facility] [place] [address] Care Team Providers Care Canvas Cutter Hand Name Role Phone Aileen Garcia APRN Primary Care Provider [phone] Reason for Visit * Reason Onset Date Comments Other 05/16/2012 Medical Question naire to return to work Encounter Details Date Type Department Care Team (Late st Contact Info) Description 05/16/2012 Telephone Hematology Oncology at [address] [phone] Annie Mixon, RN Other (Medical Questionnaire to return to work) Social History Tobacco Use Types Packs/Day Years [...] Telephone Encounter - Annie Mixon, RN - 05/16/2012 11:28 AM EST Phone call from patient to report that she wants to return to work, but has been unable to as she faxed form to be filled out to her pcp earlier in week and pcp reported to her today that they are unable to complete this. Ms. Kenny questioned if Dr. Garcia would be willing to fill out. PCP office faxed us form, Dr. Garcia completed [facility] at [phone] documented in this encounter Plan of Treatment Not on file documented as of this encounter Visit Diagnoses Not on filedocumented in this encounter Care Teams Canvas Cutter Hand Relationship Specialty Start Date End Date Aileen Garcia APRN PCP - General 02/28/12 08/05/13 documented as of this encounter
--- OUTSIDE RECORDS SUMMARY | 2023-11-07 12:01 | XMS_ITS | Encounter Summary ---
Author Organization [facility] Address [facility] [place] [address] Care Team Providers Care Semiconductor Development Technician Name Role Phone Geni Esparzalb Georges APRN Primary Care Provider [phone]- [phone] Encounter Details Date Type Department Care Team (Latest Contact Info) Description 10/07/2013 5:37 AM EDT - 10/07/2013 10:45 AM EDT Hospital Encounter [place] [phone] [facility] [place] [address] Chronic venous insufficiency Discharge Disposition: Home Social History Tobacco Use [...] to call your physician or the hospital silica mixer operator if you have any questions, and [...] have a follow-up appointment scheduled with Dr. Aguilar in 4 weeks. Appointment will be mailed [...] history and physical. Enzo Estrella MD, Pager [phone] Section of Vascular Surgery, PGY2 * Enzo [...] Breast cancer, stage 1 03/2012 Node Neg ER/HI pos her 2 neg intermediate grade ??? Retinal hemorrhage of right eye Dx 2011 Receiving injections into eye for it. PSHx: Past Surgical History Procedure Date ??? Mastectomy, partial 04/07/2012 MASTECTOMY PARTIAL performed by Nasir Stone MD at [facility] MAIN OR ??? Bx/remv, lymph node, deep axill 04/07/2012 BIOPSY OR EXCISION OF LYMPH NODE(S), OPEN, DEEP AXILLARY NODE(S) performed by Nasir Stone MD at [facility] MAIN OR ??? Identify sentinel node 04/07/2012 SENTINEL NODE INJECTION performed by Nasir Stone MD at [facility] MAIN OR ??? Mastectomy, partial 04/21/2012 MASTECTOMY PARTIAL performed by Nasir Stone MD at [facility] MAIN OR ??? Varicose vein surgery [...] to groin. 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 Surgeon(s) and Role: * Ritchie Aguilar MD - Primary * Enzo Estrella MD [...] at the end of the procedure. Dr. gAuilar, the attending surgeon of record, was present and scrubbed for the duration of the procedure. Disposition: awakened from anesthesia, extubated and taken to the recovery room in a stable condition, having suffered no apparent untoward event. Condition: doing well without problems * Miscellaneous - Provider, Lili - 10/07/2013 1:07 PM EDT * Brief Op Note - Ritchie Aguilar MD - 10/07/2013 8:28 AM EDT Brief Operative Note Patient Name: Ashlyn Kenny : [id number] MR#: [id number] Case Date: 10/07/2013 Surgeon: Surgeon(s) and Role: * Ritchie Aguilar MD - Primary * Enzo Estrella MD [...] this patient.) * OR Attestation - Ritchie Aguilar MD - 10/07/2013 8:28 AM EDT Attestation: Case Date: 10/07/2013 I was present and I participated during the entire procedure (does not need to include opening and closing). RITCHIE AGUILAR MD 10/07/2013 documented in this encounter Plan of Treatment Not on file documented as of this encounter Procedures Procedure Name Priority Date/Time Associated Diagnosis Comments STAB PHLEBECTOMY MICKIE VEINS 1 EXTREMITY 10-20 INCISIONS (WRVU 4.8) 10/07/2013 7:13 AM EDT Chronic venous insufficiency TYPE AND SCREEN, SDP (FUTURE SURGERY, [facility] SAME DAY PROGRAM ONLY) Routine 10/07/2013 5:54 AM EDT Chronic venous insufficiency ABO/RH TYPING Routine 10/07/2013 5:54 AM EDT Chronic venous insufficiency ANTIBODY SCREEN Routine 10/07/2013 5:54 AM EDT Chronic venous insufficiency documented in this encounter Results * Antibody screen (10/07/2013 5:54 AM EDT) Ab Screen Interp Negative CERCALLI HOLMENNIUM Expires at 2351 on: [id number] CERNER MILLENNIUM Blood specimen (specimen) 10/07/2013 5:54 AM EDT 10/07/2013 5:56 AM EDT Narrative Resulting Agency Comment Spec In Lab Ritchie Aguilar MD BLOOD BANK LAB [facility] * ABO/Rh Typing (10/07/2013 5:54 AM EDT) ABORH Type A Pos [facility] Blood specimen (specimen) 10/07/2013 5:54 AM EDT 10/07/2013 5:56 AM EDT Narrative Resulting Agency Comment Spec In Lab Ritchie Aguilar MD BLOOD BANK LAB ORDER CONNIE MARICHUY [...] RN) documented in this encounter Care Teams Semiconductor Development Technician Relationship Specialty Start Date End Date Ayanna Esparza APRN PCP - General 08/06/13 05/20/16 documented as of this encounter
--- OUTSIDE RECORDS SUMMARY | 2023-11-07 12:01 | XMS_ITS | Encounter Summary ---
Author Organization [facility] [place] [address] Care Team Providers Care Mining Professionals Name Role Phone Ayanna Esparza APRN Primary Care Provider +1- [phone] Encounter Details Date Type Department Care Team (Late st Contact Info) Description 2013 Orders Only Hematology Oncology at [address] [phone] Valentine Bradford RN Malignant neoplasm of breast (female), unspecified site (Primary Dx) Social History Tobacco Use Types [...] Diagnosis Malignant neoplasm of breast (female), unspecified site- Primary documented in this encounter Care Teams Mining Professionals Relationship Specialty Start Date End Date Ayanna Esparza APRN PCP - General 08/06/13 05/20/16 documented as of this encounter
--- OUTSIDE RECORDS SUMMARY | 2023-11-07 12:02 | XMS_ITS | Encounter Summary ---
Author Organization Formerly [facility] Address [facility] [place] [address] Care Team Providers Care Glass Setter Name Role Phone Aileen Garcia Nile FRANKLIN Primary Care Provider [phone]- [phone] Encounter Details Date Type Department Care Team (Latest Contact Info) Description 04/01/2012 9:13 AM EST - 04/01/2012 11:59 PM EST Hospital En[place] [phone] CLINIC, DR AGNES Stone, Nasir Ayala MD [facility] [place] [address] Abnormal MRI, breast Discharge Disposition: Home Social History Tobacco Use Types Packs/Day Years Used Date Smoking Tobacco: Every Day Cigarettes Sex and Gender Information Value Date Recorded [...] 04/07/2012 04/21/2012 documented as of this encounter Miscellaneous Notes * Miscellaneous - Provider, Scanning - 05/06/2012 9:23 AM EST documented in this encounter Plan of Treatment Not on file documented as of this encounter Procedures Procedure Name Priority Date/Time Associated Diagnosis Comments MAMMO SPECIMEN Routine 04/01/2012 10:48 AM EST Abnormal MRI, breast documented in this encounter Results * Mammo specimen (04/01/2012 10:48 AM EST) Anatomical Region Laterality Modality Breast N/A Mammography 04/01/2012 10:4 8 AM EST Impressions 04/03/2012 9:32 AM EST Impression: concordant Recommendation: definitive treatment of ipsilateral cancer. ??f/u one year mammography of biopsy site (if mammography of the right breast is not performed earlier for BCT baseline). ??As discussed with Ms. Kneny by Dr. Caraballo on 04/03/12. ?? I performed the procedure without a resident. Narrative 04/03/2012 9:32 AM EST VACUUM ASSISTED STEREOTACTIC GUIDED BIOPSY OF THE RIGHT BREAST ON 04/01/12: Informed consent was obtained. Using sterile technique and 1% lidocaine used for local anesthesia, a skin incision was made and a biopsy was performed from a from below approach using stereotactic guidance for image guidance. Clinical indication: Right breast 7mm cluster of calcifications in the lower, outer/retroareolar region at 0700, 3.5cm from the nipple. An AccutFit Lorad Stage drape was used to cover the track of the biopsy device. ?? 9-gauge Eviva Regular device 7 core biopsy specimens obtained. The specimen was X-rayed; the calcifications are present on specimen digital X-ray. A intelworksrk Eviva-Stereo 2S-13 Bowtie marker clip was placed. Cranio-caudal and lateral digital mammography performed to determine biopsy marker placement, which was shown to be 1.5cm from the biopsy site in inferior and anterior directions. Satisfactory sampling was obtained. There were no procedural complications. Imaging diagnosis: FCD versus adenosis versus DCIS. Pathologic diagnosis: FCD Procedure Note Poplack, Jefe P, MD - 04/03/2012 VACUUM ASSISTED STEREOTACTIC GUIDED BIOPSY OF THE RIGHT BREAST ON04/01/12: Informed consent was obtained. Using sterile technique and 1% lidocaineused for local anesthesia, a skin incision was made and a biopsy was performedfrom a from below approach using stereotactic guidance for image guidance. Clinical indication: Right breast 7mm cluster of calcifications in thelower, outer/retroareolar region at 0700, 3.5cm from the nipple. An AccutFit Lorad Stage drape was used to cover the track of the biopsydevice. 9-gauge Eviva Regular device 7 core biopsy specimens obtained. The specimen was X-rayed; the calcifications are present on specimendigital X-ray. A SMark Eviva-Stereo 2S-13 Bowtie marker clip was placed. Cranio-caudaland lateral digital mammography performed to determine biopsy markerplacement, which was shown to be 1.5cm from the biopsy site in inferior and anterior directions. Satisfactory sampling was obtained. There were no procedural complications. Imaging diagnosis: FCD versus adenosis versus DCIS. Pathologic diagnosis: FCD IMPRESSION Impression: concordant Recommendation: definitive treatment of ipsilateral cancer. f/u one year mammography of biopsy site (if mammography of the right breast is notperformed earlier for BCT baseline). As discussed with Ms. Guzmanrd by Dr. Caraballo on 04/03/12. I performed the procedure without a resident. Jefe Caraballo MD IMG MAMMO ORDERABLES documented in this encounter Visit Diagnoses Diagnosis Abnormal MRI, breast Other (abnormal) findings on radiological examination of breast documented in this encounter Care Teams Glass Setter Relationship Specialty Start Date End Date Aileen Garcia APRN PCP - General 02/28/12 08/05/13 documented as of this encounter
--- OUTSIDE RECORDS SUMMARY | 2023-11-07 12:02 | XMS_ITS | Encounter Summary ---
Author Organization [facility]ly [facility] Address [facility] [place] [address] Care Team Providers Care Bean Picker Machine Operator Name Role Phone JoseAileen Nile FRANKLIN Primary Care Provider +1 [phone] Encounter Details Date Type Department Care Team (Latest Contact Info) Description 04/07/2012 8:45 AM EST - 04/07/2012 1:40 PM EST Hospital Encounter [place] [address] Kelly Leggett MD [facility] [place] [address] Discharge Disposition: Home Social History Tobacco Use [...] Sign Reading Time Taken Comments Blood Pressure 164/76 04/07/2012 12:00 PM EST Pulse 74 04/07/2012 12:00 PM EST Temperature 37 ??C (98.6 ??F) 04/07/2012 11:27 AM EST Respiratory Rate 18 04/07/2012 12:00 PM EST Oxygen Saturation 96% 04/07/2012 12:00 PM EST Inhaled Oxygen Concentration - - [...] 101.3 F. The number for questions is [phone] before 5 PM week. Pain Medication: No [...] will mail you your appointment Please call [phone] (clinic number) if any changes need to [...] 9:47 AM EST Office of Care Management/Continuing General Forecaster Pager #[phone] A: Ms. Kenny seen with her friends prior to surgery. They talked about having to leave in the darkto arrive on time. [facility] [...] Leggett MD - 04/07/2012 11:20 AM EST [facility] Operative Note Patient Name: Lupe Kenny : [id number] MR#: [id number] Case Date: 04/07/2012 Surgeon: Surgeon(s) and Role: [...] Operative Note Patient Name: Lupe Kenny : [id number] MR#: [id number] Case Date: 04/07/2012 Surgeon: Surgeon(s) and Role: [...] follow Kelly Leggett MD PATHOLOGY/CYTOLOGY ORDERABLES [facility] * Molecular Genetics Report (04/07/2012 10:58 AM EST) Molecular Report ? [facility] ? Provider: ?? KELLY LEGGETT Pt. Name: ?? LUPE KENNY ? Acc #: ?[id number] ?Pt. ? Col Date: ?? 04/07/2012 ? [...] ??Direct analysis was performed using ? the [employer] Kit. ??Slide adequacy and signal enumeration were [...] Reviewed by: ? Geetha Matos MD ? Rn Teacher, Molecular Pathology ? _ ? Verified date: ??04/15/12 ??SFA ? Verified by: ?Rai JACKSON, Mackenzie Evangelista ? (Electronic Signature) MARICHUY COLBY 04/07/2012 10:5 8 AM EST Kelly Leggett MD PATHOLOGY/CYTOLOGY ORDERABLES [facility] * Surgical Pathology Report (04/07/2012 10:58 AM EST) Surgical Pathology Report ? [facility] ? Provider: ?? KELLY LEGGETT Pt. Name: ?? LUPE KENNY ? Acc #: ?[id number] ?Pt. ? Col Date: ?? 04/07/2012 ? /Sex: ?1945,(66 years),Female ? Rec Date: ?? 04/07/2012 ? LOC: ?SDP ? SURGICAL PATHOLOGY ? ---Pathologic Diagnosis--- ? Specimen (s): ??A - Right breast, partial mastectomy: ?B - Right axillary sentinel node, excision: ? Histologic Type: Invasive ductal carcinoma ? Tumor Grade: ??Intermediate (High, Intermediate, Low) ? Yxwmci-Ldnui-Rrzyeojxmg Score: ??6 ?Tubular Differentiation: ?? 3 ?Mitotic [...] Estrogen/Progestin receptors, performed on block A3 ? [facility] ? Provider: ?? KELLY LEGGETT Pt. Name: ?? LUPE KENNY ? Acc #: ?[id number] ?Pt. ? Col Date: ?? 04/07/2012 ? /Sex: ?1945,(66 years),Female ? Rec Date: ?? 04/07/2012 ? LOC: ?SDP ? SURGICAL PATHOLOGY ?ER immunoreactivity: ??Positive (> 90% cancer cells with immunostaining) ?Stain Intensity Strong ?NM immunoreactivity: ??Positive (> 90% cancer cells with [...] (Positive/Negative) ? A3 ? e-cadherin ?Positive ? [facility] ? Provider: ?? KELLY LEGGETT Pt. Name: ?? LUPE KENNY ? Acc #: ?[id number] ?Pt. ? Col Date: ?? 04/07/2012 ? [...] in tissue slice IV. ? Sections/Processing: ??(1) patient intake representative perpendicular sections of slice I; ? (2) patient intake representative section of slice III; (3-4) lesion ? from tissue slice IV including nearest margin; (5-8) additional sections of ? tissue slice IV representing the remaining margins; (9-10) sections of ? slice IV; (11-12) patient intake representative sections of tissue slice VIII. (R12) ? B - Labeled/Fixative: Right axillary sentinel node, fresh. ? Qty/Size/Weight: ?3.0 x 2.0 x 1.0 cm. ? Tissue Description: ?? Aggregate of perry-yellow, lobular, fatty tissue within ? which a single 1.7-cm, pink-perry lymph node is ? identified. ? Sections/Processing: ??The specimen is serially sectioned and entirely ? submitted. ??(R3) ??aje/EJR ? [facility] ? Provider: ?? KELLY LEGGETT Pt. Name: ?? LUPE KENNY ? Acc #: ?[id number] ?Pt. ? Col Date: ?? 04/07/2012 ? /Sex: ?1945,(66 years),Female ? Rec Date: ?? 04/07/2012 ? LOC: ?SDP ? SURGICAL PATHOLOGY ? ---Clinical Information--- ? Specimen Submitted: ? A - Right breast partial mastectomy ? B - Right axillary sentinel node ? Clinical History/Diagnosis: ? Right breast cancer [facility] 04/07/2012 10:5 8 AM EST Kelly Leggett MD PATHOLOGY/CYTOLOGY ORDERABLES MARICHUY COLBY * Specimen to Pathology (surgical or derm) (04/07/2012 10:36 AM EST) AP Specimen 04/07/2012 10:3 6 AM EST 04/07/2012 10:36 AM EST Narrative MARICHUY COLBY - 04/07/2012 10:36 AM EST Specimen requisition ordered. ??Separate Pathology report to follow Kelly Leggett MD PATHOLOGY/CYTOLOGY ORDERABLES MARICHUY COLBY documented in this encounter Visit Diagnoses Not on filedocumented in this encounter Administered Medications Inactive Administered Medications - up to 3 most recent administrations Medication Order MAR Action Action Date Dose Rate Site OXYcodone-acetaminophen (PERCOCET) 5-325 mg per tablet [...] RN) documented in this encounter Care Teams Bean Picker Machine Operator Relationship Specialty Start Date End Date Aileen Garcia APRN PCP - General 02/28/12 08/05/13 documented as of this encounter
--- OUTSIDE RECORDS SUMMARY | 2023-11-07 12:02 | XMS_ITS | Encounter Summary ---
Author Organization [facility] Address [facility] [place] [address] [address] Care Team Providers Care Rn Camp Name Role Phone Aileen Garcia NOEMI Primary Care Provider +1 [phone] Encounter Details Date Type Department Care Team (Late st Contact Info) Description 03/26/2012 Orders [place] [address] Nasir Stone MD [facility] [place] [address] Breast cancer (Primary Dx) Social History Tobacco Use Types Packs/Day Years Used Date Smoking Tobacco: Every Day Cigarettes Sex and Gender Information Value Date Recorded Sex Assigned at Not on file Gender Identity Not on file Sexual Orientation Not on file documented as of this encounter Plan of Treatment Not on file documented as of this encounter Results * Mammo specimen (04/07/2012 [...] Nasir Stone MD IMG MAMMO ORDERABL ES * Mammo sentinel node injection (04/07/2012 8:37 [...] the lesion. Ultrasound imaging was performed. ?? [place] node tracer injection performed under Dr. Skinner's [...] intraparenchymally around the lesion.Ultrasound imaging was performed. [place] node tracer injection performed under Dr. Skinner's general supervision. I performed the procedure without a resident. Nasir Stone MD IMG MAMMO ORDERABL ES documented in this encounter Visit Diagnoses Diagnosis Breast cancer- Primary Malignant neoplasm of breast (female), unspecified site Breast cancer Malignant neoplasm of breast (female), unspecified site Breast cancer Malignant neoplasm of breast (female), unspecified site documented in this encounter Care Teams Rn Camp Relationship Specialty Start Date End Date Aileen Garcia APRN PCP - General 02/28/12 08/05/13 documented as of this encounter
--- OUTSIDE RECORDS SUMMARY | 2023-11-07 12:02 | XMS_ITS | Encounter Summary ---
Author Organization [facility] [place] [address] [place] [address] Care Team Providers Care Medical Radiation Therapist Name Role Phone Aileen Garcia APRN Primary Care Provider [phone]- [phone] Encounter Details Date Type Department Care Team (Latest Contact Info) Description 03/12/2012 8:20 AM EST Hospital [place] [address] Abnormal ultrasound of breast Social History Tobacco Use Types Packs/Day Years Used Date Smoking Tobacco: Never Assessed Sex and Gender Information Value Date Recorded Sex Assigned at Not on file Gender Identity Not on file Sexual Orientation Not on file documented as of this encounter Plan of Treatment Not on file documented as of this encounter Procedures Procedure Name Priority Date/Time Associated Diagnosis Comments MAMMO DIRECT DIGITAL UNILATERAL Routine 03/12/2012 9:30 AM EST Abnormal ultrasound of breast documented in this encounter Results * Mammo direct digital unilateral (03/12/2012 9:30 AM EST) Anatomical Region Laterality Modality Breast N/A Mammography 03/12/2012 9:30 AM EST Impressions 03/14/2012 10:56 AM EST Impression: Concordant Recommendation: bilateral staging MRI prior to definitive treatment. Patient notified 03/14/12. I performed the procedure without a resident. Home phone: [phone] Narrative 03/14/2012 10:56 AM EST ULTRASOUND GUIDED BIOPSY OF THE RIGHT BREAST ON 03/12/12: Informed consent was obtained. Using sterile technique and 1% lidocaine for local anesthesia a skin incision was made and a biopsy was performed using ultrasound for image guidance. Clinical indication: Right breast 10mm mass/calcifications in the upper, outer quadrant at 1100, 12cm from the nipple. 14-gauge Achieve device 5 core biopsy specimens obtained. ?? A 17-gauge Ultracore (US) [place] marker clip was placed. Cranio-caudal and lateral digital mammography performed to determine biopsy marker placement, which was shown to be at the biopsy site. There were no procedural complications. Imaging diagnosis: IDC versus lymph node. Pathologic diagnosis: Invasive ductal carcinoma. ? Ductal carcinoma in-situ. ? Microcalcifications: ??Associated with an obliterated duct Procedure Note Sudha Spring MD - 03/14/2012 ULTRASOUND GUIDED BIOPSY OF THE RIGHT BREAST ON 03/12/12: Informed consent was obtained. Using sterile technique and 1% lidocainefor local anesthesia a skin incision was made and a biopsy was performed using ultrasound for image guidance. Clinical indication: Right breast 10mm mass/calcifications in the upper,outer quadrant at 1100, 12cm from the nipple. 14-gauge Achieve device 5 core biopsy specimens obtained. A 17-gauge Ultracore (US) [place] marker clip was placed. Cranio-caudal and lateral digital mammography performed to determine biopsy markerplacement, which was shown to be at the biopsy site. There were no procedural complications. Imaging diagnosis: IDC versus lymph node. 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 Microcalcifications: Associated with an obliterated duct IMPRESSION Impression: Concordant Recommendation: bilateral staging MRI prior to definitive treatment.Patient notified 03/14/12. I performed the procedure without a resident. Home phone: [phone] Sudha Spring MD IMG MAMMO ORDERABLES documented in this encounter Visit Diagnoses Diagnosis Abnormal ultrasound of breast Other (abnormal) findings on radiological examination of breast documented in this encounter Care Teams Medical Radiation Therapist Relationship Specialty Start Date End Date Aileen Garcia APRN PCP - General 02/28/12 08/05/13 documented as of this encounter
--- OUTSIDE RECORDS SUMMARY | 2023-11-07 12:02 | XMS_ITS | Encounter Summary ---
Author Organization [facility] Address [facility] [place] [address] [place] [address] Care Team Providers Care Food Specialist Name Role Phone Aileen Garcia NOEMI Primary Care Provider [phone] [phone] Encounter Details Date Type Department Care Team (Late st Contact Info) Description 03/14/2012 Orders Only Hematology/[place] [id number] Nasir Stone MD [facility] [place] [address] Breast cancer (Primary Dx) Social History Tobacco Use Types Packs/Day Years Used Date Smoking Tobacco: Never Assessed Sex and Gender Information Value Date Recorded Sex Assigned at Not on file Gender Identity Not on file Sexual Orientation Not on file documented as of this encounter Plan of Treatment Not on file documented as of this encounter Results * XR chest routine PA & lateral (03/24/2012 11:11 AM EST) Anatomical Region Laterality Modality Chest N/A Radiographic Adilene ging 03/24/2012 11:1 1 AM EST Narrative 03/24/2012 11:13 AM EST Examination CHEST ROUTINE 2 VIEWS Clinical History NEW DX BREAST CANCER Technique Comparison NONE Findings The lungs are clear. ??The cardiovascular structures appear normal. ??No significant skeletal abnormality is seen. Impression No significant abnormality. Procedure Note Chace Iraheta MD - 03/24/2012 Examination CHEST ROUTINE 2 VIEWS Clinical History NEW DX BREAST CANCER Technique Comparison NONE Findings The lungs are clear. The cardiovascular structures appear normal. No significant skeletal abnormality is seen. Impression No significant abnormality. Nasir Stone MD IMG DX ORDERABLES * (ABNORMAL) CBC (with Diff) (03/24/2012 10:55 AM EST) [facility] White Blood Cell 8.4 4.0 - 10.0 x10(3)/mc L CERNER MILLENNIUM Red Blood Cell 4.27 3.93 - 5.22 x10(6)/mc L CERNER MILLENNIUM Hemoglobin 14.2 11.2 - 15.7 gm/dL CERNER MILLENNIUM Hematocrit 41.8 34.0 - 45.0 % CERNER MILLENNIUM Mean Cell Volume 97.9(H) 79.0 - 94.0 fL CERNER MILLENNIUM Mean Cell Hemoglobin 33.3(H) 26.6 - 32.2 pg CERNER MILLENNIUM Mean Cell Hemoglobin Concentration 34.0 32.0 - 36.5 gm/dL CERNER MILLENNIUM Platelet 267 145 - 370 x10(3)/mc L CERNER MILLENNIUM RDW Standard Deviation 45.9 35.0 - 46.0 fL CERNER MILLENNIUM RDW coefficient of variation 13.0 10.9 - 14.4 % CERNER MILLENNIUM Mean Platelet Volume 10.2 9.0 - 12.0 fL CERNER MILLENNIUM Blood specimen (specimen) 03/24/2012 10:55 AM EST 03/24/2012 11:04 AM EST Narrative Resulting Agency Comment Spec In Lab Nasir Stone MD HEMATOLOGY ORDERAB LES CERNER MILLENNIUM * (ABNORMAL) Comprehensive metabolic panel (non-fasting) (03/24/2012 10:55 AM EST) [facility] Glucose 89 60 - 199 mg/dL CERNER MILLENNIUM Comment:Diabetes: >=200 mg/d L plus symptoms Blood Urea Nitrogen 16 8 - 18 mg/dL CERNER MILLENNIUM Creatinine 0.81 0.70 - 1.20 mg/dL CERNER MILLENNIUM Comment: Please note that the pediatric reference intervals supplied above were not validated at [facility]. Results from pediatric patients should be interpreted in conjunction to the patient's age, height and muscle mass. Sodium 139 135 - 145 mmol/L CERNER MILLENNIUM Potassium 3.4(L) 3.5 - 5.0 mmol/L CERNER MILLENNIUM Comment: Please note: ??Patients with WBC >100,000 may have falsely elevated Potassium levels. ??For accurate Potassium quantification in these patients send serum separator tube (gold top) for subsequent determinations. ??Contact the Clinical Chemistry Laboratory if there are any questions. Chloride 102 98 - 107 mmol/L CERNER MILLENNIUM Carbon Dioxide 31 22 - 31 mmol/L CERNER MILLENNIUM Anion Gap 6 5 - 15 mmol/L CERNER MILLENNIUM Calcium 10.0 8.5 - 10.5 mg/dL CERNER MILLENNIUM Protein, Total 7.0 6.4 - 8.3 gm/dL CERNER MILLENNIUM Albumin 4.2 3.2 - 5.2 gm/dL CERNER MILLENNIUM Aspartate Aminotransferase 13 0 - 30 unit/L CERNER MILLENNIUM Alanine Aminotransferase 10 0 - 30 unit/L CERNER MILLENNIUM Alkaline Phosphatase 79 40 - 104 unit/L CERNER MILLENNIUM Bilirubin, Total 0.4 0.2 - 1.3 mg/dL CERNER MILLENNIUM Bilirubin, Direct 0.1 0.0 - 0.3 mg/dL CERNER MILLENNIUM Est Glomerular Filtration Rate >60 >=60 CERNER MILLENNIUM Comment: The National Kidney Disease Education Program (NKDEP) has recommended all laboratories report estimated GFR (eGFR) along with plasma creatinine measurements to assist you with recognition of early kidney disease. Caveats: ??Plasma creatinine should be at steady-state (unchanged within the past week). For patients multiply eGFR by 1.2. The MDRD equation was developed using patients between the ages of 18 and 70 years. ?? The MDRD equation has not been validated for patients < 18 years of age and should not be used to assess renal function in the pediatric population. ??The MDRD eGFR equation will also overestimate the true GFR of patients above the age of 70. ??This overestimation is variable but increases with age. At present, NKDEP does NOT recommend using the MDRD equation for drug dosing purposes and pharmacists should continue to use their current dosing methods. In addition, numerical eGFR values greater than 60 ml/min/1.73 square meters should be treated as > 60, and not an exact number due to greater inaccuracies at these higher values. Per NKDEP, they classify normal renal function as any GFR >60ml/min/1.73 square meters; chronic kidney disease when GFR <60, and renal failure when GFR <15. ??This calculation may not be valid for patients with atypical muscle mass (very lean or obese), acute renal failure, and in patients with diabetic kidney disease. References: http://nkdep.nih.gov/resources/NKDEP_Suggestn4Labs_0606_508.pdf http://www.kidney.org/professionals/kls/pdf/faq_gfr.pdf Priscila K, Brandy NA, Ricardo AK, Jose Daniel TS, Magdi AD, Maia FABIAN. Relative performance of the MDRD and CKD-EPI equations for estimating glomerular filtration rate among patients with varied clinical presentations. Clin J Am Soc Nephrol;6:1963-72. Blood specimen (specimen) 03/24/2012 10:55 AM EST 03/24/2012 11:04 AM EST Narrative Resulting Agency Comment Spec In Lab Nasir Stone MD [facility]L ES [facility] * MRI breast diagnostic bilateral with/WO contrast (03/19/2012 8:06 PM EST) Anatomical Region Laterality Modality Breast Bilateral Magnetic Resonan ce 03/19/2012 8:06 PM EST Addenda Addendum on 03/24/2012 3:36 PM EST Addendum Begins Lesion #2 RIGHT breast: likely motion artifact. ??If additional views are negative, no further evaluation is necessary and consider lesion #2 BENIGN (Category 2) Addendum Ends Addendum on 03/24/2012 6:39 AM EST Addendum Begins * ?? Addendum Ends Narrative 03/21/2012 10:23 AM EST BILATERAL BREAST MRI ON 03/19/12: SUMMARY: RIGHT [...] However, as there is a cluster of ??retroareolar calcifications on the mammogram, ??magnification views are recommended . LEFT BREAST: NEGATIVE [...] contrast enhancement curve analysis was performed, using Confirma software. Background enhancement pattern (first post gadolinium images): ??Left breast: None/Minimal (<25% breast). ? Right breast: Mild (25-50% breast). ? 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 ?Date of Diagnosis: 03/05. Axillary nodes: Visualization adequate bilaterally. Benign appearing axillary nodes: Bilaterally. Procedure Note Leeanne Frank MD - 03/24/2012 BILATERAL BREAST MRI ON 03/19/12: SUMMARY: RIGHT [...] retroareolar enhancement in the Right breast. However, asthere is a cluster of retroareolar calcifications on the mammogram,magnification views are recommended . LEFT BREAST: NEGATIVE (BIRADS Category 1). No suspicious enhancement tosuggest breast cancer. NARRATIVE: Clinical indication: Right breast ipsilateral staging; Left breast contralateral screening. Techniques: Multiplanar sequences were obtained pre- and post- gadolinium enhancement, to include SPGR weighted dynamic run-off and subtractionsequences obtained after the intravenous administration of 16ccs of Magnevist.Computer algorithm analysis for lesion detection and kinetic contrast enhancementcurve analysis was performed, using Confirma software. Background enhancement pattern (first post gadolinium images): Leftbreast: None/Minimal (<25% breast). Right breast: Mild (25-50% breast). 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 Axillary nodes: Visualization adequate bilaterally. Benign appearing axillary nodes: Bilaterally. Nasir Stone MD [facility] MRI ORDERABLES documented in this encounter Visit Diagnoses Diagnosis Breast cancer- Primary Malignant neoplasm of breast (female), unspecified site Breast cancer Malignant neoplasm of breast (female), unspecified site Breast cancer Malignant neoplasm of breast (female), unspecified site documented in this encounter Care Teams Food Specialist Relationship Specialty Start Date End Date Aileen Garcia APRN PCP - General 02/28/12 08/05/13 documented as of this encounter
--- OUTSIDE RECORDS SUMMARY | 2023-11-07 12:02 | XMS_ITS | Encounter Summary ---
Author Organization [facility] Address [facility] [place] [address] Care Team Providers Care Senior Administrative Assistant Name Role Phone JoseAileen cobb Nile FRANKLIN Primary Care Provider [phone] Encounter Details Date Type Department Care Team (Late st Contact Info) Description 03/21/2012 [place] [address] Leeanne Frank MD [facility] [place] [address] Abnormal MRI, breast (Primary Dx) Social History Tobacco Use Types Packs/Day Years Used Date Smoking Tobacco: Never Assessed Sex and Gender Information Value Date Recorded Sex Assigned at Not on file Gender Identity Not on file Sexual Orientation Not on file documented as of this encounter Plan of Treatment Not on file documented as of this encounter Results * Mammo direct digital unilateral (03/26/2012 2:55 PM EST) Anatomical Region Laterality Modality Breast N/A Mammography 03/26/2012 2:55 PM EST Narrative 03/28/2012 8:30 AM EST DIAGNOSTIC RIGHT MAMMOGRAPHY ON 03/26/12: ?? DIAGNOSTIC IMAGING SUMMARY: ?? RIGHT BREAST LESION 3: SUSPICIOUS (BIRADS Category 4B-intermediate concern for malignancy). ?? Finding: Clustered calcifications with associated asymmetry at the site of abnormal MRI enhancement. ?? Size: 7mm. ?? Location: 0700, 3-4cm from the nipple. ?? Recommendation: Stereotactic core needle biopsy which has been scheduled for 04/01/12 at 9:20am. ?? Preliminary report E-mailed to Dr. Nasir Stone on 03/27/12. ?? NARRATIVE: ?? CLINICAL INDICATION: Newly diagnosed carcinoma in the upper, outer Right breast. Staging MRI demonstrated questionable segmental clumped ductal enhancement in the periareolar Right breast. ?? TECHNIQUE: ML, focal magnification ML (x2) and focal magnification CC (x2) views of the Right breast obtained with direct digital capture. ? FINDINGS: Additional mammography demonstrates a cluster of round and amorphous calcifications in the lower, outer periareolar Right breast at the site of clumped ductal enhancement noted on recent MRI. Calcifications are at the threshold of resolution and better demonstrated on magnified views. They were not visualized on comparison mammograms including film screen comparisons from 2002. There is subtle associated asymmetry at the site. Given the indeterminate nature of the calcifications and associated asymmetry and corresponding abnormality on MRI, biopsy is warranted. ?? Procedure Note Jefe Caraballo MD - 03/28/2012 DIAGNOSTIC RIGHT MAMMOGRAPHY ON 03/26/12: DIAGNOSTIC IMAGING SUMMARY: RIGHT BREAST LESION 3: SUSPICIOUS (BIRADS Category 4B-intermediate concernfor malignancy). Finding: Clustered calcifications with associated asymmetry at the site of abnormal MRI enhancement. Size: 7mm. Location: 0700, 3-4cm from the nipple. Recommendation: Stereotactic core needle biopsy which has been scheduledfor 04/01/12 at 9:20am. Preliminary report E-mailed to Dr. Nasir Stone on 03/27/12. NARRATIVE: CLINICAL INDICATION: Newly diagnosed carcinoma in the upper, outer Right breast. Staging MRI demonstrated questionable segmental clumped ductal enhancement in the periareolar Right breast. TECHNIQUE: ML, focal magnification ML (x2) and focal magnification CC (x2) views of the Right breast obtained with direct digital capture. FINDINGS: Additional mammography demonstrates a cluster of round andamorphous calcifications in the lower, outer periareolar Right breast at the site of clumped ductal enhancement noted on recent MRI. Calcifications are at the threshold of resolution and better demonstrated on magnified views. Theywere not visualized on comparison mammograms including film screen comparisonsfrom 2002. There is subtle associated asymmetry at the site. Given theindeterminate nature of the calcifications and associated asymmetry and corresponding abnormality on MRI, biopsy is warranted. Leeanne Flores MD IMG MAMM O ORDERABLES documented in this encounter Visit Diagnoses Diagnosis Abnormal MRI, breast- Primary Other (abnormal) findings on radiological examination of breast Abnormal MRI, breast Other (abnormal) findings on radiological examination of breast documented in this encounter Care Teams Senior Administrative Assistant Relationship Specialty Start Date End Date Aileen Garcia, EASEMENT MAN PCP - General 02/28/12 08/05/13 documented as of this encounter
--- OUTSIDE RECORDS SUMMARY | 2023-11-07 12:02 | XMS_ITS | Encounter Summary ---
Author Organization [facility] Address [facility] [place] [address] Care Team Providers Care Transmission Supervisor Name Role Phone Aileen Garcia NOEMI Primary Care Provider [phone]- [phone] Encounter Details Date Type Department Care Team (Late st Contact Info) Description 03/12/2012 8:21 AM EST - 03/12/2012 11:59 PM EST Hospital En[place] [address] CLINIC, Sudha Ferguson MD [facility] [place] [address] Abnormal ultrasound of breast Discharge Disposition: Home Social History Tobacco [...] Priority Date/Time Associated Diagnosis Comments MAMMO US BIOPSY BILATERAL Routine 03/12/2012 9:13 AM EST Abnormal ultrasound of breast documented in this encounter Results * Mammo- US biopsy (03/12/2012 9:13 AM EST) Anatomical Region Laterality Modality Breast N/A Mammography 03/12/2012 9:13 AM EST Impressions 03/14/2012 10:56 AM EST Impression: Concordant Recommendation: bilateral staging MRI prior to definitive treatment. Patient notified 03/14/12. I performed the procedure without a resident. Home phone: [phone] Narrative 03/14/2012 10:56 AM EST ULTRASOUND GUIDED [...] specimens obtained. ?? A 17-gauge Ultracore (US) [place] marker clip was placed. Cranio-caudal and lateral [...] biopsy specimens obtained. A 17-gauge Ultracore (US) [place] marker clip was placed. Cranio-caudal and lateral [...] the procedure without a resident. Home phone: [phone] Sudha Spring MD IMG MAMMO ORDERABLES documented in this encounter Visit Diagnoses Diagnosis Abnormal ultrasound of breast Other (abnormal) findings on radiological examination of breast documented in this encounter Care Teams Transmission Supervisor Relationship Specialty Start Date End Date Aileen Garcia, NOEMI PCP - General 02/28/12 08/05/13 documented as of this encounter
--- OUTSIDE RECORDS SUMMARY | 2023-11-07 12:02 | XMS_ITS | Encounter Summary ---
Author Organization [facility] [place] [address] Care Team Providers Care Presales Senior Specialist Name Role Phone Aileen Garcia APRN Primary Care Provider [phone] Encounter Details Date Type Department Care Team (Late st Contact Info) Description 03/07/2012 [place] [address] Bev Breen MD [facility] [place] [address] Social History Tobacco Use Types Packs/Day Years Used Date Smoking Tobacco: Never Assessed Sex and Gender Information Value Date Recorded Sex Assigned at Not on file Gender Identity Not on file Sexual Orientation Not on file documented as of this encounter Plan of Treatment Not on file documented as of this encounter Visit Diagnoses Not on filedocumented in this encounter Care Teams Presales Senior Specialist Relationship Specialty Start Date End Date Aileen Garcia APRN PCP - General 02/28/12 08/05/13 documented as of this encounter
--- OUTSIDE RECORDS SUMMARY | 2023-11-07 12:02 | XMS_ITS | Encounter Summary ---
Author Organization [facility] [place] [address] Care Team Providers Care Transmission Repairer Name Role Phone Aileen Garcia NOEMI Primary Care Provider +1- [phone] Encounter Details Date Type Department Care Team (Latest Contact Info) Description 03/12/2012 7:25 AM EST - 03/12/2012 11:59 PM EST Hospital [place] [address] CLINIC, DR AGNES Estrada, Roberto Manuel MD [address] [place] [address] [id number] Abnormal mammogram, unspecified Discharge Disposition: Home Social History Tobacco Use Types Packs/Day Years Used Date Smoking Tobacco: Never Assessed Sex and Gender Information Value Date Recorded Sex Assigned at Not on file Gender Identity Not on file Sexual Orientation Not on file documented as of this encounter H&P Notes * Sudha Dye MD - 03/12/2012 8:18 AM EST Procedure date: done today Procedure type: right Breast ultrasound guided biopsy of Lesion 2 Special Instructions: If Lesion 2 results are negative, then patient will be scheduled for a stereotactic biopsy of Lesion 1 calcifications Allergies: Review of patient's allergies indicates not on file. Medications: No current outpatient prescriptions on file. Anticoagulation status: none Imaging reviewed and procedural plan approved by Dr. SUDHA DYE MD documented in this encounter Plan of Treatment Not on file documented as of this encounter Procedures Procedure Name Priority Date/Time Associated Diagnosis Comments SURGICAL PATHOLOGY REPORT Routine 03/12/2012 9:19 AM EST MAMMO BREAST US LIMITED Routine 03/12/2012 8:00 AM EST Abnormal mammogram, unspecified documented in this encounter Results * Surgical Pathology Report (03/12/2012 9:19 AM EST) Surgical Pathology Report ? [facility] ? Provider: ?? SUDHA DYE ? Pt. Name: ?? LUPE CANO ? Acc #: ?[id number] ?Pt. ? Col Date: ?? 03/12/2012 ?/Sex: ?1945,(66 years),Female ? Rec Date: ?? 03/12/2012 ?LOC: ?[facility] ? SURGICAL PATHOLOGY ? ---Pathologic Diagnosis--- ? Needle biopsies: ?Right breast, lesion 2 of 2. ? 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 ? Microcalcificati ons: ??Associated with an obliterated duct. ? CR-0 ? 03/13/12 ? CCB ? 03/13/12 Verified by: ? Rai DO, Mackenzie C. ? Pathologist ? (Electronic Signature) ? The attending pathologist whose signature appears on this report has ? reviewed all diagnostic slides and has edited the gross and/or ? microscopic portion of the report in rendering the final pathologic ? diagnosis. ? ---Microscopic Description--- ? Slides reviewed, microscopic description not recorded. ? ---Gross Description--- ? Labeled/Fixative : ? Right breast lesion 2 of 2, formalin. ? Qty/Size/Weight: ?Five cylindrical cores of vasquez-white and ? yellow-white, fatty and fibrofatty tissue, ranging ? from 0.5 x 0.2 cm to 1.2 x 0.2 cm. ? Ischemic Time: ?5 minutes. ? Sections/Process ing: ??(T1) ??aje/SNS ? ---Clinical Information--- ? Specimen Submitted: ? A - Right Breast UsBx Lesion 2 of 2 (1 not biopsied today) ? Clinical History/Diagnosi s: ? Mass/LN vs IDC vs FAC ? Comment: ??Lesion 1 not biopsied today ? Report to: ? Roberto Estrada MD ? [facility] ? [address] [place] [address] ? [place] [address] ? [facility] ? Provider: ?? SUDHA DYE ? Pt. Name: ?? LUPE CANO ? Acc #: ?[id number] ?Pt. ? Col Date: ?? 03/12/2012 ?/Sex: ?1945,(66 years),Female ? Rec Date: ?? 03/12/2012 ?LOC: ?[facility] ? SURGICAL PATHOLOGY ? and ? Aileen Garcia [employer] ? [address] ? [address] ? [place] [address] MARICHUY BUIIUM 03/12/2012 9:19 AM EST Sudha Dye MD PATHOLOGY/CYTOLOGY O EL MARICHUY COLBY * Mammo breast US unilateral bilateral (03/12/2012 8:00 AM EST) Anatomical Region Laterality Modality Breast N/A Mammography 03/12/2012 8:00 AM EST Impressions 03/14/2012 10:56 AM EST Impression: Concordant Recommendation: bilateral staging MRI prior to definitive treatment. Patient notified 03/14/12. I performed the procedure without a resident. Home phone: [phone] Narrative 03/14/2012 10:56 AM EST ULTRASOUND GUIDED [...] specimens obtained. ?? A 17-gauge Ultracore (US) Billings marker clip was placed. Cranio-caudal and lateral digital mammography performed to determine biopsy marker placement, which was shown to be at the biopsy site. There were no procedural complications. Imaging diagnosis: IDC versus lymph node. Pathologic diagnosis: Invasive ductal carcinoma. ? Ductal carcinoma in-situ. ? Microcalcifications: ??Associated with an obliterated duct Procedure Note Sudha yDe MD - 03/14/2012 ULTRASOUND GUIDED BIOPSY OF [...] biopsy specimens obtained. A 17-gauge Ultracore (US) Billings marker clip was placed. Cranio-caudal and lateral [...] the procedure without a resident. Home phone: [phone] Bev Breen MD IMG MAMMO ORDERABLES documented in this encounter Visit Diagnoses Diagnosis Abnormal mammogram, unspecified documented in this encounter Care Teams Transmission Repairer Relationship Specialty Start Date End Date Aileen Garcia APRN PCP - General 02/28/12 08/05/13 documented as of this encounter
--- OUTSIDE RECORDS SUMMARY | 2023-11-07 12:02 | XMS_ITS | Encounter Summary ---
Author Organization [facility] [place] [address] Care Team Providers Care E Commerce Merchant Name Role Phone Aileen Garcia Nile FRANKLIN Primary Care Provider [phone] [phone] Encounter Details Date Type Department Care Team (Late st Contact Info) Description 03/26/2012 [place] [address] Kavitha Haynes, STIFF LEG OPERATOR [facility] DR HEMATOLOGY/[place] [address] Social History Tobacco Use Types Packs/Day Years Used Date Smoking Tobacco: Every Day Cigarettes Sex and Gender Information Value Date Recorded Sex Assigned at Not on file Gender Identity Not on file Sexual Orientation Not on file documented as of this encounter Progress Notes * Kavitha Haynes, SUBHASH - 03/26/2012 10:20 AM EST OFFICE OF CARE MANAGEMENT/CONTINUING IRON LAUNDER OPERATOR Reason for referral: Ashlyn Kenny is a 66 yr. old woman who lives in [place], [place], seen afterher consultation w/Dr. Stone for IDC/DCIS. She was here with two friends today, one of whom attended the consultation with her. Advance Directives: Completed. She lists her step-daughter, Yoselyn Kenny, as her agent. She will bring a copy for the chart. Living arrangements/social supports: She lives alone and works at [employer] where she has no vacation/sick days. She has good support from her two friends who are close as sisters. She will have transportation from them. Insurance/Finances: She has medicare A and B, a supplemental insurance and part D. Tobacco/drug/alcohol history: She continues to smoke .5 ppd and is motivated to quit. We discussed the CO monitor and, since she needed to wait for another appointment, was interested in having this measured. Chrystal Joy, RN, was available to meet with her to measure this and for further tobacco cessation discussion. She has rare alcohol consumption (1 glass of wine/3 weeks). Adjustment to illness/mental health concerns: She has been coping fairly well. Keeping busy at workand the support of her friends are a help as well as the company of her two cats. Strengths: Good supports. Plan: Chrystal Allen and Iris will continue to follow to assess and assist with psychosocial needs as sheprogresses through treatment. documented in this encounter Plan of Treatment Not on file documented as of this encounter Visit Diagnoses Not on filedocumented in this encounter Care Teams E Commerce Merchant Relationship Specialty Start Date End Date Aileen Garcia APRN PCP - General 02/28/12 08/05/13 documented as of this encounter
--- OUTSIDE RECORDS SUMMARY | 2023-11-07 12:02 | XMS_ITS | Encounter Summary ---
Author Organization [facility] Address [facility] [place] [address] Care Team Providers Care Pbx Teacher Name Role Phone Aileen Garcia NOEMI Primary Care Provider [phone]- [phone] Encounter Details Date Type Department Care Team (Latest Contact Info) Description 03/24/2012 11:02 AM EST - 03/24/2012 11:59 PM EST Hospital Encounter XRay at [address] [place] [address] CLINIC, Nasir Herring MD [facility] [place] [address] Breast cancer Discharge Disposition: Home Social History [...] Procedure Name Priority Date/Time Associated Diagnosis Comments XR CHEST PA AND LATERAL Routine 03/24/2012 11:11 AM EST Breast cancer documented in this encounter Results * XR chest routine [...] abnormality. Nasir Stone MD IMG DX ORDERABLES documented in this encounter Visit Diagnoses Diagnosis Breast cancer Malignant neoplasm of breast (female), unspecified site documented in this encounter Care Teams Pbx Teacher Relationship Specialty Start Date End Date Aileen Garcia, ENERGY PROJECT ENGINEER PCP - General 02/28/12 08/05/13 documented as of this encounter
--- OUTSIDE RECORDS SUMMARY | 2023-11-07 12:02 | XMS_ITS | Encounter Summary ---
Author Organization [facility] [place] [address] Care Team Providers Care Trains Service Conductor Name Role Phone Aileen Garcia APRN Primary Care Provider [phone] [phone] Encounter Details Date Type Department Care Team (Latest Contact Info) Description 03/26/2012 1:37 PM EST - 03/26/2012 11:59 PM EST Hospital [place] [address] Abnormal MRI, breast Social History Tobacco Use Types Packs/Day [...] Diagnosis Comments MAMMO DIRECT DIGITAL UNILATERAL Routine 03/26/2012 2:55 PM EST Abnormal MRI, breast documented in this encounter Results * Mammo stereotactic (04/01/2012 10:49 AM EST) Anatomical Region Laterality Modality Breast N/A Mammography 04/01/2012 10:4 9 AM EST Impressions 04/03/2012 9:32 AM EST Impression: concordant Recommendation: definitive treatment of ipsilateral cancer. ??f/u one year mammography of biopsy site (if mammography of the right breast is not performed earlier for BCT baseline). ??As discussed with Ms. Kenny by Dr. Caraballo on 04/03/12. ?? I [...] are present on specimen digital X-ray. A SMark Eviva-Stereo 2S-13 Bowtie marker clip was placed. Cranio-caudal and lateral digital mammography performed to determine biopsy marker placement, which was shown to be 1.5cm from the biopsy site in inferior and anterior directions. Satisfactory sampling was obtained. There were no procedural complications. Imaging diagnosis: FCD versus adenosis versus DCIS. Pathologic diagnosis: FCD Procedure Note Jefe Caraballo MD - 04/03/2012 VACUUM ASSISTED STEREOTACTIC GUIDED [...] for BCT baseline). As discussed with Ms. Kenny by Dr. Caraballo on 04/03/12. I performed the procedure without a resident. Jefe Caraballo MD [facility] [place] * Mammo direct digital unilateral (04/01/2012 10:48 AM EST) Anatomical Region Laterality Modality Breast N/A Mammography 04/01/2012 10:4 8 AM EST Impressions 04/03/2012 9:32 AM EST Impression: concordant Recommendation: definitive treatment of ipsilateral cancer. ??f/u one year mammography of biopsy site (if mammography of the right breast is not performed earlier for BCT baseline). ??As discussed with Ms. Kenny by Dr. Caraballo on 04/03/12. ?? I [...] are present on specimen digital X-ray. A SMark Eviva-Stereo 2S-13 Bowtie marker clip was placed. Cranio-caudal and lateral digital mammography performed to determine biopsy marker placement, which was shown to be 1.5cm from the biopsy site in inferior and anterior directions. Satisfactory sampling was obtained. There were no procedural complications. Imaging diagnosis: FCD versus adenosis versus DCIS. Pathologic diagnosis: FCD Procedure Note Jefe Caraballo MD - 04/03/2012 VACUUM ASSISTED STEREOTACTIC GUIDED [...] for BCT baseline). As discussed with Ms. Kenny by Dr. Caraballo on 04/03/12. I performed the procedure without a resident. Jefe Caraballo MD IMG MAMMO ORDERABLES * Mammo specimen (04/01/2012 10:48 AM EST) Anatomical Region Laterality Modality Breast N/A Mammography 04/01/2012 10:4 8 AM EST Impressions 04/03/2012 9:32 AM EST Impression: concordant Recommendation: definitive treatment of ipsilateral cancer. ??f/u one year mammography of biopsy site (if mammography of the right breast is not performed earlier for BCT baseline). ??As discussed with Ms. Kenny by Dr. Caraballo on 04/03/12. ?? I [...] are present on specimen digital X-ray. A SMark Eviva-Stereo 2S-13 Bowtie marker clip was placed. Cranio-caudal and lateral digital mammography performed to determine biopsy marker placement, which was shown to be 1.5cm from the biopsy site in inferior and anterior directions. Satisfactory sampling was obtained. There were no procedural complications. Imaging diagnosis: FCD versus adenosis versus DCIS. Pathologic diagnosis: FCD Procedure Note Jefe Caraballo MD - 04/03/2012 VACUUM ASSISTED STEREOTACTIC GUIDED [...] for BCT baseline). As discussed with Ms. Kenny by Dr. Caraballo on 04/03/12. I performed the procedure without a resident. Jefe Caraballo MD IM MAMMO ORDERABLES * Mammo direct digital unilateral (03/26/2012 2:55 [...] breast documented in this encounter Care Teams Trains Service Conductor Relationship Specialty Start Date End Date Aileen Garcia APRN PCP - General 02/28/12 08/05/13 documented as of this encounter
--- OUTSIDE RECORDS SUMMARY | 2023-11-07 12:02 | XMS_ITS | Encounter Summary ---
Author Organization [facility] Address [facility] [place] [address] Care Team Providers Care Local Coordinator Name Role Phone JoseAileen Nile FRANKLIN Primary Care Provider [phone] [phone] Encounter Details Date Type Department Care Team (Latest Contact Info) Description 03/26/2012 1:33 PM EST - 03/26/2012 11:59 PM EST Hospital Encounter [place] [address] Nasir Stone MD [facility] [address] Discharge Disposition: Home Social History Tobacco Use [...] on filedocumented in this encounter Care Teams Local Coordinator Relationship Specialty Start Date End Date Aileen Garcia APRN PCP - General 02/28/12 08/05/13 documented as of this encounter
--- OUTSIDE RECORDS SUMMARY | 2023-11-07 12:02 | XMS_ITS | Encounter Summary ---
Author Organization [facility] Address [facility] [place] [address] Care Team Providers Care Metrology Specialist Name Role Phone Jose Marianneelvia Nile FRANKLIN Primary Care Provider [phone] [phone] Encounter Details Date Type Department Care Team (Late st Contact Info) Description 03/26/2012 Notes [place] [address] Kavitha Haynes, SUPERVISOR TREATING AND PUMPING [facility] DR HEMATOLOGY/[place] [address] Social History Tobacco Use Types Packs/Day Years Used Date Smoking Tobacco: Every Day Cigarettes Sex and Gender Information Value Date Recorded Sex Assigned at Not on file Gender Identity Not on file Sexual Orientation Not on file documented as of this encounter Miscellaneous Notes * Advance Care Plan Note - Kavitha Haynes MSW - 03/27/2012 10:23 AM EST ADVANCE CARE PLANNING NOTE I. WHEN TO USE THIS FORM: This Advance Care Planning Note should be used for patients with decisional capacity who have not executed advance directives, such as a Durable Power of Card Cleaner for Health Care. DETERMINATION OF CAPACITY The basis for decisional capacity entails all of the following criteria. The patient, Ashlyn Kenny, must be able (in a general way) to understand: ?? Her condition ?? Treatment alternatives ?? Potential benefits and risks of proposed treatments/interventions The patient has the capacity to make decisions: Yes If the patient does not have decisional capacity, go no further. This form cannot be used. II. DESIGNATION OF DECISION MAKER The patient, Ashlyn Kenny, expresses the following preference: Designation of health care agent: The patient, Ashlyn Kenny, identifies the following individual to serve as a health care agent, authorized to speak for the individual in making medical treatment decisions in the future if he/she is unable to speak for him/herself. Name: Yoselyn Kenny Relationship to patient: Step-daughter III. OPTIONAL EXPRESSION OF PREFERENCES FOR SPECIFIC LIFE-PROLONGING TREATMENTS The patient, Ashlyn Kenny, if indicated below, expresses preferences for specific life-prolonging treatments to be used or withheld/withdrawn at a future time of incapacity, such as: *If the patient indicates a desire to avoid CPR at the present time, a Do Not Resuscitate order should be written AND a corresponding Code Status should be completed. IV: OTHERS PRESENT The following person/people were also present during the discussion. Name(s) with role or relationship to patient: V. OTHER COMMENTS Advance Directive documents reviewed with Ms. Kenny. She will complete and bring a copy for the chart. documented in this encounter Plan of Treatment Not on file documented as of this encounter Visit Diagnoses Not on filedocumented in this encounter Care Teams Metrology Specialist Relationship Specialty Start Date End Date Aileen Garcia APRN PCP - General 02/28/12 08/05/13 documented as of this encounter
--- OUTSIDE RECORDS SUMMARY | 2023-11-07 12:02 | XMS_ITS | Encounter Summary ---
Author Organization [facility] Address [facility] [place] [address] Care Team Providers Care Supervisor Pastry Name Role Phone Aileen Garcia Nile FRANKLIN Primary Care Provider +1- [phone] Encounter Details Date Type Department Care Team (Late st Contact Info) Description 03/10/2012 [place] [address] Bev Breen MD [facility] [place] [address] Abnormal mammogram, unspecified (Primary Dx) Social History Tobacco Use Types Packs/Day Years Used Date Smoking Tobacco: Never Assessed Sex and Gender Information Value Date Recorded Sex Assigned at Not on file Gender Identity Not on file Sexual Orientation Not on file documented as of this encounter Plan of Treatment Not on file documented as of this encounter Results * Mammo breast US unilateral bilateral (03/12/2012 8:00 AM EST) Anatomical Region Laterality Modality Breast N/A Mammography 03/12/2012 8:00 AM EST Impressions 03/14/2012 10:56 AM EST Impression: Concordant Recommendation: bilateral staging MRI prior to definitive treatment. Patient notified 03/14/12. I performed the procedure without a resident. Home phone: [phone] Narrative 03/14/2012 10:56 AM EST ULTRASOUND GUIDED [...] specimens obtained. ?? A 17-gauge Ultracore (US) [place] marker clip was placed. Cranio-caudal and lateral [...] biopsy specimens obtained. A 17-gauge Ultracore (US) [place] marker clip was placed. Cranio-caudal and lateral [...] the procedure without a resident. Home phone: [phone] Bev Breen MD IMG MAMMO ORDERABLES documented in this encounter Visit Diagnoses Diagnosis Abnormal mammogram, unspecified- Primary Abnormal mammogram, unspecified documented in this encounter Care Teams Supervisor Pastry Relationship Specialty Start Date End Date Aileen Garcia, MIS MANAGER PCP - General 02/28/12 08/05/13 documented as of this encounter
--- OUTSIDE RECORDS SUMMARY | 2023-11-07 12:02 | XMS_ITS | Encounter Summary ---
Author Organization [facility] Address [facility] [place] [address] Care Team Providers Care Parking Patroller Name Role Phone Aileen Garcia Nile FRANKLIN Primary Care Provider [phone] [phone] Encounter Details Date Type Department Care Team (Latest Contact Info) Description 03/24/2012 10:49 AM EST - 03/24/2012 11:59 PM EST Hospital [place] [id number] Nasir Stone MD [facility] [place] [address] Breast cancer Discharge Disposition: Home Social History [...] Procedure Name Priority Date/Time Associated Diagnosis Comments DIFFERENTIAL, AUTOMATED Routine 03/24/2012 10:55 AM EST CBC (WITH DIFF) Routine 03/24/2012 10:55 AM EST Breast cancer COMPREHENSIVE METABOLIC PANEL Routine 03/24/2012 10:55 AM EST Breast cancer documented in this encounter Results * Differential, Automated (03/24/2012 10:55 AM EST) Neutrophil % 65.6 34.0 - 71.0 % [facility] Neutrophil Absolute 5.52 1.50 - 6.30 x10(3)/mcL CERNER MILLENNIUM Lymph % 27.3 19.0 - 53.0 % CERNER MILLENNIUM Lymphocytes Abs 2.3 1.0 - 3.6 x10(3)/mcL CERNER MILLENNIUM Monocyte % 4.5 4.0 - 13.0 % CERNER MILLENNIUM Monocyte Abs 0.4 0.2 - 1.0 x10(3)/mcL CERNER MILLENNIUM Eos % 2.1 0.0 - 7.0 % CERNER MILLENNIUM Eosinophils Abs 0.2 0.0 - 0.5 x10(3)/mcL CERNER MILLENNIUM Basophil % 0.4 0.0 - 2.0 % CERNER MILLENNIUM Baso Absolute 0.0 0.0 - 0.2 x10(3)/mcL CERNER MILLENNIUM Immature Gran % 0.10 0.00 - 0.66 % CERNER MILLENNIUM Comment: Immature granulocytes(IG's)percentage and absolute count will include metamyelocytes, myelocytes, and promyelocytes. Blood smears from CBCs yielding IG's will be scanned manually for concordance. If this scan disagrees with the automated IG or if promyelocytes are noted, a manual differential will be performed. Immature Gran Absolute 0.01 0.00 - 0.05 x10(3)/mcL CERNER MILLENNIUM Blood specimen (specimen) 03/24/2012 10:55 AM EST 03/24/2012 11:04 AM EST Nasir Stone MD HEMATOLOGY ORDERAB LES CERNER MILLENNIUM * (ABNORMAL) CBC (with Diff) (03/24/2012 10:55 AM EST) White Blood Cell 8.4 4.0 - 10.0 [...] metabolic panel (non-fasting) (03/24/2012 10:55 AM EST) [facility] Glucose 89 60 - 199 mg/dL CERNER MILLENNIUM Comment:Diabetes: >=200 mg/d L plus symptoms Blood Urea Nitrogen 16 8 - 18 mg/dL CERNER MILLENNIUM Creatinine 0.81 0.70 - 1.20 mg/dL CERNER MILLENNIUM Comment: Please note that the pediatric reference intervals supplied above were not validated at [facility]. Results from pediatric patients should be interpreted [...] Lab Nasir Stone MD CHEMISTRY ORDERABL ES [facility] documented in this encounter Visit Diagnoses Diagnosis Breast cancer Malignant neoplasm of breast (female), unspecified site documented in this encounter Care Teams Parking Patroller Relationship Specialty Start Date End Date Aileen Garcia, NOEMI PCP - General 02/28/12 08/05/13 documented as of this encounter
--- OUTSIDE RECORDS SUMMARY | 2023-11-07 12:02 | XMS_ITS | Encounter Summary ---
Author Organization [facility] Address [facility] [place] [address] Care Team Providers Care Spindle Maker Name Role Phone Aileen Garcia NOEMI Primary Care Provider +1 [phone] Encounter Details Date Type Department Care Team (Late st Contact Info) Description 03/12/2012 [place] [address] Sudha Spring MD [facility] DR [place]AGNOST[place] [address] Abnormal ultrasound of breast (Primary Dx) Social History Tobacco Use [...] the procedure without a resident. Home phone: [phone] Narrative 03/14/2012 10:56 AM EST ULTRASOUND GUIDED [...] specimens obtained. ?? A 17-gauge Ultracore (US) [place] marker clip was placed. Cranio-caudal and lateral [...] biopsy specimens obtained. A 17-gauge Ultracore (US) [place] marker clip was placed. Cranio-caudal and lateral [...] the procedure without a resident. Home phone: [phone] Sudha Spring MD IMG MAMMO ORDERABLES * Mammo- US biopsy (03/12/2012 9:13 AM EST) Anatomical Region Laterality Modality Breast N/A Mammography 03/12/2012 9:13 AM EST Impressions 03/14/2012 10:56 AM EST Impression: Concordant Recommendation: bilateral staging MRI prior to definitive treatment. Patient notified 03/14/12. I performed the procedure without a resident. Home phone: [phone] Narrative 03/14/2012 10:56 AM EST ULTRASOUND GUIDED [...] specimens obtained. ?? A 17-gauge Ultracore (US) [place] marker clip was placed. Cranio-caudal and lateral [...] biopsy specimens obtained. A 17-gauge Ultracore (US) [place] marker clip was placed. Cranio-caudal and lateral [...] the procedure without a resident. Home phone: [phone] Sudha Spring MD IMG MAMMO ORDERABLES documented in this encounter Visit Diagnoses Diagnosis Abnormal ultrasound of breast- Primary Other (abnormal) findings on radiological examination of breast Abnormal ultrasound of breast Other (abnormal) findings on radiological examination of breast Abnormal ultrasound of breast Other (abnormal) findings on radiological examination of breast documented in this encounter Care Teams Spindle Maker Relationship Specialty Start Date End Date Aileen Garcia, CHIEF TECHNOLOGY OFFICER PCP - General 02/28/12 08/05/13 documented as of this encounter
--- OUTSIDE RECORDS SUMMARY | 2023-11-07 12:02 | XMS_ITS | Encounter Summary ---
Author Organization [facility] Address [facility] [place] [address] Care Team Providers Care Ross Carrier Driver Name Role Phone Marianne Garciaelvia Nile FRANKLIN Primary Care Provider [phone] [phone] Encounter Details Date Type Department Care Team (Late st Contact Info) Description 03/14/2012 [place] [id number] Kavitha Haynes, ELECTRON MICROSCOPIST [facility] DR HEMATOLOGY/[place] [address] Social History Tobacco Use Types Packs/Day Years Used Date Smoking Tobacco: Never Assessed Sex and Gender Information Value Date Recorded Sex Assigned at Not on file Gender Identity Not on file Sexual Orientation Not on file documented as of this encounter Miscellaneous Notes * Telephone Encounter - Kavitha Haynes, ELECTRON MICROSCOPIST - 03/14/2012 11:35 AM EST Office of Care Management/Continuing Hostess Cashier Pager #[phone] A: PC to Ms. Kenny to offer support after she spoke w/the radiologist about the results of her breast biopsy which showed IDC. She lives alone and works at [employer] where she has no vacation days though does have insurance to supplement her medicare A and B. She has good support from her neighbors who drove her to the biopsy appointment. She does not have an answering machine and has difficulty making personal calls while at work. Her schedule changes every two weeks. She will be mailed writteninformation and appointment times. Chrystal Allen and Iris will follow for continued assessment and assistance with psychosocial needs. documented in this encounter Plan of Treatment Not on file documented as of this encounter Visit Diagnoses Not on filedocumented in this encounter Care Teams Ross Carrier Driver Relationship Specialty Start Date End Date Aileen Garcia APRN PCP - General 02/28/12 08/05/13 documented as of this encounter
--- OUTSIDE RECORDS SUMMARY | 2023-11-07 12:02 | XMS_ITS | Encounter Summary ---
Author Organization [facility] [place] [address] Care Team Providers Care Bomb Squad Officer Name Role Phone Aileen Garcia APRN Primary Care Provider [phone]- [phone] Encounter Details Date Type Department Care Team (Latest Contact Info) Description 04/01/2012 9:13 AM EST - 04/01/2012 11:59 PM EST Hospital [place] [address] Abnormal MRI, breast Social History Tobacco Use [...] Name Priority Date/Time Associated Diagnosis Comments MAMMO STEREOTACTIC BIOPSY Routine 04/01/2012 10:49 AM EST Abnormal MRI, breast SURGICAL PATHOLOGY REPORT Routine 04/01/2012 10:47 AM EST SPECIMEN TO PATHOLOGY (NON-OR) Routine 04/01/2012 10:21 AM EST Abnormal MRI, breast documented in [...] are present on specimen digital X-ray. A [employer] Eviva-Stereo 2S-13 Bowtie marker clip was placed. Cranio-caudal and lateral digital mammography performed to determine biopsy marker placement, which was shown to be 1.5cm from the biopsy site in inferior and anterior directions. Satisfactory sampling was obtained. There were no procedural complications. Imaging diagnosis: FCD versus adenosis versus DCIS. Pathologic diagnosis: FCD Procedure Note Bakari Caraballo MD - 04/03/2012 VACUUM ASSISTED STEREOTACTIC [...] calcifications are present on specimendigital X-ray. A [employer] Eviva-Stereo 2S-13 Bowtie marker clip was placed. [...] I performed the procedure without a resident. Bakari Caraballo MD [facility] [place] [place] MAMMO ORDERABLES * Surgical Pathology Report (04/01/2012 10:47 AM EST) Surgical Pathology Report ? [facility] ? Provider: ?? BAKARI CARABALLO ?? Pt. Name: ?? LUPE KENNY ? Acc #: ?[id number] ?Pt. ? Col Date: ?? 04/01/2012 ?/Sex: ?1945,(66 years),Female ? Rec Date: ?? 04/01/2012 ?LOC: ?4L ? SURGICAL PATHOLOGY ? ---Pathologic Diagnosis--- ? Needle biopsies: ?Right breast (Lesion 3) ? Diagnosis: ?Fibrocystic changes including columnar cell ? change/hyperplasi a, mild usual ductal hyperplasia, apocrine metaplasia, and ? cysts ? Microcalcificatio ns: ??Present, associated with benign ducts and lobules ? CR-0 ? 04/02/12 ? NESS ? 04/02/12 Verified by: ? Tyler STEPHEN, Kishore June ? Pathologist ? (Electronic Signature) ? The attending pathologist whose signature appears on this report has ? reviewed all diagnostic slides and has edited the gross and/or ? microscopic portion of the report in rendering the final pathologic ? diagnosis. ? ---Comment--- ? Additional levels (A1) were examined. ? ---Microscopic Description--- ? Slides reviewed, microscopic description not recorded. ? ---Gross Description--- ? Specimen: ?Received in two containers. ? 1 - Labeled/Fixative: ??Calcs, formalin. ? Qty/Size/Weight: ? Three yellow-white needle core biopsies, varying ?from 1.8 x 0.3 cm to 2.5 x 0.3 cm. ? Sections/Processi ng: ?? Submitted in (A1). ? 2 - Labeled/Fixative: ??No calcs, formalin. ? Qty/Size/Weight: ? Four yellow-white needle core biopsies, varying from ?2.2 x 0.3 cm to 2.6 x 0.3 cm. ? Sections/Processi ng: ?? Submitted in (A2-A3). ? Ischemic Time: ? 10 minutes. ??(T3) ??aje/SHB ? ---Clinical Information--- ? Specimen Submitted: ? A - Right breast SBx, 9 gauge with and without calcifications ? [facility] ? Provider: ?? BAKARI CARABALLO ?? Pt. Name: ?? LUPE KENNY ? Acc #: ?[id number] ?Pt. ? Col Date: ?? 04/01/2012 ?/Sex: ?1945,(66 years),Female ? Rec Date: ?? 04/01/2012 ?LOC: ?4L ? SURGICAL PATHOLOGY ? Clinical History/Diagnosis : ? Calcs, lesion 3, H/O ipsilat breast Ca; FCD, adenosis, DCIS JOSIECALLI HOLMNANCY 04/01/2012 10:4 7 AM EST Bakari Caraballo MD PATHOLOGY/CYTOLOGY O RDERABLES [facility] * Specimen to Pathology (NON-OR) (04/01/2012 10:21 AM EST) AP Specimen 04/01/2012 10:2 1 AM EST 04/01/2012 10:21 AM EST Narrative JOSIECALLI HOLMPILARIUM - 04/01/2012 10:21 AM EST Specimen requisition ordered. ??Separate Pathology report to follow Bakari Caraballo MD PATHOLOGY/CYTOLOGY O [facility] documented in this encounter Visit Diagnoses Diagnosis Abnormal MRI, breast Other (abnormal) findings on radiological examination of breast documented in this encounter Care Teams Bomb Squad Officer Relationship Specialty Start Date End Date Aileen Garcia, NOEMI PCP - General 02/28/12 08/05/13 documented as of this encounter
--- OUTSIDE RECORDS SUMMARY | 2023-11-07 12:02 | XMS_ITS | Encounter Summary ---
Author Organization [facility] Address [facility] [place] [address] Care Team Providers Care Banquet Prep Cook Name Role Phone Aileen Garcia Nile FRANKLIN Primary Care Provider [phone]- [phone] Encounter Details Date Type Department Care Team (Latest Contact Info) Description 03/04/2012 11:35 AM EST - 03/04/2012 11:59 PM EST Hospital Encounter XRay at [address] [place] [address] CLINIC, DR ALARCON Discharge Disposition: Home Social History Tobacco Use Types Packs/Day Years Used Date Smoking Tobacco: Never Assessed Sex and Gender Information Value Date Recorded Sex Assigned at Not on file Gender Identity Not on file Sexual Orientation Not on file documented as of this encounter Plan of Treatment Not on file documented as of this encounter Procedures Procedure Name Priority Date/Time Associated Diagnosis Comments REQUEST FOR 2ND READ MAMMO Routine 03/04/2012 11:21 AM EST documented in this encounter Results * Request for 2nd read Mammo (03/04/2012 11:21 AM EST) Anatomical Region Laterality Modality Other 03/04/2012 11:2 1 AM EST Narrative 03/07/2012 3:06 PM EST INTERPRETATION OF OUTSIDE MAMMOGRAMS (PERFORMED ON 02/07/12 AND 02/26/12) FROM [facility] DATED 03/06/12: ?? DIAGNOSTIC IMAGING SUMMARY: ?? RIGHT BREAST LESION 1: SUSPICIOUS (BIRADS Category 4C-moderate concern for malignancy). ?? Finding: Microcalcifications. ?? Size: 6mm in diameter. ?? Location: Right upper, outer quadrant at 1100, approximately 12cm to the nipple. ?? Recommendation: Biopsy. ?? RIGHT BREAST LESION 2: SUSPICIOUS (BIRADS Category 4B-intermediate concern for malignancy). ?? Finding: Mass. ?? Size: 10mm. ?? Location: Right upper, outer quadrant at 1100, approximately 12cm to the nipple, 1cm posterior to the microcalcifications. ?? Recommendation: Biopsy. An ultrasound will be performed initially to evaluate whether the mass is amenable to percutaneous biopsy. If it is not visualized, a stereotactic biopsy of the microcalcifications will be performed. ?? LEFT BREAST: The Left breast mammogram is NEGATIVE (BIRADS Category 1). ?? NARRATIVE: ?? CLINICAL INDICATION: I have been asked to consult on this patient by Aileen Garcia NP because she believes a review of this study may change or alter the care of this patient. ?? HISTORY: Right breast calcifications (BIRADS Category 4) on mammograms dated 02/07/12 from [facility]. ?? TECHNIQUE: Outside mammograms from [facility] dated 02/07/12 and 02/26/12 including bilateral CC, MLO and mag CC and MLO views of the Right breast with comparison mammograms dated 06/22/02. ?? FINDINGS: There is a 6mm cluster of pleomorphic microcalcifications in the Right upper, outer quadrant at 1100, 12cm from the nipple which were not on the 2003 exam. Additionally noted is a low density, partially circumscribed and spiculated mass 1cm posterior to the microcalcifications in the Right upper, outer quadrant. The mass measures approximately 10mm in greatest dimension. ? The Left breast is normal in appearance. ?? The breast density is predominantly fatty. Film and interpretation reviewed by the attending Procedure Note Bev Breen MD - 03/07/2012 INTERPRETATION OF OUTSIDE MAMMOGRAMS (PERFORMED ON 02/07/12 AND 02/26/12)FROM [facility] DATED 03/06/12: DIAGNOSTIC IMAGING SUMMARY: RIGHT BREAST LESION 1: SUSPICIOUS (BIRADS Category 4C-moderate concern for malignancy). Finding: Microcalcifications. Size: 6mm in diameter. Location: Right upper, outer quadrant at 1100, approximately 12cm to the nipple. Recommendation: Biopsy. RIGHT BREAST LESION 2: SUSPICIOUS (BIRADS Category 4B-intermediate concernfor malignancy). Finding: Mass. Size: 10mm. Location: Right upper, outer quadrant at 1100, approximately 12cm to the nipple, 1cm posterior to the microcalcifications. Recommendation: Biopsy. An ultrasound will be performed initially toevaluate whether the mass is amenable to percutaneous biopsy. If it is notvisualized, a stereotactic biopsy of the microcalcifications will be performed. LEFT BREAST: The Left breast mammogram is NEGATIVE (BIRADS Category 1). NARRATIVE: CLINICAL INDICATION: I have been asked to consult on this patient byAileen Garcia NP because she believes a review of this study may change or alterthe care of this patient. HISTORY: Right breast calcifications (BIRADS Category 4) on mammogramsdated 02/07/12 from [facility]. TECHNIQUE: Outside mammograms from [facility] dated 02/07/12 and 02/26/12including bilateral CC, MLO and mag CC and MLO views of the Right breast withcomparison mammograms dated 06/22/02. FINDINGS: There is a 6mm cluster of pleomorphic microcalcifications in the Right upper, outer quadrant at 1100, 12cm from the nipple which were noton the 2002 exam. Additionally noted is a low density, partially circumscribedand spiculated mass 1cm posterior to the microcalcifications in the Rightupper, outer quadrant. The mass measures approximately 10mm in greatestdimension. The Left breast is normal in appearance. The breast density is predominantly fatty. Film and interpretation reviewed by the attending Aileen Garcia APRN IMG OUTSIDE INTERPR ETATION ORDERABLES documented in this encounter Visit Diagnoses Not on filedocumented in this encounter Care Teams Banquet Prep Cook Relationship Specialty Start Date End Date Aileen Garcia APRN PCP - General 02/28/12 08/05/13 documented as of this encounter
--- OUTSIDE RECORDS SUMMARY | 2023-11-07 12:02 | XMS_ITS | Encounter Summary ---
Author Organization [facility] Address [facility] [place] [address] Care Team Providers Care Wireless Sales Representative Name Role Phone JoseAileen Nile FRANKLIN Primary Care Provider [phone]- [phone] Encounter Details Date Type Department Care Team (Latest Contact Info) Description 03/19/2012 7:30 PM EST - 03/19/2012 11:59 PM EST Hospital [place] [id number] CLINIC, Nasir Herring MD [facility] [place] [address] Breast cancer Discharge Disposition: Home Social History [...] Pressure - - Pulse - - Temperature - - Respiratory Rate - - Oxygen Saturation - - Inhaled Oxygen Concentration - - Weight 81.6 kg (180 lb) 03/19/2012 6:09 AM EST Height - - Body Mass Index - - documented in this encounter Miscellaneous Notes * Miscellaneous - Provider, Scanning - 04/07/2012 9:09 AM EST documented in this encounter Plan of Treatment Not on file documented as of this encounter Procedures Procedure Name Priority Date/Time Associated Diagnosis Comments MRI BREAST WWO CONTRAST BILAT Routine 03/19/2012 8:06 PM EST Breast cancer documented in this encounter Results * MRI breast diagnostic bilateral with/WO contrast [...] contrast enhancement curve analysis was performed, using [employer] software. Background enhancement pattern (first post gadolinium [...] appearing axillary nodes: Bilaterally. Nasir Stone MD IMG MRI ORDERABLES documented in this encounter Visit Diagnoses Diagnosis Breast cancer Malignant neoplasm of breast (female), unspecified site documented in this encounter Administered Medications Inactive Administered Medications - up to 3 most recent administrations Medication Order MAR Action Action Date Dose Rate Site gadopentetate dimeglumine (MAGNEVIST) injection 16 mL 16 mL (0.2 mL/kg/dose ? 81.6 kg), Intravenous, ONCE PRN, Per Protocol, Starting on Sat03/19/12 at 0610, 1 dose, Until Sat03/19/12 at 1949 Given 03/19/2012 7:49 PM EST 16 mLs documented in this encounter Care Teams Wireless Sales Representative Relationship Specialty Start Date End Date Aileen Garcia, NOEMI PCP - General 02/28/12 08/05/13 documented as of this encounter
--- OUTSIDE RECORDS SUMMARY | 2023-11-07 12:02 | XMS_ITS | Encounter Summary ---
Author Organization [facility] Address [facility] [place] [address] Care Team Providers Care Electric Meter Tester Helper Name Role Phone JoseAileen cobb Nile FRANKLIN Primary Care Provider +1 [phone] Encounter Details Date Type Department Care Team (Late st Contact Info) Description 04/01/2012 [place] [address] Kavitha Haynes, TERRITORY ACCOUNT REPRESENTATIVE [facility] DR HEMATOLOGY/[place] [address] Social History Tobacco Use Types Packs/Day Years Used Date Smoking Tobacco: Every Day Cigarettes Sex and Gender Information Value Date Recorded Sex Assigned at Not on file Gender Identity Not on file Sexual Orientation Not on file documented as of this encounter Progress Notes * Kavitha Haynes MSW - 04/01/2012 11:39 AM EST Office of Care Management/Continuing Citrix Administrator Pager #[phone] A: Ms. Kenny seen with her friends. I copied her Advance Directives which will be scanned into therecord. She also gave me [employer] Request for Leave of Absence paperwork to be completed prior to surgery 04/07/12 which was [address] Dr. Stone's office. She requested that the forms be mailed back to her. Questions answered about the day of surgery. A [employer] brochure also given to her. We discussed the emergency fund and the CPSP funds, she will fax bills for consideration. P: Continue to assess and assist with psychosocial needs documented in this encounter Plan of Treatment Not on file documented as of this encounter Visit Diagnoses Not on filedocumented in this encounter Care Teams Electric Meter Tester Helper Relationship Specialty Start Date End Date Aileen Garcia APRN PCP - General 02/28/12 08/05/13 documented as of this encounter
--- OUTSIDE RECORDS SUMMARY | 2023-11-07 12:02 | XMS_ITS | Encounter Summary ---
Author Organization [facility] Address [facility] [place] [address] Care Team Providers Care Workplace Relations Adviser Name Role Phone Aileen Garcia Nile FRANKLIN Primary Care Provider [phone]- [phone] Reason for Visit * Reason Onset Date Comments Other 03/26/2012 Tobacco cessatio n referral rec'd from SUBHASH Laurent in [facility]. [id number] tobacco treatment intervention with Ms Kenny. Please refer to Documentation. Encounter Details Date Type Department Care Team (Late st Contact Info) Description 03/26/2012 [place] [phone] Chrystal Joy RN Other (Tobacco cessation referral rec'd from SUBHASH Laurent in [facility]. [id number] tobacco treatment intervention with Ms Kenny. Please refer to Documentation.) Social History Tobacco Use Types Packs/Day Years Used Date Smoking Tobacco: Every Day Cigarettes Sex and Gender Information Value Date Recorded Sex Assigned at Not on file Gender Identity Not on file Sexual Orientation Not on file documented as of this encounter Miscellaneous Notes * Telephone Encounter - Chrystal Joy RN - 03/26/2012 2:05 PM EST Tobacco Treatment Note: Tobacco Cessation referral received from SUBHASH Atkinson, [facility] Clinic. [id number] tobacco treatment intervention s/p Ms Kenny's Clinic Visit. S: I have been a smoker for 50+ years, smoking 10+ cigarettes a day, especially since I have recentstress. I enjoy smoking. I have never tried to quit smoking before. I smoke in my home and in my car. I did use hypnosis for weight reduction and I was successful. I have a lot of support from my friends to quit. I should quit smoking soon, I have having surgery on April 07. O/A: Ms Kenny is pre-contemplative stage of changing her smoking habits. Discussed the health benefits of her choosing to stop smoking specific to her. Reviewed the 7 FDA approved smoking cessation medications and their effects. Discussed alternative methods of dealing with her cravings. Discussedthe [place] Quitline, free telephonic tobacco cessation counseling service (8-765-PBEUNOW) which also offers free nicotine gum, lozenge or patches if her pharmacy plan does not cover OTC medications. Dicussed [facility] in [facility] having group sessions for tobacco cessation( ) Migdalia Lorie group meetings held Saturday 6-7.pm. Reviewed the [facility] Free tobacco treatment clinic held Saturday and 9:30-11:30 in the [facility] Education Classroom in [employer], . Discussed strategies of taking smoking out of the house and out of her car to begin to develop a plan for quitting smoking. Plan: Ms Kenny is thinking about quitting smoking. She now has multiple tobacco treatment resources in her local area as well as the [place] Quitline. She states she will try the nicotine lozenge and think about using the nicotine 14mg patch when she sets a quit date. [facility] (810-493-8277) and will call as she identifies the need. Chrystal Joy RN, MS, C-TTS 1956 documented in this encounter Plan of Treatment Not on file documented as of this encounter Visit Diagnoses Not on filedocumented in this encounter Care Teams Workplace Relations Adviser Relationship Specialty Start Date End Date Aileen Garcia APRN PCP - General 02/28/12 08/05/13 documented as of this encounter
--- OUTSIDE RECORDS SUMMARY | 2023-11-07 12:02 | XMS_ITS | Encounter Summary ---
Author Organization [facility] Address [facility] [place] [address] Care Team Providers Care Explosive Ordnance Specialist Name Role Phone Aileen Garcia Nile FRANKLIN Primary Care Provider [phone] Reason for Visit * Reason Comments Breast Cancer Encounter Details Date Type Department Care Team (Late st Contact Info) Description 03/26/2012 9:30 AM EST Office Visit [place] [address] Nasir Stone MD [facility] [place] [address] Breast cancer (Primary Dx) Discharge Disposition: Home [...] Taken Comments Blood Pressure - - Pulse 70 03/26/2012 9:12 AM EST Temperature 36.4 ??C (97.5 ??F) 03/26/2012 9:12 AM ES T Respiratory Rate 16 03/26/2012 9:12 AM EST Oxygen Saturation - - Inhaled Oxygen Concentration - - Weight 81.8 kg (180 lb 5.4 oz) 03/26/2012 9:12 A M EST Height - - Body Mass Index - - documented in this encounter Progress Notes * Nasir Stone MD - 03/26/2012 10:06 AM EST Diagnosis: Invasive ductal carcinoma of the right breast. Reason for Evaluation: patient referred for surgical consultation by Dr. Spring of Radiology. History of Present Illness: The patient is a 66-year-old woman who recently underwent bilateral routine screening mammography with the finding of a density in the upper central portion of the right breast with adjacent associated microcalcifications. This appeared to be new and suspicious and therefore she underwent stereotactic biopsy, which revealed invasive ductal carcinoma with DCIS. The patient then had a complete workup including bilateral staging MRI, which indicated a focal area of 15 x 5 mm at 11:30 in the right breast 9 cm from the nipple. Also, there was an enhancement of an area underneath the right nipple, which recommended additional views, which the patient will have at 2 o'clock this afternoon. This is a low index of suspicion. The nodes were negative and the left breast negative. Additionally she had a negative chest x-ray and a normal CBC, basic metabolic panel, and liver function tests. She comes in for further discussion regarding surgical management of her newly diagnosed, apparently focal right breast cancer. Her past medical history is essentially unremarkable other than she has a 50-pack year smoking history. No significant surgical history in the past. She denies any specific drug allergies. Family history is negative for breast and ovarian cancer. Examination: In general the patient is a well-developed, well-nourished female in no apparent distress. She is oriented x3. Vital signs are per the nursing notes. Examination of the head and neck: Pupils are equal and reactive. Sclerae are nonicteric. No gross abnormalities of ear, nose, or throat. Lymphatics: No palpable cervical, supraclavicular, or axillary adenopathy. Upper extremities have full range of motion without evidence of lymphedema. Breast exam: The breasts are symmetrical. There are no obvious skin or nipple changes. There is a core biopsy site in the lateral aspect of the right breast; otherwise, no palpable abnormalities noted in either breast. The abdomen is soft without palpable abnormality. Assessment: Focal right breast cancer as described. Plan: I described several possibilities of surgical management including partial mastectomy versus mastectomy. The patient opts for a partial mastectomy. This will be done as an outpatient under general anesthesia requiring wire localization and a sentinel lymph node biopsy. The patient is aware of potential complications of surgery including bleeding, infection, and seroma, as well as upper inner arm numbness. She is also aware of the necessity of negative surgical margins prior to proceeding to radiation. documented in this encounter Plan of Treatment Not on file documented as of this encounter Visit Diagnoses Diagnosis Breast cancer- Primary Malignant neoplasm of breast (female), unspecified site documented in this encounter Care Teams Explosive Ordnance Specialist Relationship Specialty Start Date End Date Aileen Garcia, NOEMI PCP - General 02/28/12 08/05/13 documented as of this encounter
--- OUTSIDE RECORDS SUMMARY | 2023-11-07 12:02 | XMS_ITS | Encounter Summary ---
Author Organization [facility] Address [facility] [place] [address] Care Team Providers Care Spring Tier Name Role Phone Aileen Garcia APRN Primary Care Provider [phone] Encounter Details Date Type Department Care Team (Late st Contact Info) Description 04/01/2012 [place] [address] Bakari Caraballo MD [facility] [place] [address] Social History Tobacco Use Types Packs/Day Years Used Date Smoking Tobacco: Every Day Cigarettes Sex and Gender Information Value Date Recorded Sex Assigned at Not on file Gender Identity Not on file Sexual Orientation Not on file documented as of this encounter Progress Notes * Bakari Caraballo MD - 04/01/2012 8:04 AM EST Procedure date: done today Procedure type: right Breast stereotactic needle biopsy Special Instructions: none Allergies: Review of patient's allergies indicates no known allergies. Medications: No current outpatient prescriptions on file. Anticoagulation status: none Imaging reviewed and procedural plan approved by Dr. BAKARI CARABALLO MD documented in this encounter Plan of Treatment Not on file documented as of this encounter Visit Diagnoses Not on filedocumented in this encounter Care Teams Spring Tier Relationship Specialty Start Date End Date Aileen Garcia APRN PCP - General 02/28/12 08/05/13 documented as of this encounter
--- OUTSIDE RECORDS SUMMARY | 2023-11-07 12:02 | XMS_ITS | Encounter Summary ---
Author Organization [facility] [place] [place] [address] Care Team Providers Care Gate Shear Operator Name Role Phone Aileen Garcia APRN Primary Care Provider [phone] Encounter Details Date Type Department Care Team (Latest Contact Info) Description 04/01/2012 9:13 AM EST - 04/01/2012 11:59 PM [facility] Hospital En[place] [address] Abnormal MRI, breast Social History Tobacco Use [...] Diagnosis Comments MAMMO DIRECT DIGITAL UNILATERAL Routine 04/01/2012 10:48 AM EST Abnormal MRI, breast documented in this encounter Results * Mammo direct digital unilateral (04/01/2012 10:48 [...] breast documented in this encounter Care Teams Gate Shear Operator Relationship Specialty Start Date End Date Aileen Garcia APRN PCP - General 02/28/12 08/05/13 documented as of this encounter
[2023-11-07 16:25] LABS: Hemoglobin A1C 5.6 % (<5.7)
[2023-11-07 18:09] LABS: ALT 20 U/L (14-59); AST 18 U/L (15-37); Albumin 3.6 g/dL (3.4-5.0); Alkaline Phosphatase 84 U/L (46-116); Anion Gap 7.6 mmol/L (3-11); BUN 19 mg/dL (7-18); Bilirubin, Total 0.68 mg/dL (0.2-1.0); CO2 31.4 mmol/L (21.0-32.0); CREATININE 1.1 mg/dL (0.55-1.02); Calcium 9.8 mg/dL (8.5-10.1); Calculated LDL 117 mg/dL (<100); Chloride 104 mmol/L (98-107); Cholesterol 217 mg/dL (<200); Estimated GFR 51.75 (mL/min/1.73m2); Glucose 97 mg/dL (74-106); HDL Cholesterol 73 mg/dL (40-60); Potassium 4.6 mmol/L (3.5-5.1); Sodium 143 mmol/L (136-145); TSH (W/Ref FT4) 1.71 uIU/mL (0.36-3.74); Total Protein 7.2 g/dL (6.4-8.2); Triglyceride 139 mg/dL (<150)
== END 2023-11-07 11:58 | disposition home or self-care (01) ==
LOC: NCHCN 11:57
PROVIDERS: Visit Provider Nurse Practitioner Family
DX: I10 Essential (primary) hypertension (principal)
CPT/HCPCS: 80053; 80061; 83036; 84443

== ENCOUNTER 2024-02-03 01:45 | Outpatient (CLI) | payer MEDICARE, SELFPAY ==
--- NOTE | 2024-02-03 | DI.MAMMO_ITS ---
Exam(s) MG MAMMO SCREENING 60 MIN DUR EXAM: MG MAMMO SCREENING 60 MIN DUR CLINICAL HISTORY: Screening, Z12.31; h/o breast CA TECHNIQUE: Mammograms were interpreted according to the usual protocol including computer analysis w [employer] CAD system, tomosynthesis and C-view imaging. COMPARISON: No exams were available for comparison FINDINGS: The breasts are composed of scattered fibroglandular densities, Breast Density category B. No suspicious masses or suspicious microcalcifications are seen. Post lumpectomy scarring is again n oted in the upper outer quadrant of the right breast. Stable skin thickening. Benign calcifications . No skin thickening or abnormal axillary lymph nodes are seen. There has been no significant change from prior exams. IMPRESSION: BI-RADS Category 2 - Benign Findings Yearly screening mammography is recommended. Breast Density - Category B, scattered fibroglandular densities. A negative radiographic report should not delay biopsy if a dominant or clinically suspicious mass is present. Up to ten percent of cancers are not identified on mammography. A negative report may reinforce clinical impression. Adenosis and dense breasts may obscure an underlying neoplasm. False positive reports average 6 to 10%. Patient will receive a letter notifying them of these results.
== END 2024-02-03 02:05 ==
PROVIDERS: PCP Nurse Practitioner Family; Visit Provider Nurse Practitioner Family
DX: Z12.31 Encounter for screening mammogram for malignant neoplasm of breast (principal); D24.9 Benign neoplasm of unspecified breast; R92.323 Mammographic fibroglandular density, bilateral breasts
CPT/HCPCS: 77063; 77067

== ENCOUNTER 2024-07-05 12:52 | Inpatient (IN) | payer MEDICARE, SELFPAY ==
[2024-07-05] VITALS (66 sets, daily range): BP systolic 90–160; BP diastolic 44–137; PULSE 69–113; RESP 13–27; TEMP 35.1–36.8; O2SAT 81–98
--- NOTE | 2024-07-05 | DI.RAD_ITS ---
Exam(s) XR KNEE RT 3V AP,LAT,NIKKIE EXAM: XR KNEE RT 3V AP,LAT,NIKKIE CLINICAL HISTORY: found down, right knee effusion/bruising. TECHNIQUE: 2D digital imaging was performed. COMPARISON: CR KNEES BILAT AP STANDING from 04/06/2015 CR XR KNEE LT 3V AP,LAT,NIKKIE from 07/05/2024 FINDINGS: 3 views There appears to be a nondisplaced subtle fracture in the patella at the junction of the mid and uppe r thirds, this superimposed upon advanced degenerative changes in the patellofemoral compartment. Th ere is a prominent joint effusion evident-probable hemarthrosis. Advanced degenerative changes in th e medial lateral compartments are noted. IMPRESSION: There appears to be a subtle right knee patellar fracture, with minimal displacement. Large joint effusion-hemarthrosis evident. DATA REPOSITORY: RADIATION DOSE DELIVERED:
--- NOTE | 2024-07-05 13:00 | DI.CT_ITS ---
Exam(s) CT HEAD CERVICAL SPINE WO EXAM: CT HEAD CERVICAL SPINE WO CLINICAL HISTORY: fall, ams. TECHNIQUE: Imaging Protocol: Axial computed tomography images with coronal and sagittal reformatted images were created and reviewed COMPARISON: No exams were available for comparison FINDINGS: BRAIN: There is a hematoma over the lateral right side of the face and right frontal temporal region There are no skull fractures nor fluid in the visualized paranasal sinuses. There is no evidence of acute intracranial hemorrhage, mass effect, or shift of midline structures. There are no extra-axial fluid collections. The ventricles are not enlarged or shifted and there is no blood within the ventricular system nor within the basal cisterns. Abundant bilateral periventricular hypodensity consistent with chronic small vessel disease. There i s mild bilateral symmetrical atrophy. No obvious acute territorial infarct. CERVICAL SPINE: There is no evidence of acute fracture nor significant listhesis. No significant prevertebral soft t issue swelling. There is multilevel disc space narrowing throughout the cervical spine. There are bridging anterior osteophytes at C2-3 and C3-4 levels. Mild facet arthropathy. There is no facet joint malalignment. There is calcification noted in the supraspinous ligament. No significant osseous lesions. IMPRESSION: No acute intracranial findings on this noninfused CT scan of the brain.Chronic small-vessel white mat ter ischemic changes evident. Also mild-moderate atrophy. No evidence of cervical spine fracture, malalignment, nor acute compromise of the cervical spinal can al. Multilevel chronic degenerative disc disease. Mild multilevel facet arthropathy. No facet gaurav lignment. RADIATION DOSE DELIVERED: 1,303.74mGy.cm Total DLP DATA REPOSITORY: All CT scans at this facility are submitted to the National Radiology Data Registry (NRDR) Dose Index Registry (DIR) with the [employer] (ACR). RADIATION OPTIMIZATION: All CT scans at this facility use at least one of these dose optimization te chniques: automated exposure control; mA and/or kV adjustment per patient size (includes targeted exa ms where dose is matched to clinical indication); or iterative reconstruction.
--- NOTE | 2024-07-05 13:00 | DI.RAD_ITS ---
Exam(s) XR CHEST 2V PA LATERAL EXAM: XR CHEST 2V PA LATERAL CLINICAL HISTORY: ?pneumonia. TECHNIQUE: 2D digital imaging was performed. COMPARISON: No exams were available for comparison FINDINGS: 2 views: Heart size is upper normal. The mediastinum appearance reflects an ectatic descending thoracic aorta . Left lung is clear. There is in area infiltrate in the right upper lobe No pleural effusions. IMPRESSION: Right upper lobe infiltrate. DATA REPOSITORY: RADIATION DOSE DELIVERED:
--- NOTE | 2024-07-05 13:00 | RT.EKG_ITS ---
APPROVED REPORT Exam: Resting ECG Reason for Exam: weakness Patient Location: E HR:105 bpm ECG Measurements Heart Rate 105 AXIS DC [id number] P [id number] QRSd 136 QRS 98 QT 393 T 37 QTc 520 Conclusion Atrial flutter with predominant 3:1 AV block...A-rate 300, multiple Ps RBBB and LPFB...QRSd >120mS, axis(90,210) motion artifact, sinus
--- NOTE | 2024-07-05 13:04 | W.ED.GENAD ---
Discharge Plan Disposition Patient Disposition: Admit to [facility] Condition: Serious Discharge Details Chief Complaint: AMS/LOC Clinical Impression: Rhabdomyolysis, AMS (altered mental status), CAP (community acquired pneumonia) Primary Care Provider: Mallika Boles ED Provider: Prince Woodard Home Meds and New Rx's Prescriptions: No Action cephalexin 500 mg capsule 500 mg PO BID Qty: 14 0RF cyanocobalamin (vitamin B-12) 1,000 MCG tablet 1,000 mcg PO DAILY calcium citrate-vitamin D2 1 EACH tablet 1 ea PO DAILY Vision Plus Lutein 1 EACH tablet 1 ea PO DAILY hydrochlorothiazide 25 mg tablet 25 mg PO DAILY cholecalciferol (vitamin D3) 50 mcg (2,000 unit) capsule 50 mcg PO DAILY amlodipine 5 mg tablet 5 mg PO DAILY aspirin 81 mg tablet,chewable 81 mg PO DAILY cetirizine [Allergy Relief (cetirizine)] 10 MG tablet 10 mg PO DAILY ascorbate calcium (vitamin C) 500 MG tablet 500 mg PO DAILY Women's Daily Caplet 1 EACH tablet 1 ea PO DAILY lisinopril 10 mg tablet 10 mg PO DAILY HPI General Mode of arrival: EMS. Date/Time Provider Initiated Documentation: 07/05/24 12:53. Information obtained by: patient and EMS. History of Present Illness 78 year old F presents to the emergency department with the chief complaint of fall, described as moderate, Patient started experiencing this hour(s) (3) and it has been constant. No relieving factors improve symptom(s), No exacerbating factors reported . Patient notes denies chest pain, fever/chills and shortness of breath. Patient did receive the following treatments prior to arrival, none Related Data Home Medications ?Medication ?Instructions ?Recorded ?Confirmed calcium 315 mg (as 1 ea PO DAILY 04/07/15 07/05/24 citrate)-ergocalciferol 5 mcg (200 unit) tablet cyanocobalamin (vitamin B-12) 1,000 mcg PO DAILY 04/07/15 07/05/24 1,000 mcg tablet exwnqvrwazje-wtmsqcob-smeiut 1 ea PO DAILY 04/07/15 07/05/24 tablet (Vision Plus Lutein tablet) ascorbate calcium (vitamin C) 500 500 mg PO DAILY 11/07/15 07/05/24 mg tablet cetirizine 10 mg tablet (Allergy 10 mg PO DAILY 11/07/15 07/05/24 Relief (cetirizine)) multivitamin-iron 27 mg-folic acid 1 ea PO DAILY 11/07/15 07/05/24 400 mcg-calcium and minerals tablet (Women's Daily Caplet) amlodipine 5 mg tablet 5 mg PO DAILY 11/09/20 07/05/24 aspirin 81 mg chewable tablet 81 mg PO DAILY 11/09/20 07/05/24 cholecalciferol (vitamin D3) 50 50 mcg PO DAILY 11/09/20 07/05/24 mcg (2,000 unit) capsule hydrochlorothiazide 25 mg tablet 25 mg PO DAILY 11/09/20 07/05/24 cephalexin 500 mg capsule 500 mg PO BID #14 caps 03/03/21 07/05/24 lisinopril 10 mg tablet 10 mg PO DAILY 07/05/24 07/05/24 Previous Rx's ?Medication ?Instructions ?Recorded cephalexin 500 mg capsule 500 mg PO BID #14 caps 03/03/21 Allergies Allergy/AdvReac Type Severity Reaction Status Date / Time No Known Drug Allergies Allergy Unknown Unverified 07/05/24 14:28 General Stated Complaint: AMS/LOC JUVE: 3 Review of Systems All systems reviewed & are unremarkable except as noted in HPI and below Constitutional Constitutional: Denies chills, Denies fever(s) and Denies weakness Cardiovascular Cardiovascular: Denies chest pain and Denies dyspnea Respiratory Respiratory: Denies cough and Denies dyspnea Gastrointestinal Gastrointestinal: Denies abdominal pain, Denies nausea and Denies vomiting Neurologic Neurologic: Denies weakness Psychiatric Psychiatric: Denies depression Exam Const General: no acute distress Orientation: alert [facility] Head: normal to inspection Ears: external ears normal General nose exam: external nose normal Mouth: moist mucous membranes Eyes General: appearance normal, both eyes and all related structures Neck Neck: normal visual inspection Resp Effort & Inspection: normal respiratory effort and able to speak in complete sentences Auscultation: clear to auscultation bilaterally Cardio Rate: regular rate GI Palpation: soft and nontender Skin General skin exam: no rashes or lesions noted Neuro General: patient alert and patient oriented x3 Extrem General: normal to inspection Psych Mental Status: mental status grossly normal Course Vital Signs Vital signs: Vital Signs Temperature 35.1 C L 07/05/24 12:52 Pulse 113 H 07/05/24 12:52 Respiratory Rate 20 07/05/24 12:52 Blood Pressure 160/137 H 07/05/24 12:52 Pulse Oximetry 98 07/05/24 12:52 Temperature 35.1 C L 07/05/24 12:52 Temperature Source Rectal 07/05/24 12:52 Pulse 113 H 07/05/24 12:52 Respiratory Rate 20 07/05/24 12:52 Blood Pressure 160/137 H 07/05/24 12:52 Blood Pressure Position Sitting 07/05/24 12:52 Pulse Oximetry 98 07/05/24 12:52 Oxygen Delivery Method Room Air 07/05/24 12:52 Oxygen Flow Rate 0 07/05/24 12:52 Medical Decision Making 78-year-old female with history of hypertension comes in with EMS after she states she fell earlier today and could not get up due to weakness. EMS not sure if this is accurate as they state it appears she was on the ground for longer then this and had soiled herself and the bystander that performed a wellfare check said they hadn't seen her for 2 days, patient not able to confirm definitively how long she was on the ground for. She has alert and does know her name where she is in the ER. When asked where she was when EMS daughter she is initially said that she was at work which is a job lots of she was picked up at home and states this is accurate and that she was at home getting stuff ready to go to work. She denies any headache, neck pain, back pain, chest or abdomen pain. She denies any fevers or difficulty breathing. No signs of trauma to the head, she moves all extremities well, she has clear lung sounds, soft nontender abdomen. EMS states that she was hypotensive with systolics in the 90s and after some IV fluid she is currently 160/110 on my exam. She is not hypoxic. Given the general weakness will obtain CBC, CMP troponins and also obtain CT head and C-spine given the presumed fall she had and also obtain chest x-ray though my suspicion for pneumonia is low. She has no abdominal tenderness so I do not feel imaging of abdomen is indicated. Labs show elevated proBNP and mild elevation in troponin, she denies any shortness of breath or difficulty breathing. NATHANIEL with creatinine of 1.8 Her head and C-spine CT are negative, x-ray shows a right upper lobe infiltrate and she does state that she has had a cough. She has elevated CK so I suspect she does have rhabdomyolysis and was likely on the ground longer than just this morning. Will discuss with hospitalist about admission for IV antibiotics and IV fluids along with monitoring her urinary output in the setting of rhabdomyolysis. Differential Diagnosis Differential Diagnosis: Electrolyte abnormality, UTI, rhabdo, Lab Data Lab results reviewed: Yes I reviewed the patient's lab results. ECG Data Attestation: I personally reviewed and interpreted this ECG (s) as follows: Prior ECG tracings: available for review Interpretation: sinus rate of 105 no stemi Quality:SDOH Health Related Social Needs: No Data to Display PFSH All Active Problems CAP (community acquired pneumonia) (Acute) AMS (altered mental status) (Acute) Rhabdomyolysis (Acute) Postoperative seroma (Acute) Cellulitis (Acute) Hematoma (Acute) Status post total knee replacement, left (Acute) Active Problem List Postoperative seroma (Acute) Cellulitis (Acute) Hematoma (Acute) Status post total knee replacement, left (Acute) Medical History Bakers cyst Breast cancer Cyst of soft tissue Hypertension Localized swelling of lower leg Varicose vein of leg Surgical History History of left knee replacement Social History Smoking/Tobacco Use Status: Former Tobacco Use Quit Date: 03/25/08 Smoking risk assessment performed?: Yes Alcohol Intake: current Alcohol Intake frequency: holidays/special occasions only Alcohol type: beer Drug use: Never Substance use type: does not use Do you feel safe at home: Yes Do you feel safe in your relationship?: Yes Additional Social history: lives alone
[2024-07-05 13:27] LABS: BE (Venous) 3 mmol/L (-2-3); HCO3 (Venous) 28 mmol/L (23-28); O2 Sat (Venous) 40 %; TCO2 (Venous) 26 mmol/L (24-29); pCO2 (Venous) 50 mmHg (41-51); pH (Venous) 7.36 (7.31-7.41); pO2 (Venous) 25 mmHg
[2024-07-05 13:29] LABS: Lactate 2.7 mmol/L (<or=2.0)
[2024-07-05] MEDS: Normal Saline 1,000 ML 1000 ML IV (13:29)
[2024-07-05 13:32] LABS: Abs Immature Grans 0.07 10^3/uL (0.0-0.06); Absolute Monocyte Count 0.92 10^3/uL (0.1-0.8); Basophils % 0.2 %; HCT 45.8 % (36.0-46.0); HGB 15.1 g/dL (11.2-15.7); Immature Grans % 0.4 %; Lymphocytes % 6.2 %; MCV 94 fL (80-95); MPV 9.4 fL (8.0-11.0); Monocytes % 5.6 %; Neutrophils % 87.6 %; Platelet Count 349 10^3/uL (130-400); RBC 4.87 10^6/uL (3.93-5.22); RDW 12.6 % (11.7-14.6); RDW-SD 43.3 fL
[2024-07-05 13:34] LABS: Absolute Basophil Count 0.03 10^3/uL (0.0-0.2); Absolute Lymphocyte Count 1.02 10^3/uL (1.2-3.4); Absolute Neutrophil Count 14.37 10^3/uL (1.2-6.7)
[2024-07-05 13:50] LABS: ALT 50 U/L (14-59); AST 122 U/L (15-37); Albumin 3.3 g/dL (3.4-5.0); Alkaline Phosphatase 92 U/L (46-116); Anion Gap 13.5 mmol/L (3-11); BUN 38 mg/dL (7-18); Bilirubin, Total 1.6 mg/dL (0.2-1.0); CO2 28.5 mmol/L (21.0-32.0); CREATININE 1.8 mg/dL (0.55-1.02); Calcium 9.5 mg/dL (8.5-10.1); Chloride 101 mmol/L (98-107); Estimated GFR 28.66 (mL/min/1.73m2); Glucose 147 mg/dL (74-106); Magnesium 2.2 mg/dL (1.8-2.4); NT-proBNP 3811 pg/mL (<300); Potassium 3.6 mmol/L (3.5-5.1); Sodium 143 mmol/L (136-145); Total Protein 7.9 g/dL (6.4-8.2)
[2024-07-05 13:53] LABS: PTT Activated 20.2 sec (20.6-30.2); Prothrombin Time 10.1 sec (9.1-11.1)
[2024-07-05 14:02] LABS: COVID-19 PCR Negative (Negative); Influenza A PCR Negative (Negative); Influenza B PCR Negative (Negative); RSV PCR Negative (Negative); Source Nasopharynx
[2024-07-05 14:06] LABS: Bilirubin, Direct 0.3 mg/dL (0.0-0.2); TSH (W/Ref FT4) 1.91 uIU/mL (0.36-3.74)
--- NOTE | 2024-07-05 14:09 | NUR.NOTE ---
Granddaughter-Nina [phone] Nursing Note:
[2024-07-05 14:11] LABS: Creatine Kinase 5202 U/L (26-192); Procalcitonin 0.39 ng/mL
[2024-07-05 14:12] LABS: Troponin I 53 ng/L (<or=51)
--- NOTE | 2024-07-05 14:37 | DI.VRAD_ITS ---
PROCEDURE INFORMATION: Exam: CT Head Without Contrast Exam date and time: 07/05/2024 1:42 PM Age: 78 years old Clinical indication: Other: Fall, AMS TECHNIQUE: Imaging protocol: Computed tomography of the head without contrast. Radiation optimization: All CT scans at this facility use at least one of these dose optimization techniques: automated exposure control; mA and/or kV adjustment per patient size (includes targeted exams where dose is matched to clinical indication); or iterative reconstruction. COMPARISON: No relevant prior studies available. FINDINGS: Brain: No acute intracranial hemorrhage.. There is mild diffuse heterogeneity of the white matter attenuation, consistent with chronic white matter ischemic changes. Mild cerebral atrophy Cerebral ventricles: No ventriculomegaly. Paranasal sinuses: Visualized sinuses are unremarkable. No fluid levels. Mastoid air cells: Visualized mastoid air cells are well aerated. Bones: Unremarkable. No acute fracture. Soft tissues: Unremarkable. IMPRESSION: No acute intracranial hemorrhage.. PROCEDURE INFORMATION: Exam: CT Cervical Spine Without Contrast Exam date and time: 07/05/2024 1:42 PM Age: 78 years old Clinical indication: Other: Fall, AMS TECHNIQUE: Imaging protocol: Computed tomography of the cervical spine without contrast. Radiation optimization: All CT scans at this facility use at least one of these dose optimization techniques: automated exposure control; mA and/or kV adjustment per patient size (includes targeted exams where dose is matched to clinical indication); or iterative reconstruction. COMPARISON: No relevant prior studies available. FINDINGS: Bones: No acute fracture of the cervical spine. No subluxation or dislocation of the cervical spine. Bridging anterior osteophyte formation C2/C3 and C3/C4 and C4/C5. Intervertebral disc space narrowing C4 through C7 may represent degenerative disc disease.. Anterior osteophyte formation C2 through C7. Posterior osteophyte formation C4 through C7. Degenerative changes in the facets at multiple levels. Degenerative changes at C1/C2 Lungs: Lung apices are normal. Thyroid: The thyroid is unremarkable Soft tissues: Unremarkable. IMPRESSION: 1. No acute fracture of the cervical spine. 2. No subluxation or dislocation of the cervical spine. 3. Intervertebral disc space narrowing C4 through C7 may represent degenerative disc disease.. Dictated and Authenticated by: Tammy Barnett MD. Orderin Yamilet Morrison MD
--- NOTE | 2024-07-05 14:48 | DI.VRAD_ITS ---
PROCEDURE INFORMATION: Exam: XR Chest Exam date and time: 07/05/2024 1:52 PM Age: 78 years old Clinical indication: Other: ? Pneumonia TECHNIQUE: Imaging protocol: Radiologic exam of the chest. Views: 2 views. COMPARISON: CT HEAD CERVICAL SPINE WO 07/05/2024 1:42 PM FINDINGS: Lungs: Ill-defined opacity in the right upper lobe possibly representing early infiltrate. Left lung is clear. Pleural spaces: Unremarkable. No pleural effusion. No pneumothorax. Heart/Mediastinum: Cardiomediastinal silhouette is normal. Vasculature: Ectatic aorta. Bones/joints: Unremarkable. IMPRESSION: Minimal right upper lobe infiltrate. Dictated and Authenticated by: Jonnie Frias MD. Orderin Yamilet Morrison MD
[2024-07-05 14:53] LABS: Bilirubin Small (Negative); Blood Large (Negative); Clarity Clear (Clear); Glucose Negative (Negative); Ketones Trace mg/dL (Negative); Leukocyte Esterase Negative (Negative); Nitrite Negative (Negative); Specific Gravity 1.025 (1.005-1.025); Urobilinogen 0.2 mg/dL (Up to 0.2)
[2024-07-05] MEDS: Normal Saline 1,000 ML 100 ML IV (15:00)
[2024-07-05 15:08] LABS: Bacteria Negative HPF (Negative); C & S Indicated? No; Casts Negative LPF (Negative); Crystals Negative HPF (Negative); Epithelial Cells Negative HPF (Negative); Mucus Negative (Negative); WBC 0-2 HPF (0-5)
[2024-07-05 15:13] LABS: Troponin I 60 ng/L (<or=51)
[2024-07-05] MEDS: cefTRIAXone 2 GM/50 ML BAG IVPB (15:27)
[2024-07-05] MEDS: AZITHROMYCIN 500 MG in Normal Saline 250 ML 250 MG IVPB (15:58)
[2024-07-05 16:36] LABS: Troponin I 64 ng/L (<or=51)
--- NOTE | 2024-07-05 17:06 | W.PM.HP.N ---
Date of service: 07/05/24 Time of Service: 17:06 Assessment and Plan Assessment and plan (1) Severe sepsis: Status: Acute Assessment and plan: Meet criteria for severe sepsis with initial HR and BP as well as WBC, NATHANIEL, AMS, and lactate 2.7. Source is pneumonia. She was responsive to fluids and is currently stable hypodermically. Treating pneumonia with ceftriaxone/azithromycin Blood cx pending (2) CAP (community acquired pneumonia): Status: Acute Assessment and plan: RUL on CXR, treat as above (3) Infectious encephalopathy: Status: Acute Assessment and plan: Appears secondary to sepsis/pneumonia. Monitor CT head/neck reassuring. I don't see signs of stroke or toxins or history to suggest seizure. (4) Rhabdomyolysis: Status: Acute Assessment and plan: CPK elevation after being found down, likely for 2 days. I will give additional IV hydration and follow (5) Elevated troponin: Status: Acute Assessment and plan: No chest pain or EKG changes. This may simply be the rhabdomyolysis or slight heart strain. Follow until trending down. Tele monitoring (6) Hypertension: Assessment and plan: BP low initially but now stable. With NATHANIEL holding HCTZ and CARLA inh. continue amlodipine (7) Acute kidney injury: Status: Acute Assessment and plan: Rhabodymyolysis and pre-renal. Hydrating now for both. Follow. (8) Elevated liver enzymes: Status: Acute Assessment and plan: New. A/w sepsis and rhabdomylysis, follow. Work up if persistant. (9) Knee effusion, right: Status: Acute Assessment and plan: Traumatic. Does not appear infected, possible hemarthrosis. Start with XR. Left knee which has been replaced has a bruise over it but knee working fine. PT when MS clears (10) DVT prophylaxis: Status: Acute Assessment and plan: Enoxaparin History of Present Illness History of Present Illness Chief Complaint: found down Narrative: 78 yo F with history of HTN, breast cancer in 2012, who was found down at her house after coworkers called when she didn't show up for 2 days to work. She was last seen well Monday 07/[address] of employment, [employer] in [place]. EMS was called for a welfare check. She was found by EMS down on the floor of her home. She told them she fell eariler that day and but she was sitting in urine and stool. The patient herself describes having to sit down after going upstairs at work before coming here, but cannot recount a history of the past two days. She denies headache or head trauma. She denies chest pain or palpitaitons. She denies shortness of breath, but states she has had a cough for a couple days, white sputum, no blood, along with some nasal congestion for which she was taking one decongestant a day. She denies focal numbness or weakness, dizziness, vision changes, voice changes, or difficulty swallowing. She is hungry, no n/v or bowel changes. No urinary changes. No other bleeding, no skin changes or sores. Review of Systems All systems reviewed & are unremarkable except as noted in HPI and below PFSH All Active Problems (Updated 07/05/24 @ 17:35 by Tanner Cosme) Knee effusion, right (Acute) Elevated liver enzymes (Acute) Elevated troponin (Acute) DVT prophylaxis (Acute) Acute kidney injury (Acute) Severe sepsis (Acute) Infectious encephalopathy (Acute) CAP (community acquired pneumonia) (Acute) AMS (altered mental status) (Acute) Rhabdomyolysis (Acute) Postoperative seroma (Acute) Cellulitis (Acute) Hematoma (Acute) Status post total knee replacement, left (Acute) Medical History (Updated 07/05/24 @ 17:56 by Tanner Cosme) Former smoker quit 2012 Cyst of soft tissue Varicose vein of leg Bakers cyst Hypertension Localized swelling of lower leg Breast cancer 2012, s/p right lumpectomy, radiation, antiestrogen therapy Surgical History (Updated 07/05/24 @ 17:35 by Tanner Cosme) S/P tonsillectomy History of left knee replacement Family History (Updated 07/05/24 @ 17:37 by Tanner Cosme) Brother Cancer Lung cancer Parkinsons disease Social History (Updated 07/05/24 @ 17:38 by Tanner Cosme) Smoking/Tobacco Use Status: Former Tobacco Use Quit Date: 03/25/08 Smoking risk assessment performed?: Yes Alcohol Intake: current Alcohol Intake frequency: holidays/special occasions only Alcohol type: beer Drug use: Never Substance use type: does not use Do you feel safe at home: Yes Do you feel safe in your relationship?: Yes Additional Social history: lives alone in [facility]. . Moved from [place], family there. Works at [employer] in [place] Decurate Allergies and Home Medications Allergies Allergy/AdvReac Type Severity Reaction Status Date / Time No Known Drug Allergies Allergy Unknown Unverified 07/05/24 14:28 Home Medications ?Medication ?Instructions ?Recorded ?Confirmed ?Type calcium 315 mg (as 1 ea PO DAILY 04/07/15 07/05/24 History citrate)-ergocalciferol 5 mcg (200 unit) tablet cyanocobalamin (vitamin B-12) 1,000 mcg PO DAILY 04/07/15 07/05/24 History 1,000 mcg tablet jpaahhlvwiht-lisrvkyt-ivorjt 1 ea PO DAILY 04/07/15 07/05/24 History tablet (Vision Plus Lutein tablet) ascorbate calcium (vitamin C) 500 500 mg PO DAILY 11/07/15 07/05/24 History mg tablet cetirizine 10 mg tablet (Allergy 10 mg PO DAILY 11/07/15 07/05/24 History Relief (cetirizine)) multivitamin-iron 27 mg-folic acid 1 ea PO DAILY 11/07/15 07/05/24 History 400 mcg-calcium and minerals tablet (Women's Daily Caplet) amlodipine 5 mg tablet 5 mg PO DAILY 11/09/20 07/05/24 History aspirin 81 mg chewable tablet 81 mg PO DAILY 11/09/20 07/05/24 History cholecalciferol (vitamin D3) 50 50 mcg PO DAILY 11/09/20 07/05/24 History mcg (2,000 unit) capsule hydrochlorothiazide 25 mg tablet 25 mg PO DAILY 11/09/20 07/05/24 History cephalexin 500 mg capsule 500 mg PO BID #14 caps 03/03/21 07/05/24 Rx lisinopril 10 mg tablet 10 mg PO DAILY 07/05/24 07/05/24 History Exam Narrative Exam Narrative: GEN: Alert oriented to self, town, year, but wrong hospital ([facility]), wrong day (), minimal vague history. Pleasant and cooperative. No acute distress at rest. HEENT: Head atraumatic. Conjunctiva clear, no icterus. PEERL, EOMI. no rhinorrhea or facial tenderness. MM mildly dry, OP benign, dentures with upper loose. Neck is supple with no masses or lymphadenopathy, trachea midline LUNGS: CTAB with normal effort CV: RRR with no murmurs, gallops, or rubs. ABD: active bowel sounds, soft, nontender and nondistended. No masses. EXT: no cyanosis, clubbing, or edema MSK: No joint redness or swelling x right knee effusion, not red/hot, but purplish. Flexion limited to 30 degrees with some pain, but not severe. NEURO: CN 2-12 intact. Normal movement with symmetric strength, nl sensation 4 extremities. Normal speech and coordination. No tremor SKIN: No rashes or open wounds. Bruises on both knees, left extending more superiorly PSYCH: normal mood and affect, no hallucinations evident Results Imaging EKG: report reviewed and image reviewed (Sinus tachycardia with rate 105, RBBB. no STEMI) Imaging Studies: CT Spine: 1. No acute fracture of the cervical spine. 2. No subluxation or dislocation of the cervical spine. 3. Intervertebral disc space narrowing C4 through C7 may represent degenerative disc disease.. CT head: No acute intracranial hemorrhage. Mild atrophy and white matter changes Labs 07/05/24 13:17 07/05/24 13:17 Labs: Laboratory Results - last 24 hr 07/05/24 07/05/24 07/05/24 13:05 13:17 14:22 WBC 16.40 H RBC 4.87 Hgb 15.1 Hct 45.8 MCV 94 MCH 31.0 MCHC 33.0 RDW 12.6 Plt Count 349 MPV 9.4 Immature Gran % 0.4 Neutrophils % 87.6 Lymphocytes % 6.2 Monocytes % 5.6 Eosinophils % 0.0 Basophils % 0.2 Nucleated RBC % 0.0 Absolute Neutrophils 14.37 H Absolute Lymphocytes 1.02 L Absolute Monocytes 0.92 H Absolute Eosinophils 0.00 Absolute Basophils 0.03 PT 10.1 INR 1.0 APTT 20.2 L VBG pH 7.36 VBG pCO2 50 VBG pO2 25 VBG HCO3 28 VBG Total CO2 26 VBG O2 Saturation 40 VBG Base Excess 3 VBG Lactate 2.7 H* Sodium 143 Potassium 3.6 Chloride 101 Carbon Dioxide 28.5 Anion Gap 13.5 H BUN 38 H Creatinine 1.8 H Est GFR (CKD-EPI 2020) 28.66 Glucose 147 H Calcium 9.5 Magnesium 2.2 Total Bilirubin 1.6 H Conjugated Bilirubin 0.3 H AST 122 H ALT 50 Alkaline Phosphatase 92 Creatine Kinase 5202 H Troponin I 53 H* NT-Pro-B Natriuret Pep 3811 H Total Protein 7.9 Albumin 3.3 L Procalcitonin 0.39 TSH 1.91 Urine Color Yellow Urine Clarity Clear Urine pH 6.0 Ur Specific [place] 1.025 Urine Protein >=300 H Urine Ketones Trace H Urine Blood Large H Urine Nitrite Negative Urine Bilirubin Small H Urine Urobilinogen 0.2 Ur Leukocyte Esterase Negative Urine RBC 5-10 H Urine WBC 0-2 Ur Epithelial Cells Negative Urine Crystals Negative Urine Bacteria Negative Urine Casts Negative Urine Mucus Negative Ur Culture Indicated? No Urine Glucose Negative COVID-19 Source Nasopharynx SARS-CoV-2 (PCR) Negative Influenza Type A (PCR) Negative Influenza Type B (PCR) Negative RSV (PCR) Negative 07/05/24 07/05/24 14:34 15:59 WBC RBC Hgb Hct MCV MCH MCHC RDW Plt Count MPV Immature Gran % Neutrophils % Lymphocytes % Monocytes % Eosinophils % Basophils % Nucleated RBC % Absolute Neutrophils Absolute Lymphocytes Absolute Monocytes Absolute Eosinophils Absolute Basophils PT INR APTT VBG pH VBG pCO2 VBG pO2 VBG HCO3 VBG Total CO2 VBG O2 Saturation VBG Base Excess VBG Lactate Sodium Potassium Chloride Carbon Dioxide Anion Gap BUN Creatinine Est GFR (CKD-EPI 2020) Glucose Calcium Magnesium Total Bilirubin Conjugated Bilirubin AST ALT Alkaline Phosphatase Creatine Kinase Troponin I 60 H* 64 H* NT-Pro-B Natriuret Pep Total Protein Albumin Procalcitonin TSH Urine Color Urine Clarity Urine pH Ur Specific [place] Urine Protein Urine Ketones Urine Blood Urine Nitrite Urine Bilirubin Urine Urobilinogen Ur Leukocyte Esterase Urine RBC Urine WBC Ur Epithelial Cells Urine Crystals Urine Bacteria Urine Casts Urine Mucus Ur Culture Indicated? Urine Glucose COVID-19 Source SARS-CoV-2 (PCR) Influenza Type A (PCR) Influenza Type B (PCR) RSV (PCR) Last Vital Signs Temp 36.7 C 07/05/24 15:23 Pulse 87 07/05/24 16:31 Resp 21 07/05/24 16:31 BP 123/74 07/05/24 16:30 Pulse Ox 95 07/05/24 16:31 Time Spent Time spent with Patient: >75 minutes Time was spent: preparing to see the patient(eg.review tests), obtaining and/or reviewing separately otained hiistory, ordering medications,tests, procedures, referring, communicating with other health vision care associate, indepentently interpreting results, counseling the patient and care coordination
--- NOTE | 2024-07-05 17:23 | W.PC.ACHO ---
Registration Status: Primary Language: Preferred Language: ED Information & Data Chief Complaint AMS/LOC 07/05/24 13:31 Chief Complaint AMS/LOC 07/05/24 13:09 Other Complaint Fall/Non TraumaCriteria 07/05/24 12:52 Triage Note found on the floor of her 07/05/24 12:52 home on well fair check. cool to the touch. Unknown cause for fall. PT appears confused. Hypotensive w/ ems . last seen 2 days ago. Medical / Surgical History (Last Reviewed 02/21/21 @ 08:12 by Lenora Evans MD) Cyst of soft tissue Varicose vein of leg Bakers cyst Hypertension Localized swelling of lower leg Breast cancer (Last Reviewed 02/21/21 @ 08:12 by Lenora Evans MD) History of left knee replacement Most Recent Vital Signs Temperature 36.7 C 07/05/24 15:23 Temperature Source Rectal 07/05/24 15:23 Pulse 93 H 07/05/24 17:10 Pulse 87 07/05/24 17:10 Respiratory Rate 13 07/05/24 17:10 Respiratory Effort Normal, Non-Labored 07/05/24 13:31 Respiratory Depth Normal 07/05/24 13:31 Respiratory Pattern Normal 07/05/24 13:31 Blood Pressure 135/76 07/05/24 17:01 Blood Pressure Mean 96 07/05/24 17:01 Blood Pressure Position Sitting 07/05/24 13:30 Pulse Oximetry 94 07/05/24 17:10 Oxygen Delivery Method Room Air 07/05/24 13:30 Oxygen Flow Rate 0 07/05/24 13:30 Allergies No Known Drug Allergies Allergy (Unverified 07/05/24 14:28) Unknown Precautions Isolation Standard precaution 07/05/24 13:31 Active Medications Generic Name Dose Route Start Last Admin Trade Name Freq PRN Reason Stop Dose Admin Sodium Chloride 1,000 mls @ 100 mls/hr 07/05/24 15:00 07/05/24 15:00 Saline 1000ml Bag IV 100 mls/hr INFUSION CLARI Administration IV IV Catheter Type [Right Wrist] Saline Lock IV Catheter Type [Left Saline Lock Antecubital] IV Catheter Gauge [Right Wrist 20 ] IV Catheter Gauge [Left 18 Antecubital] Diet Orders Category Date Time Status Heart Healthy Eating [DIET] Nutrition 07/05/24 Dinner Active Diagnostics 07/05/24 07/05/24 07/05/24 Range/Units 15:59 14:34 14:22 WBC (4.4-10.8) 10^3/uL RBC (3.93-5.22) 10^6/uL Hgb (11.2-15.7) g/dL Hct (36.0-46.0) % MCV (80-95) fL MCH (27.0-33.0) pg MCHC (32.0-36.0) % RDW (11.7-14.6) % Plt Count (130-400) 10^3/uL MPV (8.0-11.0) fL Immature Gran % % Neutrophils % % Lymphocytes % % Monocytes % % Eosinophils % % Basophils % % Nucleated RBC % (0.0-0.3) % Absolute Neutrophils (1.2-6.7) 10^3/uL Absolute Lymphocytes (1.2-3.4) 10^3/uL Absolute Monocytes (0.1-0.8) 10^3/uL Absolute Eosinophils (0.0-0.7) 10^3/uL Absolute Basophils (0.0-0.2) 10^3/uL PT (9.1-11.1) sec INR (0.9-1.1) APTT (20.6-30.2) sec VBG pH (7.31-7.41) VBG pCO2 (41-51) mmHg VBG pO2 mmHg VBG HCO3 (23-28) mmol/L VBG Total CO2 (24-29) mmol/L VBG O2 Saturation % VBG Base Excess (-2-3) mmol/L VBG Lactate (<or=2.0) mmol/L Sodium (136-145) mmol/L Potassium (3.5-5.1) mmol/L Chloride (98-107) mmol/L Carbon Dioxide (21.0-32.0) mmol/L Anion Gap (3-11) mmol/L BUN (7-18) mg/dL Creatinine (0.55-1.02) mg/dL Est GFR (CKD-EPI 2020) (mL/min/1.73m2) Glucose (74-106) mg/dL Calcium (8.5-10.1) mg/dL Magnesium (1.8-2.4) mg/dL Total Bilirubin (0.2-1.0) mg/dL Conjugated Bilirubin (0.0-0.2) mg/dL AST (15-37) U/L ALT (14-59) U/L Alkaline Phosphatase (46-116) U/L Creatine Kinase (26-192) U/L Troponin I 64 H* 60 H* (<or=51) ng/L NT-Pro-B Natriuret Pep (<300) pg/mL Total Protein (6.4-8.2) g/dL Albumin (3.4-5.0) g/dL Procalcitonin ng/mL TSH (0.36-3.74) uIU/mL Urine Color Yellow (Yellow) Urine Clarity Clear (Clear) Urine pH 6.0 (5-8) Ur Specific [place] 1.025 (1.005-1.025) Urine Protein >=300 H (Neg-Trace) mg/dL Urine Ketones Trace H (Negative) mg/dL Urine Blood Large H (Negative) Urine Nitrite Negative (Negative) Urine Bilirubin Small H (Negative) Urine Urobilinogen 0.2 (Up to 0.2) mg/dL Ur Leukocyte Esterase Negative (Negative) Urine RBC 5-10 H (0-2) HPF Urine WBC 0-2 (0-5) HPF Ur Epithelial Cells Negative (Negative) HPF Urine Crystals Negative (Negative) HPF Urine Bacteria Negative (Negative) HPF Urine Casts Negative (Negative) LPF Urine Mucus Negative (Negative) Ur Culture Indicated? No Urine Glucose Negative (Negative) mg/dL COVID-19 Source SARS-CoV-2 (PCR) (Negative) Influenza Type A (PCR) (Negative) Influenza Type B (PCR) (Negative) RSV (PCR) (Negative) 07/05/24 07/05/24 Range/Units 13:17 13:05 WBC 16.40 H (4.4-10.8) 10^3/uL RBC 4.87 (3.93-5.22) 10^6/uL Hgb 15.1 (11.2-15.7) g/dL Hct 45.8 (36.0-46.0) % MCV 94 (80-95) fL MCH 31.0 (27.0-33.0) pg MCHC 33.0 (32.0-36.0) % RDW 12.6 (11.7-14.6) % Plt Count 349 (130-400) 10^3/uL MPV 9.4 (8.0-11.0) fL Immature Gran % 0.4 % Neutrophils % 87.6 % Lymphocytes % 6.2 % Monocytes % 5.6 % Eosinophils % 0.0 % Basophils % 0.2 % Nucleated RBC % 0.0 (0.0-0.3) % Absolute Neutrophils 14.37 H (1.2-6.7) 10^3/uL Absolute Lymphocytes 1.02 L (1.2-3.4) 10^3/uL Absolute Monocytes 0.92 H (0.1-0.8) 10^3/uL Absolute Eosinophils 0.00 (0.0-0.7) 10^3/uL Absolute Basophils 0.03 (0.0-0.2) 10^3/uL PT 10.1 (9.1-11.1) sec INR 1.0 (0.9-1.1) APTT 20.2 L (20.6-30.2) sec VBG pH 7.36 (7.31-7.41) VBG pCO2 50 (41-51) mmHg VBG pO2 25 mmHg VBG HCO3 28 (23-28) mmol/L VBG Total CO2 26 (24-29) mmol/L VBG O2 Saturation 40 % VBG Base Excess 3 (-2-3) mmol/L VBG Lactate 2.7 H* (<or=2.0) mmol/L Sodium 143 (136-145) mmol/L Potassium 3.6 (3.5-5.1) mmol/L Chloride 101 (98-107) mmol/L Carbon Dioxide 28.5 (21.0-32.0) mmol/L Anion Gap 13.5 H (3-11) mmol/L BUN 38 H (7-18) mg/dL Creatinine 1.8 H (0.55-1.02) mg/dL Est GFR (CKD-EPI 2020) 28.66 (mL/min/1.73m2) Glucose 147 H (74-106) mg/dL Calcium 9.5 (8.5-10.1) mg/dL Magnesium 2.2 (1.8-2.4) mg/dL Total Bilirubin 1.6 H (0.2-1.0) mg/dL Conjugated Bilirubin 0.3 H (0.0-0.2) mg/dL AST 122 H (15-37) U/L ALT 50 (14-59) U/L Alkaline Phosphatase 92 (46-116) U/L Creatine Kinase 5202 H (26-192) U/L Troponin I 53 H* (<or=51) ng/L NT-Pro-B Natriuret Pep 3811 H (<300) pg/mL Total Protein 7.9 (6.4-8.2) g/dL Albumin 3.3 L (3.4-5.0) g/dL Procalcitonin 0.39 ng/mL TSH 1.91 (0.36-3.74) uIU/mL Urine Color (Yellow) Urine Clarity (Clear) Urine pH (5-8) Ur Specific [place] (1.005-1.025) Urine Protein (Neg-Trace) mg/dL Urine Ketones (Negative) mg/dL Urine Blood (Negative) Urine Nitrite (Negative) Urine Bilirubin (Negative) Urine Urobilinogen (Up to 0.2) mg/dL Ur Leukocyte Esterase (Negative) Urine RBC (0-2) HPF Urine WBC (0-5) HPF Ur Epithelial Cells (Negative) HPF Urine Crystals (Negative) HPF Urine Bacteria (Negative) HPF Urine Casts (Negative) LPF Urine Mucus (Negative) Ur Culture Indicated? Urine Glucose (Negative) mg/dL COVID-19 Source Nasopharynx SARS-CoV-2 (PCR) Negative (Negative) Influenza Type A (PCR) Negative (Negative) Influenza Type B (PCR) Negative (Negative) RSV (PCR) Negative (Negative) 07/05/24 15:09 Blood Culture - Pending Blood 07/05/24 14:58 Blood Culture - Pending Blood [id number] Documentation Fingerstick Glucose Start: 07/05/24 13:19 Freq: Status: Active Protocol: Activity Type Activity Date Activity User E-sign Co-sign Detail Recorded Client Recorded Date Recorded By Document 07/05/24 13:18 OLIVIA DAEMON(3) [id number] 07/05/24 13:19 BKG DAEMON(4) Intake and Output - 24 Hour Total 07/05/24 12:47 thru 07/05/24 15:57 Intake Total 550 Balance 550 Weight 85.2 kg Intake: IV 550 Falls Risk Assessment History of Falls Admit Due to Fall 07/05/24 14:45 Contributing Factors Confusion 07/05/24 14:45 Ambulatory Aids Independent 07/05/24 14:45 Tubes/Lines None 07/05/24 14:45 Gait Evaluation W/no contributing factors 07/05/24 14:45 Cognition Cognitive impairment 07/05/24 14:45 Fall Total Score 53 07/05/24 14:45 Level of Risk High Risk 07/05/24 14:45 Notes 07/05/24 14:09 [facility] [phone] Nursing Note: Initialized on 07/05/24 14:09 - END OF NOTE v v v v v v v v v Sending and/or Receiving Nurses: Please use comment section below to note any information pertinent to the patient hand-off not included above. Information / Comments: Report received from: Vj Hernandez RN
--- NOTE | 2024-07-05 19:15 | DI.RAD_ITS ---
Exam(s) XR KNEE LT 3V AP,LAT,NIKKIE EXAM: XR KNEE LT 3V AP,LAT,NIKKIE CLINICAL HISTORY: Post fall, patient has voiced complaints. TECHNIQUE: 2D digital imaging was performed. COMPARISON: CR XR KNEE RT 3V AP,LAT,NIKKIE from 07/05/2024 FINDINGS: Two views-AP and lateral of the left knee There is a prosthesis in place. There is no evidence of acute fracture nor obvious loosening of the prosthesis components. No radiopaque foreign bodies. No osseous lesions. IMPRESSION: No acute osseous findings this two view study of the left knee. DATA REPOSITORY: RADIATION DOSE DELIVERED:
[2024-07-05] MEDS: Normal Saline Flush 10 ML SYR IVP (19:55)
[2024-07-05] MEDS: Enoxaparin 30 MG/0.3 ML SYR SC (19:55)
--- NOTE | 2024-07-05 19:59 | DI.VRAD_ITS ---
PROCEDURE INFORMATION: Exam: XR Right Knee Exam date and time: 07/05/2024 7:17 PM Age: 78 years old Clinical indication: Other: Found down, RT knee effusion/bruising TECHNIQUE: Imaging protocol: Radiologic exam of the right knee. Views: 3 views. COMPARISON: US LOWER EXTREMITY VENOUS RT 03/03/2021 9:32 AM FINDINGS: Bones/joints: There is a moderate-large knee effusion. There is atherosclerotic calcification through the distal superficial femoral and popliteal arteries. Three views of the right knee are submitted. There is suggestion of a transverse fracture through the upper pole of the patella on the AP and oblique views; however, this is not confidently redemonstrated on the lateral view. The distal femur, proximal tibia, and proximal fibula appear intact. There is loss of joint space in the medial patellofemoral compartment with marginal osteophytes. There are also osteophytes along the margin of the lateral patellofemoral compartment and along the posterior surface of the patella in keeping with tricompartmental osteoarthritis. Soft tissues: There is extensive soft tissue swelling at the right knee. IMPRESSION: 1. Transverse fracture through the upper pole of the patella suggested by the AP and oblique views but not confidently redemonstrated on the lateral view, uncertain finding. Clinical correlation and follow-up are recommended. Otherwise, no acute fracture or dislocation is seen at the right knee. 2. Moderate-large right knee effusion. 3. Extensive soft tissue swelling at the right knee. 4. Tricompartmental osteoarthritis. Dictated and Authenticated by: Robby Pruitt MD. Orderin Carmelina Hart MD
--- NOTE | 2024-07-05 20:01 | DI.VRAD_ITS ---
PROCEDURE INFORMATION: Exam: XR Left Knee Exam date and time: 07/05/2024 7:42 PM Age: 78 years old Clinical indication: Other: Post fall TECHNIQUE: Imaging protocol: Radiologic exam of the left knee. Views: 3 views. COMPARISON: US SOFT TISSUE EXTREMITY 11/02/2020 1:53 PM FINDINGS: Bones/joints: Two views of the left knee reveal no acute fracture or dislocation. There is an arthroplasty prosthesis in-situ. There is no evidence of hardware breakage, loosening, or dislocation. No knee effusion is seen. Soft tissues: There is soft tissue swelling at the knee. Vasculature: Atherosclerotic calcification is suggested but partially obscured through the popliteal artery. IMPRESSION: Prior left knee arthroplasty. No acute fracture or dislocation. Soft tissue swelling at the left knee. Dictated and Authenticated by: Robby Pruitt MD. Orderin Bony Blas MD
[2024-07-05] MEDS: Lactated Ringers 1,000 ML 200 ML IV (21:11)
[2024-07-06] VITALS (18 sets, daily range): BP systolic 96–121; BP diastolic 46–70; PULSE 67–88; RESP 15–20; TEMP 36.4–38.2; O2SAT 94–97
--- NOTE | 2024-07-06 | DI.CT_ITS ---
Exam(s) CT LOWER EXTREMITY RT WO EXAM: CT LOWER EXTREMITY RT WO CLINICAL HISTORY: eval R patella fracture. TECHNIQUE: Imaging Protocol: Axial computed tomography images with coronal and sagittal reformatted images were created and reviewed. CONTRAST MATERIAL: Noncontrast COMPARISON: CR,XR XR KNEE RT 3V AP,LAT,NIKKIE from 07/05/2024 FINDINGS: Bones: There is a nondisplaced fracture through the superior 3rd of the patella extending horizontall y there is also a vertically oriented component extending superiorly, in the sagittal plane. There a re no additional fractures in the proximal tibia or fibula or distal femur. No cellulitic or osteomyelitic changes are identified. There are degenerative subchondral cysts in the distal femur and proximal tibia. Joints: There is a large hemarthrosis. There are advanced degenerative changes throughout the knee, greatest at the medial femoral tibial joint where there is prominent periarticular spurring. Soft Tissues: Vascular calcifications. Soft tissue edema greatest anteriorly at the level of the pa tella. IMPRESSION: Nondisplaced fracture at the superior pole of the patella. Advanced degenerative changes, greatest of the medial femoral tibial compartment. RADIATION DOSE DELIVERED: Total DLP DATA REPOSITORY: All CT scans at this facility are submitted to the National Radiology Data Registry (NRDR) Dose Index Registry (DIR) with the [employer] ([employer]). RADIATION OPTIMIZATION: All CT scans at this facility use at least one of these dose optimization te chniques: automated exposure control; mA and/or kV adjustment per patient size (includes targeted exa ms where dose is matched to clinical indication); or iterative reconstruction.
[2024-07-06] MEDS: Lactated Ringers 1,000 ML 100 ML IV ×2 (02:13→22:57)
[2024-07-06 06:15] LABS: Abs Immature Grans 0.04 10^3/uL (0.0-0.06); Absolute Basophil Count 0.03 10^3/uL (0.0-0.2); Absolute Eosinophil Count 0.01 10^3/uL (0.0-0.7); Absolute Lymphocyte Count 2.17 10^3/uL (1.2-3.4); Absolute Monocyte Count 0.95 10^3/uL (0.1-0.8); Basophils % 0.3 %; Eosinophils % 0.1 %; HCT 37.4 % (36.0-46.0); HGB 12.1 g/dL (11.2-15.7); Immature Grans % 0.3 %; Lymphocytes % 18.9 %; MCH 31.3 pg (27.0-33.0); MCHC 32.4 % (32.0-36.0); MCV 97 fL (80-95); MPV 9.8 fL (8.0-11.0); Monocytes % 8.3 %; Neutrophils % 72.1 %; Platelet Count 260 10^3/uL (130-400); RBC 3.87 10^6/uL (3.93-5.22); RDW 13.2 % (11.7-14.6); RDW-SD 46.5 fL
[2024-07-06 06:25] LABS: Absolute Neutrophil Count 8.29 10^3/uL (1.2-6.7)
[2024-07-06 06:35] LABS: ALT 47 U/L (14-59); AST 113 U/L (15-37); Albumin 2.5 g/dL (3.4-5.0); Alkaline Phosphatase 65 U/L (46-116); Anion Gap 9.6 mmol/L (3-11); BUN 55 mg/dL (7-18); Bilirubin, Direct 0.1 mg/dL (0.0-0.2); Bilirubin, Total 0.8 mg/dL (0.2-1.0); CO2 27.4 mmol/L (21.0-32.0); CREATININE 2.2 mg/dL (0.55-1.02); Calcium 8.6 mg/dL (8.5-10.1); Chloride 105 mmol/L (98-107); Estimated GFR 22.53 (mL/min/1.73m2); Glucose 108 mg/dL (74-106); Potassium 3.7 mmol/L (3.5-5.1); Sodium 142 mmol/L (136-145)
[2024-07-06] MEDS: Lactated Ringers 1,000 ML 1000 ML IV (07:51)
[2024-07-06 07:53] LABS: Troponin I 45 ng/L (<or=51)
[2024-07-06] MEDS: Azithromycin 250 MG TAB 500 MG PO (08:24)
[2024-07-06] MEDS: Ascorbic Acid 500 MG TAB PO (08:24)
[2024-07-06] MEDS: Aspirin 81 MG CHEW PO (08:24)
[2024-07-06] MEDS: amLODIPine 5 MG TAB PO (08:24)
[2024-07-06] MEDS: Calcium 600mg/Vit D 200U TAB 1 TAB PO (08:24)
--- NOTE | 2024-07-06 08:34 | INITIAL_ITS ---
Date of service: 07/06/24 Time of Service: 08:34 Care Management Initial Assmt Initial Assessment Reason for Hospitalization: Pneumonia, severe sepsis, NATHANIEL, Rhabdo Functional Status/Living Situation Patient Presentation: Ashlyn was awake and lying in bed when CM met with her. She is admitted for pneumonia, sepsis and is being closely monitored and treated in the ICU. She is and lives alone in [facility] with her 3 cats; she drives and is independent at baseline. 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 She does not have children of her own, but has maintained contact with her Step-Daughter Yoselyn (lives in [place]). Ashlyn does not know where her purple eye glasses or car keys ended up and has asked her friend Nina to go see if they are at her house and feed her cats. Per pt, a state police drove her car home, so the keys are either left in her car or they kept them. CM will follow. 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[employer]) Instrumental Activities of Daily Living (ADLs): Independent Medications Medication Management: No Issues/Barriers identified Physical Functioning/Mobility Assistive Device: None Advance Directives Advance Directives: Do you have an Advance Directive: Y 11/30/20 14:53 AD On File at [facility]: Y 11/30/20 14:53 Date Asked 12/08/21 12/08/21 13:19 AD Date Reviewed 07/05/24 07/05/24 16:15 COLST On File at [facility] COLST Date Scanned Code Status Resuscitation Status Full Code Portal Pt does not currently have a portal and education provided: Yes Insurance Coverage/Financial Issues Insurance: Medicare Part A & B - [id number] [employer]ET[employer] [facility] Ins - [id number] Care Team Visit Care Team Role Provider Type Mallika Boles Primary Care Provider NURSE PRACTITIONER Prince Woodard MD Emergency Provider [facility] STAFF PHYSICIAN Tanner Cosme Admit Provider [facility] STAFF PHYSICIAN Attending Provider Other: ACO Member Discharge Potential Discharge Needs: PCP F/U Appt Anticipated Barriers to Discharge: None Identified Patient/Family Education Needs: Review discharge instructions, discuss Ask Me Three Transportation: Private vehicle Plan: Ashlyn may benefit from a PT eval. Anticipate, Ashlyn will discharge home via private vehicle with friend vs. RCT when medically ready for discharge. Pt will follow up with her PCP and discharge plan of care. CM will follow. Social Determinants of Health Screening Social Determinants of health last assessed in clinic: 07/06/24 Will the Patient Participate in the Screening?: Yes Do you worry about having a steady place to live?: no Problems where you live: no known problems In the past 12 months, have you had to go without electric, gas, oil or water in your home?: no 1. Within the past 12 months, we worried whether our food would run out before we got money to buy more.: Never true 2. Within the past 12 months, the food we bought just didn't last and we didn't have money to get more.: Never true Has lack of transportation kept you from medical appointments or from doing things needed for daily living?: no Has anyone in your life made you feel unsafe or unsupported?: no How hard is it for you to pay for the very basics like food, housing, medical care, and heating? Would you say it is:: Not hard at all Do you want help finding or keeping work or a job?: I do not need or want help If for any reason you need help with day-to-day activities such as bathing, preparing meals, shopping, managing finances, etc., do you get the help you need?: I don?t need any help How often do you feel lonely or isolated from those around you?: Never Do you speak a language other than Slovenian at home?: Yes Does the patient want assistance with any of the above?: No Comments: pt reports speaking Bengali when she was younger Health Related Social Needs Health related social needs: education (Z55.6) Health related social needs details: . PFSH All Active Problems (Updated 07/05/24 @ 17:35 by Tanner Cosme) Closed fracture of right patella (Acute) Knee effusion, right (Acute) Elevated liver enzymes (Acute) Elevated troponin (Acute) DVT prophylaxis (Acute) Acute kidney injury (Acute) Severe sepsis (Acute) Infectious encephalopathy (Acute) CAP (community acquired pneumonia) (Acute) Rhabdomyolysis (Acute) Postoperative seroma (Acute) Cellulitis (Acute) Hematoma (Acute) Status post total knee replacement, left (Acute) Medical History (Updated 07/06/24 @ 11:24 by Tanner Cosme) Former smoker quit 2012 Cyst of soft tissue Varicose vein of leg Bakers cyst Hypertension Localized swelling of lower leg Breast cancer 2012, s/p right lumpectomy, radiation, antiestrogen therapy Surgical History (Updated 07/05/24 @ 17:35 by Tanner Cosme) S/P tonsillectomy History of left knee replacement Family History (Updated 07/05/24 @ 17:37 by Tanner Cosme) Brother Cancer Lung cancer Parkinsons disease Social History (Updated 07/05/24 @ 17:38 by Tanner Cosme) Smoking/Tobacco Use Status: Former Tobacco Use Quit Date: 03/25/08 Smoking risk assessment performed?: Yes Alcohol Intake: current Alcohol Intake frequency: holidays/special occasions only Alcohol type: beer Drug use: Never Substance use type: does not use Housing: house Do you feel safe at home: Yes Do you feel safe in your relationship?: Yes Additional Social history: lives alone in [facility]. . Moved from [place], family there. Works at [employer] in [place]
--- NOTE | 2024-07-06 10:59 | PHA.REVIEW2 ---
Pharmacy Admission Review Admission Clinical Review Admission Pharmacy Review: Knee effusion, right (Acute) Elevated liver enzymes (Acute) Elevated troponin (Acute) DVT prophylaxis (Acute) Acute kidney injury (Acute) Severe sepsis (Acute) Infectious encephalopathy (Acute) CAP (community acquired pneumonia) (Acute) Rhabdomyolysis (Acute) No Known Drug Allergies Allergy (Unverified 07/05/24 14:28) Unknown Resuscitation Status Full Code Height 4 ft 11 in Weight 85.4 kg Comments Comments/Follow Ups: Watch for addition of any QTc prolonging medications. Per provider patient is switching to MS status today. Pharmacy Admission Review Renal Dosing Renal Dosing: BUN 55 mg/dL (7-18) H 07/06/24 05:32 Creatinine 2.2 mg/dL (0.55-1.02) H 07/06/24 05:32 Medications needing adjustments: Reviewed (CrCl 19.06 mL/min, BUN increased from 38 and SCr increased from 1.8) List of meds needing interventions: Current medications are okay Anticoagulation Anticoagulation: Hgb 12.1 g/dL (11.2-15.7) D 07/06/24 05:32 Hct 37.4 % (36.0-46.0) 07/06/24 05:32 Plt Count 260 10^3/uL (130-400) 07/06/24 05:32 INR 1.0 (0.9-1.1) 07/05/24 13:17 Creatinine 2.2 mg/dL (0.55-1.02) H 07/06/24 05:32 DVT Prophylaxis: Reviewed Medications: Enoxaparin (30mg daily - CrCl < 30) Relevant Labs Relevant Labs: Sodium 142 mmol/L (136-145) 07/06/24 05:32 Potassium 3.7 mmol/L (3.5-5.1) 07/06/24 05:32 Chloride 105 mmol/L (98-107) 07/06/24 05:32 Magnesium 2.2 mg/dL (1.8-2.4) 07/05/24 13:17 Electrolytes, C-Reactive P, ESR: Reviewed Cardiac Review Cardiac Review: Troponin I 45 ng/L (<or=51) 07/06/24 05:32 NT-Pro-B Natriuret Pep 3811 pg/mL (<300) H 07/05/24 13:17 Blood Pressure 109/54 0701 Blood Pressure 121/53 0603 Blood Pressure 109/49 0501 Blood Pressure 100/46 0402 Blood Pressure 96/57 0301 BP, HR, EF%: Reviewed (HR WNL) List meds needing interventions: Has order for amlodipine 5mg daily QTc Review QTc: Intervened (520 from 07/05/24) List meds needing interventions: Informed provider of prolonged Qtc with azithromycin, not currently on any other QTc prolonging medications. Provider potentially changing to doxycycline. IV to PO Switch IV Medications: Reviewed (ceftriaxone) Home Meds Home Med List reviewed: Intervened Relevent Home Meds Not ordered & why?: lisinopril (on hold per H+P - low BP) and multivitamin Changed vision plus to patients own order. Called nurse to let them know this will need to be brought in if patient wants to take while here. Current Meds Current Medication Order Review: Reviewed Pharmacy Antibiotic Review Relevant Labs: Relevant Labs WBC 11.50 10^3/uL (4.4-10.8) H 07/06/24 05:32 Procalcitonin 0.39 ng/mL 07/05/24 13:17 Temperature 37.1 C Temperature 37.3 C Pharmacy Antibiotic Activity: C/S review and Reviewed, no change Comments: Patient is on ceftriaxone and PO azithromycin, day 1, for pneumonia/severe sepsis. WBC decreased from 16.4 and blood cultures pending. Comments Comments/Follow Ups: Watch for addition of any QTc prolonging medications. Per provider patient is switching to MS status today.
--- NOTE | 2024-07-06 11:12 | W.PM.PROGNOT ---
Date of Service Date of service: 07/06/24 Time of Service: 08:45 Assessment and Plan Assessment and plan (1) Severe sepsis: Status: Acute Assessment and plan: Meet criteria for severe sepsis with initial HR and BP as well as WBC, NATHANIEL, AMS, and lactate 2.7. Source is pneumonia. She was responsive to fluids and has remained stable hypodermically. Treating pneumonia with ceftriaxone/azithromycin Blood cx negative so far (2) CAP (community acquired pneumonia): Status: Acute Assessment and plan: RUL on CXR, treat as above (3) Infectious encephalopathy: Status: Acute Assessment and plan: Appears secondary to sepsis/pneumonia. CT head/neck reassuring. Has resolved. (4) Rhabdomyolysis: Status: Acute Assessment and plan: CPK elevation after being found down, likely for 2 days. Urine output has not been adequate on 100ml/hr IV. BUN/Cr have not come down. Will bolus another liter and increase rate to try to get up to close to 200ml/hr of urine output. (5) Elevated troponin: Status: Acute Assessment and plan: No chest pain or EKG changes. This may simply be the rhabdomyolysis or slight heart strain. normalized this morning. (6) Hypertension: Assessment and plan: BP low initially but now stable. With NATHANIEL holding HCTZ and CARLA inh. continuing amlodipine (7) Acute kidney injury: Status: Acute Assessment and plan: Rhabodymyolysis and pre-renal. Hydrating now for both, more aggressively as Cr not improving so far. Follow. (8) Elevated liver enzymes: Status: Acute Assessment and plan: New. A/w sepsis and rhabdomylysis, follow. improving. (9) Closed fracture of right patella: Status: Acute Assessment and plan: Traumatic, seen on XR, but not totally clear. Will ask ortho to look at the XR. Not displaced. Management typically non-operative. If truly a fracture, she may need full immobilization before weight bearing. Cold packs and compression either way. (10) DVT prophylaxis: Status: Acute Assessment and plan: Enoxaparin Subjective Subjective Patient reports: feels better and tolerating a regular diet; denies diarrhea, nausea, vomiting, shortness of breath or fever Interval history since last seen: 24 hr: on 100ml/hr of LR overnight after 2 liters at admission. Feeling better. Feels like she is herself mentally, but still doesn't remember details of before she came into the hospital. No pain. Exam Narrative Exam Narrative: GEN: Alert oriented x3, no acute distress at rest. LUNGS: CTAB with normal effort CV: RRR with no murmurs, gallops, or rubs. EXT: no cyanosis, clubbing, or edema MSK: right knee effusion, not red/hot, but purplish. Flexion limited to 30 degrees with some pain, cannot extend past 5 degrees. NEURO: CN 2-12 intact. Normal movement with symmetric strength, nl sensation 4 extremities. Normal speech and coordination. No tremor SKIN: No rashes or open wounds. Bruises on both knees, PSYCH: normal mood and affect, no hallucinations evident Objective Last Vital Signs Temp 37.1 C 07/06/24 07:45 Pulse 67 07/06/24 07:01 Resp 16 07/06/24 07:01 BP 109/54 L 07/06/24 07:01 Pulse Ox 95 07/06/24 08:05 Laboratory Results - last 24 hr 07/05/24 07/05/24 07/05/24 13:05 13:17 14:22 WBC 16.40 H RBC 4.87 Hgb 15.1 Hct 45.8 MCV 94 MCH 31.0 MCHC 33.0 RDW 12.6 Plt Count 349 MPV 9.4 Immature Gran % 0.4 Neutrophils % 87.6 Lymphocytes % 6.2 Monocytes % 5.6 Eosinophils % 0.0 Basophils % 0.2 Nucleated RBC % 0.0 Absolute Neutrophils 14.37 H Absolute Lymphocytes 1.02 L Absolute Monocytes 0.92 H Absolute Eosinophils 0.00 Absolute Basophils 0.03 PT 10.1 INR 1.0 APTT 20.2 L VBG pH 7.36 VBG pCO2 50 VBG pO2 25 VBG HCO3 28 VBG Total CO2 26 VBG O2 Saturation 40 VBG Base Excess 3 VBG Lactate 2.7 H* Sodium 143 Potassium 3.6 Chloride 101 Carbon Dioxide 28.5 Anion Gap 13.5 H BUN 38 H Creatinine 1.8 H Est GFR (CKD-EPI 2020) 28.66 Glucose 147 H Calcium 9.5 Magnesium 2.2 Total Bilirubin 1.6 H Conjugated Bilirubin 0.3 H AST 122 H ALT 50 Alkaline Phosphatase 92 Creatine Kinase 5202 H Troponin I 53 H* NT-Pro-B Natriuret Pep 3811 H Total Protein 7.9 Albumin 3.3 L Procalcitonin 0.39 TSH 1.91 Urine Color Yellow Urine Clarity Clear Urine pH 6.0 Ur Specific [place] 1.025 Urine Protein >=300 H Urine Ketones Trace H Urine Blood Large H Urine Nitrite Negative Urine Bilirubin Small H Urine Urobilinogen 0.2 Ur Leukocyte Esterase Negative Urine RBC 5-10 H Urine WBC 0-2 Ur Epithelial Cells Negative Urine Crystals Negative Urine Bacteria Negative Urine Casts Negative Urine Mucus Negative Ur Culture Indicated? No Urine Glucose Negative COVID-19 Source Nasopharynx SARS-CoV-2 (PCR) Negative Influenza Type A (PCR) Negative Influenza Type B (PCR) Negative RSV (PCR) Negative 07/05/24 07/05/24 07/06/24 14:34 15:59 05:32 WBC 11.50 H RBC 3.87 L Hgb 12.1 D Hct 37.4 MCV 97 H MCH 31.3 MCHC 32.4 RDW 13.2 Plt Count 260 MPV 9.8 Immature Gran % 0.3 Neutrophils % 72.1 Lymphocytes % 18.9 Monocytes % 8.3 Eosinophils % 0.1 Basophils % 0.3 Nucleated RBC % 0.0 Absolute Neutrophils 8.29 H Absolute Lymphocytes 2.17 Absolute Monocytes 0.95 H Absolute Eosinophils 0.01 Absolute Basophils 0.03 PT INR APTT VBG pH VBG pCO2 VBG pO2 VBG HCO3 VBG Total CO2 VBG O2 Saturation VBG Base Excess VBG Lactate Sodium 142 Potassium 3.7 Chloride 105 Carbon Dioxide 27.4 Anion Gap 9.6 BUN 55 H Creatinine 2.2 H Est GFR (CKD-EPI 2020) 22.53 Glucose 108 H Calcium 8.6 Magnesium Total Bilirubin 0.8 Conjugated Bilirubin 0.1 AST 113 H ALT 47 Alkaline Phosphatase 65 Creatine Kinase Troponin I 60 H* 64 H* 45 NT-Pro-B Natriuret Pep Total Protein 6.0 L Albumin 2.5 L Procalcitonin TSH Urine Color Urine Clarity Urine pH Ur Specific [place] Urine Protein Urine Ketones Urine Blood Urine Nitrite Urine Bilirubin Urine Urobilinogen Ur Leukocyte Esterase Urine RBC Urine WBC Ur Epithelial Cells Urine Crystals Urine Bacteria Urine Casts Urine Mucus Ur Culture Indicated? Urine Glucose COVID-19 Source SARS-CoV-2 (PCR) Influenza Type A (PCR) Influenza Type B (PCR) RSV (PCR) Time Spent with Patient Time Spent with Patient: 35-49 minutes Time was spent: preparing to see the patient(eg.review tests), obtaining and/or reviewing separately otained hiistory, ordering medications,tests, procedures, referring, communicating with other health care coordinator, indepentently interpreting results, counseling the patient and care coordination
[2024-07-06] MEDS: Lactated Ringers 1,000 ML 200 ML IV ×2 (11:16→16:16)
--- NOTE | 2024-07-06 12:05 | W.PC.ACHO ---
Registration Status: Primary Language: Preferred Language: ED Information & Data Chief Complaint AMS/LOC 07/05/24 13:31 Chief Complaint AMS/LOC 07/05/24 13:09 Other Complaint Fall/Non TraumaCriteria 07/05/24 12:52 Triage Note found on the floor of her 07/05/24 12:52 home on well fair check. cool to the touch. Unknown cause for fall. PT appears confused. Hypotensive w/ ems . last seen 2 days ago. Medical / Surgical History (Last Updated 07/05/24 @ 17:36 by Tanner Cosme) Former smoker Cyst of soft tissue Varicose vein of leg Bakers cyst Hypertension Localized swelling of lower leg Breast cancer (Last Updated 07/05/24 @ 17:35 by Tanner Cosme) S/P tonsillectomy History of left knee replacement Most Recent Vital Signs Temperature 37.0 C 07/06/24 11:47 Temperature Source Temporal Artery Scan 07/06/24 11:47 Pulse 74 07/06/24 11:47 Pulse 72 07/06/24 07:01 Respiratory Rate 16 07/06/24 11:47 Respiratory Effort Pursed Lip 07/05/24 17:52 Respiratory Depth Normal 07/05/24 13:31 Respiratory Pattern Tachypnea 07/05/24 17:52 Blood Pressure 118/57 L 07/06/24 11:47 Blood Pressure Mean 71 07/06/24 07:01 Blood Pressure Position Supine 07/05/24 17:52 Pulse Oximetry 94 07/06/24 11:47 Oxygen Delivery Method Room Air 07/06/24 11:47 Oxygen Flow Rate 0 07/06/24 11:47 Pain Level 2 07/06/24 11:47 Comment retake left side 07/05/24 21:04 Allergies No Known Drug Allergies Allergy (Unverified 07/05/24 14:28) Unknown Precautions Isolation Standard precaution 07/05/24 13:31 Active Medications Generic Name Dose Route Start Last Admin Trade Name Freq PRN Reason Stop Dose Admin Amlodipine Besylate 5 mg 07/06/24 08:30 07/06/24 08:24 Amlodipine 5 Mg Tab PO 5 mg DAILY CLARI Administration Ascorbic Acid 500 mg 07/06/24 08:30 07/06/24 08:24 Ascorbic Acid 500 Mg Tab PO 500 mg DAILY CLARI Administration Aspirin 81 mg 07/06/24 08:30 07/06/24 08:24 Aspirin 81 Mg Chew PO 81 mg DAILY CLARI Administration Calcium/Vitamin D 1 tab 07/06/24 08:30 07/06/24 08:24 Calcium 600mg/Vit D 200u Tab PO 1 tab DAILY CLARI Administration Enoxaparin Sodium 30 mg 07/05/24 20:00 07/05/24 19:55 Enoxaparin 30 Mg/0.3 Ml Syr SC 30 mg Q24H CLARI Administration Ringer's Solution 1,000 mls @ 200 mls/hr 07/06/24 02:15 07/06/24 11:16 IV 200 mls/hr INFUSION CLARI Administration Pt's Own 1 each 07/06/24 08:30 07/06/24 09:44 Multivitamin- PO Not Given Minerals-Lutein [ DAILY [facility] Plus Lutein] Tablet Sodium Chloride 0 ml 07/05/24 20:00 07/06/24 08:29 Normal Saline Flush 10 Ml Syr IVP Not Given BID CLARI IV IV Catheter Type [Right Wrist] Saline Lock IV Catheter Type [Left Saline Lock Antecubital] IV Catheter Gauge [Right Wrist 20 ] IV Catheter Gauge [Left 18 Antecubital] Diet Orders Category Date Time Status DIET [Regular/Normal] [DIET] Nutrition 07/06/24 Lunch Active Diagnostics 07/06/24 07/05/24 07/05/24 Range/Units 05:32 15:59 14:34 WBC 11.50 H (4.4-10.8) 10^3/uL RBC 3.87 L (3.93-5.22) 10^6/uL Hgb 12.1 D (11.2-15.7) g/dL Hct 37.4 (36.0-46.0) % MCV 97 H (80-95) fL MCH 31.3 (27.0-33.0) pg MCHC 32.4 (32.0-36.0) % RDW 13.2 (11.7-14.6) % Plt Count 260 (130-400) 10^3/uL MPV 9.8 (8.0-11.0) fL Immature Gran % 0.3 % Neutrophils % 72.1 % Lymphocytes % 18.9 % Monocytes % 8.3 % Eosinophils % 0.1 % Basophils % 0.3 % Nucleated RBC % 0.0 (0.0-0.3) % Absolute Neutrophils 8.29 H (1.2-6.7) 10^3/uL Absolute Lymphocytes 2.17 (1.2-3.4) 10^3/uL Absolute Monocytes 0.95 H (0.1-0.8) 10^3/uL Absolute Eosinophils 0.01 (0.0-0.7) 10^3/uL Absolute Basophils 0.03 (0.0-0.2) 10^3/uL PT (9.1-11.1) sec INR (0.9-1.1) APTT (20.6-30.2) sec VBG pH (7.31-7.41) VBG pCO2 (41-51) mmHg VBG pO2 mmHg VBG HCO3 (23-28) mmol/L VBG Total CO2 (24-29) mmol/L VBG O2 Saturation % VBG Base Excess (-2-3) mmol/L VBG Lactate (<or=2.0) mmol/L Sodium 142 (136-145) mmol/L Potassium 3.7 (3.5-5.1) mmol/L Chloride 105 (98-107) mmol/L Carbon Dioxide 27.4 (21.0-32.0) mmol/L Anion Gap 9.6 (3-11) mmol/L BUN 55 H (7-18) mg/dL Creatinine 2.2 H (0.55-1.02) mg/dL Est GFR (CKD-EPI 2020) 22.53 (mL/min/1.73m2) Glucose 108 H (74-106) mg/dL Calcium 8.6 (8.5-10.1) mg/dL Magnesium (1.8-2.4) mg/dL Total Bilirubin 0.8 (0.2-1.0) mg/dL Conjugated Bilirubin 0.1 (0.0-0.2) mg/dL AST 113 H (15-37) U/L ALT 47 (14-59) U/L Alkaline Phosphatase 65 (46-116) U/L Creatine Kinase (26-192) U/L Troponin I 45 64 H* 60 H* (<or=51) ng/L NT-Pro-B Natriuret Pep (<300) pg/mL Total Protein 6.0 L (6.4-8.2) g/dL Albumin 2.5 L (3.4-5.0) g/dL Procalcitonin ng/mL TSH (0.36-3.74) uIU/mL Urine Color (Yellow) Urine Clarity (Clear) Urine pH (5-8) Ur Specific [place] (1.005-1.025) Urine Protein (Neg-Trace) mg/dL Urine Ketones (Negative) mg/dL Urine Blood (Negative) Urine Nitrite (Negative) Urine Bilirubin (Negative) Urine Urobilinogen (Up to 0.2) mg/dL Ur Leukocyte Esterase (Negative) Urine RBC (0-2) HPF Urine WBC (0-5) HPF Ur Epithelial Cells (Negative) HPF Urine Crystals (Negative) HPF Urine Bacteria (Negative) HPF Urine Casts (Negative) LPF Urine Mucus (Negative) Ur Culture Indicated? Urine Glucose (Negative) mg/dL COVID-19 Source SARS-CoV-2 (PCR) (Negative) Influenza Type A (PCR) (Negative) Influenza Type B (PCR) (Negative) RSV (PCR) (Negative) 07/05/24 07/05/24 07/05/24 Range/Units 14:22 13:17 13:05 WBC 16.40 H (4.4-10.8) 10^3/uL RBC 4.87 (3.93-5.22) 10^6/uL Hgb 15.1 (11.2-15.7) g/dL Hct 45.8 (36.0-46.0) % MCV 94 (80-95) fL MCH 31.0 (27.0-33.0) pg MCHC 33.0 (32.0-36.0) % RDW 12.6 (11.7-14.6) % Plt Count 349 (130-400) 10^3/uL MPV 9.4 (8.0-11.0) fL Immature Gran % 0.4 % Neutrophils % 87.6 % Lymphocytes % 6.2 % Monocytes % 5.6 % Eosinophils % 0.0 % Basophils % 0.2 % Nucleated RBC % 0.0 (0.0-0.3) % Absolute Neutrophils 14.37 H (1.2-6.7) 10^3/uL Absolute Lymphocytes 1.02 L (1.2-3.4) 10^3/uL Absolute Monocytes 0.92 H (0.1-0.8) 10^3/uL Absolute Eosinophils 0.00 (0.0-0.7) 10^3/uL Absolute Basophils 0.03 (0.0-0.2) 10^3/uL PT 10.1 (9.1-11.1) sec INR 1.0 (0.9-1.1) APTT 20.2 L (20.6-30.2) sec VBG pH 7.36 (7.31-7.41) VBG pCO2 50 (41-51) mmHg VBG pO2 25 mmHg VBG HCO3 28 (23-28) mmol/L VBG Total CO2 26 (24-29) mmol/L VBG O2 Saturation 40 % VBG Base Excess 3 (-2-3) mmol/L VBG Lactate 2.7 H* (<or=2.0) mmol/L Sodium 143 (136-145) mmol/L Potassium 3.6 (3.5-5.1) mmol/L Chloride 101 (98-107) mmol/L Carbon Dioxide 28.5 (21.0-32.0) mmol/L Anion Gap 13.5 H (3-11) mmol/L BUN 38 H (7-18) mg/dL Creatinine 1.8 H (0.55-1.02) mg/dL Est GFR (CKD-EPI 2020) 28.66 (mL/min/1.73m2) Glucose 147 H (74-106) mg/dL Calcium 9.5 (8.5-10.1) mg/dL Magnesium 2.2 (1.8-2.4) mg/dL Total Bilirubin 1.6 H (0.2-1.0) mg/dL Conjugated Bilirubin 0.3 H (0.0-0.2) mg/dL AST 122 H (15-37) U/L ALT 50 (14-59) U/L Alkaline Phosphatase 92 (46-116) U/L Creatine Kinase 5202 H (26-192) U/L Troponin I 53 H* (<or=51) ng/L NT-Pro-B Natriuret Pep 3811 H (<300) pg/mL Total Protein 7.9 (6.4-8.2) g/dL Albumin 3.3 L (3.4-5.0) g/dL Procalcitonin 0.39 ng/mL TSH 1.91 (0.36-3.74) uIU/mL Urine Color Yellow (Yellow) Urine Clarity Clear (Clear) Urine pH 6.0 (5-8) Ur Specific [place] 1.025 (1.005-1.025) Urine Protein >=300 H (Neg-Trace) mg/dL Urine Ketones Trace H (Negative) mg/dL Urine Blood Large H (Negative) Urine Nitrite Negative (Negative) Urine Bilirubin Small H (Negative) Urine Urobilinogen 0.2 (Up to 0.2) mg/dL Ur Leukocyte Esterase Negative (Negative) Urine RBC 5-10 H (0-2) HPF Urine WBC 0-2 (0-5) HPF Ur Epithelial Cells Negative (Negative) HPF Urine Crystals Negative (Negative) HPF Urine Bacteria Negative (Negative) HPF Urine Casts Negative (Negative) LPF Urine Mucus Negative (Negative) Ur Culture Indicated? No Urine Glucose Negative (Negative) mg/dL COVID-19 Source Nasopharynx SARS-CoV-2 (PCR) Negative (Negative) Influenza Type A (PCR) Negative (Negative) Influenza Type B (PCR) Negative (Negative) RSV (PCR) Negative (Negative) 07/05/24 15:09 Blood Culture - Pending Blood 07/05/24 14:58 Blood Culture - Pending Blood [id number] Documentation Fingerstick Glucose Start: 07/05/24 13:19 Freq: Status: Active Protocol: Activity Type Activity Date Activity User E-sign Co-sign Detail Recorded Client Recorded Date Recorded By Document 07/05/24 13:18 OLIVIA CALDWELL [id number] 07/05/24 13:19 OLIVIA CALDWELL(2) Intake and Output - 24 Hour Total 07/05/24 12:47 thru 07/06/24 11:48 Intake Total 5315.000 Output Total 650 Balance 4665.000 Weight 85.4 kg Intake: IV 4265.000 Oral 1050 Output: Urine 650 Other: Urine Color Yellow Urine Appearance Clear Urine Odor Normal Comment Patient voided approximately 200mL tea colored urine. Falls Risk Assessment History of Falls Admit Due to Fall 07/05/24 17:52 Contributing Factors Confusion,Impairments 07/05/24 17:52 Ambulatory Aids Independent 07/05/24 14:45 Tubes/Lines W/no contributing factors 07/05/24 17:52 Gait Evaluation W/no contributing factors 07/05/24 17:52 Cognition Cognitive impairment 07/05/24 17:52 Fall Total Score 66 07/05/24 17:52 Level of Risk High Risk 07/05/24 17:52 Problems (Last Updated 07/05/24 @ 17:36 by Tanner Cosme) Closed fracture of right patella (Acute) Knee effusion, right (Acute) Elevated liver enzymes (Acute) Elevated troponin (Acute) DVT prophylaxis (Acute) Acute kidney injury (Acute) Severe sepsis (Acute) Infectious encephalopathy (Acute) CAP (community acquired pneumonia) (Acute) Rhabdomyolysis (Acute) Notes 07/05/24 14:09 [facility] [phone] Nursing Note: Initialized on 07/05/24 14:09 - END OF NOTE v v v v v v v v v Sending and/or Receiving Nurses: Please use comment section below to note any information pertinent to the patient hand-off not included above. Information / Comments: A&OX4, Dim bases, HR irregular, Hx a flutter, Bilateral knee swelling and bruising, stand pivor transfers, continent of Bowel and bladder. rings call griffith correctly. Report received from: Archana COPY CAMERA OPERATOR at 1130
--- NOTE | 2024-07-06 13:32 | W.NUTRFU ---
Date of service: 07/06/24 Time of Service: 13:32 Nutrition Note NOTE: Pt admitted after fall on the floow and found by EMS. Being treated for CAP, sepsis, encephalopathy, rhabdo and elevated troponin, NATHANIEL closed fxr of patella. Pt with last A1c of 5.6% last october. had high capillary yesterday pf 198 nonfasting. 108 fasting this morning - consistent with prediabetes. BUN and Cr high at 55/2.2. Total protein and albumin labs low today. Fair intake of light breakfast this morning. weight stable over the last 3+ years. Will supplement regular diet with higher protein ONS for healing of fxr and d/t low protein labs as noted above. REcommend recent A1C lab will follow labs, intake, ONS toleration Time Spent in Nutritional Counseling and Treatment: 5 minutes
[2024-07-06] MEDS: cefTRIAXone 2 GM/50 ML BAG IVPB (15:36)
--- NOTE | 2024-07-06 17:39 | OCONE_ITS ---
Date of service: 07/06/24 Time of Service: 12:45 History of Present Illness History of Present Illness Chief Complaint: Right knee pain and swelling Narrative: Ashlyn is a 78-year-old female who was found down at home. Her details seem to be not consistent with the story obtained from discussion with the hospitalist and the reported notes. Sometime after July 03, she fell at home and was brought to the emergency department by EMS services who were called for a welfare check. She does recall falling onto both knees. She seems to think she was able to mobilize and reports mobilizing here in the hospital as well without significant limitation or pain. She has no arthritis about the right knee. She had a previous left knee replacement. She was admitted to the hospital for sepsis, likely from pneumonia, along with rhabdomyolysis. Consult Reason Right patella fracture Assessment and Plan Assessment and plan (1) Closed fracture of right patella: Status: Acute Assessment and plan: Ashlyn is a 78-year-old who had a fall at home onto both knees. She does have bruising and swelling about both knees although I only see a fracture of the right knee of the patella. I do think it is a real fracture. However, she says she has been able to mobilize here in the hospital and prior to coming back to the hospital. She denies any pain. She does have some mild pain with palpation but is able to actively extend the knee. CT scan will be helpful to fully understand the fracture characteristics and pattern which will help with the treatment. Given that she is already been able to mobilize I think we continue with mobilization although I would recommend consideration of a knee immobilizer for mobilization. May be removed after she is done mobilizing. Based on CT scan I will make formal recommendation. I will order the CT scan and addend this note with the details. Review of Systems All systems reviewed & are unremarkable except as noted in HPI and below PFSH All Active Problems Closed fracture of right patella (Acute) Knee effusion, right (Acute) Elevated liver enzymes (Acute) Elevated troponin (Acute) DVT prophylaxis (Acute) Acute kidney injury (Acute) Severe sepsis (Acute) Infectious encephalopathy (Acute) CAP (community acquired pneumonia) (Acute) Rhabdomyolysis (Acute) Postoperative seroma (Acute) Cellulitis (Acute) Hematoma (Acute) Status post total knee replacement, left (Acute) Medical History Former smoker quit 2012 Cyst of soft tissue Varicose vein of leg Bakers cyst Hypertension Localized swelling of lower leg Breast cancer 2013, s/p right lumpectomy, radiation, antiestrogen therapy Surgical History S/P tonsillectomy History of left knee replacement Family History Brother Cancer Lung cancer Parkinsons disease Social History Smoking/Tobacco Use Status: Former Tobacco Use Quit Date: 03/25/08 Smoking risk assessment performed?: Yes Alcohol Intake: current Alcohol Intake frequency: holidays/special occasions only Alcohol type: beer Drug use: Never Substance use type: does not use Housing: house Do you feel safe at home: Yes Do you feel safe in your relationship?: Yes Additional Social history: lives alone in [facility]. . Moved from [place], family there. Works at [employer] in [place] Exam Const General: cooperative, healthy appearing, comfortable and no acute distress Extrem Other: Evaluation of the right knee shows notable swelling around the right knee. There appears to be an effusion as well as some soft tissue swelling adjacent to the knee. There is some resolving ecchymosis present throughout the the majority of the knee. There is some mild pain to palpation of the patella. There is no significant pain to palpation about the joint line medially or laterally. No pain along the proximal tibia. She is able to show active range of motion about 10 degrees of extension to 95 degrees of flexion. Passively I can get her to about 5 degrees of extension and once again to 95 degrees of flexion. There is minimal pain to range of motion actively and passively. The knee is stable to varus and valgus stress. Reevaluation the left knee shows an abrasion over the anterior aspect the left knee which is tender to palpation. Ever, manipulation of the patella does not increase any pain. The knee is stable to varus and valgus stress. There is a healed midline incision. Results Last Vital Signs Temp 36.4 C L 07/06/24 15:59 Pulse 69 07/06/24 15:59 Resp 20 07/06/24 15:59 BP 118/70 07/06/24 16:20 Pulse Ox 95 07/06/24 15:59 Labs 07/06/24 05:32 07/06/24 05:32 Labs: Laboratory Results - last 24 hr 07/06/24 05:32 WBC 11.50 H RBC 3.87 L Hgb 12.1 D Hct 37.4 MCV 97 H MCH 31.3 MCHC 32.4 RDW 13.2 Plt Count 260 MPV 9.8 Immature Gran % 0.3 Neutrophils % 72.1 Lymphocytes % 18.9 Monocytes % 8.3 Eosinophils % 0.1 Basophils % 0.3 Nucleated RBC % 0.0 Absolute Neutrophils 8.29 H Absolute Lymphocytes 2.17 Absolute Monocytes 0.95 H Absolute Eosinophils 0.01 Absolute Basophils 0.03 Sodium 142 Potassium 3.7 Chloride 105 Carbon Dioxide 27.4 Anion Gap 9.6 BUN 55 H Creatinine 2.2 H Est GFR (CKD-EPI 2020) 22.53 Glucose 108 H Calcium 8.6 Total Bilirubin 0.8 Conjugated Bilirubin 0.1 AST 113 H ALT 47 Alkaline Phosphatase 65 Troponin I 45 Total Protein 6.0 L Albumin 2.5 L Imaging Imaging Studies: X-ray of the right knee shows notable arthritic change, mostly of the medial compartment as well as a rim osteophyte of the lateral compartment. The bones are notably demineralized. I do not see any sign of tibial plateau fracture. There is notable arthritis seen throughout the knee with osteophytes present about the knee, as well as seen on the lateral view of the patella. On the AP view there does appear to be a Y shaped fracture pattern of the patella which is difficult to appreciate on the lateral view. No significant displacement. X-ray of the left knee shows a cemented knee replacement in otherwise good position. No sign of loosening. No signs of fracture.
[2024-07-06] MEDS: Doxycycline Hyclate 100 MG CAP PO (20:28)
[2024-07-06] MEDS: Acetaminophen 325 MG TAB PO (20:28)
[2024-07-06] MEDS: Enoxaparin 30 MG/0.3 ML SYR SC (20:28)
[2024-07-07 03:24] VITALS: BP 143/66; PULSE 73; RESP 19; TEMP 36.5; O2SAT 98
[2024-07-07] MEDS: Acetaminophen 325 MG TAB PO ×2 (03:44→20:04)
--- NOTE | 2024-07-07 07:31 | W.PM.PROGNOT ---
Date of Service Date of service: 07/07/24 Time of Service: 07:31 Assessment and Plan Assessment and plan (1) Closed fracture of right patella: Status: Acute Assessment and plan: Ashlyn is a 78-year-old female who suffered a fall onto both knees. This resulted in an abrasion and contusion of the left knee and a patella fracture on the right side. CT scan does show a transverse fracture of the patella which usually is unstable in its current location. However, it is nondisplaced despite her mobilizing already on the leg. I do worry that this will gradually displace over time and leave her with an incompetent extensor mechanism. However, it currently is in a good position and therefore I would recommend continue with knee immobilizer for all transitions and mobilization. I will order physical therapy consult to help with transitioning immobilizing with a knee immobilizer. Plan for follow-up in another 2 to 3 weeks for repeat x-ray. Subjective Subjective Interval history since last seen: Ashlyn reports no acute changes or concerns. She has been able to mobilize with the knee immobilizer. CT scan was performed yesterday. Exam Narrative Exam Narrative: Sitting up in the chair. No acute distress. Right knee shows continued swelling and resolving ecchymosis. Mild pain to palpation of the patella. She still is able to straight leg raise although not tested against resistance but she is antigravity. Knee immobilizer was repositioned and the metal struts were shaped and repositioned as well. Objective Last Vital Signs Temp 36.5 C 07/07/24 03:24 Pulse 73 07/07/24 03:24 Resp 19 07/07/24 03:24 BP 143/66 H 07/07/24 03:24 Pulse Ox 98 07/07/24 03:24 Laboratory Results - last 24 hr 07/06/24 05:32 Troponin I 45 Objective Narrative Objective Narrative: CT scan of the right knee was performed yesterday. This demonstrates a primary transverse fracture through the proximal third of the patella. This does go all the way through from the dorsal surface to the articular posterior surface. Fortunately, there is no displacement of the fracture fragments and no malalignment. There is a large hemarthrosis seen within the knee. Significant arthritic change seen within the compartments of the knee with large osteophytes but also no sign of fracture of these osteophytes or of the proximal tibia or distal femur. Time Spent with Patient Time Spent with Patient: 25-34 minutes Time was spent: preparing to see the patient(eg.review tests), obtaining and/or reviewing separately otained hiistory, referring, communicating with other health healthcare business analyst, indepentently interpreting results and counseling the patient
[2024-07-07 07:36] LABS: Creatine Kinase 1865 U/L (26-192)
[2024-07-07 07:43] LABS: Anion Gap 6.9 mmol/L (3-11); BUN 44 mg/dL (7-18); CO2 28.1 mmol/L (21.0-32.0); CREATININE 1.3 mg/dL (0.55-1.02); Calcium 8.6 mg/dL (8.5-10.1); Chloride 110 mmol/L (98-107); Estimated GFR 42.35 (mL/min/1.73m2); Glucose 110 mg/dL (74-106); Potassium 3.7 mmol/L (3.5-5.1); Sodium 145 mmol/L (136-145)
[2024-07-07 07:52] VITALS: BP 117/54; PULSE 68; RESP 18; TEMP 36.6; O2SAT 95
[2024-07-07] MEDS: Calcium 600mg/Vit D 200U TAB 1 TAB PO (08:21)
[2024-07-07] MEDS: Ascorbic Acid 500 MG TAB PO (08:21)
[2024-07-07] MEDS: Normal Saline Flush 10 ML SYR IVP ×2 (08:21→19:47)
[2024-07-07] MEDS: Doxycycline Hyclate 100 MG CAP PO ×2 (08:21→19:47)
[2024-07-07] MEDS: amLODIPine 5 MG TAB PO (08:21)
[2024-07-07] MEDS: Aspirin 81 MG CHEW PO (08:21)
--- NOTE | 2024-07-07 08:39 | CMPROGNOTE_ITS ---
Date of service: 07/07/24 Time of Service: 08:39 Care Management Progress Note Progress Note Text Progress Note Text: Ashlyn was awake and sitting in a recliner when CM met with her. She appears to have had a moment of clarity surrounding the events leading up to her admission, and reported to CM that she fell in the [employer] parking lot around noon as she was leaving work, then drove herself home. The next day, a customer sales representative broke through the door to her home because they were concerned. The trooper called the ambulance and they brought her to the hospital. 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 After, EMS came to her work, picked her up, brought her back to her house, then brought her to the hospital. She states that her that was parked at work was driven home by a State Stripper Cutter Machine. She is trying to find out if he still has the keys to her house and car. Yesterday, when Ashlyn spoke to her friend/co-worker Nina she agreed to go to her house to feed her cats and look for her glasses. Nina also agreed to call the State Police to see if they have her keys, if she doesn't find them at her house (CM was present during this conversation.) Ashlyn hasn't talked with Nina since, but did talk with her liquor store manager and will ask Nina to call with an update when she reports to work at 4pm. CM will follow. Discharge Anticipated Barriers to Discharge: None Identified Patient/Family Education Needs: Review discharge instructions, discuss Ask Me Three Transportation: Private vehicle Plan: PT recommends SNF for STR vs Home with New HH PT. Ashlyn is eager to discharge home to her cats, and prefers to discharge home with services. Anticipate, she will discharge home via private vehicle with friend vs. RCT when medically ready for discharge. Pt will follow up with her PCP and discharge plan of care. CM will follow. Social Determinants of Health Screening Social Determinants of health last assessed in clinic: 07/07/24 Will the Patient Participate in the Screening?: Yes Do you worry about having a steady place to live?: no Problems where you live: no known problems In the past 12 months, have you had to go without electric, gas, oil or water in your home?: no 1. Within the past 12 months, we worried whether our food would run out before we got money to buy more.: Never true 2. Within the past 12 months, the food we bought just didn't last and we didn't have money to get more.: Never true Has lack of transportation kept you from medical appointments or from doing things needed for daily living?: no Has anyone in your life made you feel unsafe or unsupported?: no How hard is it for you to pay for the very basics like food, housing, medical care, and heating? Would you say it is:: Not hard at all Do you want help finding or keeping work or a job?: I do not need or want help If for any reason you need help with day-to-day activities such as bathing, preparing meals, shopping, managing finances, etc., do you get the help you need?: I don?t need any help How often do you feel lonely or isolated from those around you?: Never Do you speak a language other than Indonesian at home?: Yes Does the patient want assistance with any of the above?: No Comments: pt reports speaking Yemeni when she was younger Health Related Social Needs Health related social needs: education (Z55.6) Health related social needs details: .
[2024-07-07] MEDS: Lactated Ringers 1,000 ML 100 ML IV (09:18)
--- NOTE | 2024-07-07 09:51 | PT.INIE ---
PT Notes Visit Reasons: Pneumonia, Severe Sepsis, NATHANIEL, Rhabdomyolysis Physical Therapy Inpatient Initial Evaluation Date:07/07/2024 Referring Doctor: Dr Krishna PT Orders: PT CONSULT:Safety Consult for D/C Precautions: Right knee immobilizer at all times , WBAT RLE ,IV access Patient Profile/Admitting Diagnosis: Patient is a 78 yo F with history of HTN, breast cancer in 2012, who was found down at her house after coworkers called when she didn't show up for 2 days to work. She was last seen well Monday 07/[address] of employment, [employer] in [place]. EMS was called for a welfare check. She was found by EMS down on the floor of her home. She told them she fell eariler that day and she was sitting in urine and stool. The patient herself describes having to sit down after going upstairs at work before coming here, but cannot recount a history of the past two days. X-ray right knee showed patellar fracture nondisplaced. Patient seen by Ortho recommended knee immobilizer at all times and follow-up with Ortho in 2 weeks. Pt also DX of RUL CAP per CxR , sepsis, Infectious encephalopathy, Rhabdomylosis, elevated troponins. PMHX: Knee effusion, right (Acute) Elevated liver enzymes (Acute) Elevated troponin (Acute) DVT prophylaxis (Acute) Acute kidney injury (Acute) Severe sepsis (Acute) Infectious encephalopathy (Acute) CAP (community acquired pneumonia) (Acute) AMS (altered mental status) (Acute) Rhabdomyolysis (Acute) Postoperative seroma (Acute) Cellulitis (Acute) Hematoma (Acute) Status post total knee replacement, left (Acute) Medical History (Updated 07/05/24 @ 17:56 by Tanner Cosme) Former smoker quit 2012Cyst of soft tissue Varicose vein of leg Bakers cyst Hypertension Localized swelling of lower leg Breast cancer 2012, s/p right lumpectomy, radiation, antiestrogen therapy Surgical History (Updated 07/05/24 @ 17:35 by Tanner Cosme) S/P tonsillectomy History of left knee replacement Social History/Home Situation: Patient resides alone in a two-story home 2 steps to enter and flight of stairs to second floor bedroom Patient employed part-time. Patient drives. Patient independent ADLs, ambulation without device, home management, IADLs, shopping. Equipment Owned/DME: None Subjective: Patient reports she fell outside her place of employment and EMS brought her to the hospital. She states [facility] police brought her car to her house and she does not know where her keys are. She states she is missing her glasses and had them in the ambulance. Patient able to verbalize need to wear knee immobilizer at all times and able to instruct staff when it needs to be repositioned. Objective: [] General Observation: Female presented semireclined in bed with knee immobilizer in place requiring readjustment. Ecchymotic area noted to right knee with effusion. IV fluids infusing Mental Status: Alert and oriented to person, place and time although Patient noted to be tangential easily distracted and perseverative at times. She does not recall that she was found on the floor in her home she insists it happened outside her place of employment. Pain: Right knee 3/10 increased to 5/10 with weightbearing ROM: [] Right Upper Extremity: WFL Left Upper Extremity: WFL Right Lower Extremity: Hip and ankle WFL knee not assessed secondary to knee immobilizer in place at all times Left Lower Extremity: WFL Strength: [] Right Upper Extremity: Grossly 4/5 Left Upper Extremity: Grossly 4/5 Right Lower Extremity: Hip 3/5 ankle 3/5, knee not tested secondary to knee immobilizer in place Left Lower Extremity: Grossly 4/5 Sensation: Intact Bed Mobility/Transfers: Supine to sit CGA Sit to stand CGA with cues for hand placement Stand to sit CGA with cues for hand placement and to bring right lower extremity slightly forward prior to sitting due to knee immobilizer Bed to chair min A with FWW Gait: Min assist with FWW 20 feet with noted reduced step length bilateral lower extremities, left lower extremity lagging behind due to patient difficulty unweighting RLE with BUE patient required cues for sequencing of walker right leg, left leg which aided in unweighting RLE. Balance: [] Static Sitting: Fair Dynamic Sitting: Fair minus Static Standing: Fair with BUE support Dynamic Standing: Fair minus with BUE support Special Tests: [] Mobility Limitations Standardized Measure [] [facility] AM-PAC 6 clicks Basic Mobility Inpatient Short Form: [] Raw Score: 15 CMS Score: 57.70% Informed Consent/Education: Patient instructed in purpose of PT consult. Treatment: 09171 Transfer training with FWW and right knee immobilizer various surfaces heights from 19 inches to 21 inches with contact-guard assist sit to stand and cues for hand placement Surface to surface transfers with FWW and right knee immobilizer CGA/min assist for FWW management continuous verbal cues for sequencing to reduce pain in right lower extremity with weightbearing Assessment: Patient is 78-year-old female presenting with poor recall of incident resulting in right patella fracture. Patient demonstrates difficulty utilizing FWW and sequencing to reduce pain while weightbearing. Patient is dependent for donning and doffing/readjusting knee immobilizer. Patient will need assistance for this at home. Patient lacks insight into deficits. Patient has multiple stairs therefore recommendation for short-term SNF. Patient presents with clinical signs and symptoms consistent with current/admitting diagnoses that have resulted to mobility limitations, gait instability, generalized weakness, and impairment of motor control as demonstrated by the following impairment level findings: 1. Decreased strength to right LE major muscle groups 2. Impaired standing/sitting balance 3. Limitation of joint range of motion in right knee 4. Decreased functional activity tolerance 5. Pain in right knee with weightbearing Impairments are contributing to the following functional limitations: 1. Inability to safely ambulate without assistive device 2. Increase completion time for mobility ADL performance 3. Increased fall risk 4. Decline in transfer skills 5. Decline in bed mobility skills 6. Inability to perform stairs Patient is assessed as a moderate complexity based on the following: History: 78-year-old female with impairment level findings, functional limitations, and past medical history as indicated above Examination: Demonstrable impairment in strength, balance, and mobility level with underlying impairments and functional limitations as documented above Presentation: Evolving Decision Making: Moderate Goals: 1. Supervision bed mobility 2. Supervision with transfers with FWW and right knee immobilizer 3. Supervised ambulation with FWW and right knee immobilizer greater than 50 feet x 3 4. Supervised for steps with rail and right knee immobilizer to safely enter and exit home Plan of Care/Treatment Plan: 1-2x/day, 7 days/week x 1 week. Plan of care has been reviewed with the SHEET ROCKER providing the service under Physical Therapy direction. Initiate Physical Therapy intervention for strengthening, bed mobility, transfers, gait, stairs, balance training, use of assistive device. DISCHARGE RECOMMENDATIONS: Short term SNF vs HHPT if patient able to progress with managing knee immobilizer and sta TREATMENT CODE/TIME: 40190, 51777/ [id number] Thank you for the opportunity to participate in the care of this patient. Sayda Gray PT [place] [facility]
--- NOTE | 2024-07-07 10:56 | W.PM.PROGNOT ---
Date of Service Date of service: 07/07/24 Time of Service: 10:56 Assessment and Plan Assessment and plan (1) Severe sepsis: Status: Acute Assessment and plan: Met criteria for severe sepsis with initial HR and BP as well as WBC, NATHANIEL, AMS, and lactate 2.7. Source is pneumonia. She was responsive to fluids and remained stable hypodermically. Treating pneumonia with ceftriaxone/azithromycin Blood cx negative so far (2) CAP (community acquired pneumonia): Status: Acute Assessment and plan: RUL on CXR, treat as above, symptoms much improved. (3) Infectious encephalopathy: Status: Acute Assessment and plan: Appears secondary to sepsis/pneumonia. CT head/neck reassuring. Has resolved, but still no coherent memory of 2 days prior to admission, her history is not c/w report from EMS and coworkers (4) Rhabdomyolysis: Status: Acute Assessment and plan: CPK elevation after being found down, likely for 2 days. Urine output was not adequate on 100ml/hr IV 07/05- so additional bolus and rate to 200ml/hr 07/06. Rate decreased again to 100/hr overnight. Her Cr and CPK did come down 07/07 am. Will increase back to 150mg/hr. I would still like to push the urine output and see further improvement in renal function. (5) Elevated troponin: Status: Acute Assessment and plan: No chest pain or EKG changes. This may simply be the rhabdomyolysis or slight heart strain. normalized by 07/06 (6) Hypertension: Assessment and plan: BP low initially but stable since 07/06. With NATHANIEL holding HCTZ and CARLA inh. continuing amlodipine (7) Acute kidney injury: Status: Acute Assessment and plan: Rhabodymyolysis and pre-renal. Continue hydrating now for both IV and PO, CPK and Cr imrpoving. Follow. (8) Elevated liver enzymes: Status: Acute Assessment and plan: New. A/w sepsis and rhabdomylysis, follow. improved. (9) Closed fracture of right patella: Status: Acute Assessment and plan: Traumatic, seen on XR, real fracture per ortho. Not displaced. Management typically non-operative, immobilized per ortho, working with PT. She may need SNF as she lives alone, reassess 07/08. (10) DVT prophylaxis: Status: Acute Assessment and plan: Enoxaparin Subjective Subjective Patient reports: feels better, tolerating a regular diet and voiding w/o difficulty; denies nausea, vomiting, shortness of breath or fever Interval history since last seen: Fluids decreased to 100ml/hr overnight Mcgraw never placed, patient declined Evaluated by orthopedics after XR showed R patellar fx, immobilizer in place She is feeling better this morning. Took a few steps with PT. Knee did hurt when trying to put weight on it. She feels like her lung infection has resolved, breathing is much better. no chest pain, no longer coughing much. Exam Narrative Exam Narrative: GEN: Alert oriented x3, no acute distress at rest, still insists she went to work the 2 days prior to admission, snuck in the side door and didn't clock in. States she fell at [email or web address], not home. LUNGS: CTAB with normal effort CV: RRR with no murmurs, gallops, or rubs. EXT: no cyanosis, clubbing. Trace cecilia edema MSK: right knee effusion, not red/hot SKIN: No rashes or open wounds. Bruises on both knees improving PSYCH: normal mood and affect, no hallucinations evident Objective Last Vital Signs Temp 36.6 C 07/07/24 07:52 Pulse 68 07/07/24 07:52 Resp 18 07/07/24 07:52 BP 117/54 L 07/07/24 07:52 Pulse Ox 95 07/07/24 07:52 Laboratory Results - last 24 hr 07/07/24 06:35 Sodium 145 Potassium 3.7 Chloride 110 H Carbon Dioxide 28.1 Anion Gap 6.9 BUN 44 H Creatinine 1.3 H Est GFR (CKD-EPI 2020) 42.35 Glucose 110 H Calcium 8.6 Creatine Kinase 1865 H Time Spent with Patient Time Spent with Patient: 35-49 minutes Time was spent: preparing to see the patient(eg.review tests), obtaining and/or reviewing separately otained hiistory, ordering medications,tests, procedures, referring, communicating with other health healthcare facility administrator, indepentently interpreting results, counseling the patient and care coordination
[2024-07-07 11:02] VITALS: BP 114/57; PULSE 78; RESP 20; TEMP 37; O2SAT 96
[2024-07-07] MEDS: Lactated Ringers 1,000 ML 150 ML IV ×2 (11:09→17:40)
--- NOTE | 2024-07-07 13:51 | PT.INTREAT ---
PT Notes Visit Reasons: Pneumonia, Severe Sepsis, NATHANIEL, Rhabdomyolysis Inpatient Physical Therapy Treatment Note [facility] Date: 07/07/24 SUBJECTIVE: Ashlyn states that she is doing well. Feels like she can manage herself at home at this point. Very little pain at the moment. It only hurts when brace is moved around on my leg. Refuses to practice stairs today. OBJECTIVE: []? VITALS: ? monitored by ns. Therapeutic Activities (84546c6) 23 min: Direct one-on-one instruction in dynamic activities to improve functional performance. ? BED MOBILITY/TRANSFERS? seated in recliner. Did not want to go to bed after session. ? Sit-stand: SBBA ? Stand-sit: SBA ? ? ? Provided skilled cues and instruction on performance and technique throughout. Reminders to use arm rest vs walker to transfer herself into/out of chair. Gait Training (71182k2): Direct one-on-one instruction and skilled instruction in: [x] employing an assistive device [x] modified weight-bearing status [x] movement sequencing [x] Provided verbal cues for equipment management and technique [x] Provided instruction in gait pattern ? GAIT? Assistive Device: FWW ? Weight bearing: AT RLE Assist: CGA/SBA ? Distance:approx 30' x2. ? ASSESSMENT:? tolerated session well. No c/o pain during ambulation. No LOB during ambulation.Tends to use step to gait pattern. Is able to make corrections with verbal cues, although she seems to forget quickly. Easily distracted, and tended to repeat herself several times. PLAN: will continue to work on her functional mobility. She needs to practice stairs tomorrow. TREATMENT CODE/TIME: 23 min. ([id number], [id number]) DISCHARGE RECOMMENDATION: home with services.
[2024-07-07 15:15] VITALS: BP 137/71; PULSE 77; RESP 18; TEMP 37; O2SAT 93
[2024-07-07] MEDS: cefTRIAXone 2 GM/50 ML BAG IVPB (16:49)
[2024-07-07 19:38] VITALS: BP 128/79; PULSE 81; RESP 19; TEMP 37; O2SAT 95
[2024-07-07] MEDS: Enoxaparin 40 MG/0.4 ML SYR SC (19:47)
[2024-07-07 23:30] VITALS: BP 125/65; PULSE 74; RESP 17; TEMP 36.5; O2SAT 93
[2024-07-08] MEDS: Lactated Ringers 1,000 ML 150 ML IV (00:36)
[2024-07-08 03:13] VITALS: BP 113/55; PULSE 77; RESP 16; TEMP 36.3; O2SAT 95
[2024-07-08 06:02] LABS: Anion Gap 3.4 mmol/L (3-11); BUN 27 mg/dL (7-18); CO2 31.6 mmol/L (21.0-32.0); CREATININE 1.2 mg/dL (0.55-1.02); Chloride 109 mmol/L (98-107); Creatine Kinase 914 U/L (26-192); Estimated GFR 46.62 (mL/min/1.73m2); Glucose 118 mg/dL (74-106); Potassium 3.8 mmol/L (3.5-5.1); Sodium 144 mmol/L (136-145)
[2024-07-08 07:06] VITALS: BP 145/75; PULSE 74; RESP 20; TEMP 36.6; O2SAT 97
[2024-07-08] MEDS: Aspirin 81 MG CHEW PO (08:28)
[2024-07-08] MEDS: Normal Saline Flush 10 ML SYR IVP (08:28)
[2024-07-08] MEDS: Ascorbic Acid 500 MG TAB PO (08:29)
[2024-07-08] MEDS: Calcium 600mg/Vit D 200U TAB 1 TAB PO (08:29)
[2024-07-08] MEDS: amLODIPine 5 MG TAB PO (08:29)
[2024-07-08] MEDS: Doxycycline Hyclate 100 MG CAP PO (08:29)
--- NOTE | 2024-07-08 08:42 | CMPROGNOTE_ITS ---
Date of service: 07/08/24 Time of Service: 08:42 Care Management Progress Note Progress Note Text Progress Note Text: Ashlyn was sitting in a recliner eating lunch when CM met with her. She is easy to engage in conversation and continues to have a distorted perception of where she was when EMS found her and brought her to the hospital, otherwise she seems very alert and oriented. Per Ashlyn, her cats have missed her since she's been gone and she is looking forward to seeing them afternoon. Her friend Nina has been very helpful while she's been away; she been out to feed her cat and will be picking her later this afternoon. Ashlyn still doesn't know where her purple glasses or if her keys were found, and she also doesn't know where or when she had them last and plans to look for them when she gets home. Ashlyn is agreeable to [facility] services and verbalizes understanding that medical clearance to return to work will be at the discretion of her PCP or Othopedic MD after discharge. Discharge Potential Discharge Needs: PCP F/U Appt Anticipated Barriers to Discharge: None Identified Patient/Family Education Needs: Review discharge instructions, discuss Ask Me Three Transportation: Private vehicle Plan: PT recommends SNF for STR vs Home with New PT. Ashlyn is eager to discharge home to her cats, and prefers to discharge home with services. Anticipate, she will discharge home via private vehicle with friend vs. RCT when medically ready for discharge. Pt will follow up with her PCP and discharge plan of care. CM will follow. Social Determinants of Health Screening Social Determinants of health last assessed in clinic: 07/08/24 Will the Patient Participate in the Screening?: Yes Do you worry about having a steady place to live?: no Problems where you live: no known problems In the past 12 months, have you had to go without electric, gas, oil or water in your home?: no 1. Within the past 12 months, we worried whether our food would run out before we got money to buy more.: Never true 2. Within the past 12 months, the food we bought just didn't last and we didn't have money to get more.: Never true Has lack of transportation kept you from medical appointments or from doing things needed for daily living?: no Has anyone in your life made you feel unsafe or unsupported?: no How hard is it for you to pay for the very basics like food, housing, medical care, and heating? Would you say it is:: Not hard at all Do you want help finding or keeping work or a job?: I do not need or want help If for any reason you need help with day-to-day activities such as bathing, preparing meals, shopping, managing finances, etc., do you get the help you need?: I don?t need any help How often do you feel lonely or isolated from those around you?: Never Do you speak a language other than Khmer at home?: Yes Does the patient want assistance with any of the above?: No Comments: pt reports speaking Montserratian when she was younger Health Related Social Needs Health related social needs: education (Z55.6) Health related social needs details: .
--- NOTE | 2024-07-08 10:58 | PT.INTREAT ---
PT Notes Visit Reasons: Pneumonia, Severe Sepsis, NATHANIEL, Rhabdomyolysis Inpatient Physical Therapy Treatment Note [facility] Date: 07/08/2024 SUBJECTIVE: Ashlyn states that she is doing well. Feels like she can manage herself at home at this point. She reports she is going home today. Her friend Nina is coming to pick her up before she has to go to work at 3pm OBJECTIVE:Pt presents eager to go home. remains inconsistent regarding what happened leading to her admission. Pt requires assistance to manage Knee immobilizer. ? VITALS: ? monitored by nstai. Therapeutic Activities (34758): Direct one-on-one instruction in dynamic activities to improve functional performance. ?? Provided skilled cues and instruction on performance and technique throughout. Reminders to use arm rest vs walker to transfer herself into/out of chair. ? BED MOBILITY/TRANSFERS? supine to sit with supervision sit to supine supervision. ? Sit-stand: SBA ? Stand-sit: SBA ? ? ? KI management:adjusting knee immobilizer with min A in long sit at edge of bed. Pt requires assistance to ensure it is tight enough not to slide down when she stands. Gait Training ([id number]): Direct one-on-one instruction and skilled instruction in: [x] employing an assistive device [x] modified weight-bearing status [x] movement sequencing [x] Provided verbal cues for equipment management and technique [x] Provided instruction in gait pattern ? GAIT? Assistive Device: FWW ? Weight bearing: AT RLE Assist: SBA ? Distance:approx 50' x2. ? Deviations: step to pattern with excessive trunk flexion with WB on RLE. Stairs: 2 x 6 steps and 2 x 4 step with B rail with step to pattern and SBA with 100% cues for sequencing for descending stairs. ASSESSMENT: Patient able to perform stairs today with cueing for sequencing. Concern for discharge to home related to ability to perform ADL care versus her ability to move with FWW within home.Pt requires assistance for proper placement of knee immobilizer. She tolerated session well. No c/o pain during ambulation. No LOB during ambulation.Easily distracted, and tended to repeat herself several times. Issued and fitted for youth FWW with 5 wheels and provided a hoop punch operator helper to aide in ADL /selfcare tasks PLAN: will continue to work on her functional mobility including stairs and donning/ adjusting KI TREATMENT CODE/TIME: 73202c1, [id number]/ [id number] DISCHARGE RECOMMENDATION: home with services.
[2024-07-08 11:24] VITALS: BP 134/66; PULSE 72; RESP 20; TEMP 36.8; O2SAT 95
--- NOTE | 2024-07-08 11:55 | W.PM.DS.N ---
Date of service: 07/08/24 Time of Service: 11:56 DS: Diagnosis Discharge Diagnosis (1) Severe sepsis: Status: Acute (2) CAP (community acquired pneumonia): Status: Acute (3) Infectious encephalopathy: Status: Acute (4) Rhabdomyolysis: Status: Acute (5) Elevated troponin: Status: Acute (6) Hypertension: (7) Acute kidney injury: Status: Acute (8) Elevated liver enzymes: Status: Acute (9) Closed fracture of right patella: Status: Acute (10) DVT prophylaxis: Status: Acute Discharge Plan Disposition Patient Disposition: Home W/Home Health Services Condition: Good Discharge Details Reason For Visit: Pneumonia, Severe Sepsis, NATHANIEL, Rhabdomyolysis Admit Date/Time: 07/05/24 16:11 Admit Provider: Tanner Cosme Attending Provider: Tanner Cosme Primary Care Provider: Mallika Boles Hospital Course Hospital Course: 78 yo F with history of HTN and breast cancer in 2012 was found down at her house after coworkers called when she didn't show up for 2 days to work. EMS found her on the floor of her home, she reported that she had fallen only a few hours earlier, but EMS suspsected it was longer as she was soiled with urine and stool, and the patient could only give a vague and inconsistant history of what happened. She was found to have a pneumonia, NATHANIEL with Cr 1.8, elevated lactate at 2.7 and WBC at 16, as well as rhabdomyolysis with CPK of 5202. She was admitted and treated with ceftriaxone and azithromycin for pneumonia and IV hydration. IV hydration was intensified 07/05 when the creatinine increased to 2.2, and the creatinine was down to 1.2 with the CPK down to 914. Her pneumonia was treated with ceftriaxone and doxycycline. She was given her 4th dose on the afternoon of discharge and sent home with 2 more days of antibiotics The patient had hit her head/face when she fell and did have a hematoma seen on CT on the right face/mormon. There was no intracranial hemorrhage or other acute findings on CT head/neck, though small vessel white matter changes were noted in the brain and DJD in the cervical spine. The patient continued to have inconsistent memories of the 2 days prior to admission, and insisted she was at work at [employer] in [employer] or at [employer] when her fall happened. Her neurologic exam and mental status was otherwise normal. Her retrograde amnesia was attributed to a concussion and acute illness. Her HEENT exam was atraumatic at discharge. Her troponin was slightly elevated at 64 in the setting of rhabdomyolysis, and this decreased down to 45. She did not have chest pain and there were no ischemic EKG changes. She also had bruises on both knees and an effusion on the right. CXR suggested patellar fracture and orthopedics was consulted. CT confirmed and she was given an immobilizer splint and worked with PT with instructions to wear whenever she is moving, with plan for f/u 3-4 weeks with orthopedics to see if it is healing enough to avoid surgery. PT recommended home health PT. She had some LFT abnormalities that improved. Bilirubin normalized but AST/ALT were still high and albumin low. Follow Up PCP: [facility] follow up in 3-4 weeks Follow up renal and hepatic function, repeat CMP and CPK in 1 week prior to PCP appointment. Follow up memory and mental status Consider statin therapy given mild troponin elevation Home Meds and New Rx's Prescriptions: New doxycycline hyclate 100 mg Capsule 100 mg PO BID 2 Days Qty: 4 0RF ascorbic acid (vitamin C) [Vitamin C] 500 mg Tablet 500 mg PO DAILY Qty: 100 0RF amoxicillin-pot clavulanate 875-125 mg tablet 1 tab PO BID 2 Days Qty: 4 0RF Rx Instructions: start 07/09 Continued calcium citrate-vitamin D2 1 EACH tablet 1 ea PO DAILY Vision Plus Lutein 1 EACH tablet 1 ea PO DAILY amlodipine 5 mg tablet 5 mg PO DAILY aspirin 81 mg tablet,chewable 81 mg PO DAILY Women's Daily Caplet 1 EACH tablet 1 ea PO DAILY lisinopril 10 mg tablet 10 mg PO DAILY Discharge Instructions Instructions: Rhabdomyolysis Additional Instructions: -Continue to drink fluids stay hydrated to help flush your kidneys -Finish 2 more days of antibiotics for your kidneys RIGHT PATELLA FRACTURE: -You may weight-bear as tolerated on the right leg. It is recommended that you keep the knee immobilizer in place for all transitions and all periods of mobilization. While the fracture is currently nondisplaced there is a risk that it displaces thus requiring surgery. If you are sitting in a chair or laying in the bed you may remove it or loosen it for comfort. However, before getting out of the bed or chair it should be secured onto the right leg. Skin check should be performed at least twice per day to avoid any areas of pressure or skin irritation. - Continue with the knee immobilizer until follow-up in orthopedics in approximately 3 to 4 weeks. This appointment will be made for you. - You should call the orthopedic office, [facility],, , if there is any worsening pain or decrease in function about the right leg prior to your appointment. Stand Alone Forms: Nursing Discharge Form Referrals: Mallika Boles [Primary Care Provider] - (Left a voicemail to your PCP office to give you a call to make a follow up appointment for within 1 to 2 weeks.) Ace Krishna MD [ [facility] STAFF PHYSICIAN] - 07/27/24 2:15 pm Activity:: Activity as Tolerated Equipment/Supplies:: Walker Diet:: As Tolerated Discharge Orders Discharge Orders: Discharge Order (Routine); Ordered 07/08/24 Ordered By: Tanner Cosme Discharge Data Discharge Date/Time-TO BE ENTERED AT DEPARTURE: 07/08/24 15:11 DS: Summary Time Spent with Patient providing and/or coordinating discharge services: Greater than 30 minutes Status at Discharge Functional status at discharge: uses cane/walker Overall status at discharge: patient is progressing back to baseline Mental Status: mental status grossly normal Speech and Movement: speech and movement normal Mood: congruent mood Affect: normal affect Quality:SDOH Health Related Social Needs: Health related social needs education (Z55.6) Health related social needs details . Health related social needs details: . Exam Narrative Exam Narrative: GEN: Alert oriented x3, no acute distress at rest, NAD HEENT: no head/facial tenderness or swelling or bruising notable LUNGS: CTAB with normal effort CV: RRR with no murmurs, gallops, or rubs. EXT: no cyanosis, clubbing. 1+ cecilia edema ankles MSK: right knee in immobilizer PSYCH: normal mood and affect, no hallucinations or other abnormal thought process Psych Mental Status: mental status grossly normal Speech and Movement: speech and movement normal Mood: congruent mood Affect: normal affect DS: Data Vitals/I&O Vitals and I&O: Vital Signs Temperature 36.8 C 07/08/24 11:24 Temperature Source Temporal Artery Scan 07/08/24 11:24 Pulse 72 07/08/24 11:24 Pulse 72 07/06/24 07:01 Respiratory Rate 20 07/08/24 11:24 Respiratory Effort Pursed Lip 07/05/24 17:52 Respiratory Depth Normal 07/05/24 13:31 Respiratory Pattern Tachypnea 07/05/24 17:52 Blood Pressure 134/66 07/08/24 11:24 Blood Pressure Mean 71 07/06/24 07:01 Blood Pressure Position Supine 07/05/24 17:52 Pulse Oximetry 95 07/08/24 11:24 Oxygen Delivery Method Room Air 07/08/24 11:24 Oxygen Flow Rate 0 07/08/24 11:24 Pain Level 0 07/08/24 11:24 Comment RN notified 07/08/24 07:06 Comment retake left side 07/05/24 21:04 Intake & Output 07/07/24 07/07/24 07/08/24 11:59 23:59 11:59 Intake Total 1220 / 3330.833 2110.833 / 3330.833 3000 / 3000 Output Total 1000 / 2700 1700 / 2700 750 / 750 Balance 220 / 630.833 410.833 / 444.735 2547 / 2250 Weight 62 kg 88.8 kg Intake: IV 1000 / 2870.833 1870.833 / 2870.833 3000 / 3000 Oral 220 / 460 240 / 460 Output: Urine 1000 / 2700 1700 / 2700 750 / 750 Other: Urine Color Straw Pale Yellow Urine Appearance Clear Clear Clear Urine Odor Normal Normal Normal Comment unknown void amount passed into commode, mixed with BM plus incontinent amount unmeasured Stool Size Small Small Small Stool Characteristics Soft Soft Soft Liquid Brown Data Completed and Pending Labs on day of discharge: Labs from last 24 hours 07/08/24 05:38 Sodium 144 Potassium 3.8 Chloride 109 H Carbon Dioxide 31.6 Anion Gap 3.4 BUN 27 H Creatinine 1.2 H Est GFR (CKD-EPI 2020) 46.62 Glucose 118 H Calcium 9.0 Creatine Kinase 914 H Preliminary micro results at discharge 07/05/24 14:58 Blood Culture - Preliminary Blood NO GROWTH 48 HOURS 07/05/24 15:09 Blood Culture - Preliminary Blood NO GROWTH 48 HOURS PFSH All Active Problems Closed fracture of right patella (Acute) Knee effusion, right (Acute) Elevated liver enzymes (Acute) Elevated troponin (Acute) DVT prophylaxis (Acute) Acute kidney injury (Acute) Severe sepsis (Acute) Infectious encephalopathy (Acute) CAP (community acquired pneumonia) (Acute) Rhabdomyolysis (Acute) Postoperative seroma (Acute) Cellulitis (Acute) Hematoma (Acute) Status post total knee replacement, left (Acute) Medical History Former smoker quit 2012 Cyst of soft tissue Varicose vein of leg Bakers cyst Hypertension Localized swelling of lower leg Breast cancer 2012, s/p right lumpectomy, radiation, antiestrogen therapy Surgical History S/P tonsillectomy History of left knee replacement Family History Brother Cancer Lung cancer Parkinsons disease Social History Smoking/Tobacco Use Status: Former Tobacco Use Quit Date: 03/25/08 Smoking risk assessment performed?: Yes Alcohol Intake: current Alcohol Intake frequency: holidays/special occasions only Alcohol type: beer Drug use: Never Substance use type: does not use Housing: house Do you feel safe at home: Yes Do you feel safe in your relationship?: Yes Additional Social history: lives alone in [facility]. . Moved from [place], family there. Works at [employer] in [place] Time Spent with Patient Time Spent with Patient: 45-69 minutes Time was spent: preparing to see the patient(eg.review tests), obtaining and/or reviewing separately otained hiistory, ordering medications,tests, procedures, referring, communicating with other health health care sanitary technician, indepentently interpreting results, counseling the patient and care coordination
--- NOTE | 2024-07-08 11:57 | PDOC.HHF2F ---
Home Health Referral Home Health Orders Clinical synopsis of why skilled professionals are needed: 78 yo F with history of HTN and breast cancer in 2012 was found down at her house after coworkers called when she didn't show up for 2 days to work. EMS found her on the floor of her home, she reported that she had fallen only a few hours earlier, but EMS suspsected it was longer as she was soiled with urine and stool, and the patient could only give a vague and inconsistant history of what happened. She was found to have a pneumonia, NATHANIEL with Cr 1.8, elevated lactate at 2.7 and WBC at 16, as well as rhabdomyolysis with CPK of 5202. She was admitted and treated with ceftriaxone and azithromycin for pneumonia and IV hydration. IV hydration was intensified 07/05 when the creatinine increased to 2.2, and the creatinine was down to 1.2 with the CPK down to 914. Her pneumonia was treated with ceftriaxone and doxycycline. She was given her 4th dose on the afternoon of discharge and sent home with 2 more days of antibiotics The patient had hit her head/face when she fell and did have a hematoma seen on CT on the right face/jainism. There was no intracranial hemorrhage or other acute findings on CT head/neck, though small vessel white matter changes were noted in the brain and DJD in the cervical spine. The patient continued to have inconsistent memories of the 2 days prior to admission, and insisted she was at work at [employer] in [place] or at [employer] when her fall happened. Her neurologic exam and mental status was otherwise normal. Her retrograde amnesia was attributed to a concussion and acute illness. Her HEENT exam was atraumatic at discharge. Her troponin was slightly elevated at 64 in the setting of rhabdomyolysis, and this decreased down to 45. She did not have chest pain and there were no ischemic EKG changes. She also had bruises on both knees and an effusion on the right. CXR suggested patellar fracture and orthopedics was consulted. CT confirmed and she was given an immobilizer splint and worked with PT with instructions to wear whenever she is moving, with plan for f/u 3-4 weeks with orthopedics to see if it is healing enough to avoid surgery. PT recommended home health PT. She had some LFT abnormalities that improved. Bilirubin normalized but AST/ALT were still high and albumin low. Follow Up PCP: [facility] follow up in 3-4 weeks Follow up renal and hepatic function, repeat CMP and CPK in 1 week prior to PCP appointment. Follow up memory and mental status Consider statin therapy given mild troponin elevation Medical diagnosis necessitation home health referral: patellar fracture Physical Therapist: Check all that apply Increase strength & endurance for safe mobility at home: Ordered To design/establish home maintenance program: Ordered Fall reduction therapy program for patient with history of frequent falls: Ordered Home safety evaluation and teaching/gait training including stair management (if applicable): Ordered Home Bound Status Requires the aid of supportive device (check all that apply): Cane and Walker Describe why leaving home would require a considerable and taxing effort: Requires frequent rest periods Encounter Date and Reason: I certify that a FTF encounter for this patient was performed on July 08, 2024 and that such encounter was related to the primary reason the patient requires home health services. The encounter was conducted in the following manner: By me as the certifying physician, [employer], PA or By an inpatient physician, INSPECT[employer] or PA during an inpatient stay who communicated findings to me, Certification And Authentication I certify that I composed the above information based on my clinical judgment relating to this patient's medical condition and, if applicable, clinical findings communicated to me by the NPP or inpatient physician who performed the FTF encounter. Name of Provider that will be monitoring home health services: Mallika Boles
[2024-07-08] MEDS: cefTRIAXone 2 GM/50 ML BAG IVPB (12:21)
--- NOTE | 2024-07-08 13:52 | PDOC.CMDIS ---
Date of service: 07/08/24 Time of Service: 13:52 LACE Index Scoring Tool Questions: Length of Stay (in days): 3 Was the patient admitted via the E.D.?: Yes E.D. Visits: 1 Answers: Total Score: 7 Risk of Readmission: Low Risk Care Management Discharge Plan Reason for Hospitalization: Pneumonia, sepsis, rhabdomylosis Discharge Plan: Ashlyn is discharged home via private vehicle with her friend Nina. Pt will follow up with her PCP, Orthopedic provider and discharge plan of care as recommended. Ashlyn verbalizes understanding that clearance to return to work will be at the discretion of her PCP or Orthopedic provider and will be discussed at her hospital follow up appointments. Patient/Family Education Needs: Review discharge instructions, limitations, medications and plan to follow up with outpatient providers. Discuss ask me three. Services Needed at Discharge: Home Health Care Services ([facility]) SDOH Health Related Social Needs: Health related social needs education (Z55.6) Health related social needs details . Health related social needs details: .
== END 2024-07-08 15:11 | disposition home health service (06) | DRG 871 ==
LOC: ER 16:15 → ICU 17:41 → MS 07-06 11:39
PROVIDERS: Family Medicine; Admitting Provider Family Medicine; Emergency Provider Emergency Medicine; PCP Nurse Practitioner Family; Responsible Provider Family Medicine; Visit Provider Family Medicine
DX: A41.9 Sepsis, unspecified organism (principal); J18.9 Pneumonia, unspecified organism; S82.091A Other fracture of right patella, initial encounter for closed fracture; G93.49 Other encephalopathy; N17.9 Acute kidney failure, unspecified; M62.82 Rhabdomyolysis; R65.20 Severe sepsis without septic shock; I10 Essential (primary) hypertension; R74.8 Abnormal levels of other serum enzymes; M25.461 Effusion, right knee; Z85.3 Personal history of malignant neoplasm of breast; W19.XXXA Unspecified fall, initial encounter; Z96.652 Presence of left artificial knee joint; Z87.891 Personal history of nicotine dependence
CPT/HCPCS: 00123; 36415; 36416; 73562; 80048; 80053; 80076; 82550; 82805; 82962; 84145; 87040; 87637; 93005; 96361; 96365; 96366; 96367; 97116; 97162; 97530; 99222; 99232; 99285; J1650; 70450; 71046; 72125; 73700; 81003; 81015; 82248; 83605; 83735; 83880; 84443; 84484; 85025; 85610; 85730; 93010; 94760; 99223; 99239; J0456; J0696

== ENCOUNTER 2024-07-27 15:34 | Outpatient (CLI) | payer MEDICARE, SELFPAY ==
--- NOTE | 2024-07-27 14:35 | DI.RAD_ITS ---
Exam(s) XR KNEE RT 2V AP,LAT EXAM: XR KNEE RT 2V AP,LAT CLINICAL HISTORY: F/U R PATELLA FX. TECHNIQUE: 2D digital imaging was performed. Three views. COMPARISON: CR,XR XR KNEE RT 3V AP,LAT,NIKKIE from 07/05/2024 CR,XR XR KNEE LT 3V AP,LAT,NIKKIE from 07/05/2024 FINDINGS: BONES: There has been no change in the alignment of the patellar fracture. No bony destructive lesio n is seen. JOINTS: Severe degenerative changes of the medial femoral tibial joint and patellofemoral joints are again noted.. A joint effusion remains present. SOFT TISSUE: Anterior soft tissue swelling. Diffuse edema. Vascular calcifications. IMPRESSION: Stable alignment of patellar fracture. DATA REPOSITORY: RADIATION DOSE DELIVERED:
== END 2024-07-27 15:35 | disposition home or self-care (01) ==
LOC: DIORS 15:34
PROVIDERS: PCP Nurse Practitioner Family; Referring Provider Nurse Practitioner Family; Visit Provider Physician Assistant
DX: S82.091A Other fracture of right patella, initial encounter for closed fracture (principal); W19.XXXA Unspecified fall, initial encounter
CPT/HCPCS: 99213; 73560

== ENCOUNTER 2024-07-29 14:38 | Outpatient (REF) | payer MEDICARE, SELFPAY ==
[2024-07-29 19:48] LABS: HCT 32.7 % (36.0-46.0); HGB 10.5 g/dL (11.2-15.7); MCH 31.4 pg (27.0-33.0); MCHC 32.1 % (32.0-36.0); MCV 98 fL (80-95); Platelet Count 316 10^3/uL (130-400); RBC 3.34 10^6/uL (3.93-5.22); RDW 13.2 % (11.7-14.6)
[2024-07-29 20:04] LABS: ALT 13 U/L (14-59); AST 15 U/L (15-37); Albumin 3.4 g/dL (3.4-5.0); Alkaline Phosphatase 108 U/L (46-116); Anion Gap 7.6 mmol/L (3-11); BUN 23 mg/dL (7-18); Bilirubin, Total 0.6 mg/dL (0.2-1.0); CO2 27.4 mmol/L (21.0-32.0); CREATININE 1.2 mg/dL (0.55-1.02); Calcium 9.7 mg/dL (8.5-10.1); Chloride 109 mmol/L (98-107); Creatine Kinase 36 U/L (26-192); Estimated GFR 46.62 (mL/min/1.73m2); Glucose 97 mg/dL (74-106); Potassium 4.2 mmol/L (3.5-5.1); Sodium 144 mmol/L (136-145); Total Protein 6.6 g/dL (6.4-8.2)
[2024-07-30 19:24] LABS: Hepatitis C Ab w Rflx HCV PCR Negative (Negative)
[2024-08-04 08:58] LABS: Varicella IgG Antibody Positive (See Note)
== END 2024-07-29 14:39 | disposition home or self-care (01) ==
LOC: NCHCN 14:38
PROVIDERS: PCP Nurse Practitioner Family; Visit Provider Family Medicine
DX: I10 Essential (primary) hypertension (principal); Z11.59 Encounter for screening for other viral diseases; T79.6XXS Traumatic ischemia of muscle, sequela
CPT/HCPCS: 80053; 82550; 85027; 86787; 86803

== ENCOUNTER 2024-08-20 15:25 | Outpatient (CLI) | payer MEDICARE, SELFPAY ==
--- NOTE | 2024-08-20 13:30 | DI.RAD_ITS ---
Exam(s) XR KNEE RT 2V AP,LAT EXAM: XR KNEE RT 2V AP,LAT CLINICAL HISTORY: F/U R PATEALL FX. TECHNIQUE: 2D digital imaging was performed. COMPARISON: CR XR KNEE RT 2V AP,LAT from 07/27/2024 FINDINGS: Two views The previously described patellar fracture appears unchanged and without further displacement. Advanced bhtv-mu-yffz narrowing of the medial compartment of the knee is again noted with preservatio n of height of the lateral compartment. Joint effusion again noted. Bone density age-appropriate. No osseous lesions. IMPRESSION: There is stable alignment of the patellar fracture site. No further displacement. Advanced degenerative czxs-ki-orzf narrowing of the medial compartment. Prominent joint effusion-probable hemarthrosis again noted DATA REPOSITORY: RADIATION DOSE DELIVERED:
== END 2024-08-20 15:26 | disposition home or self-care (01) ==
LOC: DIORS 15:26
PROVIDERS: PCP Nurse Practitioner Family; Referring Provider Nurse Practitioner Family; Visit Provider Physician Assistant
DX: S82.001D Unspecified fracture of right patella, subsequent encounter for closed fracture with routine healing (principal); X58.XXXD Exposure to other specified factors, subsequent encounter
CPT/HCPCS: 99213; 73560

== ENCOUNTER 2024-08-25 14:47 | Outpatient (REF) | payer MEDICARE, SELFPAY ==
[2024-08-25 14:23] LABS: HCT 35.4 % (36.0-46.0); HGB 11.3 g/dL (11.2-15.7); MCH 31.3 pg (27.0-33.0); MCHC 31.9 % (32.0-36.0); MCV 98 fL (80-95); MPV 9.6 fL (8.0-11.0); Platelet Count 310 10^3/uL (130-400); RBC 3.61 10^6/uL (3.93-5.22); RDW 13.1 % (11.7-14.6); RDW-SD 46.7 fL; WBC 5.69 10^3/uL (4.4-10.8)
[2024-08-25 14:38] LABS: Iron 53 ug/dL (50-170); Total Iron Binding Capacity 296 ug/dL (250-450); Transferrin Sat 18 % (15-50)
[2024-08-25 15:04] LABS: Ferritin 95 ng/mL (8-252); Folate 8.5 ng/mL (8.6-20.0); Vitamin B12 320 pg/mL (193-986)
== END 2024-08-25 14:48 | disposition home or self-care (01) ==
LOC: NCHCN 14:47
PROVIDERS: PCP Family Medicine; Visit Provider Family Medicine
DX: D64.9 Anemia, unspecified (principal)
CPT/HCPCS: 85027; 82607; 82728; 82746; 83540; 83550

== ENCOUNTER 2024-10-08 13:11 | Outpatient (CLI) | payer MEDICARE, SELFPAY ==
--- NOTE | 2024-10-08 13:00 | DI.RAD_ITS ---
Exam(s) XR KNEE RT 3V AP,LAT,NIKKIE EXAM: XR KNEE RT 3V AP,LAT,NIKKIE CLINICAL HISTORY: eval R patella frx. TECHNIQUE: 2D digital imaging was performed. COMPARISON: CR XR KNEE RT 2V AP,LAT from 08/20/2024 FINDINGS: 3 views The fracture site in the patella appears stable. Fracture line is still somewhat visible but there is no further displacement. Joint effusion again noted. There is advanced qfdt-vo-zqlc narrowing of the medial compartment again noted. Also some degenerative change in the patellofemoral compartment is again noted. IMPRESSION: Stable appearance with findings as above, radiographically unchanged from 08/20/2024. DATA REPOSITORY: RADIATION DOSE DELIVERED:
== END 2024-10-08 13:12 | disposition home or self-care (01) ==
LOC: DIORS 13:12
PROVIDERS: PCP Family Medicine; Visit Provider Student in an Organized Health Care Education/Training Program
DX: S82.001D Unspecified fracture of right patella, subsequent encounter for closed fracture with routine healing (principal); M17.11 Unilateral primary osteoarthritis, right knee; X58.XXXD Exposure to other specified factors, subsequent encounter
CPT/HCPCS: 99212; 73562; 99213

== ENCOUNTER 2024-10-29 03:23 | Outpatient (CLI) | payer MEDICARE, SELFPAY ==
--- NOTE | 2024-10-29 13:30 | DI.US_ITS ---
APPROVED REPORT EXAM: Comprehensive 2D, Doppler, and color-flow Echocardiogram Patient Location: Out-Patient Ambulatory Technologist: Jeri Parisi RDCS (AE) Indications: Bilateral Lower Ext, New systolic murmur at lt axillary border Other Information Study Quality: Fair. Technically limited study due to body habitus. Conclusion Technically difficult and limited study Normal left ventricular wall thickness and chamber size. Ejection fraction is 60%. Wall motion is normal Normal right ventricular size and function Both atria are normal in size Within the limits of the study no significant valvular disease is identified Wall motion Left Ventricle Technically limited parasternal imaging. The left ventricular systolic function is normal. The left ventricular ejection fraction is within the normal range. There is normal LV segmental wall motion. There is no ventricular septal defect visualized. LVEF is 60%. Right Ventricle The right ventricle is normal size. The right ventricular systolic function is normal. Atria The left atrium size is normal. The right atrium size is normal. The interatrial septum is intact with no evidence for an atrial septal defect. Aortic Valve The aortic valve is normal in structure. Aortic valve is trileaflet. There is no aortic valvular stenosis. No aortic regurgitation is present. Mitral Valve The mitral valve is normal in structure. No evidence of mitral valve stenosis. Trace mitral regurgitation. Tricuspid Valve The tricuspid valve is normal in structure. There is no tricuspid valve stenosis. Trace tricuspid regurgitation. The RVSP is 31.4 mmHg. Pulmonic Valve The pulmonary valve is normal in structure. There is no pulmonic valvular stenosis. There is no pulmonic valvular regurgitation. Great Vessels The aortic root is normal in size. Ascending aorta is not well visualized. Aortic arch is not well visualized. IVC is normal in size and collapses >50% with inspiration. Pericardium There is no pericardial effusion. 2D Dimensions Ao Root d 3.00 cm F: 2.7 - 3.3 M-Mode TAPSE 1.60 cm (M/F) >1.7 Auto EF LV EDV A4C 106.2 mL LV EDV A2C 110.0 mL LV EDV BP 111.9 mL LV ESV A4C 41.5 mL LV ESV A2C 45.3 mL LV ESV BP 43.5 mL LVEF(%) A4C 61.0 % LVEF(%) A2C 58.8 % LVEF(%) BP 61.1 % LV SV A4C 64.7 ml LV SV A2C 64.7 ml LV SV BP 68.4 ml LV CO A4C 4.6 L/min LV CO A2C 4.7 L/min LV CO BP 4.7 L/min HR A4C 70.59 BPM HR A2C 73.17 BPM LV EDV Index (BP) LA Volume LA Length A4C 5.5 cm LA Length A2C 4.1 cm LA Area A4C s 18.43 cm2 LA Area A2C s 13.89 cm2 LA Vol A4C A-L 52.16 mL LA Vol A2C A-L 39.69 mL LA Vol Biplane A-L 52.7 mL LA Vol/BSA A4C A-L LA Vol/BSA A2C A-L LA Vol/BSA BP A-L 29.6 mL/m2 LA Vol A4C MOD 49.4 mL LA Vol A2C MOD 37.3 mL LA Vol BP MOD 49.3 mL RA Volume RA Area A4C 10.5 cm2 RA ESV A4C (A-L) 21.1mL RA Vol/BSA A4C A-L RA Length A4C 4.4 cm RA ESV A4C (MOD) 20.7mL LV Diastology MV E' medial 0.073 (>0.07 m/s) MV E Vmax 0.70 (0.4-1.3 m/s) MV E/E' MED 9.60 (<14) MV A Vmax 1.00 (0.4-1.3 m/s) MV E' lateral 0.118 (>0.1 m/s) E/A Ratio 0.7 MV E/E' LAT 5.96 (<14) MV E' Average 0.095 m/s MV E/E'(average) 7.35 Aortic Valve AoV Vmax 1.50 m/s LVOT Vmax 1.15 m/s AoV Peak Grad 9.0 mmHg LVOT Peak Grad 5.3 mmHg AoV Area (Vmax) 2.27 cm2 LVOT VTI 0.235 m AoV VTI 0.312 m LVOT Mean Grad 2.7 mmHg AoV Mean Ken. 0.98 m/s LVOT SV 69.40 mL AoV Mean Grad 4.4 mmHg LVOT Diam s 1.90 cm AoV Area (VTI) 2.22 cm2 AV Regurg Peak Gr. 8.95 mmHg Velocity Ratio 0.77 Mitral Valve MV DT 252 (160-240 msec) MV Vmax TIPS 0.90 m/s MV Mean Grad 1.3 (<2mmHg) MV VTI 0.276 m Pulmonary Valve PV Vmax 1.09 (0.5-1.5 m/s) RVOT Vmax 0.82 m/s PV Peak Grad 4.7 mmHg RVOT Peak Gr. 2.7 mmHg PV Mean Ken 0.69 m/s RVOT VTI 0.173 m PV Mean Grad 2.3 mmHg RVOT Mean Gr. 1.5 mmHg Tricuspid Valve RA Pressure 3.00 mmHg TR Vmax 2.67 m/s TV S' 0.14 m/s TR Peak Grad 28.4 mmHg RVSP (TR) 31.4 mmHg
== END 2024-10-29 03:43 ==
LOC: DI 03:23
PROVIDERS: PCP Family Medicine; Visit Provider Student in an Organized Health Care Education/Training Program
DX: R60.0 Localized edema (principal)
CPT/HCPCS: 93306

== ENCOUNTER 2024-11-10 17:51 | Outpatient (REF) | payer MEDICARE, SELFPAY ==
[2024-11-10 15:19] LABS: HCT 39.5 % (36.0-46.0); HGB 12.5 g/dL (11.2-15.7); MCH 30.1 pg (27.0-33.0); MCHC 31.6 % (32.0-36.0); MCV 95 fL (80-95); MPV 10.0 fL (8.0-11.0); Platelet Count 287 10^3/uL (130-400); RBC 4.15 10^6/uL (3.93-5.22); RDW 12.8 % (11.7-14.6); RDW-SD 45.1 fL; WBC 6.69 10^3/uL (4.4-10.8)
[2024-11-10 16:04] LABS: Anion Gap 7.9 mmol/L (3-11); BUN 34 mg/dL (7-18); CO2 31.1 mmol/L (21.0-32.0); Calcium 10.4 mg/dL (8.5-10.1); Chloride 104 mmol/L (98-107); Estimated GFR 57.66 (mL/min/1.73m2); Glucose 113 mg/dL (74-106); Potassium 4.4 mmol/L (3.5-5.1); Sodium 143 mmol/L (136-145); Vitamin B12 1404 pg/mL (193-986)
[2024-11-10 16:17] LABS: Folate > 20.0 ng/mL (8.6-20.0)
== END 2024-11-10 17:52 | disposition home or self-care (01) ==
LOC: NCHCN 17:51
PROVIDERS: PCP Family Medicine; Visit Provider Family Medicine
DX: I10 Essential (primary) hypertension (principal)
CPT/HCPCS: 80048; 85027; 82607; 82746